=== PATIENT | male | born 1950 | race Caucasian/White ===

== ENCOUNTER 2021-04-07 08:30 | Emergency (ER) | payer MEDICARE, SELFPAY ==
--- NOTE | ~2021-04-07 | US_ITS ---
EXAMINATION: US VENOUS ULTRASOUND WITH DOPPLER LOWER EXTREMITY, RIGHT CLINICAL INFORMATION: Right foot and ankle pain. History of skin cancer. COMPARISON: None TECHNIQUE: Ultrasound of the deep veins is performed from the hip to the calf with compression sonography and color and pulse Doppler assessment. Spectral analysis with color-flow imaging is performed. FINDINGS: There is normal venous compression and respiratory variation and augmented flow. The visualized common femoral vein, superficial femoral vein, profunda femoral vein, popliteal vein, and the trifurcation region shows no evidence of deep venous thrombosis. There is no significant popliteal fossa cyst. If the patient's symptoms persist, followup ultrasound in 5 days 7 days might be of value to exclude proximal propagation from a non-visualized calf vein. US/US venous duplex LE RT IMPRESSION: No acute DVT demonstrated in the right lower extremity.
--- NOTE | ~2021-04-07 | XR_ITS ---
EXAMINATION: RIGHT FOOT AND RIGHT ANKLE CLINICAL INFORMATION: Trauma with pain and swelling COMPARISON: None TECHNIQUE: Three-view right foot and two-view right ankle FINDINGS: There is no evidence of acute fracture or dislocation of the right ankle. There is noted to be soft tissue swelling diffusely. There is no evidence of acute fracture or dislocation of the right foot. Soft tissue swelling is seen dorsally about the midfoot. XR/XR ankle RT min 3V IMPRESSION: No acute fracture or dislocation of the right ankle or foot. Soft tissue swelling.
--- NOTE | ~2021-04-07 | XR_ITS ---
EXAMINATION: RIGHT FOOT AND RIGHT ANKLE CLINICAL INFORMATION: Trauma with pain and swelling COMPARISON: None TECHNIQUE: Three-view right foot and two-view right ankle FINDINGS: There is no evidence of acute fracture or dislocation of the right ankle. There is noted to be soft tissue swelling diffusely. There is no evidence of acute fracture or dislocation of the right foot. Soft tissue swelling is seen dorsally about the midfoot. XR/XR foot RT min 3V IMPRESSION: No acute fracture or dislocation of the right ankle or foot. Soft tissue swelling.
[2021-04-07 09:06] VITALS: BP 153/77; PULSE 66; RESP 14; TEMP 36.6; O2SAT 100; BMI 21.4
--- NOTE | 2021-04-07 09:52 | ED.EXTPRO ---
HPI - Extremity Problem General Chief complaint: Extremity Injury, Lower Stated complaint: rt foot pain & swelling Time Seen by Provider: 04/07/21 08:44 Source: patient Mode of arrival: ambulatory Limitations: no limitations History of Present Illness HPI Narrative: 70-year-old male with a past medical history of neurogenic bladder, compression spine fracture to the thoracic spine, basal cell carcinoma who is status post surgery to the left ear on January 2021 presenting to the ED with complaints of atraumatic right ankle/foot pain/swelling with redness to the dorsal aspect of the right foot for the past 3 days. He reports that he does not recall any injuries to the site and he has not had any recent falls. He denies any dizziness, headaches, neck pain/stiffness, palpitations, nausea/vomiting, chest pain or shortness of breath, dyspnea on exertion, orthopnea, abdominal pain, back pain, dysuria, hematuria, black or bloody stools, recent travel or sick contacts, being on any blood thinners, history of DVT or PE, history of gout, history of immobilization such as traveling on a long plane/train/car ride, recent illness or PVD disease that he is aware of. He reports that he does not take any medications. He is pretty active walks at least 1 mile daily. Denies any additional complaints or concerns at this time. MD Complaint: extremity pain and extremity swelling Onset (ago): day(s) (Three days) Pain Consistency: constant Location: right and lower extremity (Ankle/foot) Quality: aching and constant Radiation: none Relieving factors: nothing Exacerbating factors: weight bearing, walking and palpation Associated symptoms: denies other symptoms Context: other (History of cancer and recent surgical procedure to left ear for basal cell carcinoma in January 2021) Related Data Previous Rx's Medication Instructions Recorded cephalexin 500 mg capsule 500 mg PO Q8H 10 Days #30 cap 04/07/21 doxycycline hyclate 100 mg tablet 100 mg PO BID 10 Days #20 tab 04/07/21 prednisone 20 mg tablet 20 mg PO DAILY 5 Days #5 tab 04/07/21 Allergies Allergy/AdvReac Type Severity Reaction Status Date / Time lactose [LACTOSE] Allergy Severe CRAMPING Unverified 02/17/20 15:35 soy [SOY] Allergy Severe CRAMPING Unverified 02/17/20 15:35 ANTIBIOTIC SENSITIVE Allergy Severe ABDOMINAL Uncoded 02/17/20 15:35 PAIN Review of Systems Review of Systems: Constitutional : No Weight loss, No Fever, No Chills, No Night Sweats, No Fatigue, No Malaise ENT/Mouth : No Hearing loss, No Ear Pain, No Nasal Congestion, No Sinus Pain, No Hoarseness, No sore throat, No Rhinorrhea, No Swallowing Difficulty Eyes: No Eye Pain, No Swelling, No Redness, No Foreign Body, No Discharge, No Vision Changes Cardiovascular : No Chest Pain, No SOB, No Dyspnea on Exertion, No Orthopnea, No Edema, No Palpitations Respiratory : No Cough, No Sputum, No Wheezing, No Smoke Exposure, No Dyspnea Gastrointestinal : No Nausea, No Vomiting, No Diarrhea, No Constipation, No abdominal Pain, No Hematochezia, No Melena Genitourinary : no irregular bleeding, No Dysuria, No Urinary Frequency, No Hematuria, No Urinary Incontinence, No Urgency, No Flank Pain, No Urinary Flow Changes, No Hesitancy Musculoskeletal : Right ankle/foot pain/swelling with mild redness to the right dorsal aspect of the right foot, No Myalgias Skin : No Skin Lesions, No rash Neuro : No Weakness, No Numbness, No Paresthesias, No Loss of Consciousness, No Dizziness, No Headache Psych : No Anxiety/Panic, No Depression, No SI/HI/AH/VH, No Social Issues, Heme/Lymph: No Bruising, No Bleeding,No Lymphadenopathy Endocrine : No Polyuria, No Polydipsia, No Temperature Intolerance Yes all other systems are reviewed and are negative [facility] Past Medical History Attestation statement: The following information was validated with the patient. Medical History Basal cell carcinoma Bunion Compressed spine fracture FH: mitral valve repair Neurogenic bladder Social History Social History Advance Directives: No Physical Exam Vital Signs: Vital Signs: Last Vital Signs Temp 97.9 F 04/07/21 09:06 Pulse 66 04/07/21 09:06 Resp 14 04/07/21 09:06 BP 153/77 H 04/07/21 09:06 Pulse Ox 100 04/07/21 09:06 Body Mass Index 21.4 vital signs have been reviewed as normal and appeared to be correct. Blood pressure normal. Heart rate normal. Respiration rate normal. Temperature normal. Oxygen saturation normal. Appearance: Alert. Oriented X3. No acute distress. Head: Normal external exam. Normocephalic. Atraumatic. Eyes: PERRLA. EOMI. Conjunctiva and sclera normal. Eyelids normal. ENT: Pharynx normal. Uvula midline. Moist mucous membranes. Neck: Normal inspection. Neck supple. FROM. No adenopathy. No meningeal signs. No neck mass noted. CVS: Normal heart rate and rhythm. Heart sound normal. Pulses normal throughout. No murmurs/rales/gallops. Respiratory: No respiratory distress. Painless inspiration. Breath sounds normal. No wheezes/rales/rhonchi noted. Chest nontender. No accessory muscle usage noted or decreased air movement noted. Back: Full range of motion noted. Skin: Skin warm and dry. Normal skin color. Normal skin turgor. No rashes/lesions/lacerations noted. Extremities: Patient with mild sinus all patient to the right ankle and the right foot at the medial and lateral aspect and dorsal aspect of the right foot. At the mid to distal aspect of the foot patient has mild erythema/calor. Patient does have full range of motion of the right foot and ankle. No obvious ligamentous or tendon injury. Patient does have right calf tenderness. No lower extremity edema is noted. Otherwise all other Extremities exhibit normal range of motion and nontender. Neuro: Oriented X 3. No motor deficit. No sensory deficit. Reflexes normal. Normal steady gait. No focal neuro deficits noted. Vascular: + radial pulses/+ 2 distal pedal pulses/+2 dorsalis pedis b/l. Normal cap refill. No cyanosis noted to upper extremity nails and lower extremity toes nails. Course Course Course Narrative: 9:10am - 70-year-old male with a past medical history of neurogenic bladder, compression spine fracture to the thoracic spine, basal cell carcinoma who is status post surgery to the left ear on January 2021 presenting to the ED with complaints of atraumatic right ankle/foot pain/swelling with redness to the dorsal aspect of the right foot for the past 3 days. Plan: X-ray of right ankle/foot and venous duplex ultrasound of right lower extremity to evaluate for DVT then re-evaluate. Reevaluation(s) Reevaluation #1: - venous duplex ultrasound of right lower extremity negative for DVT. Right ankle/foot x-ray negative for any acute processes only reveals soft tissue swelling. Therefore I discussed this case with Dr. Eric and she recommending putting him on a short course of steroids for possible gout and Keflex for possible cellulitic infection along with instructions to return if any new or worsening symptoms to follow up with primary care provider. Patient understands agrees with this plan. Time: 10:40 [facility] - Extremity (Nontraumatic) Medical Records Attestation: I reviewed the patient's medical records. Discharge Plan Discharge Clinical Impression: Cellulitis Patient Disposition: Home, Self-Care Instructions: Cellulitis (ED) Prescriptions: New cephalexin 500 mg capsule 500 mg PO Q8H 10 Days Qty: 30 RF: 0 doxycycline hyclate 100 mg tablet 100 mg PO BID 10 Days Qty: 20 RF: 0 prednisone 20 mg tablet 20 mg PO DAILY 5 Days Qty: 5 RF: 0 Referrals: Robbi Bowie MD [Primary Care Provider] - 2 days Print Language: Japanese
== END 2021-04-07 10:56 | disposition home or self-care (01) ==
PROVIDERS: Emergency Provider Emergency Medicine; PCP Internal Medicine
DX: L03.115 Cellulitis of right lower limb (principal); M79.604 Pain in right leg; R60.0 Localized edema; Z79.899 Other long term (current) drug therapy
CPT/HCPCS: 73610; 73630; 93971; 99283; 99284

== ENCOUNTER 2021-04-29 09:16 | Observation (INO) | payer MEDICARE, SELFPAY ==
[2021-04-29] VITALS (9 sets, daily range): BP systolic 127–165; BP diastolic 69–83; PULSE 61–71; RESP 15–20; TEMP 36.7–36.9; O2SAT 96–99; BMI 21.4
--- NOTE | ~2021-04-29 | CT_ITS ---
EXAMINATION: CT BRAIN AND CT CERVICAL SPINE WITHOUT CONTRAST. CLINICAL INFORMATION: Fall, syncope and neck pain. COMPARISON: None TECHNIQUE: 5 minutes thin axial and reformatted 2 minutes thin sagittal coronal images of brain were obtained without contrast. Subsequently axial 3 mm thin and reformatted 2 mm thin sagittal and coronal images of cervical spine were obtained. DLP 991 mGy/cm. FINDINGS: Brain: There is no acute intra-axial, extra-axial bleed, masses or midline shift. There is no acute infarction evolution. There is no edema. The nolasco to white matter difference is maintained normal. The lateral ventricles are symmetrical in size and configuration without enlargement. Bone windows reveal no calvarial abnormality. There is no scalp soft tissue abnormality. Bilateral paranasal sinuses and mastoid air cells are well-aerated. Cervical spine: There is maintained cervical lordosis. The vertebral heights and alignment is normal. There is loss of C2-C3 through C6-C7 disc heights with mild anterior posterior spondylosis. The craniovertebral junction and the C1-C2 alignment is normal. There is mild bilateral facet joint disease. No visible acute fracture, dislocation or subluxation seen. The prevertebral and paravertebral soft tissues are normal. The airway is widely patent. The thyroid lobes are symmetrical and normal. The lung apices are clear. CT/CT head/brain wo con IMPRESSION: No acute intracranial process seen. There are degenerative disc changes with spondylosis C2-C3 through C6-C7 disc levels with mild ventral and posterior spondylosis. No visible acute fracture, dislocation or subluxation seen.
--- NOTE | ~2021-04-29 | CT_ITS ---
EXAMINATION: CT BRAIN AND CT CERVICAL SPINE WITHOUT CONTRAST. CLINICAL INFORMATION: Fall, syncope and neck pain. COMPARISON: None TECHNIQUE: 5 minutes thin axial and reformatted 2 minutes thin sagittal coronal images of brain were obtained without contrast. Subsequently axial 3 mm thin and reformatted 2 mm thin sagittal and coronal images of cervical spine were obtained. DLP 991 mGy/cm. FINDINGS: Brain: There is no acute intra-axial, extra-axial bleed, masses or midline shift. There is no acute infarction evolution. There is no edema. The nolasco to white matter difference is maintained normal. The lateral ventricles are symmetrical in size and configuration without enlargement. Bone windows reveal no calvarial abnormality. There is no scalp soft tissue abnormality. Bilateral paranasal sinuses and mastoid air cells are well-aerated. Cervical spine: There is maintained cervical lordosis. The vertebral heights and alignment is normal. There is loss of C2-C3 through C6-C7 disc heights with mild anterior posterior spondylosis. The craniovertebral junction and the C1-C2 alignment is normal. There is mild bilateral facet joint disease. No visible acute fracture, dislocation or subluxation seen. The prevertebral and paravertebral soft tissues are normal. The airway is widely patent. The thyroid lobes are symmetrical and normal. The lung apices are clear. CT/CT cervical spine wo con IMPRESSION: No acute intracranial process seen. There are degenerative disc changes with spondylosis C2-C3 through C6-C7 disc levels with mild ventral and posterior spondylosis. No visible acute fracture, dislocation or subluxation seen.
--- NOTE | ~2021-04-29 | XR_ITS ---
EXAMINATION: XR CHEST CLINICAL INFORMATION: Syncope COMPARISON: None TECHNIQUE: Frontal view of the chest was obtained. FINDINGS: No significant abnormality is noted involving the heart, lungs, mediastinum, bony thorax or soft tissues. XR/XR chest 1V IMPRESSION: Unremarkable chest examination.
--- NOTE | 2021-04-29 09:41 | ECG_ITS ---
Test Reason : SYNCOPE Blood Pressure : / mmHG Vent. Rate : 067 BPM Atrial Rate : 067 BPM P-R Int : 252 ms QRS Dur : 090 ms QT Int : 416 ms P-R-T Axes : 000 033 052 degrees QTc Int : 439 ms Sinus rhythm with sinus arrhythmia with 1st degree A-V block RSR' or QR pattern in V1 suggests right ventricular conduction delay Borderline ECG T wave amplitude has decreased in Anterior leads Referred By: Bishnu Carrera Electronically Signed By:TEOFILO BEAVERS MD
--- NOTE | 2021-04-29 09:45 | ED_ITS ---
HPI - Syncope General Chief Complaint: Syncope Stated Complaint: fainted hit head Time Seen by Provider: 04/29/21 09:40 Source: patient Mode of arrival: ambulatory Limitations: no limitations History of Present Illness HPI narrative: 70-year-old male came in for evaluation of 1 episode of passing out. 70-year-old male who usually it to a self-catheterization due to neurogenic bladder, while he was self catheterizing patient passed out, do remember falling down, patient woke up found himself on the floor, complaining of pain on the left side of chest wall, pain with movement and taking deep breath or raising his arm up. Patient decline chest pain before falling. Patient is complaining of bleeding from old surgery (mass removal on his left ear). Patient had history of open-heart surgery of mitral valve prolapse repair 6 years ago. Related Data Home Medications Medication Instructions Recorded Confirmed ascorbic acid (vitamin C) 1,000 mg 1,000 mg PO DAILY 04/29/21 04/29/21 tablet cholecalciferol (vitamin D3) 50 50 mcg PO DAILY 04/29/21 04/29/21 mcg (2,000 unit) tablet (Vitamin D3) multivitamin 1 tab PO DAILY 04/29/21 04/29/21 Allergies Allergy/AdvReac Type Severity Reaction Status Date / Time lactose [LACTOSE] Allergy Severe CRAMPING Unverified 02/17/20 15:35 soy [SOY] Allergy Severe CRAMPING Unverified 02/17/20 15:35 ANTIBIOTIC SENSITIVE Allergy Severe ABDOMINAL Uncoded 02/17/20 15:35 PAIN Review of Systems Review of Systems: All other systems are reviewed and are negative Constitutional: Reports as per HPI and Reports no additional constitutional complaints Eyes: Reports as per HPI and Reports no additional eye complaints Reports system reviewed and no additional complaints, except as documented Cardiovascular: Reports as per HPI and Reports no additional cardiovascular complaints Respiratory: Reports as per HPI and Reports no additional respiratory complaints Gastrointestinal: Reports as per HPI and Reports no additional gastrointestinal complaints Genitourinary: Reports no additional female genitourinary complaints Musculoskeletal: Reports no additional musculoskeletal complaints Skin/Breast: Reports system reviewed and no additional complaints, except as doc u Psychiatric: Reports no additional psychiatric complaints Endocrine: Reports no additional endocrine complaints Hematologic/Lymphatic: Reports no additional hematologic/lymphatic complaints Allergic/Immunologic: Reports no additional allergic/immunologic complaints Reports system reviewed and no additional complaints, except as documented and Reports Abnormal speech present [facility] Past Medical History Medical History (Updated 04/29/21 @ 12:42 by Chet Pavon MD) Basal cell carcinoma Bunion Compressed spine fracture Mitral valve prolapse Neurogenic bladder Surgical History (Updated 04/29/21 @ 12:42 by Chet Pavon MD) S/P mitral valve repair Social History Social History Alcohol intake: never Patient Tobacco Use Status: Tobacco use Unknown Use of substances other than those prescribed or required for medical reasons: No Advance Directives: No Advance Directives Information Provided: No Physical Exam Vital Signs: Vital Signs: Last Vital Signs Temp 98.0 F 04/29/21 10:42 Pulse 61 04/29/21 10:42 Resp 20 04/29/21 10:42 BP 152/80 H 04/29/21 10:42 Pulse Ox 99 04/29/21 10:42 Body Mass Index 21.4 Vital signs have been reviewed as appeared to be correct. Blood pressure normal. Heart rate normal. Respiration rate normal. Temperature normal. Oxygen saturation normal. Appearance: Alert. Oriented X3. No acute distress. Head: Normal external exam. Normocephalic. Atraumatic. No Ward signs noted. No raccoon eyes noted Eyes: PERRLA. EOMI. Conjunctiva and sclera normal. Eyelids normal. ENT: TM's Normal. Pharynx normal. Uvula midline. Moist mucous membranes. No trismus noted. No drooling noted. No muffled voice noted. Superficial abrasion to the left ear with a dry blood. Neck: Normal inspection. Neck supple. FROM. No adenopathy. Thyroid Normal. No meningeal signs. No neck mass noted. CVS: Normal heart rate and rhythm. Heart sound normal. No murmurs noted. Pulses normal throughout. Respiratory: No respiratory distress. Painless inspiration. Breath sounds normal. No wheezes/rales/rhonchi noted. Chest nontender. No accessory muscle usage noted or decreased air movement noted. Abdomen: Soft and nontender. Bowel sounds normal in all 4 quadrants. No distention noted. No organomegaly noted. No visible injury noted. Back: No CVA tenderness. Full range of motion noted. Skin: Skin warm and dry. Normal skin color. Normal skin turgor. No rashes /lesions/lacerations noted. Extremities: No lower extremity edema. Extremities exhibit normal range of motion. Extremities nontender. Neuro: Oriented X 3. Cranial nerve exam: II-XII are grossly intact No motor deficit. No sensory deficit. Reflexes normal. Course Course Course Narrative: Assessment and plan. 70 years old male with history mitral valve repair by open hand surgery came in after a syncopal episode, patient has unremarkable labs and radiographic study today. Patient should be monitored for 24 hours the case discussed with the hospitalist. MDM - Syncope Medical Records Attestation: I reviewed the patient's medical records. Lab Data Attestation: I reviewed the patient's lab results. Result diagrams: 04/29/21 09:54 04/29/21 09:54 Labs: Lab Results 04/29/21 04/29/21 04/29/21 Range/Units 09:54 09:54 09:54 WBC 9.4 (4.8-10.8) X10*3/uL RBC 4.34 L (4.60-5.80) X10*6/uL Hgb 14.1 (14.0-18.0) g/dl Hct 41.9 L (42.0-52.0) % MCV 96.5 (80.0-98.0) fL MCH 32.5 (27.0-33.0) pg MCHC 33.7 (31.0-36.0) g/dl RDW 12.8 (11.0-16.0) % Plt Count 135 L (160-400) X10*3/uL MPV 12.4 (9.4-12.4) fL Immature Gran % (Auto) 0.3 (0.0-0.4) % Neut % (Auto) 80.3 H (45-73) % Lymph % (Auto) 10.9 L (20-40) % [place] % (Auto) 8.3 (2-11) % Eos % (Auto) 0.1 (0-4) % Baso % (Auto) 0.1 (0-2) % Lymph # (Auto) 1.0 L (1.2-4.9) X10*3/uL [place] # (Auto) 0.8 (0.1-1.2) X10*3/uL Eos # (Auto) 0.0 (0.0-0.4) X10*3/uL Baso # (Auto) 0.0 (0.0-0.2) X10*3/uL Abs Immat Gran (auto) 0.03 (0.00-0.03) X10*3/uL Absolute Neuts (auto) 7.6 (2.0-8.3) x10*3/uL Absolute Nucleated RBC 0.000 (0.0-0.012) X10*3/uL Nucleated RBC % (auto) 0.0 (0.0-0.2) /100WBC Sodium 140 (135-145) mmol/L Potassium 4.3 (3.3-5.1) mmol/L Chloride 104 (96-108) mmol/L Carbon Dioxide 29 (22-29) mmol/L Anion Gap 11 L (12-20) BUN 10 (9-16) mg/dL Creatinine 0.99 (0.5-1.4) mg/dL Estim Creat Clear Calc 68.5 Estimated GFR > 60 Random Glucose 105 (60-115) mg/dL Calcium 9.8 (8.4-10.2) mg/dL Total Bilirubin 0.9 (0.0-1.0) mg/dL Direct Bilirubin 0.3 (0.0-0.5) mg/dL AST 25 (5-37) U/L ALT 20 (0-40) U/L Alkaline Phosphatase 83 (39-117) U/L Troponin I High Sens < 3.5 (<3.5-35.0) ng/L B-Natriuretic Peptide 176 H (<100) pg/mL Total Protein 6.5 (6.5-8.0) g/dL Albumin 4.2 (3.5-5.0) g/dL Lipase 31 (8-78) U/L Urine Color Urine Appearance Urine pH (5.0-8.0) Ur Specific [place] (1.005-1.025) Urine Protein (NEG-TRACE) MG/DL Urine Glucose (UA) (NEG) MG/DL Urine Ketones (NEG) MG/DL Urine Blood (NEG) Urine Nitrite (NEG) Ur Leukocyte Esterase (NEG) Urine RBC (0) /HPF Urine WBC (0-4) /HPF Ur Squamous Epith Cells /LPF Urine Bacteria /LPF COVID-19 ([facility]) (Negative) COVID-19 Clin Com 04/29/21 04/29/21 Range/Units 09:54 11:35 WBC (4.8-10.8) X10*3/uL RBC (4.60-5.80) X10*6/uL Hgb (14.0-18.0) g/dl Hct (42.0-52.0) % MCV (80.0-98.0) fL MCH (27.0-33.0) pg MCHC (31.0-36.0) g/dl RDW (11.0-16.0) % Plt Count (160-400) X10*3/uL MPV (9.4-12.4) fL Immature Gran % (Auto) (0.0-0.4) % Neut % (Auto) (45-73) % Lymph % (Auto) (20-40) % [place] % (Auto) (2-11) % Eos % (Auto) (0-4) % Baso % (Auto) (0-2) % Lymph # (Auto) (1.2-4.9) X10*3/uL [place] # (Auto) (0.1-1.2) X10*3/uL Eos # (Auto) (0.0-0.4) X10*3/uL Baso # (Auto) (0.0-0.2) X10*3/uL Abs Immat Gran (auto) (0.00-0.03) X10*3/uL Absolute Neuts (auto) (2.0-8.3) x10*3/uL Absolute Nucleated RBC (0.0-0.012) X10*3/uL Nucleated RBC % (auto) (0.0-0.2) /100WBC Sodium (135-145) mmol/L Potassium (3.3-5.1) mmol/L Chloride (96-108) mmol/L Carbon Dioxide (22-29) mmol/L Anion Gap (12-20) BUN (9-16) mg/dL Creatinine (0.5-1.4) mg/dL Estim Creat Clear Calc Estimated GFR Random Glucose (60-115) mg/dL Calcium (8.4-10.2) mg/dL Total Bilirubin (0.0-1.0) mg/dL Direct Bilirubin (0.0-0.5) mg/dL AST (5-37) U/L ALT (0-40) U/L Alkaline Phosphatase (39-117) U/L Troponin I High Sens (<3.5-35.0) ng/L B-Natriuretic Peptide (<100) pg/mL Total Protein (6.5-8.0) g/dL Albumin (3.5-5.0) g/dL Lipase (8-78) U/L Urine Color STRAW Urine Appearance CLEAR Urine pH 7.0 (5.0-8.0) Ur Specific [place] <= 1.005 (1.005-1.025) Urine Protein NEG (NEG-TRACE) MG/DL Urine Glucose (UA) NEG (NEG) MG/DL Urine Ketones NEG (NEG) MG/DL Urine Blood 2+ H (NEG) Urine Nitrite NEG (NEG) Ur Leukocyte Esterase NEG (NEG) Urine RBC 5-9 H (0) /HPF Urine WBC 0 (0-4) /HPF Ur Squamous Epith Cells TRACE /LPF Urine Bacteria NONE /LPF COVID-19 ([facility]) Negative (Negative) COVID-19 Clin Com See Note Imaging Data CT scan - head: Attestation: I personally reviewed and interpreted this imaging study as follows: Radiologist's impression: No acute intracranial process seen. Cervical spine CT: Radiologist's impression: There are degenerative disc changes with spondylosis C2-C3 through C6-C7 disc levels with mild ventral and posterior spondylosis. No visible acute fracture, dislocation or subluxation seen. Chest x-ray: Attestation: I personally reviewed and interpreted this imaging study as follows: Radiologist's impression: Unremarkable chest examination. ECG Data Attestation: I personally reviewed and interpreted this ECG as follows: Interpretation: Normal sinus rhythm at 67 beats per minutes, was first-degree AV block, otherwise unremarkable intervals, no ST-T changes. Discharge Plan Discharge Clinical Impression: Syncope Patient Disposition: Admitted As Inpatient
[2021-04-29] MEDS: 0.9 % Sodium Chloride 1,000 ML 999 ML IVCONT (09:56)
[2021-04-29 09:59] LABS: MANUAL DIFF FLAG NO
[2021-04-29 10:07] LABS: Basophils Percent Auto 0.1 % (0-2); Eosinophils Percent Auto 0.1 % (0-4); Hematocrit 41.9 % (42.0-52.0); Hemoglobin 14.1 g/dl (14.0-18.0); Imm Gran Abs Auto 0.03 X10*3/uL (0.00-0.03); Imm Gran Pct Auto 0.3 % (0.0-0.4); Lymphocytes Percent Auto 10.9 % (20-40); Mean Corpuscular HGB Conc 33.7 g/dl (31.0-36.0); Mean Corpuscular Hemoglobin 32.5 pg (27.0-33.0); Mean Corpuscular Volume 96.5 fL (80.0-98.0); Mean Platelet Volume 12.4 fL (9.4-12.4); Monocytes Absolute Auto 0.8 X10*3/uL (0.1-1.2); Monocytes Percent Auto 8.3 % (2-11); Neutrophils Absolute Auto 7.6 x10*3/uL (2.0-8.3); Neutrophils Percent Auto 80.3 % (45-73); Platelet Count 135 X10*3/uL (160-400); Red Blood Count 4.34 X10*6/uL (4.60-5.80); Red Cell Distribution Width 12.8 % (11.0-16.0); White Blood Count 9.4 X10*3/uL (4.8-10.8)
--- NOTE | 2021-04-29 10:13 | PHA.MEDREC ---
Pharmacy Consult ? Medication Reconciliation Pharmacy has completed the medication reconciliation. Vernell SteinbergD
[2021-04-29 10:19] LABS: Alanine Aminotransferase 20 U/L (0-40); Albumin Level 4.2 g/dL (3.5-5.0); Alkaline Phosphatase 83 U/L (39-117); Anion Gap 11 (12-20); Aspartate Amino Transferase 25 U/L (5-37); Bilirubin Direct 0.3 mg/dL (0.0-0.5); Bilirubin Total 0.9 mg/dL (0.0-1.0); Blood Urea Nitrogen 10 mg/dL (9-16); Calcium 9.8 mg/dL (8.4-10.2); Carbon Dioxide 29 mmol/L (22-29); Chloride 104 mmol/L (96-108); Creatinine Clr Calc Pharmacy 68.5; Estimated Glomerular Filt Rate > 60; Glucose Random 105 mg/dL (60-115); Lipase 31 U/L (8-78); Potassium 4.3 mmol/L (3.3-5.1); Sodium 140 mmol/L (135-145); Total Protein 6.5 g/dL (6.5-8.0)
[2021-04-29 10:25] LABS: B Type Natriuretic Peptide 176 pg/mL (<100); Troponin-I High Sensitivity < 3.5 ng/L (<3.5-35.0)
[2021-04-29 10:50] LABS: COVID-19 Test Negative (Negative); IDNOW Serial# 9DD0AD1C
[2021-04-29 11:41] LABS: Appearance Urine CLEAR; Color Urine STRAW; Glucose Urine UA NEG (NEG); Leukocyte Esterase Urine NEG (NEG); Nitrite Urine NEG (NEG); Specific Gravity - Urine <= 1.005 (1.005-1.025); UACC Culture Trigger NO; Urine Blood 2+ (NEG); Urine Ketones NEG (NEG); Urine Protein NEG (NEG-TRACE)
[2021-04-29 12:06] LABS: Squamous Epithelial Cell Urine TRACE /LPF; WBC Urine 0 /HPF (0-4)
--- NOTE | 2021-04-29 13:12 | P.HPHOSP_ITS ---
History of Present Illness Date of Service: 04/29/21 Chief Complaint: Syncope 70-year-old male presented with syncope. Patient states he woke up on a.m. of admission and went to self-catheterize, patient self catheterizes for neurogenic bladder. he did feel a little off for the past few days, though he thought he was doing better about 2 days prior to presentation. During his self catheterization at 06:00 he completely lost consciousness. He fell on his face and left-sided chest. He woke up with a ocular migraine, no significant disorientation, no incontinence. He is not sure how long he lost consciousness for but believes it was brief. patient has history of mitral valve prolapse with severe mitral regurgitation, now status post repair. He also has Family history, a niece with mitral valve prolapse that had sudden cardiac . Review of Systems Review of Systems: Constitutional: Denies fever, denies Chills Eyes: denies blurry vision ENT: denies sore throat CVS: denies chest pain Respiratory: Denies dyspnea GI: no abdominal pain : denies dysuria MSK: denies neck pain Skin: denies rash Neuro: denies specific motor weakness Psych: denies suicidal ideation Endocrine: denies heat/cold intolerance Hematologic: denies easy bleeding Allergy: denies hives [facility] Medical History Basal cell carcinoma Bunion Compressed spine fracture Mitral valve prolapse Neurogenic bladder Family History (Updated 04/29/21 @ 13:15 by Chet Pavon MD) Other Mitral valve prolapse Pertinent family history: Multiple family members with monitor valve prolapse, Pain ease and mitral valve prolapse and of sudden cardiac . Surgical History S/P mitral valve repair Social History Alcohol intake: never Patient Tobacco Use Status: Tobacco use Unknown Use of substances other than those prescribed or required for medical reasons: No Advance Directives: No Advance Directives Information Provided: No Meds Allergies Allergy/AdvReac Type Severity Reaction Status Date / Time lactose [LACTOSE] Allergy Severe CRAMPING Unverified 02/17/20 15:35 soy [SOY] Allergy Severe CRAMPING Unverified 02/17/20 15:35 ANTIBIOTIC SENSITIVE Allergy Severe ABDOMINAL Uncoded 02/17/20 15:35 PAIN Active Medications: Current Medications Pharmacy Consult (Consult Rx Perform Med Rec) 1 each MISCELLANE ONCE PRN PRN Reason: Consult order Home Medications Medication Instructions Recorded Confirmed Last Taken Type ascorbic acid (vitamin C) 1,000 mg 1,000 mg PO DAILY 04/29/21 04/29/21 04/29/21 History tablet cholecalciferol (vitamin D3) 50 50 mcg PO DAILY 04/29/21 04/29/21 04/28/21 History mcg (2,000 unit) tablet (Vitamin D3) multivitamin 1 tab PO DAILY 04/29/21 04/29/21 04/28/21 History Physical Exam Vital Signs and Narrative: Vital Signs: Last Vital Signs Temp 98.0 F 04/29/21 10:42 Pulse 61 04/29/21 10:42 Resp 20 04/29/21 10:42 BP 152/80 H 04/29/21 10:42 Pulse Ox 99 04/29/21 10:42 Body Mass Index 21.4 General: no acute distress HEENT: left ear with dried blood (s/p basal cell excision, reopened after fall) Neck: normal to visual inspection CVS: S1, S2, RRR Resp: CTA bilateral Chest: non tender, sternal scar GI: soft, non tender, non distended : no CVA tenderness Skin: no rashes Extremities: no edema Neuro: Oriented X3, grossly intact Psych: cooperative Results Labs CBC and Chem 7: 04/29/21 09:54 04/29/21 09:54 Labs: Laboratory Results - last 24 hr 04/29/21 04/29/21 04/29/21 09:54 09:54 09:54 MCV 96.5 MCH 32.5 MCHC 33.7 RDW 12.8 Plt Count 135 L MPV 12.4 Immature Gran % (Auto) 0.3 Neut % (Auto) 80.3 H Lymph % (Auto) 10.9 L [place] % (Auto) 8.3 Eos % (Auto) 0.1 Baso % (Auto) 0.1 Lymph # (Auto) 1.0 L [place] # (Auto) 0.8 Eos # (Auto) 0.0 Baso # (Auto) 0.0 Abs Immat Gran (auto) 0.03 Absolute Neuts (auto) 7.6 Absolute Nucleated RBC 0.000 Nucleated RBC % (auto) 0.0 Anion Gap 11 L Estim Creat Clear Calc 68.5 Estimated GFR > 60 Random Glucose 105 Calcium 9.8 Total Bilirubin 0.9 Direct Bilirubin 0.3 AST 25 ALT 20 Alkaline Phosphatase 83 Troponin I High Sens < 3.5 B-Natriuretic Peptide 176 H Total Protein 6.5 Albumin 4.2 Lipase 31 Urine Color Urine Appearance Urine pH Ur Specific [place] Urine Protein Urine Glucose (UA) Urine Ketones Urine Blood Urine Nitrite Ur Leukocyte Esterase Urine RBC Urine WBC Ur Squamous Epith Cells Urine Bacteria COVID-19 ([facility]) COVID-19 Clin Com 04/29/21 04/29/21 09:54 11:35 MCV MCH MCHC RDW Plt Count MPV Immature Gran % (Auto) Neut % (Auto) Lymph % (Auto) [place] % (Auto) Eos % (Auto) Baso % (Auto) Lymph # (Auto) [place] # (Auto) Eos # (Auto) Baso # (Auto) Abs Immat Gran (auto) Absolute Neuts (auto) Absolute Nucleated RBC Nucleated RBC % (auto) Anion Gap Estim Creat Clear Calc Estimated GFR Random Glucose Calcium Total Bilirubin Direct Bilirubin AST ALT Alkaline Phosphatase Troponin I High Sens B-Natriuretic Peptide Total Protein Albumin Lipase Urine Color STRAW Urine Appearance CLEAR Urine pH 7.0 Ur Specific [place] <= 1.005 Urine Protein NEG Urine Glucose (UA) NEG Urine Ketones NEG Urine Blood 2+ H Urine Nitrite NEG Ur Leukocyte Esterase NEG Urine RBC 5-9 H Urine WBC 0 Ur Squamous Epith Cells TRACE Urine Bacteria NONE COVID-19 ([facility]) Negative COVID-19 Clin Com See Note Imaging Radiologist's Impressions: Impressions Cervical Spine CT 04/29/21 09:41 IMPRESSION: No acute intracranial process seen. There are degenerative disc changes with spondylosis C2-C3 through C6-C7 disc levels with mild ventral and posterior spondylosis. No visible acute fracture, dislocation or subluxation seen. Chest X-Ray 04/29/21 09:41 IMPRESSION: Unremarkable chest examination. Head CT 04/29/21 09:41 IMPRESSION: No acute intracranial process seen. There are degenerative disc changes with spondylosis C2-C3 through C6-C7 disc levels with mild ventral and posterior spondylosis. No visible acute fracture, dislocation or subluxation seen. Assessment and Plan (1) Syncope: Status: Acute 70 presented with syncope Syncope likely vasovagal given self catheterization however, patient is high risk for arrhythmia due to history of mitral valve prolapse and repair and family history of sudden cardiac will monitor on telemetry cardiology evaluation Quality Stroke Does the patient have a stroke diagnosis?: No VTE Prior VTE?: No VTE Risk Level:: Medical - moderate - high VTE Device Contraindication: Treatment Not Indicated VTE Drug Contraindication: N/A - Med Ordered
[2021-04-29] MEDS: Enoxaparin Sodium 40 MG/0.4 ML SYRINGE SUBCUT (13:31)
[2021-04-29] MEDS: Acetaminophen 325 MG TABLET 650 MG PO (13:31)
--- NOTE | 2021-04-29 14:03 | MHC.CM.PN ---
Met with pt to discuss d/c plans: pt resides alone, no services and independent with care needs - states he receives mail delivered self cath supplies: HCP on file with PCP per pt. NICOLE signed - [place] [facility] [place].
[2021-04-30 06:37] LABS: Hematocrit 40.1 % (42.0-52.0); Hemoglobin 13.4 g/dl (14.0-18.0); Mean Corpuscular HGB Conc 33.4 g/dl (31.0-36.0); Mean Corpuscular Hemoglobin 32.1 pg (27.0-33.0); Mean Corpuscular Volume 96.2 fL (80.0-98.0); Mean Platelet Volume 12.9 fL (9.4-12.4); Platelet Count 131 X10*3/uL (160-400); Red Blood Count 4.17 X10*6/uL (4.60-5.80); Red Cell Distribution Width 13.1 % (11.0-16.0); White Blood Count 5.4 X10*3/uL (4.8-10.8)
[2021-04-30 06:52] LABS: Anion Gap 11 (12-20); Blood Urea Nitrogen 9 mg/dL (9-16); Calcium 8.8 mg/dL (8.4-10.2); Carbon Dioxide 26 mmol/L (22-29); Chloride 108 mmol/L (96-108); Creatinine Clr Calc Pharmacy 85.9; Estimated Glomerular Filt Rate > 60; Glucose Fasting 95 mg/dL (60-99); Magnesium 2.2 mg/dL (1.6-2.6); Potassium 3.5 mmol/L (3.3-5.1); Sodium 141 mmol/L (135-145)
--- NOTE | 2021-04-30 09:41 | P.DS_ITS ---
DS: Providers Provider Date of Service: 04/30/21 Date of admission: 04/29/21 13:11 Primary care physician: Robbi Bowie MD Consults: 04/29/21 13:05 Consult to Cardiology Routine Consulting Provider: Pablo Alaniz Reason for consultation: syncope, history of MV repair, FH of sudden cardiac , DS: Diagnosis Discharge Diagnosis (1) Syncope: Status: Acute DS: Summary Hospital Course Hospital Course: patient was observed for syncope. He had no events recorded on telemetry. Most likely this was vasovagal, though arrhythmia cannot be ruled out given history. He will be discharged home and should follow up with his patient assessment coordinator. Time Spent with Patient Time attestation: Total time spent providing and/or coordinating discharge services: Discharge coordination time: Greater than 30 minutes Quality: Stroke Does the patient have a stroke diagnosis?: No Physical Exam Vital Signs: Vital Signs: Last Vital Signs Temp 98.3 F 04/29/21 20:31 Pulse 71 04/29/21 20:31 Resp 20 04/29/21 20:31 BP 127/71 04/29/21 20:31 Pulse Ox 96 04/29/21 20:31 Body Mass Index 21.4 General: AO X 3, no acute distress Resp: CTA bilateral, no accessory muscles used CVS: S1,S2,RRR GI: soft, non tender, non distended Neuro: motor grossly intact, alert Psych: appropriate affect, appropriate insight DS: Data Data Completed and Pending Labs on day of discharge: Laboratory Results - last 24 hr 04/29/21 04/29/21 04/29/21 09:54 09:54 09:54 WBC 9.4 RBC 4.34 L Hgb 14.1 Hct 41.9 L MCV 96.5 MCH 32.5 MCHC 33.7 RDW 12.8 Plt Count 135 L MPV 12.4 Immature Gran % (Auto) 0.3 Neut % (Auto) 80.3 H Lymph % (Auto) 10.9 L [place] % (Auto) 8.3 Eos % (Auto) 0.1 Baso % (Auto) 0.1 Lymph # (Auto) 1.0 L [place] # (Auto) 0.8 Eos # (Auto) 0.0 Baso # (Auto) 0.0 Abs Immat Gran (auto) 0.03 Absolute Neuts (auto) 7.6 Absolute Nucleated RBC 0.000 Nucleated RBC % (auto) 0.0 Sodium 140 Potassium 4.3 Chloride 104 Carbon Dioxide 29 Anion Gap 11 L BUN 10 Creatinine 0.99 Estim Creat Clear Calc 68.5 Estimated GFR > 60 Random Glucose 105 Fasting Glucose Calcium 9.8 Magnesium Total Bilirubin 0.9 Direct Bilirubin 0.3 AST 25 ALT 20 Alkaline Phosphatase 83 Troponin I High Sens < 3.5 B-Natriuretic Peptide 176 H Total Protein 6.5 Albumin 4.2 Lipase 31 Urine Color Urine Appearance Urine pH Ur Specific [place] Urine Protein Urine Glucose (UA) Urine Ketones Urine Blood Urine Nitrite Ur Leukocyte Esterase Urine RBC Urine WBC Ur Squamous Epith Cells Urine Bacteria COVID-19 ([facility]) COVID-19 Clin Com 04/29/21 04/29/21 04/30/21 09:54 11:35 06:16 WBC 5.4 RBC 4.17 L Hgb 13.4 L Hct 40.1 L MCV 96.2 MCH 32.1 MCHC 33.4 RDW 13.1 Plt Count 131 L MPV 12.9 H Immature Gran % (Auto) Neut % (Auto) Lymph % (Auto) [place] % (Auto) Eos % (Auto) Baso % (Auto) Lymph # (Auto) [place] # (Auto) Eos # (Auto) Baso # (Auto) Abs Immat Gran (auto) Absolute Neuts (auto) Absolute Nucleated RBC 0.000 Nucleated RBC % (auto) 0.0 Sodium Potassium Chloride Carbon Dioxide Anion Gap BUN Creatinine Estim Creat Clear Calc Estimated GFR Random Glucose Fasting Glucose Calcium Magnesium Total Bilirubin Direct Bilirubin AST ALT Alkaline Phosphatase Troponin I High Sens B-Natriuretic Peptide Total Protein Albumin Lipase Urine Color STRAW Urine Appearance CLEAR Urine pH 7.0 Ur Specific [place] <= 1.005 Urine Protein NEG Urine Glucose (UA) NEG Urine Ketones NEG Urine Blood 2+ H Urine Nitrite NEG Ur Leukocyte Esterase NEG Urine RBC 5-9 H Urine WBC 0 Ur Squamous Epith Cells TRACE Urine Bacteria NONE COVID-19 ([facility]) Negative COVID-19 Clin Com See Note 04/30/21 06:16 WBC RBC Hgb Hct MCV MCH MCHC RDW Plt Count MPV Immature Gran % (Auto) Neut % (Auto) Lymph % (Auto) [place] % (Auto) Eos % (Auto) Baso % (Auto) Lymph # (Auto) [place] # (Auto) Eos # (Auto) Baso # (Auto) Abs Immat Gran (auto) Absolute Neuts (auto) Absolute Nucleated RBC Nucleated RBC % (auto) Sodium 141 Potassium 3.5 Chloride 108 Carbon Dioxide 26 Anion Gap 11 L BUN 9 Creatinine 0.79 Estim Creat Clear Calc 85.9 Estimated GFR > 60 Random Glucose Fasting Glucose 95 Calcium 8.8 D Magnesium 2.2 Total Bilirubin Direct Bilirubin AST ALT Alkaline Phosphatase Troponin I High Sens B-Natriuretic Peptide Total Protein Albumin Lipase Urine Color Urine Appearance Urine pH Ur Specific [place] Urine Protein Urine Glucose (UA) Urine Ketones Urine Blood Urine Nitrite Ur Leukocyte Esterase Urine RBC Urine WBC Ur Squamous Epith Cells Urine Bacteria COVID-19 ([facility]) COVID-19 Clin Com Discharge Plan Discharge Patient Disposition: Home, Self-Care Discharge Diagnosis: syncope Referrals: Robbi Bowie MD [Primary Care Provider] - 1 Week Discharge Medications: Continued multivitamin Tablet 1 tab PO DAILY RF: 0 ascorbic acid (vitamin C) 1,000 mg Tablet 1,000 mg PO DAILY RF: 0 cholecalciferol (vitamin D3) [Vitamin D3] 50 mcg (2,000 unit) Tablet 50 mcg PO DAILY RF: 0 Discharge Orders: Discharge Order (Routine); Ordered 04/30/21 Ordered By: Chet Pavon Diet: advance to usual diet Activity on Discharge: As tolerated Stand Alone Forms: Patient Portal Discharge page Care Plan Goals: avoid syncope Health Concerns: syncope Plan of Treatment: follow-up with Cardiology Assessment: see above
--- NOTE | 2021-04-30 10:00 | MHC.CM.PN ---
PT BEING DISCHARGED HOME TODAY WITH NO SERVICES PT WILL TAKE THE SHUTTLE HOME AND IS AWARE IT WILL BE LEAVING AT 1100 HOURS.
--- NOTE | 2021-04-30 10:03 | P.CONCA_ITS ---
History of Present Illness History of Present Illness Date of Service: 04/30/21 Chief complaint: syncope Narrative: This is a cardiology consultation regarding syncopal episode. Patient normally sees . He states that he has a history of mitral regurgitation for which she underwent repair about 5-6 years ago. Has been doing recently well in that regard. Unknown coronary status. He states that he had a hernia surgery few years ago and that led to neurogenic bladder. Hence he needs to straight cath himself. He was standing and doing a straight cath and that was followed by waking up on the floor. Not clear as to how he fell. No warning signs. He states he checked his pulse immediately after the episode and he did not know the actual number but felt it was not to slower too fast. He thought he might be in atrial fibrillation as he had a few episodes over years but then for based on his pulse rate did not think so. No other complaints like angina or shortness of breath or anything else. Now he feels back to his normal self. Otherwise, patient states that he had a head cold in the last few days. Review of Systems Review of Systems: Yes all other systems are reviewed and are negative Cardiovascular: Cardiovascular: Reports as per HPI, Reports no additional cardiovascular complaints, Denies acrocyanosis, Denies cool extremities, Denies painful fingertips, Denies chest pain, Denies chest pain at rest, Denies diaphoresis, Reports syncope, Denies irregular heart rhythm, Denies claudication, Denies leg edema, Denies lightheadedness, Denies palpitations and Denies dyspnea Respiratory: Respiratory: Denies dyspnea Neurologic: Reports syncope Endocrine: Endocrine: Denies palpitations [facility] Past Medical History Medical History Basal cell carcinoma Bunion Compressed spine fracture Mitral valve prolapse Neurogenic bladder Family History Family History (Updated 04/29/21 @ 13:16 by Chet Pavon MD) Other Mitral valve prolapse Pertinent family history: Sudden cardiac in aneudy at age of 13, who had long QT syndrome. Surgical History Surgical History S/P mitral valve repair Social History Social History Alcohol intake: never Patient Tobacco Use Status: Tobacco use Unknown Use of substances other than those prescribed or required for medical reasons: No Advance Directives: No Advance Directives Information Provided: No service: No Current occupational status: retired Meds Allergies Allergy/AdvReac Type Severity Reaction Status Date / Time lactose [LACTOSE] Allergy Severe CRAMPING Verified 04/30/21 00:28 soy [SOY] Allergy Severe CRAMPING Verified 04/30/21 00:28 ANTIBIOTIC SENSITIVE Allergy Severe ABDOMINAL Uncoded 04/30/21 00:28 PAIN Active Medications: Current Medications Acetaminophen (Acetaminophen 325 Mg Tablet) 650 mg PO Q6H PRN PRN Reason: Pain, Mild (Pain Scale 1-3) Enoxaparin Sodium (Enoxaparin Sodium 40 Mg/0.4 Ml Syringe) 40 mg SUBCUT Q24H [facility] Last Admin: 04/29/21 13:31 Dose: 40 mg Documented by: Pharmacy Consult (Consult Rx Perform Med Rec) 1 each MISCELLANE ONCE PRN PRN Reason: Consult order Sodium Chloride (0.9 % Sodium Chloride Flush 3 Ml Syringe) 3 ml IVFLUSH QSHIFT [facility] Last Admin: 04/30/21 08:28 Dose: Not Given Documented by: Home Medications Medication Instructions Recorded Confirmed Last Taken Type ascorbic acid (vitamin C) 1,000 mg 1,000 mg PO DAILY 04/29/21 04/29/21 04/29/21 History tablet cholecalciferol (vitamin D3) 50 50 mcg PO DAILY 04/29/21 04/29/21 04/28/21 History mcg (2,000 unit) tablet (Vitamin D3) multivitamin 1 tab PO DAILY 04/29/21 04/29/21 04/28/21 History Physical Exam Vital Signs: Vital Signs: Last Vital Signs Temp 98.3 F 04/29/21 20:31 Pulse 71 04/29/21 20:31 Resp 20 04/29/21 20:31 BP 127/71 04/29/21 20:31 Pulse Ox 96 04/29/21 20:31 Body Mass Index 21.4 Const: General: cooperative and no acute distress HENMT: Other: Unremarkable Neck: Neck: Yes normal visual inspection Chest: Chest palpation & inspection: normal inspection of the chest Resp: Auscultation: clear to auscultation bilaterally, no crackles and no wheezes Cardio: Jugular venous distension: no JVD Palpation: normal PMI Heart sounds: S1 normal heart sound present, S2 normal heart sound present, no gallops, no murmurs and no rubs GI: Palpation (GI): Soft to palpation Back/Spine/Pelvis: Other: unremarkable Skin: General skin exam: no rashes or lesions noted Neuro: Cranial nerves: Yes Other cranial nerve findings present Extrem: General: Yes no clubbing, cyanosis or edema Psych: Mental Status: other Objective Labs and Meds Result diagrams: 04/30/21 06:16 04/30/21 06:16 Lab results: Laboratory Results - last 24 hr 04/29/21 04/29/21 04/29/21 09:54 09:54 09:54 WBC 9.4 RBC 4.34 L Hgb 14.1 Hct 41.9 L MCV 96.5 MCH 32.5 MCHC 33.7 RDW 12.8 Plt Count 135 L MPV 12.4 Immature Gran % (Auto) 0.3 Neut % (Auto) 80.3 H Lymph % (Auto) 10.9 L [place] % (Auto) 8.3 Eos % (Auto) 0.1 Baso % (Auto) 0.1 Lymph # (Auto) 1.0 L [place] # (Auto) 0.8 Eos # (Auto) 0.0 Baso # (Auto) 0.0 Abs Immat Gran (auto) 0.03 Absolute Neuts (auto) 7.6 Absolute Nucleated RBC 0.000 Nucleated RBC % (auto) 0.0 Sodium 140 Potassium 4.3 Chloride 104 Carbon Dioxide 29 Anion Gap 11 L BUN 10 Creatinine 0.99 Estim Creat Clear Calc 68.5 Estimated GFR > 60 Random Glucose 105 Fasting Glucose Calcium 9.8 Magnesium Total Bilirubin 0.9 Direct Bilirubin 0.3 AST 25 ALT 20 Alkaline Phosphatase 83 Troponin I High Sens < 3.5 B-Natriuretic Peptide 176 H Total Protein 6.5 Albumin 4.2 Lipase 31 Urine Color Urine Appearance Urine pH Ur Specific [place] Urine Protein Urine Glucose (UA) Urine Ketones Urine Blood Urine Nitrite Ur Leukocyte Esterase Urine RBC Urine WBC Ur Squamous Epith Cells Urine Bacteria COVID-19 ([facility]) COVID-19 Clin Com 04/29/21 04/29/21 04/30/21 09:54 11:35 06:16 WBC 5.4 RBC 4.17 L Hgb 13.4 L Hct 40.1 L MCV 96.2 MCH 32.1 MCHC 33.4 RDW 13.1 Plt Count 131 L MPV 12.9 H Immature Gran % (Auto) Neut % (Auto) Lymph % (Auto) [place] % (Auto) Eos % (Auto) Baso % (Auto) Lymph # (Auto) [place] # (Auto) Eos # (Auto) Baso # (Auto) Abs Immat Gran (auto) Absolute Neuts (auto) Absolute Nucleated RBC 0.000 Nucleated RBC % (auto) 0.0 Sodium Potassium Chloride Carbon Dioxide Anion Gap BUN Creatinine Estim Creat Clear Calc Estimated GFR Random Glucose Fasting Glucose Calcium Magnesium Total Bilirubin Direct Bilirubin AST ALT Alkaline Phosphatase Troponin I High Sens B-Natriuretic Peptide Total Protein Albumin Lipase Urine Color STRAW Urine Appearance CLEAR Urine pH 7.0 Ur Specific [place] <= 1.005 Urine Protein NEG Urine Glucose (UA) NEG Urine Ketones NEG Urine Blood 2+ H Urine Nitrite NEG Ur Leukocyte Esterase NEG Urine RBC 5-9 H Urine WBC 0 Ur Squamous Epith Cells TRACE Urine Bacteria NONE COVID-19 ([facility]) Negative COVID-19 Clin Com See Note 04/30/21 06:16 WBC RBC Hgb Hct MCV MCH MCHC RDW Plt Count MPV Immature Gran % (Auto) Neut % (Auto) Lymph % (Auto) [place] % (Auto) Eos % (Auto) Baso % (Auto) Lymph # (Auto) [place] # (Auto) Eos # (Auto) Baso # (Auto) Abs Immat Gran (auto) Absolute Neuts (auto) Absolute Nucleated RBC Nucleated RBC % (auto) Sodium 141 Potassium 3.5 Chloride 108 Carbon Dioxide 26 Anion Gap 11 L BUN 9 Creatinine 0.79 Estim Creat Clear Calc 85.9 Estimated GFR > 60 Random Glucose Fasting Glucose 95 Calcium 8.8 D Magnesium 2.2 Total Bilirubin Direct Bilirubin AST ALT Alkaline Phosphatase Troponin I High Sens B-Natriuretic Peptide Total Protein Albumin Lipase Urine Color Urine Appearance Urine pH Ur Specific [place] Urine Protein Urine Glucose (UA) Urine Ketones Urine Blood Urine Nitrite Ur Leukocyte Esterase Urine RBC Urine WBC Ur Squamous Epith Cells Urine Bacteria COVID-19 ([facility]) COVID-19 Clin Com ECG Interpretation: EKG with sinus rhythm at 67/Min with prolonged IN at 252 milliseconds; cannot exclude old anteroseptal infarct. Normal QTc. Compared to EKG from 2017, there is further IN prolongation. Imaging Radiologist's impression: Impressions Cervical Spine CT 04/29/21 09:41 IMPRESSION: No acute intracranial process seen. There are degenerative disc changes with spondylosis C2-C3 through C6-C7 disc levels with mild ventral and posterior spondylosis. No visible acute fracture, dislocation or subluxation seen. Chest X-Ray 04/29/21 09:41 IMPRESSION: Unremarkable chest examination. Head CT 04/29/21 09:41 IMPRESSION: No acute intracranial process seen. There are degenerative disc changes with spondylosis C2-C3 through C6-C7 disc levels with mild ventral and posterior spondylosis. No visible acute fracture, dislocation or subluxation seen. Assessment and Plan (1) Syncope: Status: Acute (2) First degree heart block by electrocardiogram: Status: Acute Episode of syncope while doing straight catheterization of urinary bladder; recent head cold symptoms; EKG showing first-degree heart block but nothing more advanced; not on telemetry in the emergency room. Recent echocardiogram from his own [employer] operator reviewed and shows hyperdynamic LVEF with only mild mitral regurgitation/stenosis and otherwise unremarkable. Overall, symptoms possibly from vasovagal episode. Doubt anything like advanced heart block but could potentially do outpatient monitoring for that. He would like to get discharged as he is unable to straight cath in the hospital. 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 If recurrent symptoms or other concerns, advised to come back. Procedures Date of Service Date of Service: 04/30/21
== END 2021-04-30 10:41 | disposition home or self-care (01) ==
LOC: HO.ED 12:31 → HO.EDOVER 13:15
PROVIDERS: Admitting Provider Internal Medicine; Emergency Provider Emergency Medicine; PCP Internal Medicine; Visit Provider Internal Medicine
DX: R55 Syncope and collapse (principal); M54.2 Cervicalgia; I44.0 Atrioventricular block, first degree; Z20.822 Contact with and (suspected) exposure to COVID-19; Z91.81 History of falling; Z95.2 Presence of prosthetic heart valve; Z88.1 Allergy status to other antibiotic agents; Z91.02 Food additives allergy status; Z91.011 Allergy to milk products; Z79.899 Other long term (current) drug therapy; Z82.41 Family history of sudden cardiac death
CPT/HCPCS: 36415; 70450; 71045; 72125; 80048; 80076; 81001; 83690; 83735; 83880; 84484; 85025; 85027; 87635; 93005; 96360; 96361; 96372; 99205; 99219; 99285; J1650

== ENCOUNTER 2022-04-24 18:11 | Emergency (ER) | payer OTHER, MEDICARE, SELFPAY ==
[2022-04-24 18:16] VITALS: BP 167/55; PULSE 64; RESP 20; TEMP 36.4; O2SAT 100; BMI 20.9
[2022-04-24 18:33] LABS: Strep A Nucleic Acid Negative (Negative)
--- NOTE | 2022-04-24 19:05 | ED_ITS ---
HPI - URI/Sore Throat General Chief Complaint: Upper Respiratory Symptoms Stated Complaint: strep throat? Time Seen by Provider: 04/24/22 19:04 Source: patient Mode of arrival: ambulatory History of Present Illness HPI Narrative: 71-year-old male with a past medical history of basal cell carcinoma, mitral valve prolapse, neurogenic bladder, presenting to the ED complaining of sore throat and painful swallowing x2 days also with associated ear discomfort. Reports generalized fatigue/lethargy a few days ago. Denies fever, chills, inability to swallow, cough, CP/SOB, ear discharge, hearing loss MD elicited complaint: sore throat Onset (ago): day(s) Related Data Home Medications Medication Instructions Recorded Confirmed ascorbic acid (vitamin C) 1,000 mg 1,000 mg PO DAILY 04/29/21 04/29/21 tablet cholecalciferol (vitamin D3) 50 50 mcg PO DAILY 04/29/21 04/29/21 mcg (2,000 unit) tablet (Vitamin D3) multivitamin 1 tab PO DAILY 04/29/21 04/29/21 Allergies Allergy/AdvReac Type Severity Reaction Status Date / Time lactose [LACTOSE] Allergy Severe CRAMPING Verified 04/30/21 00:28 soy [SOY] Allergy Severe CRAMPING Verified 04/30/21 00:28 ciprofloxacin Allergy Anaphylaxis Verified 04/24/22 19:20 ANTIBIOTIC SENSITIVE Allergy Severe ABDOMINAL Uncoded 04/30/21 00:28 PAIN Review of Systems Review of Systems: Constitutional: No Fever, No Chills ENT/Mouth: No Ear Pain, No Nasal Congestion, No Sinus Pain, No Hoarseness, + sore throat, + Rhinorrhea, No Swallowing Difficulty Cardiovascular: No Chest Pain, No SOB Respiratory: No Cough, No Sputum, No Wheezing Gastrointestinal: No Nausea, No Vomiting, No Diarrhea, No Constipation, No Abdominal pain Genitourinary: No Dysuria, No Urinary Frequency, No Hematuria, No Flank Pain Musculoskeletal: No joint pain, No Myalgias, No Joint Swelling Skin: No Skin Lesions, No rash Neuro: No Weakness Yes all other systems are reviewed and are negative Constitutional: Constitutional: Reports as per [facility] Past Medical History Attestation statement: The following information was validated with the patient. Medical History Basal cell carcinoma Bunion Compressed spine fracture Mitral valve prolapse Neurogenic bladder Surgical History S/P mitral valve repair Family History Family History Other Mitral valve prolapse Social History Social History Alcohol intake: never Patient Tobacco Use Status: Tobacco use Unknown Advance Directives: No service: No Current occupational status: retired Physical Exam Vital Signs: Vital Signs: Last Vital Signs Temp 98.1 F 04/24/22 20:14 Pulse 58 04/24/22 20:14 Resp 16 04/24/22 20:14 BP 151/81 H 04/24/22 20:14 Pulse Ox 97 04/24/22 20:14 O2 Del Method 04/24/22 20:14 BMI result Body Mass Index 20.9 Const: General: cooperative, healthy appearing and no acute distress Orientation/consciousness: patient oriented x3 Limitations: no limitations HEENT: Head: Yes normal to inspection and Yes atraumatic Ears: hearing grossly normal bilaterally, external ears normal, TM's normal bilaterally and mastoids normal General nose exam: Normal external nose present Face and sinus: Yes normal facial exam Mouth: no drooling Throat: Yes uvula midline, Yes posterior oropharynx abnormal (+ white exudate noted in posterior oropharynx/uvula), No uvula laterally displaced and No uvular edema Eyes: General: appearance normal, both eyes and all related structures EOM: EOMs intact bilaterally Neck: Other: + bilateral submandibular lymphadenopathy Neck: Yes normal visual inspection and Yes no meningeal signs Resp: Effort & Inspection: normal respiratory effort, no grunting, not labored, no respiratory distress and no stridor Auscultation: clear to auscultation bilaterally and no wheezes Cardio: Rate: regular rate Heart sounds: S1 normal heart sound present and S2 normal heart sound present Skin: Rashes: no rashes Wounds: no wounds Neuro: General: patient oriented x3, tone normal and no meningeal signs Gait exam (Neuro): Normal gait present Extrem: General: Yes normal to inspection Course Course Course Narrative: -rapid strep negative. COVID-19/influenza/RSV negative. Results discussed with patient including worrisome signs and symptoms and strict return precautions, and when to return to the emergency department. They verbalized understanding and feel safe for discharge at this time. Medications Administered Discontinued Medications Generic Name Dose Route Start Last Admin Trade Name Suzette PRN Reason Stop Dose Admin Amoxicillin/Clavulanate Potassium 875 mg 04/24/22 19:13 04/24/22 19:22 Amoxicillin/Potassium Clav 875 Mg Tablet PO 04/24/22 19:14 875 mg ONCE ONE Administration Lidocaine HCl 5 ml 04/24/22 19:22 04/24/22 20:09 Lidocaine Hcl Viscous 2 % 15 Ml Solution MUCOUS MEM 04/24/22 19:23 5 ml ONCE ONE Administration MDM - URI/Sore Throat MDM Narrative Medical decision making narrative: 71-year-old male with a past medical history of basal cell carcinoma, mitral valve prolapse, neurogenic bladder, presenting to the ED complaining of sore throat and painful swallowing x2 days also with associated ear discomfort. On exam vital signs stable, NAD, nontoxic appearing, afebrile, posterior or pharyngeal exudate noted with sub mandibular lymphadenopathy. Uvula midline, no evidence of [employer]. No stridor. No respiratory distress Concern for strep pharyngitis vs viral syndrome. Plan: COVID-19/influenza/RSV testing, rapid strep Differential Diagnosis Differential diagnosis: Likely upper respiratory infection, viral infection, influenza and pharyngitis Medical Records Attestation: I reviewed the patient's medical records. Lab Data Attestation: I reviewed the patient's lab results. Labs: Lab Results 04/24/22 04/24/22 Range/Units 18:19 19:21 Influenza Type A (PCR) NEGATIVE (Negative) Influenza Type B (PCR) NEGATIVE (Negative) RSV RNA Qual (PCR) NEGATIVE (Negative) SARS-CoV-2 RNA (RT-PCR) NEGATIVE (Negative) S. pyogenes GrpA DONNIE Negative (Negative) Discharge Plan Discharge Clinical Impression: Pharyngitis Patient Disposition: Home, Self-Care Instructions: Pharyngitis (ED) Prescriptions: No Action multivitamin Tablet 1 tab PO DAILY ascorbic acid (vitamin C) 1,000 mg Tablet 1,000 mg PO DAILY cholecalciferol (vitamin D3) [Vitamin D3] 50 mcg (2,000 unit) Tablet 50 mcg PO DAILY Referrals: Elliot Goetz MD [Primary Care Provider] - 5 days
[2022-04-24] MEDS: Amoxicillin/Potassium Clav 875 MG TABLET PO (19:22)
[2022-04-24 20:05] LABS: Influenza A PCR NEGATIVE (Negative); Influenza B PCR NEGATIVE (Negative); Resp Syncy Virus RNA Qual PCR NEGATIVE (Negative); SARS COV2 PCR INHOUSE NEGATIVE (Negative)
[2022-04-24] MEDS: Lidocaine HCl Viscous 2 % 15 ML SOLUTION 5 ML MUCOUS MEM (20:09)
[2022-04-24 20:14] VITALS: BP 151/81; PULSE 58; RESP 16; TEMP 36.7; O2SAT 97
== END 2022-04-24 21:05 | disposition home or self-care (01) ==
PROVIDERS: Student in an Organized Health Care Education/Training Program; Emergency Provider Emergency Medicine; PCP Internal Medicine
DX: J02.9 Acute pharyngitis, unspecified (principal); Z20.822 Contact with and (suspected) exposure to COVID-19; Z79.899 Other long term (current) drug therapy
CPT/HCPCS: 0241U; 36415; 87651; 99283

== ENCOUNTER 2022-07-13 09:23 | Emergency (ER) | payer OTHER, MEDICARE, SELFPAY ==
[2022-07-13 09:28] VITALS: BP 138/68; PULSE 69; RESP 16; TEMP 36.6; O2SAT 100; BMI 20.9
[2022-07-13 09:54] LABS: COVID-19 Test Positive (Negative); IDNOW Serial# 16C4AD1C
[2022-07-13 09:58] LABS: IDNOW Serial# BCCEAD1C; Influenza A Negative (Negative); Influenza B2 Negative (Negative)
--- NOTE | 2022-07-13 10:04 | ED_ITS ---
HPI - General Adult General Chief complaint: General Medical Stated complaint: body aches, chills Time Seen by Provider: 07/13/22 10:03 Source: patient Mode of arrival: ambulatory Limitations: no limitations History of Present Illness HPI narrative: Patient is a 71 year old assigned male at with a history of basal cell carcinoma presenting to the emergency department today feeling generally unwell. Patient states that over the last 3 days he has felt generally unwell with body aches, fevers, and chills. Patient denies any dizziness, lightheadedness, abdominal pain, nausea, vomiting, blurry vision, double vision, loss of vision, chest pain, difficulty breathing, shortness of breath, back pain, night sweats, pain with urination, increased urinary frequency, increased urinary urgency, blood in his urine or stool, syncope or a near syncopal episode, recent trauma or falls, bowel incontinence, bladder incontinence, bowel retention, bladder retention, or any other complaints at this time. Onset (ago): day(s) (3) Severity: mild Severity scale (1-10): 3 Relieving factors: none Exacerbating factors: none Associated symptoms: fever/chills Treatments prior to arrival: none Related Data Home Medications Medication Instructions Recorded Confirmed ascorbic acid (vitamin C) 1,000 mg 1,000 mg PO DAILY 04/29/21 04/29/21 tablet cholecalciferol (vitamin D3) 50 50 mcg PO DAILY 04/29/21 04/29/21 mcg (2,000 unit) tablet (Vitamin D3) multivitamin 1 tab PO DAILY 04/29/21 04/29/21 Previous Rx's Medication Instructions Recorded amoxicillin 875 mg-potassium 1 tab PO BID 7 days #14 tabs 04/24/22 clavulanate 125 mg tablet Allergies Allergy/AdvReac Type Severity Reaction Status Date / Time lactose [LACTOSE] Allergy Severe CRAMPING Verified 04/30/21 00:28 soy [SOY] Allergy Severe CRAMPING Verified 04/30/21 00:28 ciprofloxacin Allergy Anaphylaxis Verified 04/24/22 19:20 ANTIBIOTIC SENSITIVE Allergy Severe ABDOMINAL Uncoded 04/30/21 00:28 PAIN Review of Systems Constitutional: Constitutional: Reports no additional constitutional complaints, Reports body ache(s), Reports chills, Reports fever(s) and Denies night sweats Eyes: Eyes: Reports no additional eye complaints, Denies blurry vision, Denies change in vision, Denies diplopia, Denies eye discharge, Denies loss of vision and Denies eye pain ENT: Denies dizziness Cardiovascular: Cardiovascular: Reports no additional cardiovascular complaints, Denies chest pain, Denies lightheadedness, Denies Loss of Consciousness and Denies dyspnea Respiratory: Respiratory: Reports no additional respiratory complaints and Denies dyspnea Gastrointestinal: Gastrointestinal: Reports no additional gastrointestinal complaints, Denies abdominal pain, Denies melena, Denies hematochezia, Denies change in bowel habits and Denies change in stool character Genitourinary: Genitourinary: Reports no additional male genitourinary compla ints, Denies hematuria, Denies oliguria, Denies difficulty urinating, Denies dysuria, Denies urinary frequency, Denies urinary hesitancy, Denies urinary incontinence and Denies urinary urgency Musculoskeletal: Musculoskeletal: Reports no additional musculoskeletal complaints, Denies numbness and Denies tingling Neurologic: Denies dizziness, Denies loss of vision, Denies numbness and Denies tingling Psychiatric: Psychiatric: Reports no additional psychiatric complaints Endocrine: Endocrine: Reports no additional endocrine complaints Hematologic/Lymphatic: Hematologic/Lymphatic: Reports no additional hematologic/lymphatic complaints Allergic/Immunologic: Allergic/Immunologic: Reports no additional allergic/immunologic complaints [facility] Past Medical History Attestation statement: The following information was validated with the patient. Source: old records reviewed and nursing notes reviewed Medical History Basal cell carcinoma Bunion Compressed spine fracture Mitral valve prolapse Neurogenic bladder Surgical History S/P mitral valve repair Family History Family History Other Mitral valve prolapse Social History Social History Alcohol intake: never Patient Tobacco Use Status: Tobacco use Unknown Advance Directives: No Advance Directives Information Provided: No service: No Current occupational status: retired Physical Exam ED Vital Signs: Vital Signs - 24 hr 07/13/22 09:28 Temperature 97.9 F Pulse Rate 69 Respiratory Rate 16 Blood Pressure 138/68 Pulse Oximetry 100 Oxygen Delivery Method Room Air BMI result Body Mass Index 20.9 Const General: cooperative, no acute distress, alert and awake Nutritional Appearance: well nourished Orientation/consciousness: patient oriented x3 Limitations: no limitations HENMT Head: Yes normal to inspection and Yes atraumatic Ears: hearing grossly normal bilaterally and external ears normal General nose exam: Normal external nose present, no nasal discharge noted and no epistaxis Face and sinus: Yes normal facial exam, No abrasion and No laceration Mouth: Normal oral and palatal mucosa present, no drooling and no muffled voice Eyes General: appearance normal, both eyes and all related structures Periorbital: periorbital findings normal Eyelids: Yes eyelids normal Conjunctivae: conjunctivae normal Pupils: Equal, round and reactive pupils present EOM: EOMs intact bilaterally Neck Neck: Yes normal visual inspection, Yes full ROM and Yes no lymphadenopathy Chest Chest palpation & inspection: normal inspection of the chest Resp Effort & Inspection: normal respiratory effort and able to speak in complete sentences Auscultation: clear to auscultation bilaterally Cardio Rate: regular rate Rhythm: regular rhythm GI Inspection: Yes normal to inspection Palpation (GI): Soft to palpation, not firm, nontender and no guarding Neuro General: patient oriented x3 and moves all extremities Cranial nerves: Yes Equal, round and reactive pupils present Cognition (Neuro): normal cognition Motor exam (neuro): 5/5 motor strength present throughout Sensory Exam: Normal double simultaneous stimulation for sensation Coordination: [id number] test normal Extrem General: Yes normal to inspection, Yes full ROM and Yes capillary refill normal Psych Appearance: grossly normal Mental Status: mental status grossly normal Affect: normal affect Attitude: cooperative Thought process: Normal thought process present Thought content: Normal thought content present Insight: Good insight present (Psych) Medical Decision Making Medical Decision Making MDM Narrative: Patient is a 71 year old assigned male at with a history of basal cell carcinoma presenting to the emergency department today feeling generally unwell. Patient's physical exam was unremarkable. Patient's rapid COVID-19 test was positive. I explained my physical exam findings as well as all test results to the patient. I answered all questions asked by the patient. I stressed the importance of the patient taking his medication as prescribed. I stressed the importance of the patient following up with his primary care provider. I stressed the importance of the patient returning to the emergency department immediately if his symptoms were to worsen or if he were to develop any dizzi ness, shortness of breath, difficulty breathing, chest pain, blurry vision, loss of vision, nausea, vomiting, abdominal pain, fever, chills, back pain, or any other complaints. Patient verbalized agreement and understanding with this treatment plan and discharge. Differential Diagnosis Differential Diagnoses: The differential diagnosis associated with the presentation includes COVID-19, viral illness Lab Data MDM Lab Attestation statement: I reviewed the patient's lab results. Labs: Lab Results 07/13/22 07/13/22 Range/Units 09:32 09:32 COVID-19 (AMPARO) Positive A (Negative) COVID-19 Clin Com See Note Influenza Type A (DONNIE) Negative (Negative) Influenza Type B (DONNIE) Negative (Negative) Influenza A & B Note See Note Discharge Plan Discharge Clinical Impression: COVID-19 Patient Disposition: Home, Self-Care Instructions: COVID-19 (Coronavirus Disease 2019) (ED) Additional Instructions: Follow up with your primary care provider. Return to the emergency department immediately if your symptoms worsen or if you develop any dizziness, shortness of breath, difficulty breathing, chest pain, blurry vision, loss of vision, nausea, vomiting, abdominal pain, fever, chills, back pain, or any other complaints. Prescriptions: No Action amoxicillin-pot clavulanate 875-125 mg tablet 1 tab PO BID 7 Days Qty: 14 0RF multivitamin Tablet 1 tab PO DAILY ascorbic acid (vitamin C) 1,000 mg Tablet 1,000 mg PO DAILY cholecalciferol (vitamin D3) [Vitamin D3] 50 mcg (2,000 unit) Tablet 50 mcg PO DAILY Referrals: [facility] [Provider Group] (Call to establish and follow up with a primary care provider. If you already have a primary care provider, please follow up with them. ) [facility] [place] [facility] [Provider Group] (Call to establish and follow up with a primary care provider. If you already have a primary care provider, please follow up with them. ) [facility] [place] [facility] [Provider Group] (Call to establish and follow up with a primary care provider. If you already have a primary care provider, please follow up with them. ) Interventions: ED Discharge Assessment Last Done: 07/13/22 10:12 Discharge Date/Time: 07/13/22 10:12 Print Language: French
== END 2022-07-13 10:12 | disposition home or self-care (01) ==
PROVIDERS: Emergency Provider Student in an Organized Health Care Education/Training Program
DX: U07.1 COVID-19 (principal)
CPT/HCPCS: 87502; 87635; 99283

== ENCOUNTER 2023-02-15 14:57 | Emergency (ER) | payer OTHER, MEDICARE, SELFPAY ==
[2023-02-15] VITALS (7 sets, daily range): BP systolic 106–131; BP diastolic 61–90; PULSE 62–126; RESP 13–16; TEMP 36.4–37; O2SAT 97–99; BMI 20.2
--- NOTE | 2023-02-15 14:58 | ECG_ITS ---
Test Reason : AFIB Blood Pressure : / mmHG Vent. Rate : 121 BPM Atrial Rate : 242 BPM P-R Int : 000 ms QRS Dur : 088 ms QT Int : 324 ms P-R-T Axes : 061 072 056 degrees QTc Int : 460 ms Atrial flutter with 2:1 A-V conduction Nonspecific ST abnormality Abnormal ECG When compared with ECG of 29-APR-2021 09:43, Atrial flutter has replaced Sinus rhythm Vent. rate has increased BY 54 BPM Referred By: Generic ED Physician Electronically Signed By:ULI LASSITER
[2023-02-15] MEDS: 0.9 % Sodium Chloride 500 ML 999 ML IV (15:44)
[2023-02-15] MEDS: Acetaminophen 325 MG TABLET 975 MG PO (15:47)
[2023-02-15 15:54] LABS: Eosinophils Percent Auto 0.4 % (0-4); Hematocrit 42.8 % (42.0-52.0); Hemoglobin 14.6 g/dl (14.0-18.0); Imm Gran Abs Auto 0.01 X10*3/uL (0.00-0.03); Imm Gran Pct Auto 0.2 % (0.0-0.4); Lymphocytes Absolute Auto 1.4 X10*3/uL (1.2-4.9); Mean Corpuscular HGB Conc 34.1 g/dl (31.0-36.0); Mean Corpuscular Hemoglobin 32.1 pg (27.0-33.0); Mean Corpuscular Volume 94.1 fL (80.0-98.0); Mean Platelet Volume 12.5 fL (9.4-12.4); Monocytes Absolute Auto 0.5 X10*3/uL (0.1-1.2); Monocytes Percent Auto 10.3 % (2-11); Neutrophils Absolute Auto 2.7 x10*3/uL (2.0-8.3); Neutrophils Percent Auto 58.1 % (45-73); Platelet Count 162 X10*3/uL (160-400); Red Blood Count 4.55 X10*6/uL (4.60-5.80); Red Cell Distribution Width 13.4 % (11.0-16.0); White Blood Count 4.7 X10*3/uL (4.8-10.8)
[2023-02-15 15:56] LABS: MANUAL DIFF FLAG NO
--- NOTE | 2023-02-15 15:59 | ED_ITS ---
HPI - General Adult General Chief complaint: Arrhythmia/Palpitations Stated complaint: afib,tachycardia Time Seen by Provider: 02/15/23 15:21 Source: patient Mode of arrival: ambulatory History of Present Illness HPI narrative: 72-year-old male with a history of paroxysmal atrial fibrillation but does not take any anticoagulation and reports that earlier this week he has been feeling unwell with body aches and malaise and then this morning noted that his heart rate went into atrial fibrillation. Patient took his p.r.n. Lopressor of 25 mg and states that his heart rate reduced but then came back up. He denies any chest pain, denies any GI or symptoms. Related Data Home Medications Medication Instructions Recorded Confirmed ascorbic acid (vitamin C) 1,000 mg 1,000 mg PO DAILY 04/29/21 04/29/21 tablet cholecalciferol (vitamin D3) 50 50 mcg PO DAILY 04/29/21 04/29/21 mcg (2,000 unit) tablet (Vitamin D3) multivitamin 1 tab PO DAILY 04/29/21 04/29/21 Previous Rx's Medication Instructions Recorded amoxicillin 875 mg-potassium 1 tab PO BID 7 days #14 tabs 04/24/22 clavulanate 125 mg tablet Allergies Allergy/AdvReac Type Severity Reaction Status Date / Time lactose [LACTOSE] Allergy Severe CRAMPING Verified 04/30/21 00:28 soy [SOY] Allergy Severe CRAMPING Verified 04/30/21 00:28 ciprofloxacin Allergy Anaphylaxis Verified 04/24/22 19:20 ANTIBIOTIC SENSITIVE Allergy Severe ABDOMINAL Uncoded 04/30/21 00:28 PAIN Review of Systems 2 Review of Systems: Pertinent positives and negatives as stated in [facility] Past Medical History Source: nursing notes reviewed Medical History Basal cell carcinoma Bunion Compressed spine fracture Mitral valve prolapse Neurogenic bladder Surgical History S/P mitral valve repair Family History Family History Other Mitral valve prolapse Social History Social History Alcohol intake: never Patient Tobacco Use Status: Tobacco use Unknown Advance Directives: Yes Advance Directives Information Provided: No Advance Directives on File: No service: No Current occupational status: retired Physical Exam ED Vital Signs: Vital Signs - 24 hr 02/15/23 15:13 02/15/23 15:34 02/15/23 15:39 Temperature 97.5 F 98.6 F Pulse Rate 126 H 90 70 Respiratory Rate 13 15 Blood Pressure 128/90 H 111/64 Pulse Oximetry 99 99 Oxygen Delivery Method Room Air Room Air 02/15/23 15:40 02/15/23 15:42 Temperature Pulse Rate 63 125 H Respiratory Rate Blood Pressure 118/72 106/70 Pulse Oximetry Oxygen Delivery Method BMI result Body Mass Index 20.2 VITAL SIGNS: Reviewed. GENERAL: Well developed, well nourished, in no acute distress. HEAD: Normocephalic/atraumatic EYES: PERRLA, EOMI EARS: Ext canals without abnormality NOSE: Nares patent bilateral OROPHARYNX: no oral lesions noted, posterior pharynx clear NECK: Supple, no adenopathy LUNGS: Normal breath sounds. No adventitious sounds or accessory muscle use. SpO2<99> CARDIOVASCULAR: Sinus tachycardia and rhythm without noted murmurs ABDOMEN: Soft, non-tender, non-distended with bowel sounds. MUSCULOSKELETAL: No tenderness, deformities, or effusions noted on gross inspection. EXTREMITIES: No cyanosis, clubbing or edema. SKIN: Inspection of the skin reveals no rashes, ulcerations NEUROLOGIC: Alert and oriented x 4. Strength and sensation to light touch were grossly intact x 4. Medications Administered Generic Name Dose Route Start Last Admin Trade Name Freq PRN Reason Stop Dose Admin Sodium Chloride 500 mls @ 999 mls/hr 02/15/23 15:45 02/15/23 15:44 Ns IV 02/15/23 16:15 999 mls/hr .Q31M KAMALJIT Administration Discontinued Medications Generic Name Dose Route Start Last Admin Trade Name Freq PRN Reason Stop Dose Admin Acetaminophen 975 mg 02/15/23 15:33 02/15/23 15:47 Acetaminophen 325 Mg Tablet PO 02/15/23 15:34 975 mg ONCE ONE Administration Medical Decision Making Medical Decision Making [facility] Narrative: 72-year-old male with history and clinical presentation, DDX: Atrial fibrillation, viral infection, hypovolemia. Orthostatics are positive SIgned out to Dr Hubbard - follow-up lab work - IV fluid resuscitation Differential Diagnosis Differential Diagnoses: The differential diagnosis associated with the presentation includes Please see the discussion above Admission/Observation Consideration of admission/observation: Escalation of care including admission/observation considered Please see the discussion above Lab Data 02/15/23 15:48 02/15/23 15:30 Labs: Lab Results 02/15/23 02/15/23 Range/Units 15:42 15:48 WBC 4.7 L (4.8-10.8) X10*3/uL RBC 4.55 L (4.60-5.80) X10*6/uL Hgb 14.6 (14.0-18.0) g/dl Hct 42.8 (42.0-52.0) % MCV 94.1 (80.0-98.0) fL MCH 32.1 (27.0-33.0) pg MCHC 34.1 (31.0-36.0) g/dl RDW 13.4 (11.0-16.0) % Plt Count 162 (160-400) X10*3/uL MPV 12.5 H (9.4-12.4) fL Immature Gran % (Auto) 0.2 (0.0-0.4) % Neut % (Auto) 58.1 (45-73) % Lymph % (Auto) 31.0 (20-40) % Bleckley % (Auto) 10.3 (2-11) % Eos % (Auto) 0.4 (0-4) % Baso % (Auto) 0.0 (0-2) % Lymph # (Auto) 1.4 (1.2-4.9) X10*3/uL [place] # (Auto) 0.5 (0.1-1.2) X10*3/uL Eos # (Auto) 0.0 (0.0-0.4) X10*3/uL Baso # (Auto) 0.0 (0.0-0.2) X10*3/uL Abs Immat Gran (auto) 0.01 (0.00-0.03) X10*3/uL Absolute Neuts (auto) 2.7 (2.0-8.3) x10*3/uL Absolute Nucleated RBC 0.000 (0.0-0.012) X10*3/uL Nucleated RBC % (auto) 0.0 (0.0-0.2) /100WBC COVID-19 (AMPARO) Negative (Negative) COVID-19 Clin Com See Note Influenza Type A (DONNIE) Negative (Negative) Influenza Type B (DONNIE) Negative (Negative) Influenza A & B Note See Note Independent Interpretation I performed an independent interpretation of an: EKG Interpretation: Sinus tachycardia, HR-121, no STEMI, CT within normal limits QRS/QTC is within normal limits. Discharge Plan Discharge Clinical Impression: Viral illness, Dehydration Patient Disposition: Still a Patient Prescriptions: No Action amoxicillin-pot clavulanate 875-125 mg tablet 1 tab PO BID 7 Days Qty: 14 0RF multivitamin Tablet 1 tab PO DAILY ascorbic acid (vitamin C) 1,000 mg Tablet 1,000 mg PO DAILY cholecalciferol (vitamin D3) [Vitamin D3] 50 mcg (2,000 unit) Tablet 50 mcg PO DAILY
[2023-02-15 16:03] LABS: IDNOW Serial# 08D9AD1C; Influenza A Negative (Negative); Influenza B2 Negative (Negative)
[2023-02-15 16:04] LABS: COVID-19 Test Negative (Negative); IDNOW Serial# 6674DD1D
[2023-02-15 16:12] LABS: Alanine Aminotransferase 14 U/L (0-40); Albumin Level 4.2 g/dL (3.5-5.0); Alkaline Phosphatase 90 U/L (39-117); Anion Gap 10 (12-20); Aspartate Amino Transferase 19 U/L (5-37); Bilirubin Total 0.7 mg/dL (0.0-1.0); Blood Urea Nitrogen 14 mg/dL (9-16); Calcium 9.9 mg/dL (8.4-10.2); Carbon Dioxide 30 mmol/L (22-29); Chloride 105 mmol/L (96-108); Creatinine Clr Calc Pharmacy 67.3; Estimated Glomerular Filt Rate > 60; Glucose Random 101 mg/dL (60-115); Potassium 4.1 mmol/L (3.3-5.1); Sodium 141 mmol/L (135-145); Total Protein 6.9 g/dL (6.5-8.0)
[2023-02-15 16:18] LABS: B Type Natriuretic Peptide 331 pg/mL (<100)
[2023-02-15 16:19] LABS: Troponin-I High Sensitivity < 2.7 ng/L (<3.5-35.0)
[2023-02-15 16:29] LABS: Prothrombin Time 12.5 SEC (11.1-13.3)
[2023-02-15 17:05] LABS: Appearance Urine Clear; Color Urine Yellow; Glucose Urine UA Negative (Negative); Leukocyte Esterase Urine Negative (Negative); Nitrite Urine Negative (Negative); Specific Gravity - Urine <= 1.005 (1.005-1.025); Urine Blood Negative (Negative); Urine Ketones Negative (Negative); Urine Protein Negative (Neg-Trace)
== END 2023-02-15 21:13 | disposition home or self-care (01) ==
PROVIDERS: Student in an Organized Health Care Education/Training Program; Emergency Provider Emergency Medicine Emergency Medical Services; PCP Internal Medicine
DX: B34.9 Viral infection, unspecified (principal); E86.0 Dehydration; R52 Pain, unspecified; I48.0 Paroxysmal atrial fibrillation; R53.81 Other malaise; Z11.52 Encounter for screening for COVID-19
CPT/HCPCS: 36415; 80053; 81003; 83880; 84484; 85025; 85610; 87502; 87635; 93005; 96360; 99284; 99285

== ENCOUNTER 2023-08-12 09:16 | Emergency (ER) | payer MEDICARE, OTHER, SELFPAY ==
--- NOTE | ~2023-08-12 | XR_ITS ---
EXAMINATION: XR CHEST CLINICAL INFORMATION: Bilateral rib pain. COMPARISON: Chest radiograph dated 04/29/2021. TECHNIQUE: Frontal view of the chest was obtained. FINDINGS: There are sternotomy sutures. There is a prosthetic heart valve. Heart size is normal. Both lungs are clear. There is no pleural effusion or pneumothorax. There is no acute osseous abnormality. XR/XR chest 1V IMPRESSION: No acute cardiopulmonary disease.
--- NOTE | ~2023-08-12 | CT_ITS ---
EXAMINATION: CT ABDOMEN AND PELVIS WITH CONTRAST CLINICAL INFORMATION: Diffuse abdominal pain COMPARISON: None available. TECHNIQUE: Multidetector volumetric images were obtained from the superior aspect of the liver through the pubic symphysis following administration 85 mL of Omnipaque 350 intravenous contrast. Sagittal and coronal reformatted images were obtained on the technologist's workstation. Oral contrast: Yes This CT examination was performed using dose optimization techniques as appropriate, variously including the following: *Automated exposure control *Adjustment of mA and/or kV according to patient size (this includes techniques or standardized protocols for targeted exams where dose is matched to indication/reason for exam; i.e. extremities or head) *Use of iterative reconstruction technique DLP: 318 mGy-cm FINDINGS: LUNG BASES: The visualized lung bases are unremarkable. LIVER, GALLBLADDER, AND BILIARY TREE: The liver is normal in size, shape, and attenuation. Multiple liver cysts, largest measuring 7.5 cm in the posterior segment of the right lobe liver. There are several liver lesions not compatible with cysts right lobe largest measuring 1.6 x 2.3 cm. Some demonstrate peripheral nodular enhancement. This may represent hemangiomas. Further evaluation with liver MRI recommended. Normal gallbladder. No biliary duct dilatation. PANCREAS: Unremarkable. SPLEEN: Calcification in the spleen probably old granulomatous disease. 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 Normal right adrenal gland. KIDNEYS AND URETERS: The kidneys are normal in size, shape, and attenuation. Mild bilateral hydronephrosis and ureteral dilatation down to the bladder. BLADDER: Very distended bladder. Small bladder stones GASTROINTESTINAL TRACT: Constipation. The small and large bowel are otherwise unremarkable. The appendix is unremarkable. ABDOMINAL WALL: No significant hernia is appreciated. LYMPH NODES: Normal. VASCULAR: Unremarkable. PELVIC VISCERA: Enlarged prostate gland that protrudes bladder. Prostate gland measures 6 5 cm OSSEOUS STRUCTURES: Unremarkable. CT/CT abdomen pelvis w IV con IMPRESSION: Enlarged prostate gland that protrudes into the base of bladder. The bladder is very distended. Small bladder stones. Mild bilateral hydronephrosis and ureteral dilatation. Findings suggestive of bladder outlet obstruction. Constipation. Multiple liver lesions. Further characterization with MRI recommended. Fleischner guidelines were followed.
[2023-08-12 09:44] VITALS: BP 146/77; PULSE 62; RESP 16; TEMP 36.6; O2SAT 99; BMI 20.4
[2023-08-12 10:13] LABS: MANUAL DIFF FLAG NO
[2023-08-12 10:16] LABS: Eosinophils Percent Auto 0.4 % (0-4); Hematocrit 42.7 % (42.0-52.0); Hemoglobin 14.4 g/dl (14.0-18.0); Imm Gran Abs Auto 0.01 X10*3/uL (0.00-0.03); Imm Gran Pct Auto 0.2 % (0.0-0.4); Lymphocytes Absolute Auto 1.2 X10*3/uL (1.2-4.9); Lymphocytes Percent Auto 26.2 % (20-40); Mean Corpuscular HGB Conc 33.7 g/dl (31.0-36.0); Mean Corpuscular Hemoglobin 32.4 pg (27.0-33.0); Mean Corpuscular Volume 96.2 fL (80.0-98.0); Mean Platelet Volume 12.1 fL (9.4-12.4); Monocytes Absolute Auto 0.5 X10*3/uL (0.1-1.2); Monocytes Percent Auto 10.8 % (2-11); Neutrophils Percent Auto 62.4 % (45-73); Platelet Count 157 X10*3/uL (160-400); Red Blood Count 4.44 X10*6/uL (4.60-5.80); Red Cell Distribution Width 13.2 % (11.0-16.0); White Blood Count 4.7 X10*3/uL (4.8-10.8)
[2023-08-12 10:33] LABS: Anion Gap 7 (12-20); Blood Urea Nitrogen 13 mg/dL (9-16); Calcium 9.5 mg/dL (8.4-10.2); Carbon Dioxide 33 mmol/L (22-29); Chloride 105 mmol/L (96-108); Creatinine Clr Calc Pharmacy 72.8; Estimated Glomerular Filt Rate > 60; Glucose Random 90 mg/dL (60-115); Sodium 141 mmol/L (135-145)
[2023-08-12 11:43] LABS: Alanine Aminotransferase 17 U/L (0-40); Albumin Level 4.2 g/dL (3.5-5.0); Alkaline Phosphatase 99 U/L (39-117); Aspartate Amino Transferase 21 U/L (5-37); Bilirubin Direct 0.3 mg/dL (0.0-0.5); Bilirubin Total 0.8 mg/dL (0.0-1.0); Lipase 36 U/L (8-78); Total Protein 6.9 g/dL (6.5-8.0)
[2023-08-12 13:12] VITALS: BP 140/70; PULSE 65; RESP 17; TEMP 36.8; O2SAT 100
[2023-08-12 13:15] VITALS: BP 140/70; PULSE 65; RESP 17; TEMP 36.8; O2SAT 100
[2023-08-12 14:46] LABS: Appearance Urine Clear; Color Urine Yellow; Glucose Urine UA Negative (Negative); Leukocyte Esterase Urine Negative (Negative); Nitrite Urine Negative (Negative); PH 6.5 (5.0-9.0); Specific Gravity - Urine <= 1.005 (1.005-1.025); Urine Blood Negative (Negative); Urine Ketones Negative (Negative); Urine Protein Negative (Neg-Trace)
--- NOTE | 2023-08-12 16:37 | ED.ABDPAIN ---
HPI - Abdominal Pain General Chief Complaint: Abdominal Pain Stated Complaint: Abd pain 1 week Time Seen by Provider: 08/12/23 16:22 Source: patient Mode of arrival: ambulatory Limitations: no limitations History of Present Illness HPI narrative: Patient comes to the emergency room complaining of diffuse abdominal soreness for 1 week. Patient denies any injury, no nausea vomiting or diarrhea. Patient denies fever or chills. Patient denies UTI symptoms. Patient states that he has history of several abdominal hernias. Patient states that he frequently has aches and pains but is able to deal with them at home. Patient states that this time the symptoms have been lasting Longer than usual. Patient denies chest pain or shortness of breath. Related Data Home Medications Medication Instructions Recorded Confirmed ascorbic acid (vitamin C) 1,000 mg 1,000 mg PO DAILY 04/29/21 04/29/21 tablet cholecalciferol (vitamin D3) 50 50 mcg PO DAILY 04/29/21 04/29/21 mcg (2,000 unit) tablet (Vitamin D3) multivitamin 1 tab PO DAILY 04/29/21 04/29/21 Previous Rx's Medication Instructions Recorded amoxicillin 875 mg-potassium 1 tab PO BID 7 days #14 tabs 04/24/22 clavulanate 125 mg tablet Allergies Allergy/AdvReac Type Severity Reaction Status Date / Time lactose [LACTOSE] Allergy Severe CRAMPING Verified 04/30/21 00:28 soy [SOY] Allergy Severe CRAMPING Verified 04/30/21 00:28 ciprofloxacin Allergy Anaphylaxis Verified 04/24/22 19:20 ANTIBIOTIC SENSITIVE Allergy Severe ABDOMINAL Uncoded 04/30/21 00:28 PAIN Review of Systems Review of Systems Constitutional : No Weight loss, No Fever, No Chills, No Night Sweats, No Fatigue, No Malaise ENT/Mouth : No Hearing loss, No Ear Pain, No Nasal Congestion, No Sinus Pain, No Hoarseness, No sore throat, No Rhinorrhea, No Swallowing Difficulty Eyes: No Eye Pain, No Swelling, No Redness, No Foreign Body, No Discharge, No Vision Changes Cardiovascular : No Chest Pain, No SOB, No Dyspnea on Exertion, No Orthopnea, No Edema, No Palpitations Respiratory : No Cough, No Sputum, No Wheezing, No Smoke Exposure, No Dyspnea Gastrointestinal : No Nausea, No Vomiting, No Diarrhea, No Constipation, Complaining of diffuse abdominal discomfort, no significant pain. Genitourinary : no irregular bleeding, No Dysuria, No Urinary Frequency, No Hematuria, No Urinary Incontinence, No Urgency, No Flank Pain, No Urinary Flow Changes, No Hesitancy Musculoskeletal : No joint pain, No Myalgias, No Joint Swelling Skin : No Skin Lesions, No rash Neuro : No Weakness, No Numbness, No Paresthesias, No Loss of Consciousness, No Dizziness, No Headache Psych : No Anxiety/Panic, No Depression, No SI/HI/AH/VH, No Social Issues, Heme/Lymph: No Bruising, No Bleeding,No Lymphadenopathy Endocrine : No Polyuria, No Polydipsia, No Temperature Intolerance [facility] Past Medical History Medical History (Updated 08/12/23 @ 23:31 by Ольга May MD) Atrial fibrillation First degree heart block by electrocardiogram Mitral valve prolapse Bunion Neurogenic bladder Basal cell carcinoma Compressed spine fracture Surgical History S/P mitral valve repair Family History Family History Other Mitral valve prolapse Social History Social History Alcohol intake: never Patient Tobacco Use Status: Tobacco use Unknown Smoked in Last 30 Days: No Use of substances other than those prescribed or required for medical reasons: No Advance Directives: No Advance Directives Information Provided: No service: No Current occupational status: retired Physical Exam ED Vital Signs: Vital Signs - 24 hr 08/12/23 09:44 08/12/23 13:12 08/12/23 13:15 Temperature 97.9 F 98.3 F 98.3 F Pulse Rate 62 65 65 Respiratory Rate 16 17 17 Blood Pressure 146/77 H 140/70 H 140/70 H Pulse Oximetry 99 100 100 Oxygen Delivery Method Room Air Room Air Room Air 08/12/23 17:11 08/12/23 20:55 Temperature 97.8 F Pulse Rate 60 57 Respiratory Rate 18 20 Blood Pressure 149/84 H 129/75 Pulse Oximetry 98 Oxygen Delivery Method Room Air Room Air BMI result Body Mass Index 20.4 Const Other: Appearance: Alert. Oriented X3. No acute distress. well-appearing Eyes: Pupils equal, round and reactive to light. ENT: Pharynx normal. Neck: Normal inspection. Neck supple. No lymph nodes noted. No crepitus CVS: Normal heart rate and rhythm. Pulses normal. Normal S1 and S2 Respiratory: No respiratory distress. Breath sounds normal. No Wheezing. No rales Abdomen: Soft , diffuse discomfort especially in the epigastric area, no severe pain to deep palpation. incisional hernia in the epigastric area present, reducible. Skin: Skin warm and dry. Normal skin color. Normal skin turgor. Extremities: No lower extremity edema. No Lacerations. No Rash Neuro: Oriented X 3. No motor deficit. No sensory deficit. Moving all extremities. No slurred speech. CN 2 through 12 grossly intact Psych: calm, cooperative, normal affect Course Course Course Narrative: -at this time, patient declined any pain medications Medical Decision Making Medical Decision Making [facility] Narrative: - My interpretation of labs: White blood cell count 4.7, hematology at baseline, chemistry at baseline, LFTs normal, lipase normal. Urinalysis negative -my interpretation CT scan : No SBO, no obvious abnormalities. Per Radiology, enlarged prostate which patient already knows, small bladder stones with ureteral dilation. Patient likely passed kidney stones. -at this time, patient declined any further medication for pain, nausea or prostate. Patient states that he feels well, patient has an appointment pending with his urologist. -overall patient feeling much better. -patient's bladder scan showed urine greater than 400. Patient has 3 cath himself, bladder scan was read done, showing 41 mL of urine in the bladder Differential Diagnosis Differential Diagnoses: The differential diagnosis associated with the presentation includes (Small-bowel obstruction, gastritis, peptic ulcer, ureterolithiasis, ACS) Admission/Observation Consideration of admission/observation: Escalation of care including admission/observation considered (Given patient's symptoms and history admission was considered) Lab Data [facility] Lab Attestation statement: I reviewed the patient's lab results. 08/12/23 10:09 08/12/23 10:09 Labs: Lab Results 08/12/23 08/12/23 08/12/23 Range/Units 10:09 14:36 16:59 WBC 4.7 L (4.8-10.8) X10*3/uL RBC 4.44 L (4.60-5.80) X10*6/uL Hgb 14.4 (14.0-18.0) g/dl Hct 42.7 (42.0-52.0) % MCV 96.2 (80.0-98.0) fL MCH 32.4 (27.0-33.0) pg MCHC 33.7 (31.0-36.0) g/dl RDW 13.2 (11.0-16.0) % Plt Count 157 L (160-400) X10*3/uL MPV 12.1 (9.4-12.4) fL Immature Gran % (Auto) 0.2 (0.0-0.4) % Neut % (Auto) 62.4 (45-73) % Lymph % (Auto) 26.2 (20-40) % Desha % (Auto) 10.8 (2-11) % Eos % (Auto) 0.4 (0-4) % Baso % (Auto) 0.0 (0-2) % Lymph # (Auto) 1.2 (1.2-4.9) X10*3/uL Desha # (Auto) 0.5 (0.1-1.2) X10*3/uL Eos # (Auto) 0.0 (0.0-0.4) X10*3/uL Baso # (Auto) 0.0 (0.0-0.2) X10*3/uL Abs Immat Gran (auto) 0.01 (0.00-0.03) X10*3/uL Absolute Neuts (auto) 3.0 (2.0-8.3) x10*3/uL Absolute Nucleated RBC 0.000 (0.0-0.012) X10*3/uL Nucleated RBC % (auto) 0.0 (0.0-0.2) /100WBC Sodium 141 (135-145) mmol/L Potassium 4.0 (3.3-5.1) mmol/L Chloride 105 (96-108) mmol/L Carbon Dioxide 33 H (22-29) mmol/L Anion Gap 7 L (12-20) BUN 13 (9-16) mg/dL Creatinine 0.86 (0.5-1.4) mg/dL Estim Creat Clear Calc 72.8 Estimated GFR > 60 Random Glucose 90 (60-115) mg/dL Calcium 9.5 (8.4-10.2) mg/dL Total Bilirubin 0.8 (0.0-1.0) mg/dL Direct Bilirubin 0.3 (0.0-0.5) mg/dL AST 21 (5-37) U/L ALT 17 (0-40) U/L Alkaline Phosphatase 99 (39-117) U/L Troponin I High Sens < 2.7 (<3.5-35.0) ng/L Total Protein 6.9 (6.5-8.0) g/dL Albumin 4.2 (3.5-5.0) g/dL Lipase 36 (8-78) U/L Urine Color Yellow Urine Appearance Clear Urine pH 6.5 (5.0-9.0) Ur Specific [place] <= 1.005 (1.005-1.025) Urine Protein Negative (Neg-Trace) mg/dL Urine Glucose (UA) Negative (Negative) mg/dL Urine Ketones Negative (Negative) mg/dL Urine Blood Negative (Negative) Urine Nitrite Negative (Negative) Ur Leukocyte Esterase Negative (Negative) Independent Interpretation I performed an independent interpretation of an: CT Scan Radiology Impression Discussion of test interpretation with radiology: I have reviewed the radiologist's reading. Radiologist Impression: FINDINGS: LUNG BASES: The visualized lung bases are unremarkable. LIVER, GALLBLADDER, AND BILIARY TREE: The liver is normal in size, shape, and attenuation. Multiple liver cysts, largest measuring 7.5 cm in the posterior segment of the right lobe liver. There are several liver lesions not compatible with cysts right lobe largest measuring 1.6 x 2.3 cm. Some demonstrate peripheral nodular enhancement. This may represent hemangiomas. Further evaluation with liver MRI recommended. Normal gallbladder. No biliary duct dilatation. PANCREAS: Unremarkable. SPLEEN: Calcification in the spleen probably old granulomatous disease. 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 Normal right adrenal gland. KIDNEYS AND URETERS: The kidneys are normal in size, shape, and attenuation. Mild bilateral hydronephrosis and ureteral dilatation down to the bladder. BLADDER: Very distended bladder. Small bladder stones GASTROINTESTINAL TRACT: Constipation. The small and large bowel are otherwise unremarkable. The appendix is unremarkable. ABDOMINAL WALL: No significant hernia is appreciated. LYMPH NODES: Normal. VASCULAR: Unremarkable. PELVIC VISCERA: Enlarged prostate gland that protrudes bladder. Prostate gland measures 6 5 cm OSSEOUS STRUCTURES: Unremarkable. CT/CT abdomen pelvis w IV con IMPRESSION: Enlarged prostate gland that protrudes into the base of bladder. The bladder is very distended. Small bladder stones. Mild bilateral hydronephrosis and ureteral dilatation. Findings suggestive of bladder outlet obstruction. Constipation. Multiple liver lesions. Further characterization with MRI recommended. Fleischner guidelines were followed. Medications Administered Discontinued Medications Generic Name Dose Route Start Last Admin Trade Name Freq PRN Reason Stop Dose Admin Iohexol 85 ml 08/12/23 18:30 08/12/23 18:31 Iohexol 350 Mg/Ml 100 Ml Infus..Btl IV 08/12/23 18:31 85 ml ONCE ONE Administration Critical Care Time Critical Care Time Critical Care Time: Yes Total Critical Care Time: 45 Attestation: I have personally provided critical care time. Time includes review of lab data, radiology results, discussion with consultants, and monitoring for potential decompensation. Intervention performed as documented. Discharge Plan Discharge Clinical Impression: Atypical chest pain, Kidney stone Patient Disposition: Home, Self-Care Instructions: Kidney Stones (ED), Chest Pain (ED) Additional Instructions: Please follow-up with your primary care physician tomorrow. If you have any worsening or new symptoms, please return to the emergency room or call 911 Prescriptions: No Action amoxicillin-pot clavulanate 875-125 mg tablet 1 tab PO BID 7 Days Qty: 14 0RF multivitamin Tablet 1 tab PO DAILY ascorbic acid (vitamin C) 1,000 mg Tablet 1,000 mg PO DAILY cholecalciferol (vitamin D3) [Vitamin D3] 50 mcg (2,000 unit) Tablet 50 mcg PO DAILY
--- NOTE | 2023-08-12 16:41 | ECG_ITS ---
Test Reason : abd pain Blood Pressure : / mmHG Vent. Rate : 060 BPM Atrial Rate : 060 BPM P-R Int : 286 ms QRS Dur : 084 ms QT Int : 420 ms P-R-T Axes : 073 030 044 degrees QTc Int : 420 ms Sinus rhythm with 1st degree A-V block with occasional Premature ventricular complexes Anteroseptal infarct , age undetermined Abnormal ECG When compared with ECG of 15-FEB-2023 15:01, Sinus rhythm has replaced Atrial flutter Vent. rate has decreased BY 61 BPM Anteroseptal infarct is now Present Referred By: Ольга May Electronically Signed By:ASHLEY CASTANEDA MD
[2023-08-12 17:11] VITALS: BP 149/84; PULSE 60; RESP 18
[2023-08-12 17:35] LABS: Troponin-I High Sensitivity < 2.7 ng/L (<3.5-35.0)
[2023-08-12] MEDS: iohexoL 350 MG/ML 100 ML INFUS..BTL 85 ML IV (18:31)
[2023-08-12 20:55] VITALS: BP 129/75; PULSE 57; RESP 20; TEMP 36.6; O2SAT 98
== END 2023-08-13 00:01 | disposition home or self-care (01) ==
PROVIDERS: Physician Assistant Medical; Emergency Provider Emergency Medicine; PCP Student in an Organized Health Care Education/Training Program
DX: R07.89 Other chest pain (principal); N20.0 Calculus of kidney; M79.10 Myalgia, unspecified site; R10.9 Unspecified abdominal pain; Z79.899 Other long term (current) drug therapy
CPT/HCPCS: 36415; 51798; 71045; 74177; 80048; 80076; 81003; 83690; 84484; 85025; 93005; 99284; 99285; Q9967

== ENCOUNTER → 2023-08-12 16:41 | Outpatient (BNV) | payer MEDICARE, SELFPAY | PROVIDERS: Emergency Provider Emergency Medicine; PCP Student in an Organized Health Care Education/Training Program; Visit Provider Internal Medicine Cardiovascular Disease | DX: I44.0 Atrioventricular block, first degree (principal); I49.3 Ventricular premature depolarization | CPT/HCPCS: 93010 ==

== ENCOUNTER 2023-10-24 10:33 | Outpatient (REF) | payer MEDICARE, SELFPAY ==
[2023-10-24 11:33] LABS: Appearance Urine Clear; Color Urine Yellow; Glucose Urine UA Negative (Negative); Leukocyte Esterase Urine Trace (Negative); Nitrite Urine Negative (Negative); Specific Gravity - Urine <= 1.005 (1.005-1.025); UMIC TRIGGER UA YES; Urine Blood Trace (Negative); Urine Ketones Negative (Negative); Urine Protein Negative (Neg-Trace)
[2023-10-24 11:35] LABS: Bacteria Urine None Seen (None Seen); Hyaline Casts Urine 0-2 /LPF (0-2); RBC Urine 0-2 /HPF (0-2); Squamous Epithelial Cell Urine 0-2 /HPF (0-2); WBC Urine 0-5 /HPF (0-5)
== END 2023-10-24 10:34 | disposition home or self-care (01) ==
LOC: HO.LAB 10:33
PROVIDERS: Visit Provider Physician Assistant
DX: N39.0 Urinary tract infection, site not specified (principal)
CPT/HCPCS: 81001; 87086

== ENCOUNTER 2024-03-20 08:40 | Emergency (ER) | payer MEDICARE, SELFPAY ==
--- NOTE | ~2024-03-20 | CT_ITS ---
EXAMINATION: CT ABDOMEN AND PELVIS WITHOUT CONTRAST CLINICAL INFORMATION: Hematuria abdominal pain COMPARISON: CT abdomen from 08/12/2023 TECHNIQUE: Multidetector volumetric imaging was performed from the superior aspect of the liver through the pubic symphysis. Sagittal and coronal reformatted images were obtained on the technologist's workstation. This CT examination was performed using dose optimization techniques as appropriate, variously including the following: *Automated exposure control *Adjustment of mA and/or kV according to patient size (this includes techniques or standardized protocols for targeted exams where dose is matched to indication/reason for exam; i.e. extremities or head) *Use of iterative reconstruction technique DLP: 360 mGy-cm FINDINGS: LUNG BASES: Partially visualized nodular focus along the lateral pleural base of the left lower lobe measuring 5 mm (series 4, image 1). No pneumothorax. No large pleural effusion. Pacer wires partially visualized. Elevation right hemidiaphragm. LIVER, GALLBLADDER, AND BILIARY TREE: Liver is mildly enlarged. Redemonstrated cystic foci the largest in the hepatic dome. Previously identified hemangiomas are redemonstrated in the right hepatic lobe is though not well characterized without intravenous contrast. No focal hepatic lesion or biliary ductal dilatation is present. The gallbladder is unremarkable with no evidence of radiopaque gallstones, gallbladder wall thickening, or obvious pericholecystic inflammatory changes. PANCREAS: Unremarkable. SPLEEN: Unremarkable. ADRENAL GLANDS: Redemonstrated hypodense focus involving the left adrenal gland measuring 1.2 cm and -19 Hounsfield units. Adrenal nodules of any size exhibiting a CT density of =<10 HU are overwhelmingly likely to represent lipid rich benign adenomas for which no follow-up imaging is recommended. Right adrenal gland is unremarkable. KIDNEYS AND URETERS: The kidneys are normal in size, shape, and attenuation. No hydronephrosis, hydroureter, or calculi seen. No perinephric stranding. BLADDER: Distended urinary bladder with wall thickening suggesting elements of bladder outlet obstruction. Intraluminal dependent urinary bladder calculi are redemonstrated with the largest measuring up to 3 mm. GASTROINTESTINAL TRACT: Small hiatal hernia. Fecal loading throughout the colon. The small and large bowel are unremarkable. The appendix is not definitively visualized. ABDOMINAL WALL: Fat filled umbilical hernia. Small fat filled left inguinal hernia. LYMPH NODES: No enlarged lymph nodes per size criteria. VASCULAR: Abdominal aorta is nonaneurysmal. PELVIC VISCERA: Prostate is enlarged measuring 6.5 x 6.9 cm with mass effect upon the urinary bladder base. OSSEOUS STRUCTURES: Multilevel degenerative changes of the thoracolumbar lumbosacral spine. CT/CT abdomen pelvis wo IV con IMPRESSION: 1. No acute process of the abdomen or pelvis identified. 2. Partially visualized nodular focus along the lateral pleural base of the left lower lobe of the lung measuring 5 mm. Follow-up as per Fleischner criteria. 3. Liver is mildly enlarged. Redemonstrated cystic foci the largest in the hepatic dome. Previously identified hemangiomas are redemonstrated in the right hepatic lobe is though not well characterized without intravenous contrast. 4. Redemonstrated hypodense focus involving the left adrenal gland measuring 1.2 cm and -19 Hounsfield units. Adrenal nodules of any size exhibiting a CT density of = < 10 HU are overwhelmingly likely to represent lipid poor benign adenomas for which no follow-up imaging is recommended. 5. Distended urinary bladder with wall thickening suggesting elements of bladder outlet obstruction. Intraluminal dependent urinary bladder calculi are redemonstrated with the largest measuring up to 3 mm. 6. Prostate is enlarged measuring 6.5 x 6.9 cm with mass effect upon the urinary bladder base. 7. Small hiatal hernia. According to the UPDATED 2017 Fleischner Society recommendations, the advised follow-up imaging for solid nodules < 6 mm is: LOW RISK PATIENT: No routine follow-up. Electronically signed by: Bo Clement MD 03/20/2024 12:15 PM EDT
[2024-03-20 08:46] VITALS: BP 159/76; PULSE 61; RESP 18; TEMP 36.2; O2SAT 99; BMI 20.9
--- NOTE | 2024-03-20 09:11 | ED.ABDPAIN ---
HPI - Abdominal Pain General Chief Complaint: Abdominal Pain Stated Complaint: abd pain Time Seen by Provider: 03/20/24 09:11 Source: patient Mode of arrival: ambulatory Limitations: no limitations History of Present Illness ED Provider: Deborah Diallo PA-C HPI narrative: 73-year-old male with a history neurogenic bladder who requires straight catheterization at home, history of atrial fibrillation not on anticoagulation, basal cell carcinoma, compression fracture of the spine, mitral valve prolapse, history of incisional hernia, open heart surgery in the past who presents to the ER for evaluation 2 weeks of diffuse abdominal soreness, low back pain that is intermittent. He reports that he also has soreness in his chest that is consistent with his previously diagnosed costochondritis. He states he recently saw his perinatology physician last week and had an echocardiogram that was fine. He denies any associated nausea, vomiting, diarrhea, cough, shortness of breath or difficulty breathing. He states his incisional hernia is sore, it contains fat and is nonreducible. He reports he has a straight catheterize himself at home due to a neurogenic bladder and has noticed blood when he straight caths. He denies any fever or chills. He has history of UTIs in the past. He called his PCP was unable to get him in so he came to the ER for evaluation MD elicited complaint: abdominal pain Pertinent past history: past UTI Onset (ago): week(s) Pain Consistency: intermittent Location: diffuse Quality: aching Radiation: none Migration to: no migration Exacerbating factors: nothing Relieving factors: nothing Associated symptoms: denies other symptoms Related Data Home Medications ?Medication ?Instructions ?Recorded ?Confirmed ascorbic acid (vitamin C) 1,000 mg 1,000 mg PO DAILY 04/29/21 04/29/21 tablet cholecalciferol (vitamin D3) 50 50 mcg PO DAILY 04/29/21 04/29/21 mcg (2,000 unit) tablet (Vitamin D3) multivitamin 1 tab PO DAILY 04/29/21 04/29/21 Previous Rx's ?Medication ?Instructions ?Recorded amoxicillin 875 mg-potassium 1 tab PO BID 7 days #14 tabs 04/24/22 clavulanate 125 mg tablet cefuroxime axetil 500 mg tablet 500 mg PO BID 7 days #14 tabs 03/20/24 Allergies Allergy/AdvReac Type Severity Reaction Status Date / Time lactose [LACTOSE] Allergy Severe CRAMPING Verified 03/20/24 08:49 soy [SOY] Allergy Severe CRAMPING Verified 03/20/24 08:49 ciprofloxacin Allergy Anaphylaxis Verified 03/20/24 08:49 ANTIBIOTIC SENSITIVE Allergy Severe ABDOMINAL Uncoded 04/30/21 00:28 PAIN Review of Systems Review of Systems Yes all other systems are reviewed and are negative [facility] Past Medical History Medical History (Updated 03/20/24 @ 12:22 by KEYSHA Heart) Atrial fibrillation First degree heart block by electrocardiogram Mitral valve prolapse Bunion Neurogenic bladder Basal cell carcinoma Compressed spine fracture Surgical History S/P mitral valve repair Family History Family History Other Mitral valve prolapse Social History Social History Alcohol intake: never Patient Tobacco Use Status: Tobacco use Unknown Smoked in Last 30 Days: No Use of substances other than those prescribed or required for medical reasons: No Advance Directives: No Advance Directives Information Provided: Yes Do you have a plan to hurt others: No Plan service: No Current occupational status: retired Physical Exam ED Vital Signs: Vital Signs - 24 hr 03/20/24 08:46 03/20/24 12:23 03/20/24 12:32 Temperature 97.2 F 97.4 F 97.4 F Pulse Rate 61 60 60 Respiratory Rate 18 17 18 Blood Pressure 159/76 H 139/61 139/61 Pulse Oximetry 99 98 98 Oxygen Delivery Method Room Air Room Air Room Air BMI result Body Mass Index 20.9 Appearance: Alert elderly male sitting on the edge of the stretcher. Oriented X3. No acute distress. Head: normocephalic, atraumatic. Eyes: Pupils equal, round and reactive to light. ENT: Pharynx normal. No tonsillar swelling or exudate. Neck: Normal inspection. Neck supple. CVS: Normal heart rate and rhythm. Pulses normal. Respiratory: No respiratory distress. Breath sounds normal. Abdomen: Soft and nontender. there is a small, nonreducible incisional hernia in the epigastric area without overlying skin changes. normoactive +BS x4. no cva tenderness bilaterally Skin: Skin warm and dry. Normal skin color. Normal skin turgor. No rashes. Extremities: No lower extremity edema. No joint swelling. Neuro/psych: Oriented X 3. No motor deficit. No sensory deficit. CN II-XII intact. Normal speech and cognition. Medical Decision Making Medical Decision Making [facility] Narrative: 73-year-old male with a history neurogenic bladder who requires straight catheterization at home, history of atrial fibrillation not on anticoagulation, basal cell carcinoma, compression fracture of the spine, mitral valve prolapse, history of incisional hernia, open heart surgery in the past who presents to the ER for evaluation 2 weeks of diffuse abdominal soreness, low back pain that is intermittent. On arrival to the ER patient is hemodynamically stable and afebrile. His exam is reassuring without any significant abdominal tenderness or CVA tenderness, he does have a chronic incisional hernia containing fat. Low suspicion for incarcerated bowel hernia. Lab workup was showing a mild normocytic anemia which is stable from prior. Mild thrombocytopenia which is also stable from prior. He has normal renal function. Chronically elevated bicarbonate. LFTs are normal. Urinalysis is consistent with infection. No signs of sepsis at this time. He was given oral antibiotics. CT scan of his abdomen was done which does not show any acute findings, multiple chronic findings noted. This time patient is stable for discharge home with oral antibiotics for UTI and outpatient follow-up with his PCP. Patient agrees with plan and return precautions were discussed. Differential Diagnosis Differential Diagnoses: The differential diagnosis associated with the presentation includes UTI, gastroenteritis, pyelonephritis, musculoskeletal pain, colitis, kidney stone Admission/Observation Consideration of admission/observation: Escalation of care including admission/observation considered Lab Data MDM Lab Attestation statement: I reviewed the patient's lab results. As above 03/20/24 09:08 03/20/24 09:08 Labs: Lab Results 03/20/24 Range/Units 09:08 WBC 5.0 (4.8-10.8) X10*3/uL RBC 4.16 L (4.60-5.80) X10*6/uL Hgb 13.6 L (14.0-18.0) g/dl Hct 40.1 L (42.0-52.0) % MCV 96.4 (80.0-98.0) fL MCH 32.7 (27.0-33.0) pg MCHC 33.9 (31.0-36.0) g/dl RDW 13.7 (11.0-16.0) % Plt Count 130 L (160-400) X10*3/uL MPV 12.1 (9.4-12.4) fL Immature Gran % (Auto) 0.4 (0.0-0.4) % Neut % (Auto) 60.4 (45-73) % Lymph % (Auto) 26.8 (20-40) % [place] % (Auto) 11.8 H (2-11) % Eos % (Auto) 0.6 (0-4) % Baso % (Auto) 0.0 (0-2) % Lymph # (Auto) 1.3 (1.2-4.9) X10*3/uL [place] # (Auto) 0.6 (0.1-1.2) X10*3/uL Eos # (Auto) 0.0 (0.0-0.4) X10*3/uL Baso # (Auto) 0.0 (0.0-0.2) X10*3/uL Abs Immat Gran (auto) 0.02 (0.00-0.03) X10*3/uL Absolute Neuts (auto) 3.0 (2.0-8.3) x10*3/uL Absolute Nucleated RBC 0.000 (0.0-0.012) X10*3/uL Nucleated RBC % (auto) 0.0 (0.0-0.2) /100WBC Sodium 140 (135-145) mmol/L Potassium 3.5 (3.3-5.1) mmol/L Chloride 103 (96-108) mmol/L Carbon Dioxide 32 H (22-29) mmol/L Anion Gap 9 L (12-20) BUN 13 (9-16) mg/dL Creatinine 0.83 (0.5-1.4) mg/dL Estim Creat Clear Calc 76.3 Estimated GFR > 60 Random Glucose 90 (60-115) mg/dL Calcium 8.7 D (8.4-10.2) mg/dL Total Bilirubin 0.9 (0.0-1.0) mg/dL Direct Bilirubin 0.3 (0.0-0.5) mg/dL AST 21 (5-37) U/L ALT 17 (0-40) U/L Alkaline Phosphatase 90 (39-117) U/L Total Protein 6.6 (6.5-8.0) g/dL Albumin 4.2 (3.5-5.0) g/dL Lipase 27 (8-78) U/L Urine Color Yellow Urine Appearance Clear Urine pH 7.5 (5.0-9.0) Ur Specific [place] <= 1.005 (1.005-1.025) Urine Protein Negative (Neg-Trace) mg/dL Urine Glucose (UA) Negative (Negative) mg/dL Urine Ketones Negative (Negative) mg/dL Urine Blood Negative (Negative) Urine Nitrite Positive H (Negative) Ur Leukocyte Esterase Small (1+) H (Negative) Urine RBC 0-2 (0-2) /HPF Urine WBC 0-5 (0-5) /HPF Ur Squamous Epith Cells 0-2 (0-2) /HPF Urine Bacteria 1+ (None Seen) Hyaline Casts 0-2 (0-2) /LPF Independent Interpretation I performed an independent interpretation of an: CT Scan Interpretation: CT scan without any dilated loops of bowel or air-fluid levels to suggest obstruction, no visible ureteral stones Radiology Impression Discussion of test interpretation with radiology: I have reviewed the radiologist's reading. External Record Review External record reviewed: Outpatient record, Prior outpatient labs and Prior outpatient radiology Prescription Management I considered prescription management with: Pain Medication and Antibiotic Chronic Conditions Patient?s care impacted by: Other (Neurogenic bladder requiring straight catheterization) Medications Administered Discontinued Medications Generic Name Dose Route Start Last Admin Trade Name Freq PRN Reason Stop Dose Admin Acetaminophen 975 mg 03/20/24 09:50 03/20/24 10:19 Acetaminophen 325 Mg Tablet PO 03/20/24 09:51 Not Given ONCE ONE Cefuroxime Axetil 500 mg 03/20/24 09:50 03/20/24 10:16 Cefuroxime Axetil 500 Mg Tablet PO 03/20/24 09:51 500 mg ONCE ONE Administration Critical Care Time Critical Care Time Critical Care Time: No Discharge Plan Discharge Clinical Impression: Acute UTI Patient Disposition: Home, Self-Care Instructions: Urinary Tract Infection in Men (DC) Additional Instructions: You were found to have urinary tract infection today. Take the prescribed antibiotics as directed, complete the entire course and do not miss any doses. Next dose is due this evening before bed. Drink plenty of fluids. Make sure when you catheterize herself you are doing so in a sterile fashion. Your CT scan today did not show any acute findings Follow-up with your doctor next week If you develop new or worsening symptoms call 911 or come back to the ER for further evaluation. Prescriptions: New cefuroxime axetil 500 mg tablet 500 mg PO BID 7 Days Qty: 14 0RF No Action amoxicillin-pot clavulanate 875-125 mg tablet 1 tab PO BID 7 Days Qty: 14 0RF multivitamin Tablet 1 tab PO DAILY ascorbic acid (vitamin C) 1,000 mg Tablet 1,000 mg PO DAILY cholecalciferol (vitamin D3) [Vitamin D3] 50 mcg (2,000 unit) Tablet 50 mcg PO DAILY Referrals: Casimiro Goetz DO [Primary Care Provider] - Interventions: ED Discharge Assessment Last Done: 03/20/24 12:32 Discharge Date/Time: 03/20/24 12:32 Print Language: Chinese
[2024-03-20 09:14] LABS: MANUAL DIFF FLAG NO
[2024-03-20 09:16] LABS: Appearance Urine Clear; Color Urine Yellow; Glucose Urine UA Negative (Negative); Leukocyte Esterase Urine Small (1+) (Negative); Nitrite Urine Positive (Negative); PH 7.5 (5.0-9.0); Specific Gravity - Urine <= 1.005 (1.005-1.025); UMIC TRIGGER UACC YES; Urine Blood Negative (Negative); Urine Ketones Negative (Negative); Urine Protein Negative (Neg-Trace)
[2024-03-20 09:17] LABS: Eosinophils Percent Auto 0.6 % (0-4); Hematocrit 40.1 % (42.0-52.0); Hemoglobin 13.6 g/dl (14.0-18.0); Imm Gran Abs Auto 0.02 X10*3/uL (0.00-0.03); Imm Gran Pct Auto 0.4 % (0.0-0.4); Lymphocytes Absolute Auto 1.3 X10*3/uL (1.2-4.9); Lymphocytes Percent Auto 26.8 % (20-40); Mean Corpuscular HGB Conc 33.9 g/dl (31.0-36.0); Mean Corpuscular Hemoglobin 32.7 pg (27.0-33.0); Mean Corpuscular Volume 96.4 fL (80.0-98.0); Mean Platelet Volume 12.1 fL (9.4-12.4); Monocytes Absolute Auto 0.6 X10*3/uL (0.1-1.2); Monocytes Percent Auto 11.8 % (2-11); Neutrophils Percent Auto 60.4 % (45-73); Platelet Count 130 X10*3/uL (160-400); Red Blood Count 4.16 X10*6/uL (4.60-5.80); Red Cell Distribution Width 13.7 % (11.0-16.0)
[2024-03-20 09:27] LABS: Bacteria Urine 1+ (None Seen); Hyaline Casts Urine 0-2 /LPF (0-2); RBC Urine 0-2 /HPF (0-2); Squamous Epithelial Cell Urine 0-2 /HPF (0-2); UACC Culture Trigger YES; WBC Urine 0-5 /HPF (0-5)
[2024-03-20 09:30] LABS: Alanine Aminotransferase 17 U/L (0-40); Albumin Level 4.2 g/dL (3.5-5.0); Alkaline Phosphatase 90 U/L (39-117); Anion Gap 9 (12-20); Aspartate Amino Transferase 21 U/L (5-37); Bilirubin Direct 0.3 mg/dL (0.0-0.5); Bilirubin Total 0.9 mg/dL (0.0-1.0); Blood Urea Nitrogen 13 mg/dL (9-16); Calcium 8.7 mg/dL (8.4-10.2); Carbon Dioxide 32 mmol/L (22-29); Chloride 103 mmol/L (96-108); Creatinine Clr Calc Pharmacy 76.3; Estimated Glomerular Filt Rate > 60; Glucose Random 90 mg/dL (60-115); Lipase 27 U/L (8-78); Potassium 3.5 mmol/L (3.3-5.1); Sodium 140 mmol/L (135-145); Total Protein 6.6 g/dL (6.5-8.0)
--- NOTE | 2024-03-20 09:51 | ECG_ITS ---
Test Reason : CHEST PAIN Blood Pressure : / mmHG Vent. Rate : 057 BPM Atrial Rate : 057 BPM P-R Int : 280 ms QRS Dur : 094 ms QT Int : 412 ms P-R-T Axes : 000 017 053 degrees QTc Int : 401 ms Sinus bradycardia with 1st degree A-V block Incomplete right bundle branch block possible old anteroseptal infarct Abnormal ECG When compared with ECG of 12-AUG-2023 16:53, Premature ventricular complexes are no longer Present Referred By: Mehreen Diallo Electronically Signed By:NATHANIEL HAMPTON
[2024-03-20] MEDS: cefuroxime axetiL 500 MG TABLET PO (10:16)
[2024-03-20 12:23] VITALS: BP 139/61; PULSE 60; RESP 17; TEMP 36.3; O2SAT 98
[2024-03-20 12:32] VITALS: BP 139/61; PULSE 60; RESP 18; TEMP 36.3; O2SAT 98
== END 2024-03-20 12:32 | disposition home or self-care (01) ==
PROVIDERS: Emergency Provider Emergency Medicine; PCP Student in an Organized Health Care Education/Training Program
DX: N39.0 Urinary tract infection, site not specified (principal); R10.9 Unspecified abdominal pain; I48.91 Unspecified atrial fibrillation
CPT/HCPCS: 36415; 74176; 80048; 80076; 81001; 83690; 85025; 87086; 93005; 99284

== ENCOUNTER → 2024-03-20 09:51 | Outpatient (BNV) | payer MEDICARE, SELFPAY | PROVIDERS: Emergency Provider Emergency Medicine; PCP Student in an Organized Health Care Education/Training Program; Visit Provider Internal Medicine | DX: R94.31 Abnormal electrocardiogram [ECG] [EKG] (principal) | CPT/HCPCS: 93010 ==

== ENCOUNTER 2024-07-08 07:42 | Emergency (ER) | payer MEDICARE, SELFPAY ==
[2024-07-08 07:47] VITALS: BP 153/62; PULSE 69; RESP 18; TEMP 36.6; O2SAT 98; BMI 20.2
--- NOTE | 2024-07-08 08:03 | ED_ITS ---
HPI - General Adult General Chief complaint: Fever Stated complaint: sore throat Time Seen by Provider: 07/08/24 08:03 History of Present Illness ED Provider: Shahriar MAURER narrative: The patient is a 73-year-old male who has not been feeling well for the last several weeks. He said that he was diagnosed with COVID in early June and felt unwell for awhile but then started to feel unwell a couple of weeks ago with intermittent fevers, body aches, a sense of swollen glands, and a sense of sinus discomfort. He has also had a bit of a sore throat. Mild cough. No shortness of breath. He says that he wanted to make sure that he did not have strep throat and could not get into see his PCP so came to the emergency room instead. The patient says that he has a history of paroxysmal atrial fibrillation after heart surgery several years ago. He is not on anticoagulation although he has been advised to be on anticoagulation. It is his choice not to be on anticoagulation. He only very rarely has episodes of atrial fibrillation. Related Data Home Medications ?Medication ?Instructions ?Recorded ?Confirmed ascorbic acid (vitamin C) 1,000 mg 1,000 mg PO DAILY 04/29/21 04/29/21 tablet cholecalciferol (vitamin D3) 50 50 mcg PO DAILY 04/29/21 04/29/21 mcg (2,000 unit) tablet (Vitamin D3) multivitamin 1 tab PO DAILY 04/29/21 04/29/21 Previous Rx's ?Medication ?Instructions ?Recorded amoxicillin 875 mg-potassium 1 tab PO BID 7 days #14 tabs 04/24/22 clavulanate 125 mg tablet cefuroxime axetil 500 mg tablet 500 mg PO BID 7 days #14 tabs 03/20/24 Allergies Allergy/AdvReac Type Severity Reaction Status Date / Time lactose [LACTOSE] Allergy Severe CRAMPING Verified 07/08/24 07:49 soy [SOY] Allergy Severe CRAMPING Verified 07/08/24 07:49 ciprofloxacin Allergy Anaphylaxis Verified 07/08/24 07:49 ANTIBIOTIC SENSITIVE Allergy Severe ABDOMINAL Uncoded 07/08/24 07:49 PAIN Review of Systems Review of Systems: Yes all other systems are reviewed and are negative [facility] Past Medical History Medical History (Updated 07/08/24 @ 09:41 by Lamont Bess MD) Atrial fibrillation First degree heart block by electrocardiogram Mitral valve prolapse Bunion Neurogenic bladder Basal cell carcinoma Compressed spine fracture Surgical History S/P mitral valve repair Family History Family History Other Mitral valve prolapse Social History Social History Alcohol intake: never Patient Tobacco Use Status: Tobacco use Unknown Advance Directives: No Advance Directives Information Provided: Yes Do you have a plan to hurt others: No Plan service: No Current occupational status: retired Physical Exam ED Vital Signs: Vital Signs - 24 hr 07/08/24 07:47 Temperature 97.9 F Pulse Rate 69 Respiratory Rate 18 Blood Pressure 153/62 H Pulse Oximetry 98 Oxygen Delivery Method Room Air BMI result Body Mass Index 20.2 Const Other: The patient is awake, alert, pleasant, cooperative. He does not appear in any distress. HENMT Other: Some mild injection to the posterior pharynx. No tonsillar tissue seems apparent. No exudate. Airway is clear. Tympanic membranes are normal bilaterally. No remarkable sinus tenderness. Eyes Other: Pupils are round equal, conjunctivae clear Neck Other: I do not appreciate any significant lymphadenopathy. No neck swelling. No JVD. Resp Effort & Inspection: normal respiratory effort Auscultation: clear to auscultation bilaterally Cardio Rate: regular rate Rhythm: regular rhythm Heart sounds: S1 normal heart sound present, S2 normal heart sound present and Murmur heart sound present (No murmur heard) GI Other: Abdomen is soft and nontender Skin Other: Skin is pale and dry Neuro Other: The patient is awake and alert with a normal mental status. Cranial nerves are grossly intact. He moves his extremities normally. He has a normal gait. Extrem Other: No peripheral edema Medical Decision Making Medical Decision Making MDM Narrative: The patient is a very pleasant 73-year-old male with a history of paroxysmal atrial fibrillation who was not on anticoagulation who says he had COVID about a month ago. He has had some persistent viral symptoms including a sore throat for which she wanted to get checked. He says he lives in elderly housing and wanted to make sure he did not have any obviously transmissible diseases. He does not appear acutely ill in any way. He is negative for strep throat today, negative for COVID, influenza, and RSV. Perhaps he has some persistent viral syndrome but he looks well. He is in sinus rhythm today. He is encouraged to continue using medic treatment. Lab Data Labs: Lab Results 07/08/24 Range/Units 07:57 Influenza Type A (PCR) NEGATIVE (Negative) Influenza Type B (PCR) NEGATIVE (Negative) RSV RNA Qual (PCR) NEGATIVE (Negative) SARS-CoV-2 RNA (RT-PCR) NEGATIVE (Negative) S. pyogenes GrpA DONNIE Negative (Negative) Discharge Plan Discharge Clinical Impression: Viral respiratory illness Patient Disposition: Home, Self-Care Instructions: Viral Syndrome (ED) Additional Instructions: You have tested negative for strep throat. You have also tested negative for influenza, COVID, and RSV. I think you have some other kind of nonspecific viral illness which manage with hot soup send hot teas. Please stay in touch with your regular doctors for additional advice as needed. Return to the emergency room if significantly worse. Prescriptions: No Action amoxicillin-pot clavulanate 875-125 mg tablet 1 tab PO BID 7 Days Qty: 14 0RF multivitamin Tablet 1 tab PO DAILY ascorbic acid (vitamin C) 1,000 mg Tablet 1,000 mg PO DAILY cholecalciferol (vitamin D3) [Vitamin D3] 50 mcg (2,000 unit) Tablet 50 mcg PO DAILY cefuroxime axetil 500 mg tablet 500 mg PO BID 7 Days Qty: 14 0RF Referrals: Noemí Deleon MD [Physician] - (Viral syndrome) [facility] Romaine Asencio [Provider Group] (Viral syndrome) Print Language: Hebrew
[2024-07-08 08:14] LABS: IDNOW Serial# 58CA691E; Strep A Nucleic Acid Negative (Negative)
--- NOTE | 2024-07-08 08:16 | ECG_ITS ---
Test Reason : hx of afib Blood Pressure : */* mmHG Vent. Rate : 58 BPM Atrial Rate : 58 BPM P-R Int : 282 ms QRS Dur : 88 ms QT Int : 424 ms P-R-T Axes : 87 -7 45 degrees QTcB Int : 416 ms Sinus bradycardia with 1st degree A-V block Septal infarct , age undetermined Abnormal ECG When compared with ECG of 20-Mar-2024 10:06, No significant change was found Referred By: Lamont Bess Electronically Signed By: Kofi Rodriguez
--- OUTSIDE RECORDS SUMMARY | 2024-07-08 08:35 | XMS_ITS | Clinical Summary ---
Author Organization [facility] ity Address [address] [place] [address] Care Team Providers Care Roving [address] Reporter Name Role Phone Jeanna Kaur MD Primary Care Provider Allergies Active Allergy Reactions Criticality Noted Date Comments Ciprofloxacin 08/03/2020 Sensation throat closing Lactose 12/24/2016 Soy 12/24/2016 Medications Medication Sig Dispensed Refills Start Date End Date Status amoxicillin (AMOXIL) 500 mg capsule Take 4 capsules of amoxicillin 500 mg 1 hour prior dental procedure 01/10/2023 Active metoprolol succinate (TOPROL-XL) 25 mg 24 hr tablet Take 1 Tablet by mouth as needed. Active Active Problems Problem Noted Date Diagnosed Date Osteopenia of left hip 07/17/2021 Compression deformity of vertebra 03/19/2021 Overview (05/07/2024): Compression deformity of the T9 seen icidentally on CXR 03/22. Bone Density scan ordered. Tachycardia 11/28/2017 H. pylori infection 05/16/2017 Hematocele 05/16/2017 Overview (05/07/2024): Left. Urology evaluation BPH (benign prostatic hyperplasia) 12/24/2016 Overview (05/07/2024): Follows with [facility] Elevated PSA 12/24/2016 Overview (05/07/2024): Following with Dr. Ramírez at [facility] Urology Liver hemangioma 12/24/2016 Overview (05/07/2024): MRI 03/2014 @ [facility] 12/18- stable- recheck in 6months Neurogenic bladder 12/24/2016 Overview (05/07/2024): Straight cath 4 times Immunizations Name Administration Dates Next Due DTaP (Infanrix) 6wks to less than 7yo 12/09/2012 Influenza trivalent, 0.5mL (Fluad) 65yo and olde r 07/15/2016 Moderna SARS-CoV-2 COVID-19, mRNA, LNP-S, preservative free 10/14/2020,09/16/2020 Pneumococcal conjugate 13 va lent (Prevnar 13, PCV13) 2mo and older 04/01/2016 Pneumococcal polysaccharide 23 valent (Pneumovax 23) 2yo and older 06/26/2017 Pneumococcal, Unspecified 12/09/2012 Zoster Live 12/09/2012 Surgical History Surgery Date Site/Laterality Comments OTHER SURGICAL HISTORY 12/14/2014 PROCEDURE: [place] TCAT MITRAL VALVE REPAIR INITIAL PROSTHESIS; COMMENT: Annuplasty ring used HERNIA REPAIR 11/23/2010 Left PROCEDURE: REPAIR INGUINAL HERNIA; COMMENT: subsequent neurogenic bladder OTHER SURGICAL HISTORY 2011 Left PROCEDURE: [place] EXCISION HYDROCELE UNILATERAL OTHER SURGICAL HISTORY 2013 Left PROCEDURE: REPAIR DETACHED RETINA ROTATOR CUFF REPAIR PROCEDURE: HISTORICAL ROTATOR CUFF REPAIR OTHER SURGICAL HISTORY PROCEDURE: HISTORICAL MELANOMA Medical History Medical History Date Comments BPH (benign prostatic hyperplasia) 12/24/2016 DX:BPH (benign prostatic hyperplasia); COMMENT: Follows with [facility] Elevated PSA 12/24/2016 DX:Elevated PSA; COMMENT: Following with Dr. Ramírez at [facility] Urology H. pylori infection 05/16/2017 DX:H. pylori infection Hematocele 05/16/2017 DX:Hematocele; C OMMENT: Left. Urology evaluation History of mitral valve disease 12/24/2016 DX:History of mitral valve disease; COMMENT: Repaired 2014. Follows with Dr. Yaakov Killian Hx of hepatitis 12/24/2016 DX:Hx of hepatit is; COMMENT: Unsure what type. Hx of liver lesions. Was being followed, MRI 2 years ago Hx of retinal detachment 12/24/2016 DX:Hx o f retinal detachment; COMMENT: S/p repair Liver hemangioma 12/24/2016 DX:Liver zenobia ioma; COMMENT: MRI 03/2014 @ [facility] Neurogenic bladder 12/24/2016 DX:Neurogenic bladder; COMMENT: Straight cath 4 times Tachycardia 11/28/2017 DX:Tachycardia History of basal cell carcinoma 01/22/2021 DX:History of basal cell carcinoma; COMMENT: BCC 01/20 left ear (nodular) History of basal cell carcinoma 01/22/2021 DX:History of basal cell carcinoma Family History Medical History Relation Name Comments Other: thyroid ca Brother 1 Diabetes Brother 2 Colon cancer Father Hypertension Mother Other: cancer skin Sister 1 Breast cancer Sister 2 OR, Diabetes Relation Name Status Comments Brother 1 Alive Brother 2 Alive Brother 3 Alive Father Mother Sister 1 Alive Sister 2 Social History Tobacco Use Types Packs/Day Years Used Date Smoking Tobacco: Former Cigarettes Smokeless Tobacco: Never Alcohol Use Standard Drinks/Week Comments No 0 (1 standard drink = 0.6 oz pur e alcohol) Sex and Gender Information Value Date Recorded Sex Assigned at Not on file Gender Identity Not on file Sexual Orientation Not on file Obstetrics History Last Filed Vital Signs Vital Sign Reading Time Taken Comments Blood Pressure 102/62 02/06/2024 1:54 PM EDT Pulse 61 02/06/2024 1:54 PM EDT Temperature - - Respiratory Rate - - Oxygen Saturation - - Inhaled Oxygen Concentration - - Weight 67 kg (147 lb 9.6 oz) 02/06/2024 1:54 PM EDT Height 180.3 cm (5' 11 ) 02/06/2024 1:54 PM EDT Body Mass Index 20.59 02/06/2024 1:54 PM EDT Plan of Treatment Upcoming Encounters Date Type Department Care Team (Late st Contact Info) Description 08/05/2024 9:45 AM EST Office Visit Adult Medicine - [address] [phone] Jimmy Desai PA [address] [place] [address] Health Maintenance Due Date Last Done Comments Hepatitis A Vaccines (1 of 2 - Risk 2-dose series) 1969 Hepatitis B Vaccines (1 of 3 - Risk 3-dose series) 2010 RSV Immunization Patients 60 + Years Old (1 - Risk 60-74 years 1-dose series) 2010 Zoster Vaccines (2 of 3) 02/03/2013 12/09/2012 COVID-19 Vaccine (3 - Modern a risk series) 11/11/2020 10/14/2020, 09/16/2020 Cholesterol Screening (Lipid Panel) 05/11/2022 Social Influencers of Health Screening 05/11/2022 DTaP,Tdap,and Td Vaccines (2 - Tdap) 12/09/2022 12/09/2012 Influenza Vaccine (#1) 2024 07/15/2016 Depression Screening 02/05/2025 02/06/2024 Falls Risk Assessment 02/05/2025 02/06/2024 Medicare Annual Wellness Visit 02/05/2025 02/06/2024 Colorectal Cancer Screening: FIT-DNA (Cologuard) 06/20/2025 06/20/2022 Hepatitis C Screening Completed 12/24/2016 Pneumococcal Vaccine: 65+ Years Completed 06/26/2017, 04/01/2016, 12/09/2012 Abdominal Aortic Aneurysm (AAA) Screen Completed 12/21/2018, 10/01/2017 HIB Vaccines Aged Out No longer eligi ble based on patient's age to complete this topic HPV Vaccines Aged Out No longer eligi ble based on patient's age to complete this topic IPV Vaccines Aged Out No longer eligi ble based on patient's age to complete this topic MMR Vaccines Aged Out No longer eligi ble based on patient's age to complete this topic Meningococcal ACWY Vaccine Aged Out N o longer eligible based on patient's age to complete this topic RSV Immunization Patients Under 20 months Aged Out No longer eligible b ased on patient's age to complete this topic Varicella Vaccines Aged Out No longer eligible based on patient's age to complete this topic Procedures Procedure Name Priority Date/Time Associated Diagnosis Comments DEPRESSION SCREENING Routine 02/06/2024 FALLS RISK ASSESSMENT Routine 02/06/2024 FIT-DNA Routine 06/20/2022 ABDOMINAL AORTIC ANEURYSM SCRREN Routine 12/21/2018 HEPATITIS C SCREENING Routine 12/24/2016 from Last 3 Months or Most Recently Relevant to Health Maintenance Results * Falls Risk Assessment (02/06/2024) [facility] Falls Risk Assessment abstracted Historical Provider [facility] * Depression Screening (02/06/2024) [facility] Depression Screening abstracted Historical Provider [facility] * FIT-DNA (Cologuard) (06/20/2022) [facility] Colorectal Cancer Screening: FIT-DNA (Cologuard) abstracted, negative Historical Provider [facility] * Abdominal Aortic Aneurysm Screen (12/21/2018) [facility] Abdominal Aortic Aneurysm (AAA) Screening abstracted Anatomical Region Laterality Modality Other Historical Provider [facility] * Hepatitis C Screening (12/24/2016) [facility] Hepatitis C Screening abstracted Historical Provider [facility] from Last 3 Months or Most Recently Relevant to Health Maintenance Care Teams Roving [address] Reporter Relationship Specialty Start Date End Date Jeanna Kaur MD PCP - General 11/13/23
--- OUTSIDE RECORDS SUMMARY | 2024-07-08 08:35 | XMS_ITS | Encounter Summary ---
Author Name [facility] [place] [facility] [place] [facility] [place] [facility] [place] Address [address] [place] [address] Care Team Providers Care Business Continuity Strategy Director Name Role Phone LESVIA GABRIEL Primary Care Provider Unavailabl e Insurance Providers: All historical and current Section Date Range: From patient's date of to the date document was created. This section includes the names of all active insurance providers for the patient. Insurance Provider Type of Coverage Plan Name Start of Policy Coverage End of Policy Coverage Group Number Member ID Insurance Provider's Telephone Number Policy Welch's Name Patient's Relationship to Policy Welch ANTHEM [place] OF [place] MEDICARE SUPPLEMEN RANDY MEDEX CHOIC E Dec 31, 2016 [id number] FÁTIMA,GAR Y PATIENT BCBS MD MEDICARE SUPPLEMEN RANDY MEDEX CHOIC E Dec 31, 2016 [id number] [phone] FÁTIMA,GAR Y PATIENT BCBS MD MEDICARE SUPPLEMEN RANDY MEDEX CHOIC E Dec 31, 2016 [id number] [phone] STORM,GAR Y PATIENT BCBS OF [facility] MEDICARE SUPPLEMEN RANDY MEDEX CHOIC E MONTH LY Dec 31, 2016 [id number] STORM,GAR Y PATIENT MEDICAID MEDICAID CATIE NIÑO Jun 02, 2013 MEDICAI D [id number] STORM,GAR Y PATIENT MEDICARE (WNR) MEDICARE () PART B Dec 01, 2015 PART B [id number] STORM,GAR Y PATIENT MEDICARE (WNR) MEDICARE () PART A Dec 01, 2015 PART A [id number] [phone] STORM,GAR Y PATIENT MEDICARE (WNR) MEDICARE () PART B Dec 01, 2015 PART B [id number] STORM,GAR Y PATIENT MEDICARE (WNR) MEDICARE () PART A Dec 01, 2015 PART A [id number] [phone] STORM,GAR Y PATIENT MEDICARE (WNR) MEDICARE () PART B Dec 01, 2015 PART B [id number] STORM,GAR Y PATIENT MEDICARE (WNR) MEDICARE () PART A Dec 01, 2015 PART A [id number] STORM,GAR Y PATIENT MEDICARE (WNR) MEDICARE () PART B Dec 01, 2015 PART B [id number] STORM,GAR Y PATIENT MEDICARE (WNR) MEDICARE () PART A Dec 01, 2015 PART A [id number] STORM,GAR Y PATIENT MEDICARE (WNR) MEDICARE () PART B Dec 01, 2015 PART B [id number] STORM,GAR Y PATIENT MEDICARE (WNR) MEDICARE () PART A Dec 01, 2015 PART A [id number] [phone] STORM,GAR Y PATIENT Selected Encounter This section includes the information on record at [place] for the Encounter. Date/Time Encounter Type Encounter Description Reason Provider Source Sep 01, 2023 11:00 AM COMPRE OPH EXAM EST PT 1/> OPTOMETRY ICD-10-CM H40.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, low risk, bilateral GIANNI LANDRY Encounter Template Text not used by [facility] Assessments - Encounter Diagnoses This section includes the primary and secondary diagnoses documented for the Encounter. Date/Time Primary/Secondary Diagnosis Diagnosis Name Provider Source Sep 26, 2023 10:14 AM PRIMARY Open angle with borderline findings, low risk, bilateral GIANNI LANDRY [facility] [place] [facility] Sep 26, 2023 10:14 AM SECONDARY Combined forms of age-related cataract, bilateral GIANNI LANDRY [facility] [place] [facility] Plan of Treatment: Future Appointments (+ 6 months) and Future Tests (+/- 45 days) The Plan of Treatment section includes future care activities for the patient from all [place] treatmentfacilities. This section includes future appointments and future orders which are active, pending or scheduled. Future Appointments This section includes appointments that were scheduled to occur 6 months from the date of the Encounter, up to a maximum of 20 appointments. The data comes from all [place] treatment facilities. Appointment Date/Time Appointment Type Appointme nt Facility Name Nov 04, 2023 12:30 PM AMBULATORY - NONE [facility] [place] [facility] Nov 04, 2023 01:30 PM AMBULATORY - MEDICINE [facility] [place] [facility] Nov 07, 2023 09:40 AM AMBULATORY - MEDICINE [facility] [place] [facility] Nov 07, 2023 11:00 AM AMBULATORY - MEDICINE [facility] [place] [facility] Nov 17, 2023 09:40 AM AMBULATORY - MEDICINE [facility] [place] [facility] Jan 13, 2024 02:00 PM AMBULATORY - MEDICINE [facility] Jan 13, 2024 02:00 PM AMBULATORY - NONE [facility] [place] [facility] Jan 27, 2024 11:00 AM AMBULATORY - NONE [facility] [place] [facility] Jan 27, 2024 01:00 PM AMBULATORY - MEDICINE [facility] [place] [facility] Lab Results: +/- 30 days of the encounter This section includes the Chemistry and Hematology Lab Results on record with [place] for the patient. Radiology Reports and Pathology Reports are provided separately, in subsequent sections. Lab Results This section contains the Chemistry/Hematology Results that were resulted 30 days before or 30 daysafter the date of the Encounter. Date/Time Source Result Type Result - Unit Interpretation Reference Range Comment Aug 07, 2023 01:32 PM [facility] [place] [facility] URINALYSIS CLEAN CATCH Specimen Type: URINE Comment: If Glucose = >500 and Ketones are positive, please alert the Physician. Ordering Provider: LETY LUGO Report Released Date/Time: Aug 07, 2023 01:21 PM Reporting Lab: [facility] [address] [facility] [id number] Performing Lab: [facility] [address] [address] UA COLOR Colorless Yellow UA APPEARANCE Clear Clear UA GLUCOSE NEGATIVE mg/dL Negative UA KETONES NEGATIVE mg/dL Negative UA BLOOD NEGATIVE mg/dL Negative UA PROTEIN NEGATIVE mg/dL Negative UA NITRITE NEGATIVE mg/dL Negative UA BILIRUBIN NEGATIVE mg/dL Negative UA SPECIFIC GRAVITY 1.005 L 1.016-1.022 UA pH 7.0 5.0-9.0 UA UROBILINOGEN <2.0 mg/dL <2.0 UA LEUKOCYTE NEGATIVE Negative Aug 07, 2023 01:32 PM [facility] CBC AND DIFF (AUTO) Specimen Type: BLOOD No comment entered. Ordering Provider: LETY LUGO Report Released Date/Time: Aug 07, 2023 01:21 PM Reporting Lab: [facility] [address] [facility] [address] Performing Lab: [facility] [address] [facility] [address] WBC 4.84 10*3/uL 4.50-11.00 RBC 4.15 10*6/uL L 4.23-5.66 HGB 13.4 g/dL 12.8-17 HCT 39.8 39.2-50.4 MCV 95.9 fL 82-99 MCHC 33.7 g/dL 30.8-35.1 PLT 139 10*3/uL L 140-360 RDW-CV 13.1 12.0-16.0 Polk, Abs 0.48 10*3/uL 0.30-1.10 MCH 32.3 pg 26.2-32.6 Neut % 62.6 43.7-75.8 Lymph % 26.7 14.0-42.3 Polk % 9.9 5.1-13.7 Eos % 0.6 0.4-6.8 Baso % 0.0 L 0.1-2.0 Neut, Abs 3.03 10*3/uL 2.20-7.60 Lymph, Abs 1.29 10*3/uL 1.00-3.20 Eos, Abs 0.03 10*3/uL 0.03-0.44 Baso, Abs 0.00 10*3/uL L 0.01-0.13 Immature Gran % 0.2 0.0-0.7 Immature Gran, Abs 0.01 10*3/uL 0.00-0.06 Social History: Smoking Status (Most current) and Tobacco Use (All prior to encounter date) This section includes the most current, and the historical, smoking and tobacco- related health factors from the [place] facility where the Encounter took place. Current Smoking Status This section includes the most current smoking, or tobacco-related health factor, from the [place] facility where the Encounter took place. Date/Time Current Smoking Status Comment Facil ity May 08, 2023 01:30 PM VA-TOBACCO NEVER USED [facility] [place] [facility] Tobacco Use History This section includes a history of the smoking, or tobacco-related health factors, that were collected on or before the date of the Encounter. The data comes from the [place] facility where the Encounter took place. Date/Time Smoking Status/Tobacco Use Comment F acility Mar 19, 2022 01:30 PM VA-TOBACCO NEVER USED [facility] [place] [facility] Mar 20, 2021 02:00 PM VA-TOBACCO FORMER USER [facility] [place] [facility] Mar 20, 2021 02:00 PM VA-TOBACCO QUIT 15 YRS OR MORE [facility] [place] [facility] Mar 20, 2020 02:00 PM VA-TOBACCO FORMER USER [facility] [place] [facility] Mar 20, 2020 02:00 PM VA-TOBACCO QUIT 15 YRS OR MORE [facility] [place] [facility] Mar 02, 2018 01:59 PM VA-TOBACCO FORMER USER [facility] [place] [facility] Mar 02, 2018 01:59 PM VA-TOBACCO QUIT 15 YRS OR MORE [facility] [place] [facility] Mar 02, 2018 01:23 PM VA-TOBACCO FORMER USER [facility] [place] [facility] Mar 02, 2018 01:23 PM VA-TOBACCO QUIT 15 YRS OR [facility] September 30, 2016 09:39 AM LIFETIME NON-TOBACCO USER [facility] October 12, 2015 01:46 PM LIFETIME NON-TOBACCO USER [facility] Encounter Notes: All associated encounter notes This section contains the clinical notes associated to the Encounter. Date/Time Encounter Note(s) Provider Source Sep 01, 2023 11:12 AM OPTOMETRY NOTE: LOCAL TITLE: OPTOMETRY NOTE(T) STANDARD TITLE: OPTOMETRY NOTE DATE OF NOTE: SEP 01, 2023@11:12 ENTRY DATE: SEP 01, 2023@11:12:52 AUTHOR: GIANNI LANDRY EXP COSIGNER: URGENCY: STATUS: COMPLETED I saw this patient in conjunction with the student and agree to the stated findings and plan after reviewing both history and repeating mitchell elements of physical exam. Patient presents for comprehensive exam well-known to me with history of retinal tear OD with laser barricade appears stable, trace epiretinal membrane OD not visually significant, and nuclear sclerotic cataract OU with refraction disorder. Patient was seen by Dr. Sheppard December 2022. 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 Otherwise no acute ocular disease was seen today. Ordered bifocals for distance and near and computer and near. The patient will return in April 2020 for or sooner if any problems arise. /dominick/ GIANNI ALNDRY OD STAFF DIGITAL SALES DIRECTOR Signed: 09/01/2023 11:49 GIANNI LANDRY [facility] Sep 01, 2023 10:37 AM OPTOMETRY NOTE: LOCAL TITLE: OPTOMETRY NOTE STANDARD TITLE: OPTOMETRY NOTE DATE OF NOTE: SEP 01, 2023@10:37 ENTRY DATE: SEP 01, 2023@10:37:18 AUTHOR: MARIA ELENA ROBERSON EXP COSIGNER: GIANNI LANDRY URGENCY: STATUS: COMPLETED OPTOMETRY NOTE Has ADDENDA Active problems - Computerized Problem List is the source for the followin. Atrial fibrillation 2. Hearing loss 3. Incisional hernia 4. Atonic bladder 5. History of repair of mitral valve 6. Hemangioma of liver 7. Benign prostatic hyperplasia (SNOMED CT [id number]) 8. Hydrocele of testis 9. FAM HX-ISCHEM HEART DIS Active Outpatient Medications (including Supplies): Active Outpatient Medications Status 1) AMOXICILLIN 500MG CAP TAKE FOUR CAPSULES BY MOUTH ONE ACTIVE TIME - 1 HOUR PRIOR TO HIS APPOINTMENT WITH DENTAL Allergies: CIPROFLOXACIN All medications including those prescribed by outside VA's, community providers,and all OTC meds were reviewed and reconciled with patient to the best of their abilities. This 72 year old MALE is seen today for comprehensive eye exam Chief Complaint: Patient was told by Commercial Sales Manager Dr. 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 Patient has a follow up in 6 months with . Patient reports a little blurry vision with glasses , worse on the left eye, started years ago and would like to know if the cataracts have worsen. OHx: 1. H/o retinal tear superior OD 2. COmbined cataracts OU 3. Refractive error with presbyopia OU (-) Pain: (-) PANTOJA: (-) Diplopia: (-) Flashes: (-) Floaters: (-) Amaurosis Fugax/Tia's: (-) Eye Injury: (+) Eye Surgery: s/p barricade laser for retinal tear OD Dr. Dudley approximately 8 years ago (-) TBI FOHx: (-) Glaucoma/ARMD/Blindness (-) Smoker/Length of Time/PPD: Last eye exam: 08-30-22 Current Rx with last BCVA: OD: - 0.50 - 1.75 x 105 20/20 OS: + 0.50 - 2.00 x 093 20/20 Add: +2.50 DVA ( )sc ( x )cc OD: 20/20 OS: 20/20 Pupils: PERRL (-)APD EOMs: SAFE OU, (-)Pain/Diplopia CVF (facial, peripheral): FTFC OU Subjective Refraction: BCVA OD: - 0.25 - 1.75 x 105 20/20 OS: + 0.25 - 2.00 x 093 Add: +2.50 All the above performed by student, reviewed by attending Anterior segment: Performed by student, repeated by attending Lids: Dermatochalasis OU Conj: white and quiet OU Cornea: clear OU AC: 4x4 OU Iris: flat and clear OU (-)TID Lens: 2+ NSC 1+ ACC OU (+) PXF OU Tonometry: iCare Performed by student, reviewed by attending OD 14 mmHg OS 13 mmHg Time: 11:00 Last IOP: OD: 12 mmHg OS: 12 mmHg Fundus exam: Dilated: 11:03 am Dilating Drops: 1GTT 1 % Tropicamide OU & 1GTT 2.5% Phenylephrine OU (Pt. ed. on side effects, dilation warning given and verbal consent obtained) Patient advised not to drive if they feel they have any symptoms which could affect their ability to drive safely. Patient advised not to engage in any activities which could put themselves or others at risk if they feel they have any symptoms which could affect their ability to perform those activities safely. Performed by student, repeated by attending Vit: clear OU C/D: 0.40/0.40 OD, 0.40/0.40 OS Macula: flat and clear OU PPole: clear A/V: 2/3 Vessels: normal caliber OU Periph: flat and intact , sup laser scars OD (-)holes, tears, detachments 360 OU Assessment/Plan: 1. 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 No known family history of glaucoma. Patient wuld like to see Dr. Sheppard for pseudoexfoliation follow-up. Continue follow-up as scheduled in September. -Pt ed re today's findings -Pt ed re glaucoma as well as the natural history of this diagnosis including prognosis. -Stress importance of continued follow-up appointments -[place] repeated back the plan and education. -RTC 6 months for IOP check 2. H/o retinal tear superior OD with barricade laser - stable 3. Combined cataracts OU - not visually significant -Pt ed re today's findings and the importance of UV protection -Pt ed cataracts may cause reduction of BCVA and symptoms of glare -RTC sooner if vision declines or interferes with ADLs -[place] repeated back the plan and education. -Monitor 4. Regular Astigmatism with presbyopia OU -Patient educated on findings, Rx updated -New RX ordered -Monitor Return to Clinic 7 months or earlier PRN [place] Education: After discussion and answering all 's questions, [place] demonstrated and verbalized understanding of diagnosis and treatment. Yes [x] No [ ] Medication Reconciliation: Outpatient: Has the patient been taking medications as documented in the EMLR? YES: The patient has been taking medications as documented in the EMLR. Essential Medication List for Review used to complete this medication reconciliation. INCLUDED IN THIS LIST: Alphabetical list of active outpatient prescriptions dispensed from this [facility] (local) and dispensed from another VA or DoD facility (remote) as well as inpatient orders (local, pending and active), local clinic medications, locally documented non-VA medications, and local prescriptions that have or been discontinued in the past 90 days. - All changes in medications, including all non-VA/Herbal/OTC medications were entered into CPRS. - If there were any medications the patient should no longer take, they were discontinued. - The patient/caregiver was instructed to update this list, discard old lists, and take this list to the next appointment, whether with a VA or non-VA provider. /dominick/ MARIA ELENA ROBERSON OPTOMETRY STUDENT Signed: 09/01/2023 12:59 /dominick/ GIANNI LANDRY OD STAFF DIGITAL SALES DIRECTOR Cosigned: 09/01/2023 13:10 04/28/2024 ADDENDUM STATUS: COMPLETED Patient is status post laser barricade for retinal tear OD proximately [address] Dudley. O: Lids and lashes were clear both eyes. Corneas and conjunctiva were clear both eyes. Anterior chambers were deep clear and quiet with open angles. Iris was flat both eyes. Grade 3 cortical cataracts and 2 nuclear sclerotic cataract OD greater than OS. Pseudoexfoliation is present OU. Vitreous was clear OU. Approximately 40% horizontal and vertical cupping was seen OU with healthy rims and margins. Normal pigmentary architecture of the macula was seen with a two third artery to vein ratio. A: Low risk glaucoma suspect secondary to pseudoexfoliation with normal pressures today. History of retinal tear OD with laser barricade not evaluated today. Combined cataracts becoming slightly more visually significant OU. Refraction disorder. P: Patient was seeing Dr. Sheppard once a year on alternating 6 months from our exam. He missed last appointment. He will just continue to come here every 6 months. The patient will return in 6 months or sooner if any problems arise, including refraction and dilated fundus exam. Education: After discussion and answering all 's questions, demonstrated and verbalized understanding of diagnosis and treatment. Yes [x] No [ ] Medication Reconciliation: Outpatient: Has the patient been taking medications as documented in the EMLR? YES: The patient has been taking medications as documented in the EMLR. Essential Medication List for Review used to complete this medication reconciliation. INCLUDED IN THIS LIST: Alphabetical list of active outpatient prescriptions dispensed from this VA (local) and dispensed from another VA or DoD facility (remote) as well as inpatient orders (local, pending and active), local clinic medications, locally documented non-VA medications, and local prescriptions that have or been discontinued in the past 90 days. - All changes in medications, including all non-VA/Herbal/OTC medications were entered into CPRS. - If there were any medications the patient should no longer take, they were discontinued. - The patient/caregiver was instructed to update this list, discard old lists, and take this list to the next appointment, whether with a VA or non-VA provider. /dominick/ GIANNI LANDRY OD STAFF DIGITAL SALES DIRECTOR Signed: 04/28/2024 14:47 MARIA ELENA ROBERSON [facility]
--- OUTSIDE RECORDS SUMMARY | 2024-07-08 08:36 | XMS_ITS | Encounter Summary ---
Author Name [facility] [place] [facility] [place] Address [address] [place] [address] Care Team Providers Care Health And Safety Trainer Name Role Phone LESVIA GABRIEL Primary Care [...] RANDY MEDEX CHOIC E Dec 31, 2016 [id number] FÁTIMA,GAR Y [place] SUPPLEMEN RANDY MEDEX CHOIC E Dec 31, 2016 [id number] [phone] STORM,GAR [place] SUPPLEMEN RANDY MEDEX CHOIC E Dec 31, 2016 [id number] [phone] STORM,GAR Y PATIENT BCBS OF [facility] MEDICARE SUPPLEMEN RANDY MEDEX CHOIC E MONTH LY Dec 31, 2016 [id number] STORM,GAR Y PATIENT MEDICAID MEDICAID [facility] Jun 02, 2013 MEDICAI D [id number] STORM,GAR Y PATIENT MEDICARE (WNR) MEDICARE (M) PART B Dec 01, 2015 PART B [id number] STORM,GAR Y PATIENT MEDICARE (WNR) MEDICARE (M) PART A Dec 01, 2015 PART A [id number] STORM,GAR Y PATIENT MEDICARE (WNR) MEDICARE (M) PART B Dec 01, 2015 PART B [id number] STORM,GAR Y PATIENT MEDICARE (WNR) MEDICARE (M) PART A Dec 01, 2015 PART A [id number] STORM,GAR Y PATIENT MEDICARE (WNR) MEDICARE (M) PART B Dec 01, 2015 PART B [id number] STORM,GAR Y PATIENT MEDICARE (WNR) MEDICARE (M) PART A Dec 01, 2015 PART A [id number] STORM,GAR Y PATIENT MEDICARE (WNR) MEDICARE (M) PART B Dec 01, 2015 PART B [id number] STORM,GAR Y PATIENT MEDICARE (WNR) MEDICARE (M) PART A Dec 01, 2015 PART A [id number] STORM,GAR Y PATIENT MEDICARE (WNR) MEDICARE (M) PART B Dec 01, 2015 PART B [id number] STORM,GAR Y PATIENT MEDICARE (WNR) MEDICARE (M) PART A Dec 01, 2015 PART A [id number] [phone] STORM,GAR Y PATIENT Selected Encounter This section includes the information on record at [place] for the Encounter. Date/Time Encounter Type Encounter Description Reason Provider Source Nov 05, 2023 10:49 AM Outpatient Encounter HEPATOLOGY CLINIC ICD-10-CM R93.2 Abnormal findings on dx imaging of liver and biliary tract LIDYA CAMPBELL [place] Encounter Template Text not used by [place] Assessments - Encounter Diagnoses This section includes the primary and secondary diagnoses documented for the Encounter. Date/Time Primary/Secondary Diagnosis Diagnosis Name Provider Source Nov 21, 2023 10:46 AM PRIMARY Abnormal findings on dx imaging of liver and biliary tract LIDYA CAMPBELL [facility] Plan of Treatment: Future Appointments (+ 6 months) and Future Tests (+/- 45 days) The Plan of Treatment section includes future care activities for the patient from all [place] [facility]. This section includes future appointments and future orders which are active, pending or scheduled. Future Appointments This section includes appointments that were scheduled to occur 6 months from the date of the Encounter, up to a maximum of 20 appointments. The data comes from all [facility]. Appointment Date/Time Appointment Type Appointme nt Facility Name Nov 07, 2023 09:40 AM AM[place]ULATORY [place]IC[place] [facility] [place] [facility] Nov 07, 2023 11:00 AM [place] [facility] Nov 17, 2023 09:40 AM [place] [facility] Jan 13, 2024 02:00 PM AMBULATORY - MEDICINE [facility] Jan 13, 2024 02:00 PM AMBULATORY - NONE [place] [facility] [facility] Jan 27, 2024 11:00 AM AMBULATORY - NONE [place] [facility] Jan 27, 2024 01:00 PM AM[place]ULATORY [place]ICINE [place] [facility] Apr 28, 2024 02:00 PM AM[place]ULATORY [place] [facility] Active, Pending, and Scheduled Orders This section includes a listing of several types of active, pending, and scheduled orders, including clinic medications orders, diagnostic test orders, procedure orders and consult orders; where the start date of the order is 45 days before the date of the Encounter or 45 days after the date of theEncounter. The data comes from all [facility]. Test Date/Time Test Type Test Details Facility Name Nov 17, 2023 12:00 AM Laboratory - Chemistry Order VITAMIN B12 BLOOD ([facility]ST[facility]SERUM[facility] Nov 17, 2023 12:00 AM Laboratory - Chemistry Order FOLATE (WROX) BLOOD (SST-SERUM) [facility] Nov 17, 2023 12:00 AM Laboratory - Chemistry Order CBC AND DIFF (AUTO) BLOOD (LAV-BLOOD) [facility] Nov 17, 2023 12:00 AM Laboratory - Chemistry Order PROTEIN SERUM ELECTROPHORESIS PANEL/ELICEO BLOOD (SST-GOLD) SERUM SP [facility] Nov 17, 2023 12:00 AM Laboratory - Chemistry Order UPEP REFLEX PANEL,SPOT URINE SP [facility] Lab Results: +/- 30 days of the encounter This section includes the Chemistry and Hematology Lab Results on record with [place] for the patient. Radiology Reports and Pathology Reports are provided separately, in subsequent sections. Lab Results This section contains the Chemistry/Hematology Results that were resulted 30 days before or 30 daysafter the date of the Encounter. Date/Time Source Result Type Result - Unit Interpretation Reference Range Comment Nov 22, 2023 10:15 AM [facility] OCCULT BLOOD FIT X1 SCREEN(IN-HOUSE) Specimen Type: FECES No comment entered. Ordering Provider: LESVIA GABRIEL Report Released Date/Time: Nov 04, 2023 01:32 PM Reporting Lab: [address] [address] Performing Lab: [address] [address] OCCULT BLOOD (FIT)#1 OF 1 Negative NEG Nov 17, 2023 10:10 AM [facility] PT & INR (PROTIME) Specimen Type: PLASMA No comment entered. Ordering Provider: LIUDMILA GARDINER Report Released Date/Time: Nov 05, 2023 11:16 AM Reporting Lab: [address] [address] Performing Lab: [address] [address] INR 1.1 PROTIME 12.9 s 10.0-13.1 Nov 17, 2023 10:10 AM [facility] CERULOPLASMIN Specimen Type: SERUM No comment entered. Ordering Provider: LIUDMILA GARDINER Report Released Date/Time: Nov 05, 2023 11:16 AM Reporting Lab: [address] [address] Performing Lab: [facility] [place] [facility] [address] [facility] [address] CERULOPLASMIN 24 mg/dL 20-60 Nov 17, 2023 10:10 AM [facility] HEPATITIS B SURFACE ANTIBODY (HBsAb)- Specimen Type : SERUM No comment entered. Ordering Provider: LIUDMILA GARDINER Report Released Date/Time: Nov 05, 2023 11:16 AM Reporting Lab: [facility] [place] [facility] [address] [facility] [address] Performing Lab: [place] [facility] [facility] Nov 17, 2023 10:10 AM [facility] HEPATITIS B SURFACE ANTIGEN (HBsAg)- Specimen Type: SERUM Comment: A Reactive result ( Positive prior to 03/15/13) is diagnostic of acute or chronic hepatitis B infection. The presence of Hepatitis B surface antigen is frequently associated with infectivity. Ordering Provider: LIUDMILA GARDINER Report Released Date/Time: Nov 05, 2023 11:16 AM Reporting Lab: [facility] [place] [facility] [address] [facility] [address] Performing Lab: [facility] [address] [facility] [address] HBsAg Non Reactive Non Reactive Nov 17, 2023 10:10 AM [facility] TIKA SCREEN/TITER Specimen Type: SERUM No comment entered. Ordering Provider: LIUDMILA GARDINER Report Released Date/Time: Nov 05, 2023 11:16 AM Reporting Lab: [facility] [place] [facility] [address] [facility] [address] Performing Lab: [facility] ALABAMATRN [facility]ENTER[facility]ETS [facility] [address] [facility] [address] TIKA SCREEN NEG Nov 17, 2023 10:10 AM [facility] ALPHA 1 ANTITRYPSIN Specimen Type: SERUM No comment entered. Ordering Provider: LIUDMILA GARDINER Report Released Date/Time: Nov 05, 2023 11:16 AM Reporting Lab: [facility] [place] [facility] [address] [facility] [address] Performing Lab: [facility]ITALRCULL[facility] CENTERN [facility]ENTERUSETS [facility] [address] [facility] [address] ALPHA 1 ANTITRYPSIN 161 mg/dL 90-200 Nov 17, 2023 10:10 AM [facility] HEPATITIS A ANTIBODY (IGG) Specimen Type: SERUM Comment: Hep A IgG: A 'Non-reactive' result indicates no anti-HAV IgG was detected. Ordering Provider: LIUDMILA GARDINER Report Released Date/Time: Nov 05, 2023 11:16 AM Reporting Lab: [facility] [address] [facility] [address] Performing Lab: [facility] [address] [facility] [address] HEPATITIS A ANTIBODY (IGG) Non Reactive Non Reactive Nov 17, 2023 10:10 AM [facility] HEPATITIS C ANTIBODY (HCV)-ARC Specimen Type: SERUM Comment: Hep C Ab: No HCV antibody detected. If recent infection is suspected or other evidence suggests HCV infection, consider HCV nucleic acid testing Ordering Provider: LIUDMILA GARDINER Report Released Date/Time: Nov 05, 2023 11:16 AM Reporting Lab: [facility] [address] [facility] [address] Performing Lab: [address] [address] HEPATITIS C ANTIBODY NON-REACTIVE NON-REACTI VE Nov 17, 2023 10:10 AM [facility] FERRITIN Specimen Type: SERUM No comment entered. Ordering Provider: LIUDMILA GARDINER Report Released Date/Time: Nov 05, 2023 11:16 AM Reporting Lab: [facility] [address] [facility] [address] Performing Lab: [facility] [address] FERRITIN 77 ng/mL 20-300 Nov 17, 2023 10:10 AM [facility] ALBUMIN Specimen Type: SERUM No comment entered. Ordering Provider: LIUDMILA GARDINER Report Released Date/Time: Nov 05, 2023 11:16 AM Reporting Lab: [facility]ITALRCULL[facility] CENTERN [facility]ENTERUSETS [facility] [address] [facility] [address] Performing Lab: [facility]ITALRCULL[facility] CENTERN [facility]ENTERUSETS [facility] [address] [facility] [address] ALBUMIN 4.0 g/dL 3.5-5.0 Nov 17, 2023 10:10 AM [facility] IRON & TIBC PANEL Specimen Type: SERUM No comment entered. Ordering Provider: LIUDMILA GARDINER Report Released Date/Time: Nov 05, 2023 11:16 AM Reporting Lab: [facility]ENTERUSE[facility] [address] [facility] [address] Performing Lab: [facility] [address] [address] TIBC 296 ug/dL 204-475 IRON 123 ug/dL 40-160 Transferrin Saturation 41.6 20.0-50.0 Nov 17, 2023 10:10 AM [facility] LIVER FUNCTION Specimen Type: SERUM No comment entered. Ordering Provider: LIUDMILA GARDINER Report Released Date/Time: Nov 05, 2023 11:16 AM Reporting Lab: [facility]ITALRCULL[facility] CENTERN [facility]ENTERUSE[address] [address] Performing Lab: [facility]ENTERUSE[address] [address] PROTEIN,TOTAL 6.2 g/dL 6.0-8.3 ALBUMIN 4.0 g/dL 3.5-5.0 ALKALINE PHOSPHATASE 84 U/L 40-150 AST 20 U/L 5-34 ALT 16 U/L BILIRUBIN, TOTAL 1.0 mg/dL 0.2-1.2 Nov 17, 2023 10:10 AM [facility] BASIC METABOLIC PANEL (non-fasting) Specimen Type: SERUM No comment entered. Ordering Provider: LIUDMILA GARDINER Report Released Date/Time: Nov 05, 2023 11:16 AM Reporting Lab: [facility] [address] [facility] [address] Performing Lab: [facility] [address] [facility] [address] UREA NITROGEN 15 mg/dL 7-25 GLUCOSE 88 mg/dL 65-100 SODIUM 139 mmol/L 135-145 POTASSIUM 3.8 mmol/L 3.5-5.0 CHLORIDE 105 mmol/L 100-110 CO2 27 meq/L 20-30 CREATININE, Serum 0.90 mg/dL 0.50-1.40 eGFR(CKD-EPI 2020) >90 mL/min >60 Nov 17, 2023 10:10 AM [facility] CBC AND DIFF (AUTO) Specimen Type: BLOOD No comment entered. Ordering Provider: LIUDMILA GARDINER Report Released Date/Time: Nov 05, 2023 11:16 AM Reporting Lab: [address] [address] Performing Lab: [address] [address] WBC 4.36 10*3/uL L 4.50-11.00 RBC 3.96 10*6/uL L 4.23-5.66 HGB 12.7 g/dL L 12.8-17 HCT 37.5 L 39.2-50.4 MCV 94.7 fL 82-99 MCHC 33.9 g/dL 30.8-35.1 PLT 128 10*3/uL L 140-360 RDW-CV 13.1 12.0-16.0 MONO, ABS 0.41 10*3/uL 0.30-1.10 MCH 32.1 pg 26.2-32.6 NEUT % 65.4 43.7-75.8 LYMPH % 24.8 14.0-42.3 MONO % 9.4 5.1-13.7 EOS % 0.2 L 0.4-6.8 BASO % 0.0 L 0.1-2.0 NEUT, ABS 2.85 10*3/uL 2.20-7.60 LYMPH, ABS 1.08 10*3/uL 1.00-3.20 EOS, ABS 0.01 10*3/uL L 0.03-0.44 BASO, ABS 0.00 10*3/uL L 0.01-0.13 IMMATURE GRAN % 0.2 0.0-0.7 IMMATURE GRAN, ABS 0.01 10*3/uL 0.00-0.06 NRBC % 0.0 0.0-0.0 NRBC, ABS 0.00 10*3/uL 0.00-0.00 Nov 04, 2023 02:41 PM [facility] PSA Specimen Type: SERUM No comment entered. Ordering Provider: LESVIA GABRIEL Report Released Date/Time: October 30, 2023 08:06 AM Reporting Lab: [address] [address] Performing Lab: [address] [address] PSA 3.58 ng/mL 0.00-4.00 Nov 04, 2023 02:41 PM [facility] BASIC METABOLIC PANEL (non-fasting) Specimen Type: SERUM No comment entered. Ordering Provider: LESVIA GABRIEL Report Released Date/Time: October 30, 2023 08:06 AM Reporting Lab: [address] [address] Performing Lab: [address] [address] UREA NITROGEN 17 mg/dL 7-25 GLUCOSE 113 mg/dL H 65-100 SODIUM 138 mmol/L 135-145 POTASSIUM 3.5 mmol/L 3.5-5.0 CHLORIDE 104 mmol/L 100-110 CO2 26 meq/L 20-30 CREATININE, Serum 0.91 mg/dL 0.50-1.40 eGFR(CKD-EPI 2020) 89 mL/min >60 Nov 04, 2023 02:40 PM [facility] MEASLES (IgM) Ab (Rubeola) Specimen Type: SERUM Comment: Titer Interpretation --------- <1:20 Antibody Not Detected > or =1:20 Antibody Detected The traditional serologic diagnosis of measles requires a significant rise in antibody titer between acute and convalescent sera. However, detection of IgM antibody in a single specimen may indicate acute disease. Correct interpretation of serologic data depends upon the proper timing of specimen collection in relation to rash onset. This timing is particularly important for interpreting negative IgM results, since IgM antibody peaks approximately 10 days after rash onset and is usually undetectable 30 days after rash onset. This test was developed and its analytical performance characteristics have been determined by [place] It has not been cleared or approved by the U.S. Food and Drug Administration. This assay has been validated pursuant to the CLIA regulations and is used for clinical purposes. For additional information, please refer to http://education .Inclinix/faq/LVR000 (This link is being provided for informational/ educational purposes only.) Test Performed by [facility], [address] [place] [address] Vernon Carrillo M.D., Ph.D., Director of Laboratories , CLIA [id number] TEST PERFORMED AT: , Ordering Provider: LESVIA GABRIEL Report Released Date/Time: Nov 04, 2023 01:54 PM Reporting Lab: [address] [address] Performing Lab: [facility] [address] [address] MEASLES (IgM) Ab (Rubeola) <1:20 {titer} Nov 04, 2023 02:40 PM [facility] HEPATITIS B SURFACE ANTIBODY (HBsAb)-WH Specimen Type : SERUM No comment entered. Ordering Provider: LESVIA GABRIEL Report Released Date/Time: Nov 04, 2023 01:54 PM Reporting Lab: [address] [address] Performing Lab: [address] [address] HBsAb Non Reactive Non Reactive Nov 04, 2023 02:40 PM [facility] LIVER FUNCTION Specimen Type: SERUM No comment entered. Ordering Provider: LESVIA GABRIEL Report Released Date/Time: Nov 04, 2023 01:54 PM Reporting Lab: [address] [address] Performing Lab: [address] [address] PROTEIN,TOTAL 6.1 g/dL 6.0-8.3 ALBUMIN 3.9 g/dL 3.5-5.0 ALKALINE PHOSPHATASE 92 U/L 40-150 AST 18 U/L 5-34 ALT 14 U/L BILIRUBIN, TOTAL 0.8 mg/dL 0.2-1.2 Nov 04, 2023 02:40 PM [facility] CBC Specimen Type: BLOOD No comment entered. Ordering Provider: LESVIA GABRIEL Report Released Date/Time: Nov 04, 2023 01:54 PM Reporting Lab: [address] [address] Performing Lab: [address] [address] WBC 4.87 10*3/uL 4.50-11.00 RBC 4.07 10*6/uL L 4.23-5.66 HGB 13.2 g/dL 12.8-17 HCT 38.3 L 39.2-50.4 MCV 94.1 fL 82-99 MCHC 34.5 g/dL 30.8-35.1 PLT 130 10*3/uL L 140-360 RDW-CV 13.1 12.0-16.0 MCH 32.4 pg 26.2-32.6 Radiology Reports: +/- 30 days of the encounter Radiology Reports For cases when an order for radiology services may have been completed prior to the date of the Encounter, the report list includes the Radiology Reports that were completed up to 30 days before dateof the Encounter. For cases when an order for radiology services may have been completed after the date of the Encounter, the report list also includes the Radiology Reports that were completed up to30 days after date of the Encounter. The data comes from all [facility] facilities. Date/Time Radiology Report Provider Source Nov 04, 2023 12:21 PM ULTRASOUND ABDOMEN LIMITED: CHRISTEL SHINE [id number] [id number] M Exm Date: NOV 04, 2023@12:21 Req Phys: WALLY MIGUEL Loc: CWM/NO/PACT 1 (Req'g Loc) Img Loc: ULTRASOUND Service: Unknown [facility] , (Case 200 COMPLETE) ULTRASOUND ABDOMEN LIMITED (US Detailed) CPT:63828 Reason for Study: hx of liver cysts and hemagioma for survillence Clinical History: Report Status: Verified Date Reported: NOV 04, 2023 Date Verified: NOV 04, 2023 Batting Machine [employer] E-Sig:/ES/TAMICA YOUNG JR Report: Study: Abdomen ultrasound. Comparison: CT scan of the abdomen and pelvis from November 05, 2021 and December 06, 2013. Findings: Hepatomegaly is present measuring at least 17.1 cm in long length. (Normal is less than 15.0 cm.). No intrahepatic bile duct dilatation is seen. The liver is again diffusely increased in echogenicity consistent with hepatic steatosis/fibrosis. Again seen are multiple hepatic simple cysts with the largest in the right lobe of the liver measuring 7.0 cm in greatest dimension. Again seen are multiple hemangiomata in the left and right lobes of the liver with the largest in the left lobe measuring 1.8 cm in greatest dimension and within the right lobe measuring 2.2 cm in greatest dimension. Given the differences in technique, these findings are not significantly changed. The portal vein is patent with normal hepatopedal flow. The common hepatic duct measures 0.43 cm, which is normal. Given findings, imaging follow-up should only be as clinically indicated. The gallbladder is normal. No gallstones are identified. There is a negative sonographic Brooks sign present. The visualized pancreas is normal. The spleen is normal and measures 9.0 cm in length. No ascites is identified. Impression: No significant interval change to multiple hepatic cysts and hemangiomata, as described above. Primary Diagnostic Code: No immediate attention required Primary Interpreting Staff: TAMICA YOUNG JR, Radiologist (Batting Machine Operator Insulation) /TAMICA OSMAN JR [facility] Encounter Notes: All associated encounter notes This section contains the clinical notes associated to the Encounter. Date/Time Encounter Note(s) Provider Source Nov 05, 2023 10:49 AM GASTROENTEROLOGY C ONSULT: LOCAL TITLE: LIVER E-CONSULT NOTE STANDARD TITLE: GASTROENTEROLOGY CONSULT DATE OF NOTE: NOV 05, 2023@10:49 ENTRY DATE: NOV 05, 2023@10:49:53 AUTHOR: LIDYA CAMPBELL EXP COSIGNER: URGENCY: STATUS: COMPLETED Upon chart review following was noted - Hepatic steatosis/fibrosis on Abd imaging, also hepatic cyst appears to have increased in size to 7cm (previously 6.5cm ) in 2021 - Low platelets for > 3 years, AST > ALT, Albumin 3.9 will benefit from being seen by [facility] Hepatology provioder to further evaluate him for Liver disease Please place a consult if agrees to being seen by us under Hepatology --->Liver tele-health [place] ---> Fatty liver disease. /dominick/ Lidya Campbell Nurse Practitioner, Hepatology/GI Signed: 11/05/2023 10:58 LIDYA CAMPBELL [facility]
--- OUTSIDE RECORDS SUMMARY | 2024-07-08 08:36 | XMS_ITS | Encounter Summary ---
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 Name Role Phone LESVIA GABRIEL Primary Care [...] RANDY MEDEX CHOIC E Dec 31, 2016 [id number] STORM,GAR Y PATIENT BCBS IN MEDICARE SUPPLEMEN RANDY MEDEX CHOIC E Dec 31, 2016 [id number] [phone] STORM,GAR Y PATIENT BCBS IN MEDICARE SUPPLEMEN RANDY MEDEX CHOIC E Dec 31, 2016 [id number] STORM,GAR Y PATIENT BCBS OF [facility] MEDICARE SUPPLEMEN RANDY MEDEX CHOIC E MONTH LY Dec 31, 2016 [id number] STORM,GAR Y PATIENT MEDICAID MEDICAID CATIE NIÑO Jun 02, 2013 MEDICAI D [id number] STORM,GAR Y PATIENT MEDICARE (WNR) MEDICARE (M) PART B Dec 01, 2015 PART B [id number] STORM,GAR Y PATIENT MEDICARE (WNR) MEDICARE (M) PART A Dec 01, 2015 PART A [id number] [phone] STORM,GAR Y PATIENT MEDICARE (WNR) MEDICARE (M) PART B Dec 01, 2015 PART B [id number] STORM,GAR Y PATIENT MEDICARE (WNR) MEDICARE () PART A Dec 01, 2015 PART A [id number] STORM,GAR Y PATIENT MEDICARE (WNR) MEDICARE (M) PART B Dec 01, 2015 PART B [id number] STORM,GAR Y PATIENT MEDICARE (WNR) MEDICARE () PART A Dec 01, 2015 PART A [id number] STORM,GAR Y PATIENT MEDICARE (WNR) MEDICARE (M) PART B Dec 01, 2015 PART B [id number] STORM,GAR Y PATIENT MEDICARE (WNR) MEDICARE (M) PART A Dec 01, 2015 PART A [id number] STORM,GAR Y PATIENT MEDICARE (WNR) MEDICARE (M) PART B Dec 01, 2015 PART B [id number] STORM,GAR Y PATIENT MEDICARE (WNR) MEDICARE () PART A Dec 01, 2015 PART A [id number] STORM,GAR Y PATIENT Selected Encounter This section includes the information on record at [place] for the Encounter. Date/Time Encounter Type Encounter Description Reason Pro vider Source Jun 22, 2024 12:11 PM Outpatient Encounter ADMIN PAT ACTIVTIES (MASNONCT) I[facility] Encounter Template Text not used by [facility] Plan of Treatment: Future Appointments (+ 6 months) and Future Tests (+/- 45 days) The Plan of Treatment section includes future care activities for the patient from all [facility] treatment[facility]ilities. This section includes future appointments and future orders which are active, pending or scheduled. Future Appointments This section includes appointments that were scheduled to occur 6 months from the date of the Encounter, up to a maximum of 20 appointments. The data comes from all [place] treatment facilities. Appointment Date/Time Appointment Type Appointme nt Facility Name Jun 24, 2024 03:00 PM AMBULATORY - MEDICINE [facility] October 28, 2024 07:30 AM AMBULATORY - MEDICINE [facility] Lab Results: +/- 30 days of the encounter This section includes the Chemistry and Hematology Lab Results on record with [place] for the patient. Radiology Reports and Pathology Reports are provided separately, in subsequent sections. Lab Results This section contains the Chemistry/Hematology Results that were resulted 30 days before or 30 daysafter the date of the Encounter. Date/Time Source Result Type Result - Unit Interpretation Reference Range Comment Jun 24, 2024 04:03 PM [facility] URINALYSIS CLEAN CATCH Specimen Type: URINE Comment: If Glucose = >500 and Ketones are positive, please alert the Physician. Ordering Provider: LESVIA GABRIEL Report Released Date/Time: Jun 24, 2024 03:43 PM Reporting Lab: [address] [address] Performing Lab: [address] [id number] UA COLOR Colorless Yellow UA APPEARANCE Clear Clear UA GLUCOSE Normal mg/dL Negative UA KETONES NEGATIVE mg/dL Negative UA BLOOD NEGATIVE mg/dL Negative UA PROTEIN NEGATIVE mg/dL Negative UA NITRITE NEGATIVE mg/dL Negative UA BILIRUBIN NEGATIVE mg/dL Negative UA SPECIFIC GRAVITY 1.006 L 1.016-1.022 UA pH 7.0 5.0-9.0 UA UROBILINOGEN Normal mg/dL <2.0 UA LEUKOCYTE NEGATIVE Negative Jun 24, 2024 10:54 AM [facility] PSA Specimen Type: SERUM No comment entered. Ordering Provider: LESVIA GABRIEL Report Released Date/Time: Jun 24, 2024 07:53 AM Reporting Lab: [address] [address] Performing Lab: [address] [address] PSA 4.72 ng/mL H 0.00-4.00 Jun 24, 2024 10:54 AM [facility] BASIC METABOLIC PANEL (non-fasting) Specimen Type: SERUM No comment entered. Ordering Provider: LESVIA GABRIEL Report Released Date/Time: Jun 24, 2024 07:47 AM Reporting Lab: [address] [address] Performing Lab: [address] [address] UREA NITROGEN 14 mg/dL 7-25 GLUCOSE 82 mg/dL 65-100 SODIUM 140 mmol/L 135-145 POTASSIUM 3.5 mmol/L 3.5-5.0 CHLORIDE 103 mmol/L 100-110 CO2 28 meq/L 20-30 CREATININE, Serum 0.81 mg/dL 0.50-1.40 eGFR(CKD-EPI 2020) >90 mL/min >60 Jun 24, 2024 10:54 AM [facility] LIVER FUNCTION Specimen Type: SERUM No comment entered. Ordering Provider: LESVIA GABRIEL Report Released Date/Time: Jun 24, 2024 07:47 AM Reporting Lab: [address] [address] Performing Lab: [address] [address] PROTEIN,TOTAL 7.2 g/dL 6.0-8.3 ALBUMIN 4.2 g/dL 3.5-5.0 ALKALINE PHOSPHATASE 87 U/L 40-150 AST 22 U/L 5-34 ALT 19 U/L BILIRUBIN, TOTAL 1.0 mg/dL 0.2-1.2 Jun 24, 2024 10:54 AM [facility] CBC Specimen Type: BLOOD No comment entered. Ordering Provider: LESVIA GABRIEL Report Released Date/Time: Jun 24, 2024 07:47 AM Reporting Lab: [address] [address] Performing Lab: [address] [address] WBC 4.39 10*3/uL L 4.50-11.00 RBC 4.32 10*6/uL 4.23-5.66 HGB 14.0 g/dL 12.8-17 HCT 41.6 39.2-50.4 MCV 96.3 fL 82-99 MCHC 33.7 g/dL 30.8-35.1 PLT 155 10*3/uL 140-360 RDW-CV 13.0 12.0-16.0 MCH 32.4 pg 26.2-32.6 Social History: Smoking Status (Most current) and Tobacco Use (All prior to encounter date) This section includes the most current, and the historical, smoking and tobacco- related health factors from the [place] facility where the Encounter took place. Current Smoking Status This section includes the most current smoking, or tobacco-related health factor, from the [place] facility where the Encounter took place. Date/Time Current Smoking Status Comment Facil ity May 08, 2023 01:30 PM VA-TOBACCO NEVER USED [place] [facility] [place] [facility] Tobacco Use History This section includes a history of the smoking, or tobacco-related health factors, that were collected on or before the date of the Encounter. The data comes from the [place] facility where the Encounter took place. Date/Time Smoking Status/Tobacco Use Comment F acility Mar 19, 2022 01:30 PM VA-TOBACCO NEVER USED [facility] [place] [facility] Mar 20, 2021 02:00 PM VA-TOBACCO FORMER USER [facility] [place] [facility] Mar 20, 2021 02:00 PM VA-TOBACCO QUIT 15 YRS OR MORE [facility] [place] [facility] Mar 20, 2020 02:00 PM VA-TOBACCO FORMER USER [facility] [place] [facility] Mar 20, 2020 02:00 PM VA-TOBACCO QUIT 15 YRS OR MORE [facility] [place] [facility] Mar 02, 2018 01:59 PM VA-TOBACCO FORMER USER [facility] [place] [facility] Mar 02, 2018 01:59 PM VA-TOBACCO QUIT 15 YRS OR MORE [facility] [place] [facility] Mar 02, 2018 01:23 PM VA-TOBACCO FORMER USER [facility] [place] [facility] Mar 02, 2018 01:23 PM VA-TOBACCO QUIT 15 YRS OR MORE [facility] September 30, 2016 09:39 AM LIFETIME NON-TOBACCO USER [facility] October 12, 2015 01:46 PM LIFETIME NON-TOBACCO USER [facility] Pathology Reports: +/- 30 days of the encounter Pathology Reports For cases when an order for pathology services may have been completed prior to the date of the Encounter, the report list includes the Pathology Reports that were completed up to 30 days before dateof the Encounter. For cases when an order for pathology services may have been completed after the date of the Encounter, the report list also includes the Pathology Reports that were completed up to30 days after date of the Encounter. The data comes from all [facility] facilities. Date/Time Pathology Report Provider Source Jun 24, 2024 04:03 PM LR MICROBIOLOGY RE PORT: Reporting Lab: [facility] [CLIA# [id number]] [address] [place] [id number] Accession [UID]: [id number] [[id number]] Received: Jun 24, 2024@16:03 Collection sample: URINE CLEAN CATCH Collection date: Jun 24, 2024 16:03 Site/Specimen: URINE Provider: LESVIA GABRIEL Comment on specimen: CC Test(s) ordered: URINE CULTURE(MWROX).......... completed: Jun 28, 2024 10:48 * BACTERIOLOGY FINAL REPORT => Jun 28, 2024 10:48 TECH CODE: [id number] Bacteriology Remark(s): NO GROWTH IN 24 HOURS, FINAL REPORT TO FOLLOW. FINAL AEROBIC REPORT: NO GROWTH =--=--=--=--=--=--=--=--= --=--=--=--=--=--=--=--=- -=--=--=--=--=--=--=--=-- =-- Performing Laboratory: Bacteriology Report Performed By: [facility] [CLIA# [id number]] [address] [place] [id number] LUCIANO DELGADO [facility] Encounter Notes: All associated encounter notes This section contains the clinical notes associated to the Encounter. Date/Time Encounter Note(s) Provider Source Jun 22, 2024 12:11 PM ADMINISTRATIVE NOTE: LOCAL TITLE: CCC: SCHEDULING ADMINISTRATION STANDARD TITLE: ADMINISTRATIVE NOTE DATE OF NOTE: JUN 22, 2024@12:11:37 ENTRY DATE: JUN 22, 2024@12:11:37 AUTHOR: ALBERTO MARQUEZ COSIGNER: URGENCY: STATUS: COMPLETED CCC: SCHEDULING ADMINISTRATION Has ADDENDA Patient Demographics Patient Name: CHRISTEL SHINE Patient Primary Phone: [phone] Patient Primary [address] [address] [place] [id number] Patient : 1950 Patient Age: 73 Caller/Recipient Relation to Patient: Self Caller Name: CHRISTEL SHINE Administrative Administrative Note Reason: Other Administrative Note Comments: patient is requesting a call back from [facility] regarding lab orders for upcoming appt on 06/24 that do not appear to have been entered yet. Patient would like to know if they are going to be entered in time for his appt or if he should reschedule appt. Please call patient back to follow up. IMPORTANT: This note was created by [facility] Clinical Contact Center staff. Please do not alert the staff member by adding them as a signer for future communications. Alerts are not monitored by this user. /silas MARQUEZ V1 [facility] AMSA Signed: 06/22/2024 12:11 Receipt Acknowledged By: 06/24/2024 08:14 /dominick/ TETE PERAZA LPN License Practical Nurse 06/24/2024 11:15 /dominick/ MINISTERIO MATUTE, MSN, RN, CNL PRIMARY CARE TEAM NURSE 06/24/2024 ADDENDUM STATUS: COMPLETED spoke with the and informed them that non fasting lab work has been ordered. /silas PERAZA LPN License Practical Nurse Signed: 06/24/2024 08:18 ALBERTO MARQUEZ [facility]
--- OUTSIDE RECORDS SUMMARY | 2024-07-08 08:36 | XMS_ITS | Encounter Summary ---
Author Name [facility] [place] [facility] [place] Address [address] [place] [address] Care Team Providers Care Digital Analyst Name Role Phone LESVIA GABRIEL Primary Care [...] RANDY MEDEX CHOIC E Dec 31, 2016 [id number] FÁTIMA,GAR [place] SUPPLEMEN RANDY MEDEX CHOIC E Dec 31, 2016 [id number] STORM,GAR [place] SUPPLEMEN RANDY MEDEX CHOIC E Dec 31, 2016 [id number] [phone] STORM,GAR Y PATIENT BCBS OF [facility] MEDICARE SUPPLEMEN RANDY MEDEX CHOIC E MONTH LY Dec 31, 2016 [id number] STORM,GAR Y PATIENT MEDICAID MEDICAID [facility] [place] Jun 02, 2013 MEDICAI D [id number] STORM,GAR Y PATIENT MEDICARE (WNR) MEDICARE (M) PART B Dec 01, 2015 PART B [id number] [phone] STORM,GAR Y PATIENT MEDICARE (WNR) MEDICARE (M) PART A Dec 01, 2015 PART A [id number] [phone] STORM,GAR Y PATIENT MEDICARE (WNR) MEDICARE (M) PART B Dec 01, 2015 PART B [id number] STORM,GAR Y PATIENT MEDICARE (WNR) MEDICARE () PART A Dec 01, 2015 PART A [id number] [phone] STORM,GAR Y PATIENT MEDICARE (WNR) MEDICARE (M) PART B Dec 01, 2015 PART B [id number] [phone] STORM,GAR Y PATIENT MEDICARE (WNR) MEDICARE () PART A Dec 01, 2015 PART A [id number] [id number] STORM,GAR Y PATIENT MEDICARE (WNR) MEDICARE (M) PART B Dec 01, 2015 PART B [id number] STORM,GAR Y PATIENT MEDICARE (WNR) MEDICARE () PART A Dec 01, 2015 PART A [id number] STORM,GAR Y PATIENT MEDICARE (WNR) MEDICARE (M) PART B Dec 01, 2015 PART B [id number] STORM,GAR Y PATIENT MEDICARE (WNR) MEDICARE () PART A Dec 01, 2015 PART A [id number] [phone] STORM,GAR Y PATIENT Selected Encounter This section includes the information on record at [place] for the Encounter. Date/Time Encounter Type Encounter Description Reason Provider Source Jan 13, 2024 02:00 PM [facility] ICD-10-CM D13.4 Benign neoplasm of liver THEE CAMPBELL W[place] Encounter Template Text not used by [place] Assessments - Encounter Diagnoses This section includes the primary and secondary diagnoses documented for the Encounter. Date/Time Primary/Secondary Diagnosis Diagnosis Name Provider Source Feb 05, 2024 08:08 AM PRIMARY Benign neoplasm of liver [facility] Plan of Treatment: Future Appointments (+ 6 months) and Future Tests (+/- 45 days) The Plan of Treatment section includes [facility] care activities [facility] the [facility] This section includes future appointments and future orders which are active, pending or scheduled. Future Appointments This section includes appointments that were scheduled to occur 6 months from the date of the Encounter, up to a maximum of 20 appointments. The data comes from all [place] treatment facilities. Appointment Date/Time Appointment Type Appointme nt Facility Name Jan 27, 2024 11:00 AM [facility] Jan 27, 2024 01:00 PM AMBULATORY - MEDICINE [facility] Apr 28, 2024 02:00 PM [facility] Jun 24, 2024 03:00 PM [facility] Vital Signs: All taken on the encounter date This section contains inpatient and outpatient Vital Signs collected on the date of the Encounter. Date/Time Temperature Pulse Blood Pressure Respiratory Rate SP02 Pain Height Weight Body Mass Index Source Jan 13, 2024 01:50 PM 97.9 63 145/76 16 99 0 142.2 20 [facility] Social History: Smoking Status (Most current) and Tobacco Use (All prior to encounter date) This section includes the most current, and the historical, smoking and tobacco- related health factors from the [place] facility where the Encounter took place. Current Smoking Status This section includes the most current smoking, or tobacco-related health factor, from the [place] facility where the Encounter took place. Date/Time Current Smoking Status Comment Facil ity May 08, 2023 01:30 PM VA-TOBACCO [facility] Tobacco Use History This section includes a history of the smoking, or tobacco-related health factors, that were collected on or before the date of the Encounter. The data comes from the [place] facility where the Encounter took place. Date/Time Smoking Status/Tobacco Use Comment F acility Mar 19, 2022 01:30 PM NE-TOBACCO [facility] Mar 20, 2021 02:00 PM VA-TOBACCO FORMER USER [facility] [place] [facility] Mar 20, 2021 02:00 PM VA-TOBACCO QUIT 15 YRS OR MORE [facility] [place] [facility] Mar 20, 2020 02:00 PM VA-TOBACCO FORMER USER [facility] [place] [facility] Mar 20, 2020 02:00 PM VA-TOBACCO QUIT 15 YRS OR MORE [facility] [place] [facility] Mar 02, 2018 01:59 PM VA-TOBACCO FORMER USER [facility] [place] [facility] Mar 02, 2018 01:59 PM VA-TOBACCO QUIT 15 YRS OR MORE [facility] [place] [facility] Mar 02, 2018 01:23 PM VA-TOBACCO FORMER USER [facility] [place] [facility] Mar 02, 2018 01:23 PM VA-TOBACCO QUIT 15 YRS OR MORE [facility] [place] [facility] September 30, 2016 09:39 AM LIFETIME NON-TOBACCO USER [facility] [place] [facility] October 12, 2015 01:46 PM LIFETIME NON-TOBACCO USER [facility] [place] [facility] Encounter Notes: All associated encounter notes This section contains the clinical notes associated to the Encounter. Date/Time Encounter Note(s) Provider Source Jan 15, 2024 07:37 AM ADDENDUM: LOCAL TITLE: Addendum STANDARD TITLE: ADDENDUM DATE OF NOTE: JAN 15, 2024@07:37:06 ENTRY DATE: JAN 15, 2024@07:37:06 AUTHOR: TETE PERAZA EXP COSIGNER: URGENCY: STATUS: COMPLETED please make a nurse visit to complete the series. /domincik/ TETE PERAZA LPN License Practical Nurse Signed: 01/15/2024 07:37 Receipt Acknowledged By: 01/16/2024 11:33 /dominick/ JOSE BRITT AMSA --- Original Document --- 01/13/24 TELE-HEPATOLOGY INITIAL NOTE: Last seen Liver Clinic: New patient HPI: 73 yo male with PMH for A-fib not on anti-coag, Atonic bladder, MVR, Liver Hemangioma who presents for f/u in Liver clinic for findings of cysts and hemangioma in Liver. Patient reports a very healthy lifestyle wrt diet and exrecise. But does take multiple OTC supplements - Lutein, COQ10, cranberry supplements, Emergen-C, Vitamin E, D, Zinc and Magnesium. ROS: Constitutional: Denies f/c, unintentional weight loss, fatigue, night sweats HEENT: Denies changes to vision, hearing, loss of taste/smell GI: Denies jaundice, n/v, bloating, anorexia, abd pain, ascites, change in stool color, melena, hematochezia CV/PULM: Denies chest pain, shortness of breath, cough, URENA, LE edema DERM: Denies rashes, bruising, jaundice, palmar erythema, pruritus NEURO/PSYCH: Denies confusion, change in gait, falls, tremors : Denies renal colic, hematuria PMH/PSHx: Atrial fibrillation not on anti-coag Hearing loss Incisional hernia Atonic bladder - self caths History of repair of mitral valve Hemangioma of liver Benign prostatic hyperplasia Hydrocele of testis SOCIAL Hx: Lives: by 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 ALLERGIES : CIPROFLOXACIN MEDICATION RECONCILIATION Active and Recently Outpatient Medications (excluding Supplies): Active Outpatient Medications Status 1) AMOXICILLIN 500MG CAP TAKE FOUR CAPSULES BY MOUTH ONE ACTIVE TIME - 1 HOUR PRIOR TO HIS APPOINTMENT WITH DENTAL 2) METOPROLOL TARTRATE 25MG TAB TAKE ONE TABLET BY MOUTH ACTIVE ONCE DAILY NEEDED TO PREVENT ANGINAL CHEST PAIN Physical Exam VITALS TEMP 97.9 F [36.6 C] (01/13/2024 13:50) HR 63 (01/13/2024 13:50) BP 145/76 (01/13/2024 13:50) RR 16 (01/13/2024 13:50) O2sat:Pulse Oximetry VITAL SIGNS SELECTED Measurement DT POx (L/MIN)(%) 01/13/2024 13:50 99(L/MIN)(%) GEN: NAD, AxOx3, steady gait SKIN: W/D, no jaundice, bruising, palmar erythema or telangiectasias or spider angiomas HEENT: MMM, anicteric sclera/SL area ABD: +BS x 4 quads, NT/ND, no HSM, no CVAT, no Ascites Ext (all 4): WWP, no edema, no tremor or asterixis LABS: ===== HEMATOLOGY: 11/17/2023 10:10 11/04/2023 14:40 08/07/2023 13:32 \ 12.7 / \ 13.2 / \ 13.4 / 4.36 ------ 128 4.87 ------ 130 4.84 ------ 139 / 37.5 \ / 38.3 \ / 39.8 \ PMN: 65.4% LYMPH: 24.8% MONO: 9.4% EOS: 0.2% L BASO: 0.0% L BANDS: 0.2% MCV: 94.7 RBC: 3.96 L RDW-CV: 13.1 NRBC %: 0.0 NEUT, ABS: 2.85 @ 11/17/2023 10:10 LYMPH, ABS: 1.08 MONO, ABS: 0.41 EOS, ABS: 0.01 L @ 11/17/2023 10:10 BASO, ABS: 0.00 L IMMATURE GRAN, ABS: 0.01 @ 11/17/2023 10:10 NRBC, ABS: 0.00 @ 11/17/2023 10:10 CHEMISTRY: PROTIME: 12.9 INR: 1.1 TIKA SCREEN: Neg @ 11/17/2023 10:10 HEPATITIS C ANTIBODY: Neg ALPHA 1 ANTITRYPSIN: 161 @ 11/17/2023 10:10 Ceruloplasmin: 24 @ 11/17/2023 10:10 HEPATITIS A ANTIBODY (IGG) Non Reactive: Ref: @ 11/17/2023 10:10 HBsAb: Neg HBsAg: Neg TIBC: 296 Iron: 123 @ 11/17/2023 10:10 Ferritin: 77 CREATININE, Serum: 0.90 @ 11/17/2023 10:10 Transferrin Saturation: 41.6 eGFR(CKD-EPI 2020): >90 @ 11/17/2023 10:10 SODIUM: 139 POTASSIUM: 3.8 CHLORIDE: 105 CO2: 27 @ 11/17/2023 10:10 UREA NITROGEN: 15 Glucose: 88 Protein: 6.2 @ 11/17/2023 10:10 Albumin: 4.0 ALK: 84 AST: 20 TBil: 1.0 ALT: 16 @ 11/17/2023 10:10 PSA: 3.58 @ 11/04/2023 14:41 TREND DATA: AST ALT AlkP TBil Alb Prtn = 20 16 84 1.0 4.0 6.2 @ 11/17/2023 10:10 18 14 92 0.8 3.9 6.1 @ 11/04/2023 14:40 DIAGNOSTICS: ULTRASOUND ABDOMEN LIMITED Exm Date: NOV 04, 2023@12:21 Report: Study: Abdomen ultrasound. Comparison: CT scan [...] hepatic cysts and hemangiomata, as described above. Assessment/Plan: ==== 73 yo male with PMH for A-fib not on anti-coag, Atonic bladder, MVR, Liver Hemangioma who presents for f/u. No current or past Hx of liver disease or risks for Liver disease - BMI ~ 20, denies alcohol or IV drugs, denies any Family Hx of Autoimmune disease etc. #Cysts and Hemangiomas noted in Liver. - CT-Abd 10/2021 with cysts, largest measuring 6 * 6.5 cm, also noted multiple heamgiomas - Recent US Abd also shows cysts and hemangiomas, without any significant change in size or numbers. - No concerning symptoms per , also no Hx of PLD in family is aware of. - Liver synthetic function is normal with ALB 4.0, INR 1.1; AST > ALT but never elevated. - Recommend follow up with CT-Scan in a year to assess for any changes. - Will also complete a FS on this patient, based on discussion with patient - Overall very unlikely patient has any significant liver disease. - Will f/u with results when available. ===== RTC: ==== Pending fibroscan interpretation Will determine liver clinic f/u vs. return to PCP VERBALIZES AN UNDERSTANDING AND AGREEMENT WITH THE ABOVE POC. Total Visit spent [id number] was 30 minutes TELE-HEALTH VISIT CONDUCTED FROM [facility] OVER CVT /silas Campbell Nurse Practitioner, Hepatology/GI Signed: 01/13/2024 15:01 Receipt Acknowledged By: 01/13/2024 16:56 /dominick/ LESVIA GABRIEL D.O. PHYSICIAN 01/13/2024 ADDENDUM STATUS: COMPLETED reports he was started on the Hep A/B series vaccination, only completed first dose so far. Alerting PACT that he will benefit from completing the series Thank you /silas Campbell Nurse Practitioner, Hepatology/GI Signed: 01/13/2024 15:03 Receipt Acknowledged By: 01/15/2024 07:36 /dominick/ TETE PERAZA LPN License Practical Nurse 01/13/2024 16:38 /dominick/ LESVIA GABRIEL D.O. PHYSICIAN 01/16/2024 08:53 /dominick/ NIDIA ESPINOZA RN REGISTERED NURSE TETE PERAZA [facility] Jan 13, 2024 03:02 PM ADDENDUM: LOCAL TITLE: Addendum STANDARD TITLE: ADDENDUM DATE OF NOTE: JAN 13, 2024@15:02:49 ENTRY DATE: JAN 13, 2024@15:02:50 AUTHOR: THEE CAMPBELL EXP COSIGNER: URGENCY: STATUS: COMPLETED [place] reports he was started on the Hep A/B series vaccination, only completed first dose so far. Alerting PACT that he will benefit from completing the series Thank you /silas Campbell Nurse Practitioner, Hepatology/GI Signed: 01/13/2024 15:03 Receipt Acknowledged By: 01/15/2024 07:36 /dominick/ TETE PERAZA LPN License Practical Nurse 01/13/2024 16:38 /dominick/ LESVIA GABRIEL D.O. PHYSICIAN 01/16/2024 08:53 /dominick/ NIDIA ESPINOZA RN REGISTERED NURSE --- Original Document --- 01/13/24 TELE-HEPATOLOGY INITIAL NOTE: Last seen Liver Clinic: New patient HPI: 73 yo male with PMH for A-fib not on anti-coag, Atonic bladder, MVR, Liver Hemangioma who presents for f/u in Liver clinic for findings of cysts and hemangioma in Liver. Patient reports a very healthy lifestyle wrt diet and exrecise. But does take multiple OTC supplements - Lutein, COQ10, cranberry supplements, Emergen-C, Vitamin E, D, Zinc and Magnesium. ROS: Constitutional: Denies f/c, unintentional weight loss, fatigue, night sweats HEENT: Denies changes to vision, hearing, loss of taste/smell GI: Denies jaundice, n/v, bloating, anorexia, abd pain, ascites, change in stool color, melena, hematochezia CV/PULM: Denies chest pain, shortness of breath, cough, URENA, LE edema DERM: Denies rashes, bruising, jaundice, palmar erythema, pruritus NEURO/PSYCH: Denies confusion, change in gait, falls, tremors : Denies renal colic, hematuria PMH/PSHx: Atrial fibrillation not on anti-coag Hearing loss Incisional hernia Atonic bladder - self caths History of repair of mitral valve Hemangioma of liver Benign prostatic hyperplasia Hydrocele of testis SOCIAL Hx: Lives: by 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 ALLERGIES : CIPROFLOXACIN MEDICATION RECONCILIATION Active and Recently Outpatient Medications (excluding Supplies): Active Outpatient Medications Status 1) AMOXICILLIN 500MG CAP TAKE FOUR CAPSULES BY MOUTH ONE ACTIVE TIME - 1 HOUR PRIOR TO HIS APPOINTMENT WITH DENTAL 2) METOPROLOL TARTRATE 25MG TAB TAKE ONE TABLET BY MOUTH ACTIVE ONCE DAILY NEEDED TO PREVENT ANGINAL CHEST PAIN Physical Exam VITALS TEMP 97.9 F [36.6 C] (01/13/2024 13:50) HR 63 (01/13/2024 13:50) BP 145/76 (01/13/2024 13:50) RR 16 (01/13/2024 13:50) O2sat:Pulse Oximetry VITAL SIGNS SELECTED Measurement DT POx (L/MIN)(%) 01/13/2024 13:50 99(L/MIN)(%) GEN: NAD, AxOx3, steady gait SKIN: W/D, no jaundice, bruising, palmar erythema or telangiectasias or spider angiomas HEENT: MMM, anicteric sclera/SL area ABD: +BS x 4 quads, NT/ND, no HSM, no CVAT, no Ascites Ext (all 4): WWP, no edema, no tremor or asterixis LABS: ===== HEMATOLOGY: 11/17/2023 10:10 11/04/2023 14:40 08/07/2023 13:32 \ 12.7 / \ 13.2 / \ 13.4 / 4.36 ------ 128 4.87 ------ 130 4.84 ------ 139 / 37.5 \ / 38.3 \ / 39.8 \ PMN: 65.4% LYMPH: 24.8% MONO: 9.4% EOS: 0.2% L BASO: 0.0% L BANDS: 0.2% MCV: 94.7 RBC: 3.96 L RDW-CV: 13.1 NRBC %: 0.0 NEUT, ABS: 2.85 @ 11/17/2023 10:10 LYMPH, ABS: 1.08 MONO, ABS: 0.41 EOS, ABS: 0.01 L @ 11/17/2023 10:10 BASO, ABS: 0.00 L IMMATURE GRAN, ABS: 0.01 @ 11/17/2023 10:10 NRBC, ABS: 0.00 @ 11/17/2023 10:10 CHEMISTRY: PROTIME: 12.9 INR: 1.1 TIKA SCREEN: Neg @ 11/17/2023 10:10 HEPATITIS C ANTIBODY: Neg ALPHA 1 ANTITRYPSIN: 161 @ 11/17/2023 10:10 Ceruloplasmin: 24 @ 11/17/2023 10:10 HEPATITIS A ANTIBODY (IGG) Non Reactive: Ref: @ 11/17/2023 10:10 HBsAb: Neg HBsAg: Neg TIBC: 296 Iron: 123 @ 11/17/2023 10:10 Ferritin: 77 CREATININE, Serum: 0.90 @ 11/17/2023 10:10 Transferrin Saturation: 41.6 eGFR(CKD-EPI 2020): >90 @ 11/17/2023 10:10 SODIUM: 139 POTASSIUM: 3.8 CHLORIDE: 105 CO2: 27 @ 11/17/2023 10:10 UREA NITROGEN: 15 Glucose: 88 Protein: 6.2 @ 11/17/2023 10:10 Albumin: 4.0 ALK: 84 AST: 20 TBil: 1.0 ALT: 16 @ 11/17/2023 10:10 PSA: 3.58 @ 11/04/2023 14:41 TREND DATA: AST ALT AlkP TBil Alb Prtn = 20 16 84 1.0 4.0 6.2 @ 11/17/2023 10:10 18 14 92 0.8 3.9 6.1 @ 11/04/2023 14:40 DIAGNOSTICS: ULTRASOUND ABDOMEN LIMITED Exm Date: NOV 04, 2023@12:21 Report: Study: Abdomen ultrasound. Comparison: CT scan [...] hepatic cysts and hemangiomata, as described above. Assessment/Plan: ==== 73 yo male with PMH for A-fib not on anti-coag, Atonic bladder, MVR, Liver Hemangioma who presents for f/u. No current or past Hx of liver disease or risks for Liver disease - BMI ~ 20, denies alcohol or IV drugs, denies any Family Hx of Autoimmune disease etc. #Cysts and Hemangiomas noted in Liver. - CT-Abd 10/2021 with cysts, largest measuring 6 * 6.5 cm, also noted multiple heamgiomas - Recent US Abd also shows cysts and hemangiomas, without any significant change in size or numbers. - No concerning symptoms per , also no Hx of PLD in family is aware of. - Liver synthetic function is normal with ALB 4.0, INR 1.1; AST > ALT but never elevated. - Recommend follow up with CT-Scan in a year to assess for any changes. - Will also complete a FS on this patient, based on discussion with patient - Overall very unlikely patient has any significant liver disease. - Will f/u with results when available. ===== RTC: ==== Pending fibroscan interpretation Will determine liver clinic f/u vs. return to PCP VERBALIZES AN UNDERSTANDING AND AGREEMENT WITH THE ABOVE POC. Total Visit spent [id number]-pl-tpuo was 30 minutes TELE-HEALTH VISIT CONDUCTED FROM [facility] OVER CVT /dominick/ Thee Campbell Nurse Practitioner, Hepatology/GI Signed: 01/13/2024 15:01 Receipt Acknowledged By: 01/13/2024 16:56 /dominick/ LESVIA GABRIEL D.O. PHYSICIAN 01/15/2024 ADDENDUM STATUS: COMPLETED please make a nurse visit to complete the series. /es/ TETE PERAZA LPN License Practical Nurse Signed: 01/15/2024 07:37 Receipt Acknowledged By: * AWAITING SIGNATURE * JOSE BRITT NEERAJA [place] [facility] [place] [facility] Jan 13, 2024 10:45 AM HEPATOLOGY INITIAL EVALUATION NOTE: LOCAL TITLE: TELE-HEPATOLOGY INITIAL NOTE STANDARD TITLE: HEPATOLOGY INITIAL EVALUATION NOTE DATE OF NOTE: JAN 13, 2024@10:45 ENTRY DATE: JAN 13, 2024@10:46:12 AUTHOR: THEE CAMPBELL EXP COSIGNER: URGENCY: STATUS: COMPLETED TELE-HEPATOLOGY INITIAL NOTE Has ADDENDA Last seen Liver Clinic: New patient HPI: 73 yo male with PMH for A-fib not on anti-coag, Atonic bladder, MVR, Liver Hemangioma who presents for f/u in Liver clinic for findings of cysts and hemangioma in Liver. Patient reports a very healthy lifestyle wrt diet and exrecise. But does take multiple OTC supplements - Lutein, COQ10, cranberry supplements, Emergen-C, Vitamin E, D, Zinc and Magnesium. ROS: Constitutional: Denies f/c, unintentional weight loss, fatigue, night sweats HEENT: Denies changes to vision, hearing, loss of taste/smell GI: Denies jaundice, n/v, bloating, anorexia, abd pain, ascites, change in stool color, melena, hematochezia CV/PULM: Denies chest pain, shortness of breath, cough, URENA, LE edema DERM: Denies rashes, bruising, jaundice, palmar erythema, pruritus NEURO/PSYCH: Denies confusion, change in gait, falls, tremors : Denies renal colic, hematuria PMH/PSHx: Atrial fibrillation not on anti-coag Hearing loss Incisional hernia Atonic bladder - self caths History of repair of mitral valve Hemangioma of liver Benign prostatic hyperplasia Hydrocele of testis SOCIAL Hx: Lives: by 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 ALLERGIES : CIPROFLOXACIN MEDICATION RECONCILIATION Active and Recently Outpatient Medications (excluding Supplies): Active Outpatient Medications Status 1) AMOXICILLIN 500MG CAP TAKE FOUR CAPSULES BY MOUTH ONE ACTIVE TIME - 1 HOUR PRIOR TO HIS APPOINTMENT WITH DENTAL 2) METOPROLOL TARTRATE 25MG TAB TAKE ONE TABLET BY MOUTH ACTIVE ONCE DAILY NEEDED TO PREVENT ANGINAL CHEST PAIN Physical Exam VITALS TEMP 97.9 F [36.6 C] (01/13/2024 13:50) HR 63 (01/13/2024 13:50) BP 145/76 (01/13/2024 13:50) RR 16 (01/13/2024 13:50) O2sat:Pulse Oximetry VITAL SIGNS SELECTED Measurement DT POx (L/MIN)(%) 01/13/2024 13:50 99(L/MIN)(%) GEN: NAD, AxOx3, steady gait SKIN: W/D, no jaundice, bruising, palmar erythema or telangiectasias or spider angiomas HEENT: MMM, anicteric sclera/SL area ABD: +BS x 4 quads, NT/ND, no HSM, no CVAT, no Ascites Ext (all 4): WWP, no edema, no tremor or asterixis LABS: ===== HEMATOLOGY: 11/17/2023 10:10 11/04/2023 14:40 08/07/2023 13:32 \ 12.7 / \ 13.2 / \ 13.4 / 4.36 ------ 128 4.87 ------ 130 4.84 ------ 139 / 37.5 \ / 38.3 \ / 39.8 \ PMN: 65.4% LYMPH: 24.8% MONO: 9.4% EOS: 0.2% L BASO: 0.0% L BANDS: 0.2% MCV: 94.7 RBC: 3.96 L RDW-CV: 13.1 NRBC %: 0.0 NEUT, ABS: 2.85 @ 11/17/2023 10:10 LYMPH, ABS: 1.08 MONO, ABS: 0.41 EOS, ABS: 0.01 L @ 11/17/2023 10:10 BASO, ABS: 0.00 L IMMATURE GRAN, ABS: 0.01 @ 11/17/2023 10:10 NRBC, ABS: 0.00 @ 11/17/2023 10:10 CHEMISTRY: PROTIME: 12.9 INR: 1.1 TIKA SCREEN: Neg @ 11/17/2023 10:10 HEPATITIS C ANTIBODY: Neg ALPHA 1 ANTITRYPSIN: 161 @ 11/17/2023 10:10 Ceruloplasmin: 24 @ 11/17/2023 10:10 HEPATITIS A ANTIBODY (IGG) Non Reactive: Ref: @ 11/17/2023 10:10 HBsAb: Neg HBsAg: Neg TIBC: 296 Iron: 123 @ 11/17/2023 10:10 Ferritin: 77 CREATININE, Serum: 0.90 @ 11/17/2023 10:10 Transferrin Saturation: 41.6 eGFR(CKD-EPI 2020): >90 @ 11/17/2023 10:10 SODIUM: 139 POTASSIUM: 3.8 CHLORIDE: 105 CO2: 27 @ 11/17/2023 10:10 UREA NITROGEN: 15 Glucose: 88 Protein: 6.2 @ 11/17/2023 10:10 Albumin: 4.0 ALK: 84 AST: 20 TBil: 1.0 ALT: 16 @ 11/17/2023 10:10 PSA: 3.58 @ 11/04/2023 14:41 TREND DATA: AST ALT AlkP TBil Alb Prtn = 20 16 84 1.0 4.0 6.2 @ 11/17/2023 10:10 18 14 92 0.8 3.9 6.1 @ 11/04/2023 14:40 DIAGNOSTICS: ULTRASOUND ABDOMEN LIMITED Exm Date: NOV 04, 2023@12:21 Report: Study: Abdomen ultrasound. Comparison: CT scan [...] hepatic cysts and hemangiomata, as described above. Assessment/Plan: ==== 73 yo male with PMH for A-fib not on anti-coag, Atonic bladder, MVR, Liver Hemangioma who presents for f/u. No current or past Hx of liver disease or risks for Liver disease - BMI ~ 20, denies alcohol or IV drugs, denies any Family Hx of Autoimmune disease etc. #Cysts and Hemangiomas noted in Liver. - CT-Abd 10/2021 with cysts, largest measuring 6 * 6.5 cm, also noted multiple heamgiomas - Recent US Abd also shows cysts and hemangiomas, without any significant change in size or numbers. - No concerning symptoms per , also no Hx of PLD in family is aware of. - Liver synthetic function is normal with ALB 4.0, INR 1.1; AST > ALT but never elevated. - Recommend follow up with CT-Scan in a year to assess for any changes. - Will also complete a FS on this patient, based on discussion with patient - Overall very unlikely patient has any significant liver disease. - Will f/u with results when available. ===== RTC: ==== Pending fibroscan interpretation Will determine liver clinic f/u vs. return to PCP VERBALIZES AN UNDERSTANDING AND AGREEMENT WITH THE ABOVE POC. Total Visit spent sttr-dx-crom was 30 minutes TELE-HEALTH VISIT CONDUCTED FROM [facility] OVER CVT /dominick/ Thee Campbell Nurse Practitioner, Hepatology/GI Signed: 01/13/2024 15:01 Receipt Acknowledged By: 01/13/2024 16:56 /dominick/ LESVIA GABRIEL D.O. PHYSICIAN 01/13/2024 ADDENDUM STATUS: COMPLETED [place] reports he was started on the Hep A/B series vaccination, only completed first dose so far. Alerting PACT that he will benefit from completing the series Thank you /silas Campbell Nurse Practitioner, Hepatology/GI Signed: 01/13/2024 15:03 Receipt Acknowledged By: 01/15/2024 07:36 /dominick/ TETE PERAZA LPN License Practical Nurse 01/13/2024 16:38 /es/ LESVIA GABRIEL D.O. PHYSICIAN 01/16/2024 08:53 /es/ NIDIA ESPINOZA, [facility]MA REGISTERED NURSE 01/15/2024 ADDENDUM STATUS: COMPLETED please make a nurse visit to complete the series. /dominick/ TETE PERAZA LPN License Practical Nurse Signed: 01/15/2024 07:37 Receipt Acknowledged By: 01/16/2024 11:33 /es/ JOSE AVILES 01/16/2024 ADDENDUM STATUS: COMPLETED TRACI CALLED ON TELEPHONE AND SCHEDULED AN APPT SET FOR December @ 1PM. /dominick/ JOSE AVILES Signed: 01/16/2024 11:36 THEE CAMPBELL CNTRL [facility]
--- OUTSIDE RECORDS SUMMARY | 2024-07-08 08:36 | XMS_ITS | Encounter Summary ---
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 MEDICARE SUPPLEMEN RANDY MEDEX CHOIC E MONTH LY Dec 31, 2016 [id number] [phone] STORM,GAR Y PATIENT MEDICAID MEDICAID [facility] STAND [place] Jun 02, 2013 MEDICAI D [id number] STORM,GAR Y PATIENT MEDICARE (WNR) MEDICARE () PART B Dec 01, 2015 PART B [id number] STORM,GAR Y PATIENT MEDICARE (WNR) MEDICARE () PART A Dec 01, 2015 PART A [id number] [phone] STORM,GAR Y PATIENT MEDICARE (WNR) MEDICARE () PART B Dec 01, 2015 PART B [id number] STORM,GAR Y PATIENT MEDICARE (WNR) MEDICARE () PART A Dec 01, 2015 PART A [id number] [phone] STORM,GAR Y PATIENT MEDICARE (WNR) MEDICARE () PART B Dec 01, 2015 PART B [id number] STORM,GAR Y PATIENT MEDICARE (WNR) MEDICARE () PART A Dec 01, 2015 PART A [id number] [phone] STORM,GAR Y PATIENT MEDICARE (WNR) MEDICARE () PART B Dec 01, 2015 PART B [id number] STORM,GAR Y PATIENT MEDICARE (WNR) MEDICARE () PART A Dec 01, 2015 PART A [id number] STORM,GAR Y PATIENT MEDICARE (WNR) MEDICARE () PART B Dec 01, 2015 PART B [id number] [phone] STORM,GAR Y PATIENT MEDICARE (WNR) MEDICARE () PART A Dec 01, 2015 PART A [id number] STORM,GAR Y PATIENT Selected Encounter This section includes the information on record at [place] for the Encounter. Date/Time Encounter Type Encounter Description Reason Provider Source Nov 07, 2023 09:40 AM RPR&REFITG SPECT XCP APHAKIA OPTOMETRY ICD-10-CM Z46.0 Encounter for fit/adjst of spectacles and contact lenses CLEVELAND ESPINOZA IHWandy Encounter Template Text not used by [facility] Assessments - Encounter Diagnoses This section includes the primary and secondary diagnoses documented for the Encounter. Date/Time Primary/Secondary Diagnosis Diagnosis Name Provider Source Nov 07, 2023 10:29 AM PRIMARY Encounter for fit/adjst of spectacles and contact lenses CLEVELAND ESPINOZA [facility] Plan of Treatment: Future Appointments (+ 6 months) and Future Tests (+/- 45 days) The Plan of Treatment section includes future care activities for the patient from [facility] [place] [facility] This section includes future appointments and future orders which are active, pending or scheduled. Future Appointments This section includes appointments that were scheduled to occur 6 months from the date of the Encounter, up to a maximum of 20 appointments. The data comes from all [place] treatment [facility]. Appointment Date/Time Appointment Type Appointme nt Facility Name Nov 17, 2023 09:40 AM AMBULATORY - MEDICINE [place] [facility] Jan 13, 2024 02:00 PM [facility] Jan 13, 2024 02:00 PM [facility] NONE [facility] Jan 27, 2024 11:00 AM AMBULATORY - NONE [facility] [place] [facility] Jan 27, 2024 01:00 PM AMBULATORY - MEDICINE [place] [facility] Apr 28, 2024 02:00 PM [facility] Active, Pending, and Scheduled Orders This section includes a listing of several types of active, pending, and scheduled orders, including clinic medications orders, diagnostic test orders, procedure orders and consult orders; where the start date of the order is 45 days before the date of the Encounter or 45 days after the date of theEncounter. The data comes from all [facility]. Test Date/Time Test Type Test Details Facility Name Nov 17, 2023 12:00 AM Laboratory - Chemistry Order VITAMIN B12 BLOOD (SST-SERUM) [facility] WSN [facility] Nov 17, 2023 12:00 AM Laboratory - Chemistry Order FOLATE (WROX) BLOOD (SST-SERUM) [facility] Nov 17, 2023 12:00 AM Laboratory - Chemistry Order CBC AND DIFF (AUTO) BLOOD (LAV-BLOOD) [facility] Nov 17, 2023 12:00 AM Laboratory - Chemistry Order PROTEIN SERUM ELECTROPHORESIS PANEL/ELICEO BLOOD (SST-GOLD) SERUM SP [facility] Nov 17, 2023 12:00 AM Laboratory - Chemistry Order UPEP REFLEX PANEL,SPOT URINE SP [facility] Lab Results: +/- 30 days of the encounter This section includes the Chemistry and Hematology Lab Results on record with [facility] for the patient. Radiology Reports and Pathology Reports are provided separately, in subsequent sections. Lab Results This section contains the Chemistry/Hematology Results that were resulted 30 days before or 30 daysafter the date of the Encounter. Date/Time Source Result Type Result - Unit Interpretation Reference Range Comment Nov 22, 2023 10:15 AM [facility] OCCULT BLOOD FIT X1 SCREEN(IN-HOUSE) Specimen Type: FECES No comment entered. Ordering Provider: LESVIA GABRIEL Report Released Date/Time: Nov 04, 2023 01:32 PM Reporting Lab: [address] [address] Performing Lab: [address] [address] OCCULT BLOOD (FIT)#1 OF 1 Negative NEG Nov 17, 2023 10:10 AM [facility] PT & INR (PROTIME) Specimen Type: PLASMA No comment entered. Ordering Provider: LIUDMILA GARDINER Report Released Date/Time: Nov 05, 2023 11:16 AM Reporting Lab: [address] [address] Performing Lab: [address] [address] INR 1.1 PROTIME 12.9 s 10.0-13.1 Nov 17, 2023 10:10 AM [facility] CERULOPLASMIN Specimen Type: SERUM No comment entered. Ordering Provider: LIUDMILA GARDINER Report Released Date/Time: Nov 05, 2023 11:16 AM Reporting Lab: [address] [address] Performing Lab: [facility] [address] [facility] [address] CERULOPLASMIN 24 mg/dL 20-60 Nov 17, 2023 10:10 AM [facility] HEPATITIS B SURFACE ANTIBODY (HBsAb)- Specimen Type : SERUM No comment entered. Ordering Provider: LIUDMILA GARDINER Report Released Date/Time: Nov 05, 2023 11:16 AM Reporting Lab: [address] [address] Performing Lab: [facility] Nov 17, 2023 10:10 AM [facility] TIKA SCREEN/TITER Specimen Type: SERUM No comment entered. Ordering Provider: LIUDMILA GARDINER Report Released Date/Time: Nov 05, 2023 11:16 AM Reporting Lab: [address] [address] Performing Lab: [facility] [address] [facility] [address] TIKA SCREEN NEG Nov 17, 2023 10:10 AM [facility] HEPATITIS B SURFACE ANTIGEN (HBsAg)[facility] Specimen Type: SERUM Comment: A Reactive result ( Positive prior to 03/15/13) is diagnostic of acute or chronic hepatitis B infection. The presence of Hepatitis B surface antigen is frequently associated with infectivity. Ordering Provider: LIUDMILA GARDINER Report Released Date/Time: Nov 05, 2023 11:16 AM Reporting Lab: [address] [address] Performing Lab: [address] [address] HBsAg Non Reactive Non Reactive Nov 17, 2023 10:10 AM [facility] HEPATITIS A ANTIBODY (IGG) Specimen Type: SERUM Comment: Hep A IgG: A 'Non-reactive' result indicates no anti-HAV IgG was detected. Ordering Provider: LIUDMILA GARDINER Report Released Date/Time: Nov 05, 2023 11:16 AM Reporting Lab: [place] [facility] [place] [facility] [address] [facility] [address] Performing Lab: [place] [facility] [facility] [address] [facility] [address] HEPATITIS A ANTIBODY (IGG) Non Reactive Non Reactive Nov 17, 2023 10:10 AM [facility] [place] [facility] ALPHA 1 ANTITRYPSIN Specimen Type: SERUM No comment entered. Ordering Provider: LIUDMILA GARDINER Report Released Date/Time: Nov 05, 2023 11:16 AM Reporting Lab: [place] [facility] [facility] [address] [facility] [address] Performing Lab: [place] [facility] [facility] [address] [facility] [address] ALPHA 1 ANTITRYPSIN 161 mg/dL 90-200 Nov 17, 2023 10:10 AM [facility] HEPATITIS C ANTIBODY (HCV)-ARC Specimen Type: SERUM Comment: Hep C Ab: No HCV antibody detected. If recent infection is suspected or other evidence suggests HCV infection, consider HCV nucleic acid testing Ordering Provider: LIUDMILA GARDINER Report Released Date/Time: Nov 05, 2023 11:16 AM Reporting Lab: [facility] [place] [facility] [address] [facility] [address] Performing Lab: [facility]N [facility] [address] [facility] [address] HEPATITIS C ANTIBODY NON-REACTIVE NON-REACTI VE Nov 17, 2023 10:10 AM [facility] FERRITIN Specimen Type: SERUM No comment entered. Ordering Provider: LIUDMILA GARDINER Report Released Date/Time: Nov 05, 2023 11:16 AM Reporting Lab: [place] [facility] [facility] [address] [facility] [address] Performing Lab: [facility] [address] [facility] [address] FERRITIN 77 ng/mL 20-300 Nov 17, 2023 10:10 AM [facility] IRON & TIBC PANEL Specimen Type: SERUM No comment entered. Ordering Provider: LIUDMILA GARDINER Report Released Date/Time: Nov 05, 2023 11:16 AM Reporting Lab: [facility] [address] [facility] [address] Performing Lab: [facility] [address] [facility] [address] TIBC 296 ug/dL 204-475 IRON 123 ug/dL 40-160 Transferrin Saturation 41.6 20.0-50.0 Nov 17, 2023 10:10 AM [facility] ALBUMIN Specimen Type: SERUM No comment entered. Ordering Provider: LIUDMILA GARDINER Report Released Date/Time: Nov 05, 2023 11:16 AM Reporting Lab: [facility] [address] [facility] [address] Performing Lab: [address] [address] ALBUMIN 4.0 g/dL 3.5-5.0 Nov 17, 2023 10:10 AM [facility] LIVER FUNCTION Specimen Type: SERUM No comment entered. Ordering Provider: LIUDMILA GARDINER Report Released Date/Time: Nov 05, 2023 11:16 AM Reporting Lab: [facility] [address] [facility] [address] Performing Lab: [facility] [address] [address] PROTEIN,TOTAL 6.2 g/dL 6.0-8.3 ALBUMIN 4.0 g/dL 3.5-5.0 ALKALINE PHOSPHATASE 84 U/L 40-150 AST 20 U/L 5-34 ALT 16 U/L BILIRUBIN, TOTAL 1.0 mg/dL 0.2-1.2 Nov 17, 2023 10:10 AM [facility] BASIC METABOLIC PANEL (non-fasting) Specimen Type: SERUM No comment entered. Ordering Provider: LIUDMILA GARDINER Report Released Date/Time: Nov 05, 2023 11:16 AM Reporting Lab: [facility] [address] [facility] [address] Performing Lab: [facility] [address] [facility] [address] UREA NITROGEN 15 mg/dL 7-25 GLUCOSE 88 mg/dL 65-100 SODIUM 139 mmol/L 135-145 POTASSIUM 3.8 mmol/L 3.5-5.0 CHLORIDE 105 mmol/L 100-110 CO2 27 meq/L 20-30 CREATININE, Serum 0.90 mg/dL 0.50-1.40 eGFR(CKD-EPI 2020) >90 mL/min >60 Nov 17, 2023 10:10 AM [facility] CBC AND DIFF (AUTO) Specimen Type: BLOOD No comment entered. Ordering Provider: LIUDMILA GARDINER Report Released Date/Time: Nov 05, 2023 11:16 AM Reporting Lab: [address] [address] Performing Lab: [address] [address] WBC 4.36 10*3/uL L 4.50-11.00 RBC 3.96 [...] 10*3/uL 0.00-0.00 Nov 04, 2023 02:41 PM [facility] PSA Specimen Type: SERUM No comment entered. Ordering Provider: LESVIA GABRIEL Report Released Date/Time: October 30, 2023 08:06 AM Reporting Lab: [address] [address] Performing Lab: [address] [address] PSA 3.58 ng/mL 0.00-4.00 Nov 04, 2023 02:41 PM [facility] BASIC METABOLIC PANEL (non-fasting) Specimen Type: SERUM No comment entered. Ordering Provider: LESVIA GABRIEL Report Released Date/Time: October 30, 2023 08:06 AM Reporting Lab: [address] [address] Performing Lab: [address] [address] UREA NITROGEN 17 mg/dL 7-25 GLUCOSE 113 mg/dL H 65-100 SODIUM 138 mmol/L 135-145 POTASSIUM 3.5 mmol/L 3.5-5.0 CHLORIDE 104 mmol/L 100-110 CO2 26 meq/L 20-30 CREATININE, Serum 0.91 mg/dL 0.50-1.40 eGFR(CKD-EPI 2020) 89 mL/min >60 Nov 04, 2023 02:40 PM [facility] MEASLES (IgM) Ab ([place]) Specimen Type: [...] analytical performance characteristics have been determined by [place] It has not been cleared or approved by the U.S. Food and Drug Administration. This assay has been validated pursuant to the CLIA regulations and is used for clinical purposes. For additional information, please refer to http://education .Memorado/faq/QPX010 (This link is being provided for informational/ educational purposes only.) Test Performed by [facility], [facility], [address] [place] [address] Vernon Carrillo M.D., Ph.D., Director of Laboratories , CLIA [id number] TEST PERFORMED AT: , Ordering Provider: LESVIA GABRIEL Report Released Date/Time: Nov 04, 2023 01:54 PM Reporting Lab: [address] [address] Performing Lab: [facility] [address] [address] MEASLES (IgM) Ab ([place]) <1:20 {titer} Nov 04, 2023 02:40 PM [facility] HEPATITIS B SURFACE ANTIBODY (HBsAb)-WH Specimen Type : SERUM No comment entered. Ordering Provider: LESVIA GABRIEL Report Released Date/Time: Nov 04, 2023 01:54 PM Reporting Lab: [address] [address] Performing Lab: [facility] [address] [facility] [address] HBsAb Non Reactive Non Reactive Nov 04, 2023 02:40 PM [facility] LIVER FUNCTION Specimen Type: SERUM No comment entered. Ordering Provider: LESVIA GABRIEL Report Released Date/Time: Nov 04, 2023 01:54 PM Reporting Lab: [address] [address] Performing Lab: [address] [address] PROTEIN,TOTAL 6.1 g/dL 6.0-8.3 ALBUMIN 3.9 g/dL 3.5-5.0 ALKALINE PHOSPHATASE 92 U/L 40-150 AST 18 U/L 5-34 ALT 14 U/L BILIRUBIN, TOTAL 0.8 mg/dL 0.2-1.2 Nov 04, 2023 02:40 PM [facility] CBC Specimen Type: BLOOD No comment entered. Ordering Provider: LESVIA GABRIEL Report Released Date/Time: Nov 04, 2023 01:54 PM Reporting Lab: [address] [address] Performing Lab: [address] [address] WBC 4.87 10*3/uL 4.50-11.00 RBC 4.07 10*6/uL L 4.23-5.66 HGB 13.2 g/dL 12.8-17 HCT 38.3 L 39.2-50.4 MCV 94.1 fL 82-99 MCHC 34.5 g/dL 30.8-35.1 PLT 130 10*3/uL L 140-360 RDW-CV 13.1 12.0-16.0 MCH 32.4 pg 26.2-32.6 Social History: Smoking Status (Most current) and Tobacco Use (All prior to encounter date) This section includes the most current, and the historical, smoking and tobacco- related health factors from the [place] facility where the Encounter took place. Current Smoking Status This section includes the most current smoking, or tobacco-related health factor, from the [place] facility where the Encounter took place. Date/Time Current Smoking Status Comment Ely holder May 08, 2023 01:30 PM VA-TOBACCO NEVER USED [facility] Tobacco Use History This section includes a history of the smoking, or tobacco-related health factors, that were collected on or before the date of the Encounter. The data comes from the [place] facility where the Encounter took place. Date/Time Smoking Status/Tobacco Use Comment F acility Mar 19, 2022 01:30 PM VA-TOBACCO NEVER USED [facility] [place] [facility] Mar 20, 2021 02:00 PM VA-TOBACCO FORMER USER [facility] [place] [facility] Mar 20, 2021 02:00 PM VA-TOBACCO QUIT 15 YRS OR MORE [facility] [place] [facility] Mar 20, 2020 02:00 PM VA-TOBACCO FORMER USER [facility] [place] [facility] Mar 20, 2020 02:00 PM VA-TOBACCO QUIT 15 YRS OR MORE [facility] [place] [facility] Mar 02, 2018 01:59 PM VA-TOBACCO FORMER USER [facility] [place] [facility] Mar 02, 2018 01:59 PM VA-TOBACCO QUIT 15 YRS OR MORE [facility] [place] [facility] Mar 02, 2018 01:23 PM VA-TOBACCO FORMER USER [facility] [place] [facility] Mar 02, 2018 01:23 PM VA-TOBACCO QUIT 15 YRS OR MORE [facility] [place] [facility] September 30, 2016 09:39 AM LIFETIME NON-TOBACCO USER [place] [facility] [place] [facility] October 12, 2015 01:46 PM LIFETIME NON-TOBACCO USER [place] [facility] [place] [facility] Radiology Reports: +/- 30 days of the [...] the Encounter. The data comes from all [place] treatment facilities. Date/Time Radiology Report Provider Source Nov 04, 2023 12:21 PM ULTRASOUND ABDOMEN LIMITED: CHRISTEL SHINE HARLAN [id number] -[phone] M Exm Date: NOV 04, 2023@12:21 Req Phys: WALLY MIGUEL Loc: CWM/NO/PACT 1 (Req'g Loc) Img Loc: ULTRASOUND Service: Unknown [facility] , (Case 200 COMPLETE) ULTRASOUND ABDOMEN LIMITED (US Detailed) CPT:19541 Reason for Study: hx of liver cysts and hemagioma for survillence Clinical History: Report Status: Verified Date Reported: NOV 04, 2023 Date Verified: NOV 04, 2023 Design Draftsman E-Sig:/ES/TAMICA YOUNG JR Report: Study: Abdomen ultrasound. [...] Primary Interpreting Staff: TAMICA YOUNG JR, Radiologist (Design Draftsman) /TAMIAC OSMAN JR [facility] Encounter Notes: All associated encounter notes This section contains the clinical notes associated to the Encounter. Date/Time Encounter Note(s) Provider Source Nov 07, 2023 10:19 AM OPTOMETRY NOTE: LOCAL TITLE: OPTOMETRY NOTE STANDARD TITLE: OPTOMETRY NOTE DATE OF NOTE: NOV 07, 2023@10:19 ENTRY DATE: NOV 07, 2023@10:19:47 AUTHOR: CLEVELAND ESPINOZA EXP COSIGNER: URGENCY: STATUS: COMPLETED Patient complains vision OS is not as sharp with new glasses. Glasses were made per glasses Rx. Patient said he recalls there was only a slight change form his 2022 glasses rx in each eye, but only notices OS as still being a bit blurry. OD is fine. Visual acuity today distance is OD: 20/20 OS: 20/20-1 +/-0.25 presented over OS multiple times, and patient consistently preferred +0.25 over, giving him vision OS: 20/15-1 Patient requested OS lens from his 2022 glasses (same frame)to be swapped into new glasses left side. This would give him back the +0.25 he prefers. A fittings appointment will be scheduled to swap lens OS. /dominick/ CLEVELAND ESPINOZA OPTOMETRY TECH Signed: 11/07/2023 10:29 CLEVELAND ESPINOZA [place] [facility] TRN [facility]
--- OUTSIDE RECORDS SUMMARY | 2024-07-08 08:36 | XMS_ITS ---
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 MEDICARE SUPPLEMEN RANDY MEDEX CHOIC E MONTH LY Dec 31, 2016 [id number] [phone] STORM,GAR Y PATIENT MEDICAID MEDICAID [facility] SALOMON DOBSON SALINAS Jun 02, 2013 MEDICAI D [id number] STORM,GAR Y PATIENT MEDICARE (WNR) MEDICARE (M) PART B Dec 01, 2015 PART B [id number] STORM,GAR Y PATIENT MEDICARE (WNR) MEDICARE () PART A Dec 01, 2015 PART A [id number] STORM,GAR Y PATIENT MEDICARE (WNR) MEDICARE (M) PART B Dec 01, 2015 PART B [id number] STORM,GAR Y PATIENT MEDICARE (WNR) MEDICARE () PART A Dec 01, 2015 PART A [id number] STORM,GAR Y PATIENT MEDICARE (WNR) MEDICARE () PART B Dec 01, 2015 PART B [id number] STORM,GAR Y PATIENT MEDICARE (WNR) MEDICARE () PART A Dec 01, 2015 PART A [id number] STORM,GAR Y PATIENT MEDICARE (WNR) MEDICARE () PART B Dec 01, 2015 PART B [id number] STORM,GAR Y PATIENT MEDICARE (WNR) MEDICARE () PART A Dec 01, 2015 PART A [id number] STORM,GAR Y PATIENT MEDICARE (WNR) MEDICARE () PART B Dec 01, 2015 PART B [id number] STORM,GAR Y PATIENT MEDICARE (WNR) MEDICARE () PART A Dec 01, 2015 PART A [id number] STORM,GAR Y PATIENT Selected Encounter This section includes the information on record at [place] for the Encounter. Date/Time Encounter Type Encounter Description Reason Provider Source Aug 07, 2023 02:00 PM OFFICE O/P EST MOD 30 MIN PRIMARY CARE/MEDICINE ICD-10-CM N31.9 Neuromuscular dysfunction of bladder, unspecified LETY LUGO W[place] Encounter Template Text not used by [facility] Assessments - Encounter Diagnoses This section includes the primary and secondary diagnoses documented for the Encounter. Date/Time Primary/Secondary Diagnosis Diagnosis Name Provider Source Aug 22, 2023 09:45 AM PRIMARY Neuromuscular dysfunction of bladder, unspecified LETY LUGO [place] [facility] [place] [facility] Aug 22, 2023 09:45 AM SECONDARY Disorder of cartilage, unspecified LETY LUGO [place] [facility] [place] [facility] Plan of Treatment: Future Appointments (+ 6 months) and Future Tests (+/- 45 days) The Plan of Treatment section includes future care activities for the patient from all [place] treatmentfacilities. This section includes future appointments and future orders which are active, pending or scheduled. Future Appointments This section includes appointments that were scheduled to occur 6 months from the date of the Encounter, up to a maximum of 20 appointments. The data comes from all [place] treatment facilities. Appointment Date/Time Appointment Type Appointme nt Facility Name Sep 01, 2023 11:00 AM AMBULATORY - MEDICINE [facility] [place] [facility] Nov 04, 2023 12:30 PM AMBULATORY - NONE [facility] [place] [facility] Nov 04, 2023 01:30 PM AMBULATORY - MEDICINE [facility] [place] [facility] Nov 07, 2023 09:40 AM AMBULATORY - MEDICINE [facility] [place] [facility] Nov 07, 2023 11:00 AM AMBULATORY [facility]ICINE [facility] [place] [facility] Nov 17, 2023 09:40 AM [facility]BULATORY [facility]ICINE [facility] [place] [facility] Jan 13, 2024 02:00 PM AMBULATORY - MEDICINE [facility] Jan 13, 2024 02:00 PM AMBULATORY - NONE [facility] [place] [facility] Jan 27, 2024 11:00 AM AMBULATORY - NONE [facility] [place] [facility] Jan 27, 2024 01:00 PM AMBULATORY - MEDICINE [place] [facility] [place] [facility] Lab Results: +/- 30 days of the encounter This section includes the Chemistry and Hematology Lab Results on record with [place] for the patient. Radiology Reports and Pathology Reports are provided separately, in subsequent sections. Lab Results This section contains the Chemistry/Hematology Results that were resulted 30 days before or 30 daysafter the date of the Encounter. Date/Time Source Result Type Result - Unit Interpretation Reference Range Comment Aug 07, 2023 01:32 PM [facility] [place] [facility] URINALYSIS CLEAN CATCH Specimen Type: URINE Comment: If Glucose = >500 and Ketones are positive, please alert the Physician. Ordering Provider: LETY LUGO Report Released Date/Time: Aug 07, 2023 01:21 PM Reporting Lab: [facility] [address] [facility] [id number] Performing Lab: [address] [id number] UA COLOR Colorless Yellow UA APPEARANCE Clear Clear UA GLUCOSE NEGATIVE mg/dL Negative UA KETONES NEGATIVE mg/dL Negative UA BLOOD NEGATIVE mg/dL Negative UA PROTEIN NEGATIVE mg/dL Negative UA NITRITE NEGATIVE mg/dL Negative UA BILIRUBIN NEGATIVE mg/dL Negative UA SPECIFIC GRAVITY 1.005 L 1.016-1.022 UA pH 7.0 5.0-9.0 UA UROBILINOGEN <2.0 mg/dL <2.0 UA LEUKOCYTE NEGATIVE Negative Aug 07, 2023 01:32 PM [facility] CBC AND DIFF (AUTO) Specimen Type: BLOOD No comment entered. Ordering Provider: LETY LUGO Report Released Date/Time: Aug 07, 2023 01:21 PM Reporting Lab: [address] [id number] Performing Lab: [address] [id number] WBC 4.84 10*3/uL 4.50-11.00 RBC 4.15 10*6/uL L 4.23-5.66 HGB 13.4 g/dL 12.8-17 HCT 39.8 39.2-50.4 MCV 95.9 fL 82-99 MCHC 33.7 g/dL 30.8-35.1 PLT 139 10*3/uL L 140-360 RDW-CV 13.1 12.0-16.0 [place], Abs 0.48 10*3/uL 0.30-1.10 MCH 32.3 pg 26.2-32.6 Neut % 62.6 43.7-75.8 Lymph % 26.7 14.0-42.3 [place] % 9.9 5.1-13.7 Eos % 0.6 0.4-6.8 Baso % 0.0 L 0.1-2.0 Neut, Abs 3.03 10*3/uL 2.20-7.60 Lymph, Abs 1.29 10*3/uL 1.00-3.20 Eos, Abs 0.03 10*3/uL 0.03-0.44 Baso, Abs 0.00 10*3/uL L 0.01-0.13 Immature Gran % 0.2 0.0-0.7 Immature Gran, Abs 0.01 10*3/uL 0.00-0.06 Vital Signs: All taken on the encounter date This section contains inpatient and outpatient Vital Signs collected on the date of the Encounter. Date/Time Temperature Pulse Blood Pressure Respiratory Rate SP02 Pain Height Weight Body Mass Index Source Aug 07, 2023 01:08 PM 96.9 71 136/76 18 100 148 21 [place] [facility] [place] [facility] Social History: Smoking Status (Most current) and Tobacco Use (All prior to encounter date) This section includes the most current, and the historical, smoking and tobacco- related health factors from the [place] facility where the Encounter took place. Current Smoking Status This section includes the most current smoking, or tobacco-related health factor, from the [place] facility where the Encounter took place. Date/Time Current Smoking Status Comment Facil ity May 08, 2023 01:30 PM VA-TOBACCO NEVER USED [place] [facility] [place] [facility] Tobacco Use History This section includes a history of the smoking, or tobacco-related health factors, that were collected on or before the date of the Encounter. The data comes from the [place] facility where the Encounter took place. Date/Time Smoking Status/Tobacco Use Comment F acility Mar 19, 2022 01:30 PM VA-TOBACCO NEVER USED [facility] [place] [facility] Mar 20, 2021 02:00 PM VA-TOBACCO FORMER USER [facility] [place] [facility] Mar 20, 2021 02:00 PM VA-TOBACCO QUIT 15 YRS OR MORE [facility] [place] [facility] Mar 20, 2020 02:00 PM VA-TOBACCO FORMER USER [facility] [place] [facility] Mar 20, 2020 02:00 PM VA-TOBACCO QUIT 15 YRS OR MORE [facility] [place] [facility] Mar 02, 2018 01:59 PM VA-TOBACCO FORMER USER [place] [facility] [place] [facility] Mar 02, 2018 01:59 PM VA-TOBACCO QUIT 15 YRS OR MORE [facility] [place] [facility] Mar 02, 2018 01:23 PM VA-TOBACCO FORMER USER [facility] [place] [facility] Mar 02, 2018 01:23 PM VA-TOBACCO QUIT 15 YRS OR MORE [facility] [place] [facility] September 30, 2016 09:39 AM LIFETIME NON-TOBACCO USER [facility] [place] [facility] October 12, 2015 01:46 PM LIFETIME NON-TOBACCO USER [facility] [place] [facility] Encounter Notes: All associated encounter notes This section contains the clinical notes associated to the Encounter. Date/Time Encounter Note(s) Provider Source Aug 07, 2023 01:22 PM PHYSICIAN ETHYLBENZENE OXIDIZER NOTE: LOCAL TITLE: PA NOTE STANDARD TITLE: PHYSICIAN ETHYLBENZENE OXIDIZER NOTE DATE OF NOTE: AUG 07, 2023@13:22 ENTRY DATE: AUG 07, 2023@13:22:14 AUTHOR: LETY LUGO EXP COSIGNER: URGENCY: STATUS: COMPLETED SICK CALL VISIT CC: chills/fatigue ? UTI HPI: 72 year old male with below noted PMHx most significant today is atonic bladder with self-straight cath's 5 x a day presents with fatigue/ chills and pelvic pressure/fullness. He reports he thought he might have a URI but then recalled these symptoms were consistent with his last UTI. Endorses his chronic chest wall pain, has not used any ointments or liniments. No use of NSAIDS as they wreak havoc on my stomach . He has no change in appetite. No N/V/D/C or obstipation. REVIEW OF SYSTEMS: A 12 point review of systems is negative except as noted in the HPI. Active Medical Problems: Active Problem Atrial fibrillation I48.91 08/17/2020 WALLY MIGUEL JAWED Hearing loss H90.3 03/02/2019 MYRIAMKHUSHBUED JAWED Incisional hernia K43.2 03/02/2019 MYRIAM,KHUSHBUED JAWED Atonic bladder N31.9 03/02/2019 MYRIAM,KHUSHBUED JAWED History of repair of mitral valve I 03/02/2019 MYRIAM,KHUSHBUED JAWED Hemangioma of liver R69. 03/02/2019 MYRIAM,KHUSHBUED JAWED Benign prostatic hyperplasia ([place] 03/02/2019 MYRIAM,KHUSHBUED JAWED Hydrocele of testis R69. 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 No guarding. No acute herniations. Lungs clear Cor RRR DATA: LABS: Color Colorless Ref: Yellow Appear Clear Ref: Clear pH 7.0 5 - 9 GlucUr Neg mg/dL Ref: Negative [place] Neg mg/dL Ref: Negative Blood Neg mg/dL Ref: Negative Protein Neg mg/dL Ref: Negative LeukEs Neg Ref: Negative Nitrit Neg mg/dL Ref: Negative [place] Neg mg/dL Ref: Negative UroBiln <2.0 mg/dL Ref: <2.0 SpeGra 1.005 L 1.016 - 1.022 MDM: No evidence of acute abdomen or UTI. [place]ing reassured. Return if no improvement. Any worsening of pelvic pressure/pain or inability to pass cath, or N/V/D or obstipation should be evaluated at the ED. May use warmth/ topical ointments for chest wall discomfort. RTC PRN ASSESSMENT/PLAN #1 Atonic bladder #2 Disorder of Cartilage, unspecified (costochondritis) as above Blanding able to verbalize understanding of plan of care and agrees. >> MEDICATIONS Reviewed and reconciled with [place] /es/ LETY ANDERSON MS,PA-C PHYSICIAN ETHYLBENZENE OXIDIZER Signed: 08/07/2023 14:38 LETY LUGO [facility]
--- OUTSIDE RECORDS SUMMARY | 2024-07-08 08:36 | XMS_ITS | Encounter Summary ---
Author Name [facility] [place] Organization [facility] [place] Address [address] [place] [address] Care Team Providers Care Infrastructure Architect Name Role Phone LESVIA GABRIEL Primary Care [...] RANDY MEDEX CHOIC E Dec 31, 2016 [id number] OPAL SHINE Y PATIENT [place] SUPPLEMEN RANDY MEDEX CHOIC E Dec 31, 2016 [id number] FÁTIMA,GAR Y PATIENT [place] SUPPLEMEN RANDY MEDEX CHOIC E Dec 31, 2016 [id number] FÁTIMA,GAR Y PATIENT BCBS OF [facility] MEDICARE SUPPLEMEN RANDY MEDEX CHOIC E MONTH LY Dec 31, 2016 [id number] STORM,GAR Y PATIENT MEDICAID MEDICAID [facility] STAND SALINAS Jun 02, 2013 MEDICAI D [id number] STORM,GAR Y PATIENT MEDICARE (WNR) MEDICARE () PART B Dec 01, 2015 PART B [id number] STORM,GAR Y PATIENT MEDICARE (WNR) MEDICARE () PART A Dec 01, 2015 PART A [id number] STORM,GAR Y PATIENT MEDICARE (WNR) MEDICARE () PART B Dec 01, 2015 PART B [id number] [phone] STORM,GAR Y PATIENT MEDICARE (WNR) MEDICARE () PART A Dec 01, 2015 PART A [id number] STORM,GAR Y PATIENT MEDICARE (WNR) MEDICARE () PART B Dec 01, 2015 PART B [id number] [phone] STORM,GAR Y PATIENT MEDICARE (WNR) MEDICARE () PART A Dec 01, 2015 PART A [id number] STORM,GAR Y PATIENT MEDICARE (WNR) MEDICARE () PART B Dec 01, 2015 PART B [id number] STORM,GAR Y PATIENT MEDICARE (WNR) MEDICARE () PART A Dec 01, 2015 PART A [id number] STORM,GAR Y PATIENT MEDICARE (WNR) MEDICARE () PART B Dec 01, 2015 PART B [id number] STORM,GAR Y PATIENT MEDICARE (WNR) MEDICARE () PART A Dec 01, 2015 PART A [id number] [phone] STORM,GAR Y PATIENT Selected Encounter This section includes the information on record at [place] for the Encounter. Date/Time Encounter Type Encounter Description Reason Provider Source Nov 17, 2023 09:40 AM RPR&REFITG SPECT XCP APHAKIA OPTOMETRY ICD-10-CM Z46.0 Encounter for fit/adjst of spectacles and contact lenses CLEVELAND ESPINOZA IHWandy Encounter Template Text not used by [facility] Assessments - Encounter Diagnoses This section includes the primary and secondary diagnoses documented for the Encounter. Date/Time Primary/Secondary Diagnosis Diagnosis Name Provider Source Nov 17, 2023 10:16 AM PRIMARY Encounter for fit/adjst of spectacles and contact lenses CLEVELAND ESPINOZA [facility] Plan of Treatment: Future Appointments (+ 6 months) and Future Tests (+/- 45 days) The Plan of Treatment section includes future care activities for the patient from all [place] [facility]. This section includes future appointments and future orders which are active, pending or scheduled. Future Appointments This section includes appointments that were scheduled to occur 6 months from the date of the Encounter, up to a maximum of 20 appointments. The data comes from all [facility]. Appointment Date/Time Appointment Type Appointme nt Facility Name Jan 13, 2024 02:00 PM AMBULATORY - [facility]INE [facility] Jan 13, 2024 02:00 PM [facility] Jan 27, 2024 11:00 AM [facility] Jan 27, 2024 01:00 PM [facility] Apr 28, 2024 02:00 PM AMBULATORY - MEDICINE [facility] Active, Pending, and Scheduled Orders This section includes a listing of several types of active, pending, and scheduled orders, including clinic medications orders, diagnostic test orders, procedure orders and consult orders; where the start date of the order is 45 days before the date of the Encounter or 45 days after the date of theEncounter. The data comes from all [facility]. Test Date/Time Test Type Test Details Facility Name Nov 17, 2023 12:00 AM Laboratory - Chemistry Order VITAMIN B12 [facility] Nov 17, 2023 12:00 AM Laboratory - Chemistry Order FOLATE (WROX) BLOOD (SST-SERUM) [facility] Nov 17, 2023 12:00 AM Laboratory - Chemistry Order CBC AND DIFF (AUTO) BLOOD (LAV-BLOOD) [facility] Nov 17, 2023 12:00 AM Laboratory - Chemistry Order PROTEIN SERUM ELECTROPHORESIS PANEL/ELICEO BLOOD (SST-GOLD) SERUM [facility] Nov 17, 2023 12:00 AM Laboratory - Chemistry Order UPEP REFLEX PANEL,SPOT URINE SP [facility] Lab Results: +/- 30 days of [...] Range Comment Nov 22, 2023 10:15 AM [facility] OCCULT BLOOD FIT X1 SCREEN(IN-HOUSE) Specimen Type: FECES No comment entered. Ordering Provider: LESVIA GABRIEL Report Released Date/Time: Nov 04, 2023 01:32 PM Reporting Lab: [address] [address] Performing Lab: [address] [address] OCCULT BLOOD (FIT)#1 OF 1 Negative NEG Nov 17, 2023 10:10 AM [facility] PT & INR (PROTIME) Specimen Type: PLASMA No comment entered. Ordering Provider: LIUDMILA GARDINER Report Released Date/Time: Nov 05, 2023 11:16 AM Reporting Lab: [address] [address] Performing Lab: [address] [address] INR 1.1 PROTIME 12.9 s 10.0-13.1 Nov 17, 2023 10:10 AM [facility] CERULOPLASMIN Specimen Type: SERUM No comment entered. Ordering Provider: LIUDMILA GARDINER Report Released Date/Time: Nov 05, 2023 11:16 AM Reporting Lab: [facility] [address] [facility] [address] Performing Lab: [facility] [address] [address] CERULOPLASMIN 24 mg/dL 20-60 Nov 17, 2023 10:10 AM [facility] HEPATITIS B SURFACE ANTIBODY (HBsAb)- Specimen Type : SERUM No comment entered. Ordering Provider: LIUDMILA GARDINER Report Released Date/Time: Nov 05, 2023 11:16 AM Reporting Lab: [facility] [address] [facility] [address] Performing Lab: [facility] Nov 17, 2023 10:10 AM [facility] TIKA SCREEN/TITER Specimen Type: SERUM No comment entered. Ordering Provider: LIUDMILA GARDINER Report Released Date/Time: Nov 05, 2023 11:16 AM Reporting Lab: [facility] [address] [facility] [address] Performing Lab: [facility] [address] [facility] [address] TIKA SCREEN NEG Nov 17, 2023 10:10 AM [facility] HEPATITIS B SURFACE ANTIGEN (HBsAg)- Specimen Type: SERUM Comment: A Reactive result ( Positive prior to 03/15/13) is diagnostic of acute or chronic hepatitis B infection. The presence of Hepatitis B surface antigen is frequently associated with infectivity. Ordering Provider: LIUDMILA GARDINER Report Released Date/Time: Nov 05, 2023 11:16 AM Reporting Lab: [address] [address] Performing Lab: [facility] [address] [facility] [address] HBsAg Non Reactive Non Reactive Nov 17, 2023 10:10 AM [facility] ALPHA 1 ANTITRYPSIN Specimen Type: SERUM No comment entered. Ordering Provider: LIUDMILA GARDINER Report Released Date/Time: Nov 05, 2023 11:16 AM Reporting Lab: [address] [address] Performing Lab: [facility] [address] [facility] [address] ALPHA 1 ANTITRYPSIN 161 mg/dL 90-200 Nov 17, 2023 10:10 AM [facility] HEPATITIS A ANTIBODY (IGG) Specimen Type: SERUM Comment: Hep A IgG: A 'Non-reactive' result indicates no anti-HAV IgG was detected. Ordering Provider: LIUDMILA GARDINER Report Released Date/Time: Nov 05, 2023 11:16 AM Reporting Lab: [facility] [address] [facility] [address] Performing Lab: [facility] [address] [facility] [facility] [address] HEPATITIS A ANTIBODY (IGG) Non Reactive Non Reactive Nov 17, 2023 10:10 AM [facility] HEPATITIS C ANTIBODY (HCV)-ARC Specimen Type: SERUM Comment: Hep C Ab: No HCV antibody detected. If recent infection is suspected or other evidence suggests HCV infection, consider HCV nucleic acid testing Ordering Provider: LIUDMILA GARDINER Report Released Date/Time: Nov 05, 2023 11:16 AM Reporting Lab: [facility] [address] [facility] [address] Performing Lab: [facility] [address] [facility] [address] HEPATITIS C ANTIBODY NON-REACTIVE NON-REACTI VE Nov 17, 2023 10:10 AM [facility] FERRITIN Specimen Type: SERUM No comment entered. Ordering Provider: LIUDMILA GARDINER Report Released Date/Time: Nov 05, 2023 11:16 AM Reporting Lab: [facility] [address] [facility] [address] Performing Lab: [address] [address] FERRITIN 77 ng/mL 20-300 Nov 17, 2023 10:10 AM [facility] IRON & TIBC PANEL Specimen Type: SERUM No comment entered. Ordering Provider: LIUDMILA GARDINER Report Released Date/Time: Nov 05, 2023 11:16 AM Reporting Lab: [place] [facility] [place] [facility] [address] [facility] [address] Performing Lab: [facility] [place] [facility] [address] [facility] [address] TIBC 296 ug/dL 204-475 IRON 123 ug/dL 40-160 Transferrin Saturation 41.6 20.0-50.0 Nov 17, 2023 10:10 AM [facility] LIVER FUNCTION Specimen Type: SERUM No comment entered. Ordering Provider: LIUDMILA GARDINER Report Released Date/Time: Nov 05, 2023 11:16 AM Reporting Lab: [facility] [place] [facility] [address] [facility] [address] Performing Lab: [place] [place] [address] [address] PROTEIN,TOTAL 6.2 g/dL 6.0-8.3 ALBUMIN 4.0 g/dL 3.5-5.0 ALKALINE PHOSPHATASE 84 U/L 40-150 AST 20 U/L 5-34 ALT 16 U/L BILIRUBIN, TOTAL 1.0 mg/dL 0.2-1.2 Nov 17, 2023 10:10 AM [facility] ALBUMIN Specimen Type: SERUM No comment entered. Ordering Provider: LIUDMILA GARDINER Report Released Date/Time: Nov 05, 2023 11:16 AM Reporting Lab: [facility] [place] [facility] [address] [facility] [address] Performing Lab: [place] [place] [address] [address] ALBUMIN 4.0 g/dL 3.5-5.0 Nov 17, 2023 10:10 AM [facility] BASIC METABOLIC PANEL (non-fasting) Specimen Type: SERUM No comment entered. Ordering Provider: LIUDMILA GARDINER Report Released Date/Time: Nov 05, 2023 11:16 AM Reporting Lab: [place] [facility] [place] [facility] [address] [facility] [address] Performing Lab: [facility] [address] [facility] [address] UREA NITROGEN 15 mg/dL 7-25 GLUCOSE 88 mg/dL 65-100 SODIUM 139 mmol/L 135-145 POTASSIUM 3.8 mmol/L 3.5-5.0 CHLORIDE 105 mmol/L 100-110 CO2 27 meq/L 20-30 CREATININE, Serum 0.90 mg/dL 0.50-1.40 eGFR(CKD-EPI 2020) >90 mL/min >60 Nov 17, 2023 10:10 AM [facility] CBC AND DIFF (AUTO) Specimen Type: BLOOD No comment entered. Ordering Provider: LIUDMILA GARDINER Report Released Date/Time: Nov 05, 2023 11:16 AM Reporting Lab: [facility] [address] [facility] [address] Performing Lab: [address] [address] WBC 4.36 10*3/uL L 4.50-11.00 RBC 3.96 [...] 10*3/uL 0.00-0.00 Nov 04, 2023 02:41 PM [facility] PSA Specimen Type: SERUM No comment entered. Ordering Provider: LESVIA GABRIEL Report Released Date/Time: October 30, 2023 08:06 AM Reporting Lab: [facility] [address] [facility] [address] Performing Lab: [address] [address] PSA 3.58 ng/mL 0.00-4.00 Nov 04, 2023 02:41 PM [facility] BASIC METABOLIC PANEL (non-fasting) Specimen Type: SERUM No comment entered. Ordering Provider: LESVIA GABRIEL Report Released Date/Time: October 30, 2023 08:06 AM Reporting Lab: [facility] [address] [facility] [address] Performing Lab: [address] [address] UREA NITROGEN 17 mg/dL 7-25 GLUCOSE 113 mg/dL H 65-100 SODIUM 138 mmol/L 135-145 POTASSIUM 3.5 mmol/L 3.5-5.0 CHLORIDE 104 mmol/L 100-110 CO2 26 meq/L 20-30 CREATININE, Serum 0.91 mg/dL 0.50-1.40 eGFR(CKD-EPI 2020) 89 mL/min >60 Nov 04, 2023 02:40 PM [facility] MEASLES (IgM) Ab (Rubeola) Specimen Type: SERUM [...] analytical performance characteristics have been determined by [employer] [place]. It has not been cleared or approved by the U.S. Food and Drug Administration. This assay has been validated pursuant to the CLIA regulations and is used for clinical purposes. For additional information, please refer to http://education .[employer]/faq/ADV791 (This link is being provided for informational/ educational purposes only.) Test Performed by [employer] [place], [employer] [facility], [address] [place] [address] Vernon Carrillo M.D., Ph.D., Director of Laboratories , CLIA [id number] TEST PERFORMED AT: , Ordering Provider: LESVIA GABRIEL Report Released Date/Time: Nov 04, 2023 01:54 PM Reporting Lab: [facility] [address] [facility] [address] Performing Lab: [facility] [address] [address] MEASLES (IgM) Ab (Rubeola) <1:20 {titer} Nov 04, 2023 02:40 PM [facility] HEPATITIS B SURFACE ANTIBODY (HBsAb)-WH Specimen Type : SERUM No comment entered. Ordering Provider: LESVIA GABRIEL Report Released Date/Time: Nov 04, 2023 01:54 PM Reporting Lab: [facility] [address] [facility] [address] Performing Lab: [facility] [address] [facility] [address] HBsAb Non Reactive Non Reactive Nov 04, 2023 02:40 PM [facility] LIVER FUNCTION Specimen Type: SERUM No comment entered. Ordering Provider: LESVIA GABRIEL Report Released Date/Time: Nov 04, 2023 01:54 PM Reporting Lab: [address] [address] Performing Lab: [address] [address] PROTEIN,TOTAL 6.1 g/dL 6.0-8.3 ALBUMIN 3.9 g/dL 3.5-5.0 ALKALINE PHOSPHATASE 92 U/L 40-150 AST 18 U/L 5-34 ALT 14 U/L BILIRUBIN, TOTAL 0.8 mg/dL 0.2-1.2 Nov 04, 2023 02:40 PM [facility] CBC Specimen Type: BLOOD No comment entered. Ordering Provider: LESVIA GABRIEL Report Released Date/Time: Nov 04, 2023 01:54 PM Reporting Lab: [address] [address] Performing Lab: [address] [address] WBC 4.87 10*3/uL 4.50-11.00 RBC 4.07 10*6/uL [...] and tobacco- related health factors from the [place] facility where the Encounter took place. Current Smoking Status This section includes the most current smoking, or tobacco-related health factor, from the [place] facility where the Encounter took place. Date/Time Current Smoking Status Comment Facil ity May 08, 2023 01:30 PM VA-TOBACCO NEVER USED [facility] Tobacco Use History This section includes a history of the smoking, or tobacco-related health factors, that were collected on or before the date of the Encounter. The data comes from the [place] facility where the Encounter took place. Date/Time Smoking Status/Tobacco Use Comment F acility Mar 19, 2022 01:30 PM VA-TOBACCO NEVER USED [facility] [place] [facility] Mar 20, 2021 02:00 PM VA-TOBACCO FORMER USER [facility] [place] [facility] Mar 20, 2021 02:00 PM VA-TOBACCO QUIT 15 YRS OR MORE [facility] [place] [facility] Mar 20, 2020 02:00 PM VA-TOBACCO FORMER USER [facility] [place] [facility] Mar 20, 2020 02:00 PM VA-TOBACCO QUIT 15 YRS OR MORE [facility] [place] [facility] Mar 02, 2018 01:59 PM VA-TOBACCO FORMER USER [facility] [place] [facility] Mar 02, 2018 01:59 PM VA-TOBACCO QUIT 15 YRS OR MORE [facility] [place] [facility] Mar 02, 2018 01:23 PM VA-TOBACCO FORMER USER [facility] [place] [facility] Mar 02, 2018 01:23 PM VA-TOBACCO QUIT 15 YRS OR MORE [facility] [place] [facility] September 30, 2016 09:39 AM LIFETIME NON-TOBACCO USER [facility] [place] [facility] October 12, 2015 01:46 PM LIFETIME NON-TOBACCO USER [facility] [place] [facility] Radiology Reports: +/- 30 days of [...] the Encounter. The data comes from all [place] treatment facilities. Date/Time Radiology Report Provider Source Nov 04, 2023 12:21 PM ULTRASOUND ABDOMEN LIMITED: CHRISTEL SHINE [id number] M Exm Date: NOV 04, 2023@12:21 Req Phys: WALLY MIGUEL Pat Loc: CWM/NO/PACT 1 (Req'g Loc) Img Loc: ULTRASOUND Service: Unknown [facility] , (Case [id number] COMPLETE) ULTRASOUND ABDOMEN LIMITED (US Detailed) CPT:39938 Reason for Study: hx of liver cysts and hemagioma for survillence Clinical History: Report Status: Verified Date Reported: NOV 04, 2023 Date Verified: NOV 04, 2023 Hot Die Picker E-Sig:/ES/TAMICA YOUNG JR Report: Study: Abdomen ultrasound. [...] Primary Interpreting Staff: TAMICA YOUNG JR, Radiologist (Hot Die Picker) /TAMICA OSMAN JR [facility] Encounter Notes: All associated encounter notes This section contains the clinical notes associated to the Encounter. Date/Time Encounter Note(s) Provider Source Nov 17, 2023 10:08 AM OPTOMETRY NOTE: LOCAL TITLE: OPTOMETRY NOTE STANDARD TITLE: OPTOMETRY NOTE DATE OF NOTE: NOV 17, 2023@10:08 ENTRY DATE: NOV 17, 2023@10:08:10 AUTHOR: CLEVELAND ESPINOZA EXP COSIGNER: URGENCY: STATUS: COMPLETED Patient explained that he realized the left lens we were to swap into his new frames was not worthy, and had ordonez on it. He asked that 1 pair of yellow lens glasses be adjusted, and this was done. He also asked for a glasses rx so he can get a pair of glasses in the community with the left lens adjustment back to a +0.50 as he liked, and the provder approved at last fittings appointment. Patient was given script. /dominick/ CLEVELAND ESPINOZA OPTOMETRY TECH Signed: 11/17/2023 10:16 CLEVELAND ESPINOZA [facility]
--- OUTSIDE RECORDS SUMMARY | 2024-07-08 08:36 | XMS_ITS | Encounter Summary ---
Author Organization [employer] Address [address] [place] [address] Care Team Providers Care Addiction Therapist Name Role Phone Unavailable Primary Care Provider Unavailabl e Encounter Details Date Type Department Care Team (Latest Contact Info) Description 03/05/2022 Abstract [facility] CONVERSIONS Dental, Provider, DDS Social History Tobacco Use Types Packs/Day Years Used Date Smoking Tobacco: Never Assessed Sex and Gender Information Value Date Recorded Sex Assigned at Male 04/01/2022 10:27 AM EDT Legal Sex Male 10:27 AM EDT Gender Identity Male 06/17/2023 4:09 PM EST Sexual Orientation Straight 04/01/2022 10 :27 AM EDT documented as of this encounter Plan of Treatment Not on file documented as of this encounter Visit Diagnoses Not on filedocumented in this encounter
--- OUTSIDE RECORDS SUMMARY | 2024-07-08 08:36 | XMS_ITS | Encounter Summary ---
Author Name [facility] [place] [facility] [place] Address [address] [place] [address] Care Team Providers Care Opto Mechanical Technician Name Role Phone HARVEYNOEMÍ Primary Care Provider Unavailabl e Insurance Providers: [...] RANDY MEDEX CHOIC E Dec 31, 2016 [id number] STORM,GAR Y PATIENT BCBS MD MEDICARE SUPPLEMEN RANDY MEDEX CHOIC E Dec 31, 2016 [id number] [phone] STORM,GAR Y PATIENT BCBS MD MEDICARE SUPPLEMEN RANDY MEDEX CHOIC E Dec 31, 2016 [id number] STORM,GAR Y PATIENT BCBS OF [facility] MEDICARE SUPPLEMEN RANDY MEDEX CHOIC E MONTH LY Dec 31, 2016 [id number] STORM,GAR Y PATIENT MEDICAID MEDICAID [facility] SALOMON DOBSON SALINAS Jun 02, 2013 MEDICAI D [id number] STORM,GAR Y PATIENT MEDICARE (WNR) MEDICARE () PART B Dec 01, 2015 PART B [id number] STORM,GAR Y PATIENT MEDICARE (WNR) MEDICARE () PART A Dec 01, 2015 PART A [id number] STORM,GAR Y PATIENT MEDICARE (WNR) MEDICARE () PART B Dec 01, 2015 PART B [id number] [phone] STORM,GAR Y PATIENT MEDICARE (WNR) MEDICARE () PART A Dec 01, 2015 PART A [id number] STORM,GAR Y PATIENT MEDICARE (WNR) MEDICARE () PART B Dec 01, 2015 PART B [id number] [phone] STORM,GAR Y PATIENT MEDICARE (WNR) MEDICARE () PART A Dec 01, 2015 PART A [id number] [phone] STORM,GAR Y PATIENT MEDICARE (WNR) MEDICARE () PART B Dec 01, 2015 PART B [id number] STORM,GAR Y PATIENT MEDICARE (WNR) MEDICARE () PART A Dec 01, 2015 PART A [id number] STORM,GAR Y PATIENT MEDICARE (WNR) MEDICARE () PART B Dec 01, 2015 PART B [id number] STORM,GAR Y PATIENT MEDICARE (WNR) MEDICARE () PART A Dec 01, 2015 PART A [id number] [phone] STORM,GAR Y PATIENT Selected Encounter This section includes the information on record at [place] for the Encounter. Date/Time Encounter Type Encounter Description Reason Provider Source Jun 24, 2024 03:00 PM OFFICE O/P EST MOD 30 MIN PRIMARY CARE/MEDICINE ICD-10-CM I48.91 Unspecified atrial fibrillation NOEMÍ DELEON Encounter Template Text not used by [facility] Assessments - Encounter Diagnoses This section includes the primary and secondary diagnoses documented for the Encounter. Date/Time Primary/Secondary Diagnosis Diagnosis Name Provider Source Jun 24, 2024 04:35 PM PRIMARY Unspecified atrial fibrillation FURCOLO,NOEMÍ [facility] [place] Jun 24, 2024 04:35 PM SECONDARY Benign neoplasm of liver FURCOLO,NOEMÍ [facility] [place] [facility] Jun 24, 2024 04:35 PM SECONDARY Benign neoplasm of prostate FURCOLO,NOEMÍ [facility] [place] [facility] Jun 24, 2024 04:35 PM SECONDARY Encounter for immunization TETE PERAZA [facility] [place] Jun 24, 2024 04:35 PM SECONDARY Incisional hernia without obstruction or gangrene FURCOLO,NOEMÍ [facility] [place] [facility] Jun 24, 2024 04:35 PM SECONDARY Neuromuscular dysfunction of bladder, unspecified FURCOLO,NOEMÍ [facility] [place] [facility] Jun 24, 2024 04:35 PM SECONDARY Nonrheumatic mitral valve disorder, unspecified FURCOLO,NOEMÍ [facility] [place] [facility] Jun 24, 2024 04:35 PM SECONDARY Sensorineural hearing loss, bilateral FURCOLO,NOEMÍ [facility] [place] [facility] Plan of Treatment: Future Appointments (+ 6 months) and Future Tests (+/- 45 days) The Plan of Treatment section includes future care activities for the patient from all [place] treatmentfacilities. This section includes future appointments and future orders which are active, pending or scheduled. Future Appointments This section includes appointments that were scheduled to occur 6 months from the date of the Encounter, up to a maximum of 20 appointments. The data comes from all [place] treatment facilities. Appointment Date/Time Appointment Type Appointme nt Facility Name October 28, 2024 07:30 AM AMBULATORY - MEDICINE [place] [facility] [place] [facility] Lab Results: +/- 30 days of the encounter This section includes the Chemistry and Hematology Lab Results on record with [place] for the patient. Radiology Reports and Pathology Reports are provided separately, in subsequent sections. Lab Results This section contains the Chemistry/Hematology Results that were resulted 30 days before or 30 daysafter the date of the Encounter. Date/Time Source Result Type Result - Unit Interpretation Reference Range Comment Jun 24, 2024 04:03 PM [facility] [place] [facility] URINALYSIS CLEAN CATCH Specimen Type: URINE Comment: If Glucose = >500 and Ketones are positive, please alert the Physician. Ordering Provider: NOEMÍ DELEON Report Released Date/Time: Jun 24, 2024 03:43 PM Reporting Lab: [facility] [address] [facility] [address] Performing Lab: [address] [address] UA COLOR Colorless Yellow UA APPEARANCE Clear Clear UA GLUCOSE Normal mg/dL Negative UA KETONES NEGATIVE mg/dL Negative UA BLOOD NEGATIVE mg/dL Negative UA PROTEIN NEGATIVE mg/dL Negative UA NITRITE NEGATIVE mg/dL Negative UA BILIRUBIN NEGATIVE mg/dL Negative UA SPECIFIC GRAVITY 1.006 L 1.016-1.022 UA pH 7.0 5.0-9.0 UA UROBILINOGEN Normal mg/dL <2.0 UA LEUKOCYTE NEGATIVE Negative Jun 24, 2024 10:54 AM [facility] PSA Specimen Type: SERUM No comment entered. Ordering Provider: NOEMÍ DELEON Report Released Date/Time: Jun 24, 2024 07:53 AM Reporting Lab: [facility] [address] [facility] [address] Performing Lab: [address] [address] PSA 4.72 ng/mL H 0.00-4.00 Jun 24, 2024 10:54 AM [facility] BASIC METABOLIC PANEL (non-fasting) Specimen Type: SERUM No comment entered. Ordering Provider: NOEMÍ DELEON Report Released Date/Time: Jun 24, 2024 07:47 AM Reporting Lab: [facility] [address] [facility] [address] Performing Lab: [address] [address] UREA NITROGEN 14 mg/dL 7-25 GLUCOSE 82 mg/dL 65-100 SODIUM 140 mmol/L 135-145 POTASSIUM 3.5 mmol/L 3.5-5.0 CHLORIDE 103 mmol/L 100-110 CO2 28 meq/L 20-30 CREATININE, Serum 0.81 mg/dL 0.50-1.40 eGFR(CKD-EPI 2020) >90 mL/min >60 Jun 24, 2024 10:54 AM [facility] LIVER FUNCTION Specimen Type: SERUM No comment entered. Ordering Provider: NOEMÍ DELEON Report Released Date/Time: Jun 24, 2024 07:47 AM Reporting Lab: [facility] [address] [facility] [address] Performing Lab: [address] [address] PROTEIN,TOTAL 7.2 g/dL 6.0-8.3 ALBUMIN 4.2 g/dL 3.5-5.0 ALKALINE PHOSPHATASE 87 U/L 40-150 AST 22 U/L 5-34 ALT 19 U/L BILIRUBIN, TOTAL 1.0 mg/dL 0.2-1.2 Jun 24, 2024 10:54 AM [facility] CBC Specimen Type: BLOOD No comment entered. Ordering Provider: NOEMÍ DELEON Report Released Date/Time: Jun 24, 2024 07:47 AM Reporting Lab: [facility] [address] [facility] [address] Performing Lab: [address] [address] WBC 4.39 10*3/uL L 4.50-11.00 RBC 4.32 10*6/uL 4.23-5.66 HGB 14.0 g/dL 12.8-17 HCT 41.6 39.2-50.4 MCV 96.3 fL 82-99 MCHC 33.7 g/dL 30.8-35.1 PLT 155 10*3/uL 140-360 RDW-CV 13.0 12.0-16.0 MCH 32.4 pg 26.2-32.6 Vital Signs: All taken on the encounter date This section contains inpatient and outpatient Vital Signs collected on the date of the Encounter. Date/Time Temperature Pulse Blood Pressure Respiratory Rate SP02 Pain Height Weight Body Mass Index Source Jun 24, 2024 03:16 PM 97.9 66 146/79 16 99 1 150 21 [facility] Immunizations: All administered on the encounter date This section contains immunizations associated to the Encounter. Immunization Series Date Issued Reaction Comments HEP A-HEP B 3 Jun 24, 2024 Social History: Smoking Status (Most current) and Tobacco Use (All prior to encounter date) This section includes the most current, and the historical, smoking and tobacco- related health factors from the [place] facility where the Encounter took place. Current Smoking Status This section includes the most current smoking, or tobacco-related health factor, from the [place] facility where the Encounter took place. Date/Time Current Smoking Status Comment Ely ity Jun 24, 2024 03:00 PM VA-TOBACCO NEVER U SED CIGARETTES [facility] Tobacco Use History This section includes a history of the smoking, or tobacco-related health factors, that were collected on or before the date of the Encounter. The data comes from the [place] facility where the Encounter took place. Date/Time Smoking Status/Tobacco Use Comment F acility Jun 24, 2024 03:00 PM VA-TOBACCO NEVER U SED OTHER TYPE [facility] [place] [facility] May 08, 2023 01:30 PM VA-TOBACCO NEVER USED [facility] [place] [facility] Mar 19, 2022 01:30 PM VA-TOBACCO NEVER USED [facility] [place] [facility] Mar 20, 2021 02:00 PM VA-TOBACCO FORMER USER [facility] [place] [facility] Mar 20, 2021 02:00 PM VA-TOBACCO QUIT 15 YRS OR MORE [facility] [place] Mar 20, 2020 02:00 PM VA-TOBACCO FORMER USER [facility] [place] [facility] Mar 20, 2020 02:00 PM VA-TOBACCO QUIT 15 YRS OR MORE [facility] [place] [facility] Mar 02, 2018 01:59 PM VA-TOBACCO FORMER USER [facility] [place] [facility] Mar 02, 2018 01:59 PM VA-TOBACCO QUIT 15 YRS OR MORE [facility] [place] [facility] Mar 02, 2018 01:23 PM VA-TOBACCO FORMER USER [facility] [place] [facility] Mar 02, 2018 01:23 PM VA-TOBACCO QUIT 15 YRS OR MORE [facility] [place] [facility] September 30, 2016 09:39 AM LIFETIME NON-TOBACCO USER [facility] October 12, 2015 01:46 PM LIFETIME NON-TOBACCO USER [facility] Pathology Reports: +/- 30 days of [...] the Encounter. The data comes from all [place] treatment facilities. Date/Time Pathology Report Provider Source Jun 24, 2024 04:03 PM LR MICROBIOLOGY RE PORT: Reporting Lab: [facility] [CLIA# [id number]] [address] [place] [id number] Accession [UID]: [id number] [[id number]] Received: Jun 24, 2024@16:03 Collection sample: URINE CLEAN CATCH Collection date: Jun 24, 2024 16:03 Site/Specimen: URINE Provider: NOEMÍ DELEON Comment on specimen: CC Test(s) ordered: URINE CULTURE(MWROX).......... completed: Jun 28, 2024 10:48 * BACTERIOLOGY FINAL REPORT => Jun 28, 2024 10:48 TECH CODE: [id number] Bacteriology Remark(s): NO GROWTH IN 24 HOURS, FINAL REPORT TO FOLLOW. FINAL AEROBIC REPORT: NO GROWTH =--=--=--=--=--=--=--=--= --=--=--=--=--=--=--=--=- -=--=--=--=--=--=--=--=-- =-- Performing Laboratory: Bacteriology Report Performed By: [facility] [CLIA# [id number]] [address] [place] [address] LUCIANO DELGADO [facility] Encounter Notes: All associated encounter notes This section contains the clinical notes associated to the Encounter. Date/Time Encounter Note(s) Provider Source Jun 25, 2024 01:09 PM LETTERS: LOCAL TITLE: PATIENT LETTER (T) STANDARD TITLE: LETTERS DATE OF NOTE: JUN 25, 2024@13:09 ENTRY DATE: JUN 25, 2024@13:09:40 AUTHOR: NOEMÍ DELEON EXP COSIGNER: URGENCY: STATUS: COMPLETED [facility] Toll Free Number Primary Care Telephone Assistance can be reached at extension [phone] [facility] scheduling can be reached at extension [phone] [facility] scheduling can be reached at ext [phone] CHRISTEL CLAROS [address] [place], [place], [address] Dear , Your recent test results are as follows: negative for Urinary tract infection. Normal blood counts. No anemia. Minimally elevated PSA level- as we discussed at your visit. not unusual as you self-cath, will continue to trend. Normal blood sugar. Normal kidney function and electrolytes. Your liver function is normal. Dr. Noemí Deleon LAB CHEMISTRY & HEMATOLOGY Collection DT Specimen Test Name Result Units Ref Range 06/24/2024 16:03 URINE !! UA COLOR Colorless Ref: Yellow !! UA APPEARANCE Clear Ref: Clear !! UA pH 7.0 5.0 - 9.0 !! UA GLUCOSE Normal mg/dL Ref: Negative !! UA KETONES NEGATIVE mg/dL Ref: Negative !! UA BLOOD NEGATIVE mg/dL Ref: Negative !! UA PROTEIN NEGATIVE mg/dL Ref: Negative !! UA LEUKOCYTE NEGATIVE Ref: Negative !! UA NITRITE NEGATIVE mg/dL Ref: Negative !! UA BILIRUBIN NEGATIVE mg/dL Ref: Negative !! UA UROBILINOGEN Normal mg/dL Ref: <2.0 !! SpeGra 1.006 L 1.016 - 1.022 LAB MICROBIOLOGY Collected: 06/24/2024 16:03 Acc: [id number] Collection Sample: URINE CLEAN CATCH Site/Specimen: URINE Comment on Specimen: CC Test(s) ordered: URINE CULTURE(MWROX) Bact Report: FINAL Remarks: NO GROWTH IN 24 HOURS, FINAL REPORT TO FOLLOW. FINAL AEROBIC REPORT: NO GROWTH 06/24/2024 10:54 BLOOD WBC 4.39 L K/cmm 4.50 - 11.00 RBC 4.32 M/cmm 4.23 - 5.66 HGB 14.0 g/dL 12.8 - 17 HCT 41.6 % 39.2 - 50.4 MCV 96.3 fl 82 - 99 MCH 32.4 pg 26.2 - 32.6 MCHC 33.7 g/dL 30.8 - 35.1 RDW-CV 13.0 % 12.0 - 16.0 PLT 155 K/cmm 140 - 360 06/24/2024 10:54 SERUM PSA 4.72 H ng/mL 0.00 - 4.00 06/24/2024 10:54 SERUM CREATININE, Serum 0.81 mg/dL 0.50 - 1.40 eGFR(CKD-EPI 2020 >90 mL/min Ref: >=60 SODIUM 140 mmol/L 135 - 145 POTASSIUM 3.5 mmol/L 3.5 - 5.0 CHLORIDE 103 mmol/L 100 - 110 CO2 28 mEq/L 20 - 30 UREA NITROGEN 14 mg/dL 7 - 25 GLUCOSE 82 mg/dL 65 - 100 PROTEIN,TOTAL 7.2 g/dL 6.0 - 8.3 ALBUMIN 4.2 g/dL 3.5 - 5.0 ALK SOREN 87 U/L 40 - 150 AST 22 U/L 5 - 34 BILIRUBIN, TOTAL 1.0 mg/dL 0.2 - 1.2 ALT 19 U/L <6 - 55 Please call if you have any questions or concerns. Upcoming Appointments: 10/28/2024 07:30 [facility] OPTOMETRY 1 AM Sincerely, Your Primary Care Team [facility] [address] [address] [place] [address] [phone] [facility] [address] [place] [address] [place] [address] [phone] [facility] [address] [facility] [place] [phone] [place] [address] NOEMÍ DELEON [facility] [place] [facility] Jun 24, 2024 03:26 PM PHYSICIAN NOTE: LOCAL TITLE: MD NOTE STANDARD TITLE: PHYSICIAN NOTE DATE OF NOTE: JUN 24, 2024@15:26 ENTRY DATE: JUN 24, 2024@15:26:38 AUTHOR: NOEMÍ DELEONER: URGENCY: STATUS: COMPLETED STORMCHRISTEL is a 72 year old WHITE MALE who is being seen today in primary care for routine follow up. === CARE TEAM === Community Primary Care Provider: [place] Specialists: Community Specialists: cardiology - DR. Killian === HISTORY === PERIOD OF SERVICE - [facility]CT[facility] % - 40 === HISTORY OF PRESENT ILLNESS === reviewed labs minimally elevated psa- does self-cath some urinary freq and burning. no fvere, no blood in urine did go to [facility]- planning on going again next summer- never got MMR booster soem discoloration of lower legs- chronic - no pain === RELEVANT PAST MEDICAL HISTORY === Active problems - Computerized Problem List is the source for the followin. Atrial fibrillation- cannot tolerate anticoagulation- very low incidence of a fib- <1%- uses metoprolol prn 2. Hearing loss 3. Incisional hernia 4. Atonic bladder- does self-cath 5. History of repair of mitral valve 6. Hemangioma of liver on mri in mar 2014 at [facility] 7. Benign prostatic hyperplasia (SNOMED CT [id number]) urinary retention recetn cystoscopy 8. Hydrocele of testis surgery 2011 9. FAM HX-[facility] HEART DIS CAD === PAST SURGICAL HISTORY === mitral valave repair Hydrocele of testis surgery 2011 === ALLERGIES === CIPROFLOXACIN === MEDICATIONS === VA and Non VA meds were reconciled with the patient who left with a corrected copy. Active and Recently Outpatient Medications (excluding Supplies): Active Outpatient Medications Status 1) AMOXICILLIN 500MG CAP TAKE FOUR CAPSULES BY MOUTH ONE ACTIVE TIME - 1 HOUR PRIOR TO HIS APPOINTMENT WITH DENTAL === REVIEW OF SYMPTOMS === NEGATIVE FOR: CONSTITUTION: no weight loss/gain, fatigue, fevers, night sweats HEENT: no vision problems, hearing loss,swallowing difficulties, sinus pain CV: no chest pain, palpitations, dyspnea on exertion, orthopnea RESP: no cough, shortness of breath, wheezing GI: no abdominal pain, N/V/D, constipation, blood in stool, normal appetite : no urinary frequency, nocturia, hematuria MUSC: no joint pain, joint swelling, muscle aches NEURO: no headaches, dizziness, memory loss, tremor, weakness PSYCH: no depression, anxiety, suicidal or homicidal thoughts SKIN: no rash, new skin lesions === PHYSICAL EXAM === Vitals: - - - - - - - B/P: 146/79 (06/24/2024 15:16) pulse: 66 (06/24/2024 15:16) resp: 16 (06/24/2024 15:16) temp: 97.9 F [36.6 C] (06/24/2024 15:16) Ht: 71 in [180.3 cm] (05/08/2023 13:22) Wgt: 150 lb [68.04 kg] (06/24/2024 15:16) BMI: BMI: 21.0 Exam: - - - - - - - NAD === RECENT LABS === Your recent test results are as follows: Nov 04, 2023@14:40 SERUM MES/IgM: <1:20 titer Titer Interpretation <1:20 Antibody Not Detected > or =1:20 Antibody Detected LAB CHEMISTRY & HEMATOLOGY Collection DT Specimen Test Name Result Units Ref Range 06/24/2024 10:54 BLOOD WBC 4.39 L K/cmm 4.50 - 11.00 RBC 4.32 M/cmm 4.23 - 5.66 HGB 14.0 g/dL 12.8 - 17 HCT 41.6 % 39.2 - 50.4 MCV 96.3 fl 82 - 99 MCH 32.4 pg 26.2 - 32.6 MCHC 33.7 g/dL 30.8 - 35.1 RDW-CV 13.0 % 12.0 - 16.0 PLT 155 K/cmm 140 - 360 06/24/2024 10:54 SERUM PSA 4.72 H ng/mL 0.00 - 4.00 06/24/2024 10:54 SERUM CREATININE, Serum 0.81 mg/dL 0.50 - 1.40 eGFR(CKD-EPI 2020 >90 mL/min Ref: >=60 SODIUM 140 mmol/L 135 - 145 POTASSIUM 3.5 mmol/L 3.5 - 5.0 CHLORIDE 103 mmol/L 100 - 110 CO2 28 mEq/L 20 - 30 UREA NITROGEN 14 mg/dL 7 - 25 GLUCOSE 82 mg/dL 65 - 100 PROTEIN,TOTAL 7.2 g/dL 6.0 - 8.3 ALBUMIN 4.2 g/dL 3.5 - 5.0 ALK SOREN 87 U/L 40 - 150 AST 22 U/L 5 - 34 BILIRUBIN, TOTAL 1.0 mg/dL 0.2 - 1.2 ALT 19 U/L <6 - 55 === ASSESSMENT AND PLAN === 1. a fib- takes rapid acting metoprolol 25 mg only prn. sees cardiology Dr. Killian. cannot tolerate any antcoag- bleeds too much. can tell when he is in a fib andtakes metoprolol (just a few times a year) 2. BPH/urinary retention- does self-caths 6 cx per day. some increased urination recently with mild abd pain. will check u/a and culture. does self- cath 3. travel- goes to [facility] yearly- probably will go in September, October or november. completed hepA/B series. not immune to measles- recommend getting MMR booster 4. elevated blood pressure without diagnosis of HTN- will continue to monitor === HEALTH MAINTENANCE === Colonoscopy (due at age 45) - Abdominal Aortic Aneurysm Screening (due at age 65 if smoker/prev smoker) - Prostate screening - Tetanus: due every 10 years Pneumonia Vacccine: Flu Vaccine: due yearly Covid Vaccine: due yearly === FOLLOW UP === f/u in 3 mo for MMR vaccine with RN f/u in 6 mo visist type: a MODERATE complexity visit where 30 minutes was spent in direct patient care, review of records and documentation. /dominick/ NOEMÍ DELEON D.O. PHYSICIAN Signed: 06/24/2024 16:35 NOEMÍ DELEON [facility] [place] [facility] Jun 24, 2024 03:24 PM PREVENTIVE MEDICIN E NURSING NOTE: LOCAL TITLE: CLINICAL REMINDERS/NURSING STANDARD TITLE: PREVENTIVE MEDICINE NURSING NOTE DATE OF NOTE: JUN 24, 2024@15:24 ENTRY DATE: JUN 24, 2024@15:24:21 AUTHOR: TETE PERAZA EXP COSIGNER: URGENCY: STATUS: COMPLETED Advance Directive Screen MH AD: Patient has an up-to-date Advance Directive at an outside, non-va facility and was asked to forward a copy to his/her clinician. Comment: blank VA form provided to the to complete at home and bring during his next visit Homelessness/Food Insecurity Screen: In the past 2 months, have you been living in stable housing that you own, rent, or stay in as part of a household? Yes - Living in stable housing. Are you worried or concerned that in the next 2 months you may NOT have stable housing that you own, rent, or stay in as part of a household? No - Not worried about housing near future [employer] reports the following: Within the past 12 months, you worried whether your food would run out before you got money to buy more. Never true Within the past 12 months, the food you bought just didn't last and you didn't have money to get more. Never true Depression Screening: Perform PHQ-2 A PHQ-2 screen was performed. The score was 0 which is a negative screen for depression. Over the past two weeks, how often have you been bothered by the following problems? 1. Little interest or pleasure in doing things Not at all 2. Feeling down, depressed, or hopeless Not at all Tobacco Use Screening: The patient has never smoked cigarettes. The patient has never used other types of tobacco. Alcohol Use Screen (AUDIT-C): Alcohol Screen: SCREEN FOR ALCOHOL (AUDIT-C) An alcohol screening test (AUDIT-C) was negative (score=0). 1. How often did you have a drink containing alcohol in the past year? Consider a drink to be a 12 ounce can or bottle of regular beer, 8 ounces of malt liquor, a 5 ounce glass of table wine, or a 1.5 ounce shot of liquor (like scotch, gin, or vodka). Never 2. How many drinks containing alcohol did you have on a typical day when you were drinking in the past year? Response not required due to responses to other questions. 3. How often did you have six or more drinks on one occasion in the past year? Response not required due to responses to other questions. Sexual Orientation: The patient thinks of their sexual orientation as: Straight or Heterosexual Hepatitis B Immunization: Combination Hepatitis A / Hepatitis B vaccine Administered: HEP A-HEP B Date Administered: Jun 24, 2024 15:00 Series: Series 3 Video Production Specialist: [email or web address] Lot: [id number] Exp Date: Feb 27, 2026 [facility]: [phone] Admin Route/Site: INTRAMUSCULAR/RIGHT DELTOID Dosage: 1mL Vaccine Information Statement(s): HEPATITIS B VACCINE VIS October 11, 2022 ([place]) Order By: Policy Administered By: Tete Peraza The Hepatitis A and Hepatitis B Vaccine Information Statements (VIS) were reviewed with the patient/caregiver which lists the benefits and risks of the vaccines and the risks of not receiving the Hepatitis A and Hepatitis B vaccines. The patient/caregiver denied any prior severe reaction to these vaccines or their components or a severe allergic reaction such as anaphylaxis to any vaccine or any injectable therapy. The patient/caregiver gave verbal consent to receive the vaccine. COVID-19 Immunization: Refused Moderna Monovalent COVID-19 vaccine Immunization: COVID-19 (MODERNA), MRNA, LNP-S, PF, 50 MCG/0.5 ML (AGES 12+ YEARS) Refusal Reason: PATIENT DECISION Patient refuses all immunization(s) in the COVID-19 group Date Documented: 06/24/24 15:27 Influenza Immunization: Deferral / Refusal The patient declines to receive the recommended dose of seasonal influenza vaccine. Immunization: INFLUENZA, UNSPECIFIED FORMULATION Refusal Reason: PATIENT DECISION Patient refuses all immunization(s) in the FLU group Date Documented: 06/24/24 15:28 /dominick/ TETE PERAZA LPN License Practical Nurse Signed: 06/24/2024 15:28 TETE PERAZA [facility]
--- OUTSIDE RECORDS SUMMARY | 2024-07-08 08:36 | XMS_ITS | Encounter Summary ---
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 Name Role Phone LESVIA GABRIEL Primary Care [...] RANDY MEDEX CHOIC E Dec 31, 2016 [id number] FÁTIMA,GAR [place] RANDY MEDEX CHOIC E Dec 31, 2016 [id number] FÁTIMA,GAR [place] RANDY MEDEX CHOIC E Dec 31, 2016 [id number] [phone] STORM,GAR Y PATIENT BCBS OF [facility] MEDICARE SUPPLEMEN RANDY MEDEX CHOIC E MONTH LY Dec 31, 2016 [id number] [phone] STORM,GAR Y PATIENT MEDICAID MEDICAID CATIE NIÑO Jun 02, 2013 MEDICAI D [id number] STORM,GAR Y PATIENT MEDICARE (WNR) MEDICARE () PART B Dec 01, 2015 PART B [id number] STORM,GAR Y PATIENT MEDICARE (WNR) MEDICARE () PART A Dec 01, 2015 PART A [id number] [id number] STORM,GAR Y PATIENT MEDICARE (WNR) MEDICARE () PART B Dec 01, 2015 PART B [id number] STORM,GAR Y PATIENT MEDICARE (WNR) MEDICARE () PART A Dec 01, 2015 PART A [id number] STORM,GAR Y PATIENT MEDICARE (WNR) MEDICARE () PART B Dec 01, 2015 PART B [id number] STORM,GAR Y PATIENT MEDICARE (WNR) MEDICARE () PART A Dec 01, 2015 PART A [id number] STORM,GAR Y PATIENT MEDICARE (WNR) MEDICARE () PART B Dec 01, 2015 PART B [id number] STORM,GAR Y PATIENT MEDICARE (WNR) MEDICARE () PART A Dec 01, 2015 PART A [id number] STORM,GAR Y PATIENT MEDICARE (WNR) MEDICARE () PART B Dec 01, 2015 PART B [id number] STORM,GAR Y PATIENT MEDICARE (WNR) MEDICARE () PART A Dec 01, 2015 PART A [id number] STORM,GAR Y PATIENT Selected Encounter This section includes the information on record at VA for the Encounter. Date/Time Encounter Type Encounter Description Reason Provider Source Apr 28, 2024 02:00 PM COMPRE OPH EXAM EST PT 1/> OPTOMETRY ICD-10-CM H25.813 Combined forms of age-related cataract, bilateral GIANNI LANDRY E IHWandy Encounter Template Text not used by VA Assessments - Encounter Diagnoses This section includes the primary and secondary diagnoses documented for the Encounter. Date/Time Primary/Secondary Diagnosis Diagnosis Name Provider Source May 21, 2024 08:48 AM PRIMARY Combined forms of age-related cataract, bilateral GIANNI LANDRY [place] [facility] [place] [facility] May 21, 2024 08:48 AM SECONDARY Unspecified disorder of refraction GIANNI LANDRY [place] [facility] [place] [facility] Plan of Treatment: Future Appointments (+ 6 months) and Future Tests (+/- 45 days) The Plan of Treatment section includes future care activities for the patient from all [place] treatmentfacilities. This section includes future appointments and future orders which are active, pending or scheduled. Future Appointments This section includes appointments that were scheduled to occur 6 months from the date of the Encounter, up to a maximum of 20 appointments. The data comes from all [place] treatment facilities. Appointment Date/Time Appointment Type Appointme nt Facility Name Jun 24, 2024 03:00 PM [facility] [place] [facility] Social History: Smoking Status (Most current) and Tobacco Use (All prior to encounter date) This section includes the most current, and the historical, smoking and tobacco- related health factors from the [facility] facility where the Encounter took place. Current Smoking Status This section includes the most current smoking, or tobacco-related health factor, from the [place] facility where the Encounter took place. Date/Time Current Smoking Status Comment Facil ity May 08, 2023 01:30 PM VA-TOBACCO NEVER USED [place] [facility] [place] [facility] Tobacco Use History This section includes a history of the smoking, or tobacco-related health factors, that were collected on or before the date of the Encounter. The data comes from the [place] facility where the Encounter took place. Date/Time Smoking Status/Tobacco Use Comment F acility Mar 19, 2022 01:30 PM VA-TOBACCO NEVER USED [place] [facility] [place] [facility] Mar 20, 2021 02:00 PM VA-TOBACCO FORMER USER [place] [facility] [place] [facility] Mar 20, 2021 02:00 PM VA-TOBACCO QUIT 15 YRS OR MORE [place] [facility] [place] [facility] Mar 20, 2020 02:00 PM VA-TOBACCO FORMER USER [place] [facility] [place] [facility] Mar 20, 2020 02:00 PM VA-TOBACCO QUIT 15 YRS OR MORE [place] [facility] [place] [facility] Mar 02, 2018 01:59 PM VA-TOBACCO FORMER USER [place] [facility] [place] [facility] Mar 02, 2018 01:59 PM VA-TOBACCO QUIT 15 YRS OR MORE [place] [facility] [place] [facility] Mar 02, 2018 01:23 PM VA-TOBACCO FORMER USER [place] [facility] [place] [facility] Mar 02, 2018 01:23 PM VA-TOBACCO QUIT 15 YRS OR MORE [place] [facility] [place] [facility] September 30, 2016 09:39 AM LIFETIME NON-TOBACCO USER [place] [facility] [place] [facility] October 12, 2015 01:46 PM LIFETIME NON-TOBACCO USER [place] [facility] Encounter Notes: All associated encounter notes This section contains the clinical notes associated to the Encounter. Date/Time Encounter Note(s) Provider Source Apr 28, 2024 09:33 AM OPTOMETRY NOTE: LOCAL TITLE: OPTOMETRY NOTE STANDARD TITLE: OPTOMETRY NOTE DATE OF NOTE: APR 28, 2024@09:33 ENTRY DATE: APR 28, 2024@09:33:50 AUTHOR: DUANE OLTT ROBERTS [place] EXP COSIGNER: URGENCY: STATUS: COMPLETED OPTOMETRY NOTE Has ADDENDA Active problems - Computerized Problem List is the source for the followin. Atrial fibrillation 2. Hearing loss 3. Incisional hernia 4. Atonic bladder 5. History of repair of mitral valve 6. Hemangioma of liver 7. Benign prostatic hyperplasia (SNOMED CT [id number]) 8. Hydrocele of testis 9. FAM HX-ISCHEM HEART DIS Active Outpatient Medications (including Supplies): Active Outpatient Medications Status 1) METOPROLOL TARTRATE 25MG TAB TAKE ONE TABLET BY MOUTH ACTIVE ONCE DAILY NEEDED TO PREVENT ANGINAL CHEST PAIN Allergies: CIPROFLOXACIN All medications including those prescribed by outside VA's, community providers, and all OTC meds were reviewed and reconciled with patient to the best of their abilities. 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 Feels vision is not clear with new glasses. Says he had a fittings appt a while back and explained but then went away on a trip and the issue never really got resolved so wanted to mention it today. No other ocular complaints today. HISTORY AND REVIEW OF SYSTEMS: 1. 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 H/o retinal tear superior OD with barricade laser 3. Combined cataracts OU - not visually significant 4. Regular Astigmatism with presbyopia OU (-) Pain: (+) PANTOJA: Ocular migraines (-) Diplopia: (-) Flashes: (-) Floaters: (-) Amaurosis Fugax/Tia's: (-) Eye Injury: (-) Eye Surgery: (-) TBI (-) FOHx: (-) Smoker/Length of Time: DIABEIC: No NEW ALLERGIES TO REPORT: No EYE MEDICATION(S): None CURRENT RX WITH BCVA: OD: -0.25 -1.75 x105 20/20 OS: +0.25 -2.00 x093 20/20 Add: +2.50 DVA: ( )SC (x)CC ( )Phoropter ( )CL OD: 20/20 OS: 20/20 not sharp ADD: +2.50 20/20 MANIFEST REFRACTION(MRx): OD: No change OS: No change Add: +2.50 20/2 CVF: Appear FTFC OU EOMS: Appear Full OU PUPILS: Appear ERRL(-)APD INTRAOCULAR PRESSURE (IOP) METHOD: ESPINOZA Time: 1:45PM OD: 13 OS: 14 ANTERIOR CHAMBER (AC): Penlight or slit lamp (if available) exam appears unremarkable. Pupils are not dilated. Visual Imaging Performed Today: Additional Comments: /dominick/ Duane Lott Optometry Health Machine Assembler Signed: 04/28/2024 13:46 05/03/2024 ADDENDUM STATUS: COMPLETED O: Dermatochalasis was seen OU and lashes were clear both eyes. Corneas and conjunctiva were clear both eyes. Anterior chambers were deep clear and quiet with open angles. Iris was flat both eyes. Grade 2 + nuclear sclerotic and 2 - cortical cataracts were seen OU. Vitreous syneresis was seen OU. Approximately 40% horizontal and vertical cupping was seen OU with healthy rims and margins and larger nerve heads. Normal pigmentary architecture of the macula was seen with trace ERM OD. A two third artery to vein ratio was seen with normal caliber and color. Retinal peripheries were intact in all quadrants OU with superior laser scars appearing flat superiorly OD. A: History of retinal tear OD with laser barricade appears stable. Trace epiretinal membrane OD not visually significant. Not visually significant nuclear sclerotic cataract. Refraction disorder P: Explained to patient that his vision is as good as good as it is going to get. The patient will return in 12 months or sooner if any problems arise. Education: After discussion and answering all 's questions, [place] demonstrated and verbalized understanding of diagnosis and [...] non-VA provider. /dominick/ GIANNI LANDRY OD STAFF NUCLEAR OPERATIONS SPECIALIST Signed: 05/03/2024 08:47 DUANE LOTT [place] [facility]
--- OUTSIDE RECORDS SUMMARY | 2024-07-08 08:37 | XMS_ITS | Encounter Summary ---
Author Name [facility] [place] [facility] [place] [facility] [place] Address [address] [place] [address] Care Team Providers Care Contract Writer Name Role Phone LESVIA GABRIEL Primary Care [...] RANDY MEDEX CHOIC E Dec 31, 2016 [id number] OPAL SHINE Y [place] RANDY MEDEX CHOIC E Dec 31, 2016 [id number] [phone] OPAL SHINE [place] RANDY MEDEX CHOIC E Dec 31, 2016 [id number] FÁTIMAGAR Y PATIENT BCBS OF [facility] MEDICARE SUPPLEMEN RANDY MEDEX CHOIC E MONTH LY Dec 31, 2016 [id number] STORM,GAR Y PATIENT MEDICAID MEDICAID [facility] [place] [facility] Jun 02, 2013 MEDICAI D [id number] STORM,GAR Y PATIENT MEDICARE (WNR) MEDICARE (M) PART B Dec 01, 2015 PART B [id number] RR49 STORM,GAR Y PATIENT MEDICARE (WNR) MEDICARE () PART A Dec 01, 2015 PART A [id number] STORM,GAR Y PATIENT MEDICARE (WNR) MEDICARE (M) PART B Dec 01, 2015 PART B [id number] [phone] STORM,GAR Y PATIENT MEDICARE (WNR) MEDICARE () PART A Dec 01, 2015 PART A [id number] [phone] STORM,GAR Y PATIENT MEDICARE (WNR) MEDICARE () PART B Dec 01, 2015 PART B [id number] [phone] STORM,GAR Y PATIENT MEDICARE (WNR) MEDICARE () PART A Dec 01, 2015 PART A [id number] STORM,GAR Y PATIENT MEDICARE (WNR) MEDICARE () PART B Dec 01, 2015 PART B [id number] STORM,GAR Y PATIENT MEDICARE (WNR) MEDICARE () PART A Dec 01, 2015 PART A [id number] STORM,GAR Y PATIENT MEDICARE (WNR) MEDICARE () PART B Dec 01, 2015 PART B [id number] STORM,GAR Y PATIENT MEDICARE (WNR) MEDICARE () PART A Dec 01, 2015 PART A [id number] STORM,GAR Y PATIENT Selected Encounter This section includes the information on record at NH for the Encounter. Date/Time Encounter Type Encounter Description Reason Provider Source Aug 07, 2023 01:00 PM OFF/OP EST SEPTEMBER X REQ PHY/QHP PRIMARY CARE/MEDICINE ICD-10-CM Z04.9 Encounter for examination and observation for unsp reason ANDI ALCALA SA IHWandy Encounter Template Text not used by VA Assessments - Encounter Diagnoses This section includes the primary and secondary diagnoses documented for the Encounter. Date/Time Primary/Secondary Diagnosis Diagnosis Name Provider Source Aug 22, 2023 09:41 AM PRIMARY Encounter for examination and observation for unsp reason [facility]I [facility] [place] [facility] Plan of Treatment: Future Appointments (+ 6 months) and Future Tests (+/- 45 days) The Plan of Treatment section includes future care activities for the [place] [facility] [place] [facility] This section includes future appointments and future orders which are active, pending or scheduled. Future Appointments This section includes appointments that were scheduled to occur 6 months from the date of the Encounter, up to a maximum of 20 appointments. The data comes from all [place] treatment facilities. Appointment Date/Time Appointment Type Appointme nt Facility Name Sep 01, 2023 11:00 AM AMBULATORY - MEDICINE [place] [facility] [place] [facility] Nov 04, 2023 12:30 PM AMBULATORY - NONE [place] [facility] [place] [facility] Nov 04, 2023 01:30 PM AMBULATORY - MEDICINE [place] [facility] [place] [facility] Nov 07, 2023 09:40 AM AMBULATORY - MEDICINE [place] [facility] [place] [facility] Nov 07, 2023 11:00 AM AMBULATORY - MEDICINE [place] [facility] [place] [facility] Nov 17, 2023 09:40 AM AMBULATORY - MEDICINE [place] [facility] [place] [facility] Jan 13, 2024 02:00 PM AMBULATORY - MEDICINE [facility] Jan 13, 2024 02:00 PM AMBULATORY - NONE [place] [facility] [place] [facility] Jan 27, 2024 11:00 AM AMBULATORY - NONE [place] [facility] [place] [facility] Jan 27, 2024 01:00 PM AMBULATORY - MEDICINE [place] [facility] [place] [facility] Lab Results: +/- 30 days of the encounter This section includes the Chemistry and Hematology Lab Results on record with NH for the patient. Radiology Reports and Pathology Reports are provided separately, in subsequent sections. Lab Results This section contains the Chemistry/Hematology Results that were resulted 30 days before or 30 daysafter the date of the Encounter. Date/Time Source Result Type Result - Unit Interpretation Reference Range Comment Aug 07, 2023 01:32 PM [facility] URINALYSIS CLEAN CATCH Specimen Type: URINE Comment: If Glucose = >500 and Ketones are positive, please alert the Physician. Ordering Provider: LETY LUGO Report Released Date/Time: Aug 07, 2023 01:21 PM Reporting Lab: [facility] [address] [address] Performing Lab: [facility] [address] [id number] UA COLOR Colorless Yellow UA APPEARANCE Clear Clear UA GLUCOSE NEGATIVE mg/dL Negative UA KETONES NEGATIVE mg/dL Negative UA BLOOD NEGATIVE mg/dL Negative UA PROTEIN NEGATIVE mg/dL Negative UA NITRITE NEGATIVE mg/dL Negative UA BILIRUBIN NEGATIVE mg/dL Negative UA SPECIFIC GRAVITY 1.005 L 1.016-1.022 UA pH 7.0 5.0-9.0 UA UROBILINOGEN <2.0 mg/dL <2.0 UA LEUKOCYTE NEGATIVE Negative Aug 07, 2023 01:32 PM [facility] CBC AND DIFF (AUTO) Specimen Type: BLOOD No comment entered. Ordering Provider: LETY LUGO Report Released Date/Time: Aug 07, 2023 01:21 PM Reporting Lab: [facility] [address] [address] Performing Lab: [address] [address] WBC 4.84 10*3/uL 4.50-11.00 RBC 4.15 10*6/uL L 4.23-5.66 HGB 13.4 g/dL 12.8-17 HCT 39.8 39.2-50.4 MCV 95.9 fL 82-99 MCHC 33.7 g/dL 30.8-35.1 PLT 139 10*3/uL L 140-360 RDW-CV 13.1 12.0-16.0 Hard[place], Abs 0.48 10*3/uL 0.30-1.10 MCH 32.3 pg 26.2-32.6 Neut % 62.6 43.7-75.8 Lymph % 26.7 14.0-42.3 [place] % 9.9 5.1-13.7 Eos % 0.6 0.4-6.8 [...] 96.9 71 136/76 18 100 148 21 [place] [facility] [place] [facility] Social History: Smoking Status (Most current) and Tobacco Use (All prior to encounter date) This section includes the most current, and the historical, smoking and tobacco- related health factors from the [place] facility where the Encounter took place. Current Smoking Status This section includes the most current smoking, or tobacco-related health factor, from the [place] facility where the Encounter took place. Date/Time Current Smoking Status Comment Facil ity May 08, 2023 01:30 PM VA-TOBACCO NEVER USED [facility] Tobacco Use History This section includes a history of the smoking, or tobacco-related health factors, that were collected on or before the date of the Encounter. The data comes from the [place] facility where the Encounter took place. Date/Time Smoking Status/Tobacco Use Comment F acility Mar 19, 2022 01:30 PM VA-TOBACCO NEVER USED [place] [facility] [place] [facility] Mar 20, 2021 02:00 PM VA-TOBACCO FORMER USER [place] [facility] [place] [facility] Mar 20, 2021 02:00 PM VA-TOBACCO QUIT 15 YRS OR MORE [place] [facility] [place] [facility] Mar 20, 2020 02:00 PM VA-TOBACCO FORMER USER [place] [facility] [place] [facility] Mar 20, 2020 02:00 PM VA-TOBACCO QUIT 15 YRS OR MORE [place] [facility] [place] [facility] Mar 02, 2018 01:59 PM VA-TOBACCO FORMER USER [place] [facility] [place] [facility] Mar 02, 2018 01:59 PM VA-TOBACCO QUIT 15 YRS OR MORE [place] [facility] [place] [facility] Mar 02, 2018 01:23 PM VA-TOBACCO FORMER USER [place] [facility] [place] [facility] Mar 02, 2018 01:23 PM VA-TOBACCO QUIT 15 YRS OR MORE [place] [facility] [place] [facility] September 30, 2016 09:39 AM LIFETIME NON-TOBACCO USER [place] [facility] [place] [facility] October 12, 2015 01:46 PM LIFETIME NON-TOBACCO USER [place] [facility] [place] [facility] Encounter Notes: All associated encounter notes This section contains the clinical notes associated to the Encounter. Date/Time Encounter Note(s) Provider Source Aug 07, 2023 01:09 PM PRIMARY CARE NOTE: LOCAL TITLE: WALK-IN NOTE PRIMARY CARE (T) STANDARD TITLE: PRIMARY CARE NOTE DATE OF NOTE: AUG 07, 2023@13:09 ENTRY DATE: AUG 07, 2023@13:09:59 AUTHOR: EARNESTINE ALCALA COSIGNER: URGENCY: STATUS: COMPLETED Patient identity was verified using two identifiers, per [place] Policy: Full Name, Date of CHRISTEL SHINE is a 72 year old who presents to the clinic for Abd oain per WALLY MIGUEL for diagnosis of: Visit Type: Clinic Unscheduled Primary Care Clinic Triage: S: Abd pain Self Cath 5 times a day. 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 I just feel pressure points to lower abd area General: Fatigue Urinary: Reports increase frequency and darkening color. O: Vital Signs: Temperature: 96.9 F [36.1 C] (08/07/2023 13:08) Pulse: 71 (08/07/2023 13:08) Respiration: 18 (08/07/2023 13:08) Blood Pressure: 136/76 (08/07/2023 13:08) 100% (08/07/2023 13:08) Pain: 1 (05/08/2023 13:22) Height: 71 in [180.3 cm] (05/08/2023 13:22) Weight: 148 lb [67.13 kg] (08/07/2023 13:08) BMI: 20.7 Current Home Treatment: None Allergies: CIPROFLOXACIN Medications: Active Outpatient Medications (including Supplies): Active Outpatient Medications Status ==== 1) AMOXICILLIN 500MG CAP TAKE FOUR CAPSULES BY MOUTH ONE ACTIVE TIME - 1 HOUR PRIOR TO HIS APPOINTMENT WITH DENTAL No Non-VA Meds Extracted Since you last saw your [facility] PC Provider, did you have any of the following? A: Reports pressure abd area + bowel movement, Fatigue, P: Seen by Sick Call provider Appointment Date/Time: 08/07/23 /dominick/ EARNESTINE ALCALA REGISTERED NURSE Signed: 08/07/2023 13:25 EARNESTINE ALCALA [place] [facility]
--- OUTSIDE RECORDS SUMMARY | 2024-07-08 08:37 | XMS_ITS | Encounter Summary ---
Author Name [facility] Organization [facility] Address [address] [place] [address] Care Team Providers Care Fiberglass Grinder Name Role Phone LESVIA GABRIEL Primary Care [...] RANDY MEDEX CHOIC E Dec 31, 2016 [id number] STORM,GAR Y [place]IENT [place] RANDY MEDEX CHOIC E Dec 31, 2016 [id number] STORM,GAR [place] RANDY MEDEX CHOIC E Dec 31, 2016 [id number] STORM,GAR Y PATIENT BCBS OF [facility] MEDICARE SUPPLEMEN RANDY MEDEX CHOIC E MONTH LY Dec 31, 2016 [id number] [phone] STORM,GAR Y PATIENT MEDICAID MEDICAID CATIE NIÑO Jun 02, 2013 MEDICAI D [id number] STORM,GAR Y PATIENT MEDICARE (WNR) MEDICARE (M) PART B Dec 01, 2015 PART B [id number] STORM,GAR Y PATIENT MEDICARE (WNR) MEDICARE (M) PART A Dec 01, 2015 PART A [id number] [phone] STORM,GAR Y PATIENT MEDICARE (WNR) MEDICARE (M) PART B Dec 01, 2015 PART B [id number] STORM,GAR Y PATIENT MEDICARE (WNR) MEDICARE () PART A Dec 01, 2015 PART A [id number] [phone] STORM,GAR Y PATIENT MEDICARE (WNR) MEDICARE (M) PART B Dec 01, 2015 PART B [id number] STORM,GAR Y PATIENT MEDICARE (WNR) MEDICARE () PART A Dec 01, 2015 PART A [id number] [phone] STORM,GAR Y PATIENT MEDICARE (WNR) MEDICARE (M) PART B Dec 01, 2015 PART B [id number] STORM,GAR Y PATIENT MEDICARE (WNR) MEDICARE (M) PART A Dec 01, 2015 PART A [id number] STORM,GAR Y PATIENT MEDICARE (WNR) MEDICARE (M) PART B Dec 01, 2015 PART B [id number] STORM,GAR Y PATIENT MEDICARE (WNR) MEDICARE () PART A Dec 01, 2015 PART A [id number] [phone] STORM,GAR Y PATIENT Selected Encounter This section includes the information on record at OR for the Encounter. Date/Time Encounter Type Encounter Description Reason Pro vider Source Jun 15, 2024 02:39 PM Outpatient Encounter ADMIN PAT ACTIVTIES (MASNONCT) [...] 20 appointments. The data comes from all OR treatment facilities. Appointment Date/Time Appointment Type Appointme nt Facility Name Jun 24, 2024 03:00 PM [facility]ORY - [facility] October 28, 2024 07:30 AM [facility]ATORY - [facility] Lab Results: +/- 30 days of the encounter This section includes the Chemistry and Hematology Lab Results on record with OR for the patient. Radiology Reports and Pathology Reports are provided separately, in subsequent sections. Lab Results This section contains the Chemistry/Hematology Results that were resulted 30 days before or 30 daysafter the date of the Encounter. Date/Time Source Result Type Result - Unit Interpretation Reference Range Comment Jun 24, 2024 04:03 PM [facility] URINALYSIS CLEAN CATCH Specimen Type: URINE Comment: If Glucose = >500 and Ketones are positive, please alert the Physician. Ordering Provider: LESVIA GABRIEL Report Released Date/Time: Jun 24, 2024 03:43 PM Reporting Lab: [address] [id number] Performing Lab: [address] [phone] UA COLOR Colorless Yellow UA APPEARANCE Clear Clear UA GLUCOSE Normal mg/dL Negative UA KETONES NEGATIVE mg/dL Negative UA BLOOD NEGATIVE mg/dL Negative UA PROTEIN NEGATIVE mg/dL Negative UA NITRITE NEGATIVE mg/dL Negative UA BILIRUBIN NEGATIVE mg/dL Negative UA SPECIFIC GRAVITY 1.006 L 1.016-1.022 UA pH 7.0 5.0-9.0 UA UROBILINOGEN Normal mg/dL <2.0 UA LEUKOCYTE NEGATIVE Negative Jun 24, 2024 10:54 AM [facility] PSA Specimen Type: SERUM No comment entered. Ordering Provider: LESVIA GABRIEL Report Released Date/Time: Jun 24, 2024 07:53 AM Reporting Lab: [address] [phone] Performing Lab: [address] [address] PSA 4.72 ng/mL H 0.00-4.00 Jun 24, 2024 10:54 AM [facility] BASIC METABOLIC PANEL (non-fasting) Specimen Type: SERUM No comment entered. Ordering Provider: LESVIA GABRIEL Report Released Date/Time: Jun 24, 2024 07:47 AM Reporting Lab: [address] [address] Performing Lab: [address] [address] UREA NITROGEN 14 mg/dL 7-25 GLUCOSE 82 mg/dL 65-100 SODIUM 140 mmol/L 135-145 POTASSIUM 3.5 mmol/L 3.5-5.0 CHLORIDE 103 mmol/L 100-110 CO2 28 meq/L 20-30 CREATININE, Serum 0.81 mg/dL 0.50-1.40 eGFR(CKD-EPI 2020) >90 mL/min >60 Jun 24, 2024 10:54 AM [facility] LIVER FUNCTION Specimen Type: SERUM No comment entered. Ordering Provider: LESVIA GABRIEL Report Released Date/Time: Jun 24, 2024 07:47 AM Reporting Lab: [address] [address] Performing Lab: [address] [address] PROTEIN,TOTAL 7.2 g/dL 6.0-8.3 ALBUMIN 4.2 g/dL 3.5-5.0 ALKALINE PHOSPHATASE 87 U/L 40-150 AST 22 U/L 5-34 ALT 19 U/L BILIRUBIN, TOTAL 1.0 mg/dL 0.2-1.2 Jun 24, 2024 10:54 AM [facility] CBC Specimen Type: BLOOD No comment entered. Ordering Provider: LESVIA GABRIEL Report Released Date/Time: Jun 24, 2024 07:47 AM Reporting Lab: [address] [address] Performing Lab: [address] [phone] WBC 4.39 10*3/uL L 4.50-11.00 RBC 4.32 [...] and tobacco- related health factors from the OR facility where the Encounter took place. Current Smoking Status This section includes the most current smoking, or tobacco-related health factor, from the OR facility where the Encounter took place. Date/Time Current Smoking Status Comment Facil ity May 08, 2023 01:30 PM VA-TOBACCO NEVER USED [place] [facility] [place] [facility] Tobacco Use History This section includes a history of the smoking, or tobacco-related health factors, that were collected on or before the date of the Encounter. The data comes from the [place] facility where the Encounter took place. Date/Time Smoking Status/Tobacco Use Comment F acility Mar 19, 2022 01:30 PM VA-TOBACCO NEVER USED [facility] [place] [facility] Mar 20, 2021 02:00 PM VA-TOBACCO FORMER USER [facility] [place] [facility] Mar 20, 2021 02:00 PM VA-TOBACCO QUIT 15 YRS OR MORE [facility] [place] [facility] Mar 20, 2020 02:00 PM VA-TOBACCO FORMER USER [facility] [place] [facility] Mar 20, 2020 02:00 PM VA-TOBACCO QUIT 15 YRS OR MORE [facility] [place] [facility] Mar 02, 2018 01:59 PM VA-TOBACCO FORMER USER [facility] [place] [facility] Mar 02, 2018 01:59 PM VA-TOBACCO QUIT 15 YRS OR MORE [facility] [place] [facility] Mar 02, 2018 01:23 PM VA-TOBACCO FORMER USER [facility] [place] [facility] Mar 02, 2018 01:23 PM VA-TOBACCO QUIT 15 YRS OR MORE [facility] September 30, 2016 09:39 AM LIFETIME NON-TOBACCO USER [facility] October 12, 2015 01:46 PM LIFETIME NON-TOBACCO USER [facility] Pathology Reports: +/- 30 days of [...] the Encounter. The data comes from all [facility] facilities. Date/Time Pathology Report Provider Source Jun 24, 2024 04:03 PM LR MICROBIOLOGY RE PORT: Reporting Lab: [facility] [CLIA# [id number]] [address] [place] [id number] Accession [UID]: [id number] [[id number]] Received: Jun 24, 2024@16:03 Collection sample: URINE CLEAN CATCH Collection date: Jun 24, 2024 16:03 Site/Specimen: URINE Provider: LESVIA GABRIEL Comment on specimen: CC Test(s) ordered: URINE CULTURE(MWROX).......... completed: Jun 28, 2024 10:48 * BACTERIOLOGY FINAL REPORT => Jun 28, 2024 10:48 TECH CODE: [id number] Bacteriology Remark(s): NO GROWTH IN 24 HOURS, FINAL REPORT TO FOLLOW. FINAL AEROBIC REPORT: NO GROWTH =--=--=--=--=--=--=--=--= --=--=--=--=--=--=--=--=- -=--=--=--=--=--=--=--=-- =-- Performing Laboratory: Bacteriology Report Performed By: [facility] [CLIA# [id number]] [address] [place] [id number] LUCIANO DELGADO OR [facility] Encounter Notes: All associated encounter notes This section contains the clinical notes associated to the Encounter. Date/Time Encounter Note(s) Provider Source Jun 18, 2024 02:58 PM ADDENDUM: LOCAL TITLE: Addendum STANDARD TITLE: ADDENDUM DATE OF NOTE: JUN 18, 2024@14:58:41 ENTRY DATE: JUN 18, 2024@14:58:42 AUTHOR: LESVIA GABRIEL EXP COSIGNER: URGENCY: STATUS: COMPLETED please review note from Nisha, the upcoming apt is supposed ot be PACT 8 RN, not with me /dominick/ LESVIA GABRIEL D.O. PHYSICIAN Signed: 06/18/2024 14:59 Receipt Acknowledged By: 06/22/2024 08:11 /silas AVILES --- Original Document --- 06/15/24 CCC: SCHEDULING ADMINISTRATION: Patient Demographics Patient Name: CHRISTEL SHINE Patient Primary Phone: [phone] Patient Primary [address]: [address] [place] [id number] Patient : 1950 Patient Age: 73 Caller/Recipient Relation to Patient: Self Caller Name: CHRISTEL SHINE Administrative Administrative Note Reason: Other Administrative Note Comments: Mansfield calling stating he would like to make sure his blood work orders were in so he can get them done before his appt 06-28-24. Mansfield would like to make sure PSA blood work was included. also would like to make an appt for COVID TESTING . Mansfield states he tested + about a week an a half (2tests and was pretty sick about a week an half ago.) Please call to discuss #[phone]. IMPORTANT: This note was created by [facility] Clinical Contact Center staff. Please do not alert the staff member by adding them as a signer for future communications. Alerts are not monitored by this user. /es/ HERSON [id number] [facility] Signed: 06/15/2024 14:39 Receipt Acknowledged By: 06/17/2024 11:23 /es/ TETE PERAZA LPN License Practical Nurse 06/17/2024 11:34 /es/ MINISTERIO MATUTE, MSN, RN, CNL PRIMARY CARE TEAM NURSE 06/17/2024 ADDENDUM STATUS: COMPLETED attempted to reach the , but the call was not answered. general message was left on voice mail. The upcoming apt is with a nurse, is due for a 6 month follow up with the provider. Will alert [facility] to book a 6 months follow up. Alert to the provider to order necessary labs. Last PSA was done 11/04/23. /es/ TETE PERAZA LPN License Practical Nurse Signed: 06/17/2024 11:27 Receipt Acknowledged By: 06/18/2024 14:58 /es/ LESVIA GABRIEL D.O. PHYSICIAN 06/17/2024 12:01 /es/ JOSE BRITT [facility] 06/17/2024 ADDENDUM STATUS: COMPLETED [facility] CALLED ON TELEPHONE AND SCHEDULED AN APPT SET FOR June @ 3PM. /dominick/ JOSE BRITT [facility] Signed: 06/17/2024 12:03 LESVIA GABRIEL [place] [facility] [place] [facility] Jun 17, 2024 11:23 AM ADDENDUM: LOCAL TITLE: Addendum STANDARD TITLE: ADDENDUM DATE OF NOTE: JUN 17, 2024@11:23:34 ENTRY DATE: JUN 17, 2024@11:23:35 AUTHOR: TETE PERAZA EXP COSIGNER: URGENCY: STATUS: COMPLETED attempted to reach the , but the call was not answered. general message was left on voice mail. The upcoming apt is with a nurse, is due for a 6 month follow up with the provider. Will alert [facility] to book a 6 months follow up. Alert to the provider to order necessary labs. Last PSA was done 11/04/23. /dominick/ TETE PERAZA LPN License Practical Nurse Signed: 06/17/2024 11:27 Receipt Acknowledged By: 06/18/2024 14:58 /es/ LESVIA GABRIEL D.O. PHYSICIAN 06/17/2024 12:01 /es/ JOSE BRITT [facility] --- Original Document --- 06/15/24 CCC: SCHEDULING ADMINISTRATION: Patient Demographics Patient Name: CHRISTEL SHINE Patient Primary Phone: [phone] Patient Primary [address]: [address] [place] [address] Patient : 1950 Patient Age: 73 Caller/Recipient Relation to Patient: Self Caller Name: CHRISTEL SHINE Administrative Administrative Note Reason: Other Administrative Note Comments: Mansfield calling stating he would like to make sure his blood work orders were in so he can get them done before his appt 06-28-24. Mansfield would like to make sure PSA blood work was included. also would like to make an appt for COVID TESTING . states he tested + about a week an a half (2tests and was pretty sick about a week an half ago.) Please call to discuss #[phone]. IMPORTANT: This note was created by [facility] Clinical Contact Center staff. Please do not alert the staff member by adding them as a signer for future communications. Alerts are not monitored by this user. /es/ HERSON BOURGEOIS [facility] Signed: 06/15/2024 14:39 Receipt Acknowledged By: 06/17/2024 11:23 /es/ TETE PERAZA LPN License Practical Nurse 06/17/2024 11:34 /es/ MINISTERIO MATUTE, MSN, RN, CNL PRIMARY CARE TEAM NURSE 06/17/2024 ADDENDUM STATUS: COMPLETED [facility] CALLED ON TELEPHONE AND SCHEDULED AN APPT SET FOR June @ 3PM. /es/ JOSE BRITT [facility] Signed: 06/17/2024 12:03 06/18/2024 ADDENDUM STATUS: UNSIGNED You may not VIEW this UNSIGNED Addendum. TETE PERAZARL [facility] [place] [facility] Jun 15, 2024 02:39 PM ADMINISTRATIVE NOT E: LOCAL TITLE: CCC: SCHEDULING ADMINISTRATION STANDARD TITLE: ADMINISTRATIVE NOTE DATE OF NOTE: JUN 15, 2024@14:39:29 ENTRY DATE: JUN 15, 2024@14:39:29 AUTHOR: HERSON WISE COSIGNER: URGENCY: STATUS: COMPLETED CCC: SCHEDULING ADMINISTRATION Has ADDENDA Patient Demographics Patient Name: CHRISTEL SHINE Patient Primary Phone: [phone] Patient Primary [address]: [address] [place] [address] Patient : 1950 Patient Age: 73 Caller/Recipient Relation to Patient: Self Caller Name: CHRISTEL SHINE Administrative Administrative Note Reason: Other Administrative Note Comments: calling stating he would like to make sure his blood work orders were in so he can get them done before his appt 06-28-24. would like to make sure PSA blood work was included. Mansfield also would like to make an appt for COVID TESTING . states he tested + about a week an a half (2tests and was pretty sick about a week an half ago.) Please call to discuss #[phone]. IMPORTANT: This note was created by [facility] Clinical Contact Center staff. Please do not alert the staff member by adding them as a signer for future communications. Alerts are not monitored by this user. /dominick/ HERSON WISE VISN1 [facility] Signed: 06/15/2024 14:39 Receipt Acknowledged By: 06/17/2024 11:23 /dominick/ TETE PERAZA LPN License Practical Nurse 06/17/2024 11:34 /dominick/ MINISTERIO MATUTE, MSN, RN, CNL PRIMARY CARE TEAM NURSE 06/17/2024 ADDENDUM STATUS: COMPLETED attempted to reach the , but the call was not answered. general message was left on voice mail. The upcoming apt is with a nurse, is due for a 6 month follow up with the provider. Will alert [facility] to book a 6 months follow up. Alert to the provider to order necessary labs. Last PSA was done 11/04/23. /dominick/ TETE PERAZA LPN License Practical Nurse Signed: 06/17/2024 11:27 Receipt Acknowledged By: 06/18/2024 14:58 /dominick/ LESVIA GABRIEL D.O. PHYSICIAN 06/17/2024 12:01 /dominick/ JOSE BRITT [facility] 06/17/2024 ADDENDUM STATUS: COMPLETED [facility] CALLED ON TELEPHONE AND SCHEDULED AN APPT SET FOR June @ 3PM. /dominick/ JOSE BRITT [facility] Signed: 06/17/2024 12:03 06/18/2024 ADDENDUM STATUS: COMPLETED please review note from Nisha, the upcoming apt is supposed ot be PACT 8 RN, not with nm /dominick/ LESVIA GABRIEL D.O. PHYSICIAN Signed: 06/18/2024 14:59 Receipt Acknowledged By: * AWAITING SIGNATURE * JOSE BRITT ASHLEY L [facility]
--- OUTSIDE RECORDS SUMMARY | 2024-07-08 08:37 | XMS_ITS | Clinical Summary ---
Author Organization [employer] Address [address] [place] [address] Care Team Providers Care Accounts Payable Assistant Name Role Phone Unavailable Primary Care Provider Unavailabl e Allergies Active Allergy Reactions Criticality Noted Date Comments Ciprofloxacin 08/03/2020 Sensation throat closing Lactose 12/24/2016 Soy Allergy (Do Not Select) 12/25/19 17 Medications nitrofurantoin, macrocrystal-mo nohydrate, (Macrobid) 100 MG capsule Take 100 mg by mouth 2 times daily. 2 Active amoxicillin (Amoxil) 500 MG capsule Take 4 capsules of amoxicillin 500 mg 1 hour prior dental procedure 12 capsule 3 Active Active Problems Problem Noted Date Diagnosed Date Retained dental root 06/20/2023 Immunizations Name Administration Dates Next Due DTaP 12/09/2012 Influenza injectable quadriv alent preservative free 03/02/2019 Influenza, IIV3, injectable 07/15/2016 Moderna Covid-19 Vaccine 12+ 10/14/2020,09/17/19 21 Pneumococcal Conjugate PCV 13 04/01/2016 Pneumococcal Polysaccharide PPSV23 03/02/2018,,12/09/2012 Tdap 12/09/2012 Zoster, live 12/09/2012 Social History Tobacco Use Types Packs/Day Years Used Date Smoking Tobacco: Never Smokeless Tobacco: Never Tobacco Cessation:Counseling Given: Not Answered Alcohol Use Standard Drinks/Week Comments Never 0 (1 standard drink = 0.6 oz pur e alcohol) Sex and Gender Information Value Date Recorded Sex Assigned at Male 04/01/2022 10:27 AM EDT Legal Sex Male 10:27 AM EDT Gender Identity Male 06/17/2023 4:09 PM EST Sexual Orientation Straight 04/01/2022 10 :27 AM EDT Last Filed Vital Signs Vital Sign Reading Time Taken Comments Blood Pressure 122/78 06/20/2023 8:50 AM EST Pulse - - Temperature - - Respiratory Rate - - Oxygen Saturation - - Inhaled Oxygen Concentration - - Weight - - Height - - Body Mass Index - - Plan of Treatment Health Maintenance Due Date Last Done Comments Anal Pap 1950 CT Colonography 1950 Colonoscopy 1950 Colorectal Cancer Screening 1950 Dental Oral Exam 1950 Dental Prophylaxis 1950 Dental X-Ray: Bitewings 1950 Dental X-Ray: Full Mouth 1950 Depression Screening 1950 FIT DNA/Cologuard 1950 FIT 1950 FOBT 1950 Lipid Panel 1950 SDOH Screening 1950 Sigmoidoscopy 1950 Alcohol/Substance Use Screening 1962 Hepatitis C Screening 1968 Hepatitis A Vaccines (1 of 2 - Risk 2-dose series) 1969 Hepatitis B Vaccines (1 of 3 - Risk 3-dose series) 2010 RSV Patients and Patients Aged 60 years or older (1 - Risk 60-74 years 1-dose series) 2010 DTaP/Tdap/Td Vaccines (3 - Td or Tdap) 12/09/2022 12/09/2012, 12/09/2012 COVID-19 Vaccine ( - season) 2024 10/14/2020, 09/16/2020 Influenza Vaccine (#1) 2024 9, 07/15/2016, 07/15/2016 Tobacco Screening 06/20/2024 06/20/2023 Pneumococcal Vaccine: 50+ Years Completed 03/02/2018, 06/26/2017, 04/01/2016, Additional history exists Zoster Vaccines Completed 01/23/2023, 06/0 09/2022, 12/09/2012 HIB Vaccines Aged Out No longer eligi ble based on patient's age to complete this topic HPV Vaccines Aged Out No longer eligi ble based on patient's age to complete this topic IPV Vaccines Aged Out No longer eligi ble based on patient's age to complete this topic Meningococcal Vaccine Aged Out No melia alfredo eligible based on patient's age to complete this topic RSV under 20 months Aged Out No longe r eligible based on patient's age to complete this topic Rotavirus Vaccines Aged Out No longer eligible based on patient's age to complete this topic Insurance DENTAL - HSN FULL (MEDICAID)
--- OUTSIDE RECORDS SUMMARY | 2024-07-08 08:37 | XMS_ITS | Encounter Summary ---
Author Organization [email or web address] Address [address] [place] [address] Care Team Providers Care Catalyst Unit Operator Name Role Phone Unavailable Primary Care Provider Unavailabl e Reason for Visit * Reason Onset Date Comments partial adjustment 07/04/2023 Encounter Details Date Type Department Care Team ([facility] st Contact Info) Description 07/04/2023 Telephone [facility] [address] [place] [address] Zhane Regalado DDS [address] [place] [address] partial adjustment Social History Tobacco Use Types Packs/Day Years Used Date Smoking Tobacco: Never Smokeless Tobacco: Never Alcohol Use Standard Drinks/Week Comments Never 0 (1 standard drink = 0.6 oz pur e alcohol) Sex and Gender Information Value Date Recorded Sex Assigned at Male 04/01/2022 10:27 AM EDT Legal Sex Male 10:27 AM EDT Gender Identity Male 06/17/2023 4:09 PM EST Sexual Orientation Straight 04/01/2022 10 :27 AM EDT documented as of this encounter Miscellaneous Notes * Telephone Encounter - Elidia Olson - 07/04/2023 11:14 AM EST Message for Dr. Maciel Patient states he needs a partial adjustment. Patient states he was told that he can just come in for an adjustment. Did inform patient that it is by scheduled appt. Offered 07/15 but he states it istoo far out becuase he can't eat. service desk specialist recommended contact provider for appt. Reached out to provider via phone no answer. Pls advise documented in this encounter Plan of Treatment Not on file documented as of this encounter Visit Diagnoses Not on filedocumented in this encounter
--- OUTSIDE RECORDS SUMMARY | 2024-07-08 08:37 | XMS_ITS | Clinical Summary ---
Author Organization [facility] Address [address] [place] [address] Care Team Providers Care Passport Support Associate Name Role Phone Unavailable Primary Care Provider Unavailabl e Social History Tobacco Use Types Packs/Day Years Used Date Smoking Tobacco: Never Assessed Sex and Gender Information Value Date Recorded Sex Assigned at Not on file Gender Identity Not on file Sexual Orientation Not on file Plan of Treatment Health Maintenance Due Date Last Done Comments Hepatitis C Virus Screening 1950 DTaP/Tdap/Td Vaccines (1 - Tdap) 1969 Pneumococcal Vaccines 50+ (1 of 1 - PCV) 2000 Zoster (Shingles) Vaccine (1 of 2) 2000 COVID-19 Vaccine (2023-2 5 season) 2024 RSV Vaccine 60 years and old er and Patients (1 - 1-dose 75+ series) 2025 Hepatitis B Vaccines Aged Out No long er eligible based on patient's age to complete this topic
--- OUTSIDE RECORDS SUMMARY | 2024-07-08 08:37 | XMS_ITS | Encounter Summary ---
Author Name [facility] [place] [facility] [place] Address [address] [place] [address] Care Team Providers Care Paste Maker Name Role Phone LESVIA GABRIEL Primary Care [...] RANDY MEDEX CHOIC E Dec 31, 2016 [id number] [phone] OPAL SHINE Y PATIENT [place] SUPP[place] RANDY MEDEX CHOIC E Dec 31, 2016 [id number] OPAL [place] RANDY MEDEX CHOIC E Dec 31, 2016 [id number] FÁTIMAGAR Y PATIENT [facility] MEDICARE SUPPLEMEN RANDY MEDEX CHOIC E MONTH LY Dec 31, 2016 [id number] STORM,GAR Y PATIENT MEDICAID MEDICAID [facility] MI[facility]ED Jun 02, 2013 MEDICAI D [id number] STORM,GAR Y PATIENT MEDICARE (WNR) MEDICARE (M) PART B Dec 01, 2015 PART B [id number] [phone] STORM,GAR Y PATIENT MEDICARE (WNR) MEDICARE () PART A Dec 01, 2015 PART A [id number] [phone] STORM,GAR Y PATIENT MEDICARE (WNR) MEDICARE (M) PART B Dec 01, 2015 PART B [id number] STORM,GAR Y PATIENT MEDICARE (WNR) MEDICARE () PART A Dec 01, 2015 PART A [id number] STORM,GAR Y PATIENT MEDICARE (WNR) MEDICARE (M) PART B Dec 01, 2015 PART B [id number] STORM,GAR Y PATIENT MEDICARE (WNR) MEDICARE () PART A Dec 01, 2015 PART A [id number] STORM,GAR Y PATIENT MEDICARE (WNR) MEDICARE () PART B Dec 01, 2015 PART B [id number] STORM,GAR Y PATIENT MEDICARE (WNR) MEDICARE () PART A Dec 01, 2015 PART A [id number] STORM,GAR Y PATIENT MEDICARE (WNR) MEDICARE () PART B Dec 01, 2015 PART B [id number] STORM,GAR Y PATIENT MEDICARE (WNR) MEDICARE () PART A Dec 01, 2015 PART A [id number] [phone] STORM,GAR Y PATIENT Selected Encounter This section includes the information on record at [place] for the Encounter. Date/Time Encounter Type Encounter Description Reason Provider Source Nov 07, 2023 11:00 AM OFF/OP EST SEPTEMBER X REQ PHY/QHP PRIMARY CARE/MEDICINE ICD-10-CM Z23 Encounter for immunization CHUNG DESOUZA SSA H IHE Encounter Template Text not used by [place] Assessments - Encounter Diagnoses This section includes the primary and secondary diagnoses documented for the Encounter. Date/Time Primary/Secondary Diagnosis Diagnosis Name Provider Source Dec 03, 2023 03:58 PM PRIMARY Encounter for immunization [facility] Plan of Treatment: Future Appointments (+ 6 months) and Future Tests (+/- 45 days) The Plan of Treatment section includes future care activities for the patient from all [place] [facility]. This section includes future appointments and future orders which are active, pending or scheduled. Future Appointments This section includes appointments that were scheduled to occur 6 months from the date of the Encounter, up to a maximum of 20 appointments. The data comes from all [facility]. Appointment Date/Time Appointment Type Appointme nt Facility Name Nov 17, 2023 09:40 AM AMBULATORY [place]ICINE [place] [facility] [place] [facility] Jan 13, 2024 02:00 PM AMBULATORY - MEDICINE [facility] Jan 13, 2024 02:00 PM AMBULATORY - NONE [place] [facility] [place] [facility] Jan 27, 2024 11:00 AM [facility] [place] [facility] Jan 27, 2024 01:00 PM AMBULATORY [place]ICINE [place] [facility] [place] [facility] Apr 28, 2024 02:00 PM [facility]UL[facility] Active, Pending, and Scheduled Orders This section includes a listing of several types of active, pending, and scheduled orders, including clinic medications orders, diagnostic test orders, procedure orders and consult orders; where the start date of the order is 45 days before the date of the Encounter or 45 days after the date of theEncounter. The data comes from all [facility]. Test Date/Time Test Type Test Details Facility Name Nov 17, 2023 12:00 AM Laboratory - Chemistry Order VITAMIN B12 BLOOD (SST-SERUM) [facility] Nov 17, 2023 12:00 AM Laboratory - Chemistry Order FOLATE (WROX) BLOOD (SST-SERUM) [facility] Nov 17, 2023 12:00 AM Laboratory - Chemistry Order PROTEIN SERUM ELECTROPHORESIS PANEL/ELICEO BLOOD (SST-GOLD) SERUM [facility] Nov 17, 2023 12:00 AM Laboratory - Chemistry Order UPEP REFLEX PANEL,SPOT URINE SP [facility] Nov 17, 2023 12:00 AM Laboratory - Chemistry Order CBC AND DIFF (AUTO) BLOOD (LAV-BLOOD) SP [facility] Lab Results: +/- 30 days of [...] Range Comment Nov 22, 2023 10:15 AM [facility] OCCULT BLOOD FIT X1 SCREEN(IN-HOUSE) Specimen Type: FECES No comment entered. Ordering Provider: LESVIA GABRIEL Report Released Date/Time: Nov 04, 2023 01:32 PM Reporting Lab: [address] [address] Performing Lab: [address] [address] OCCULT BLOOD (FIT)#1 OF 1 Negative NEG Nov 17, 2023 10:10 AM [facility] PT & INR (PROTIME) Specimen Type: PLASMA No comment entered. Ordering Provider: LIUDMILA GARDINER Report Released Date/Time: Nov 05, 2023 11:16 AM Reporting Lab: [address] [address] Performing Lab: [address] [address] INR 1.1 PROTIME 12.9 s 10.0-13.1 Nov 17, 2023 10:10 AM [facility] CERULOPLASMIN Specimen Type: SERUM No comment entered. Ordering Provider: LIUDMILA GARDINER Report Released Date/Time: Nov 05, 2023 11:16 AM Reporting Lab: [facility] [address] [address] Performing Lab: [facility] [address] [facility] [place] [address] CERULOPLASMIN 24 mg/dL 20-60 Nov 17, 2023 10:10 AM [facility] [place] [facility] HEPATITIS B SURFACE ANTIBODY (HBsAb)- Specimen Type : SERUM No comment entered. Ordering Provider: LIUDMILA GARDINER Report Released Date/Time: Nov 05, 2023 11:16 AM Reporting Lab: [facility] [place] [address] [address] Performing Lab: [facility] [place] [facility] Nov 17, 2023 10:[address] [facility] HEPATITIS B SURFACE ANTIGEN (HBsAg)- Specimen Type: SERUM Comment: A Reactive result ( Positive prior to 03/15/13) is diagnostic of acute or chronic hepatitis B infection. The presence of Hepatitis B surface antigen is frequently associated with infectivity. Ordering Provider: LIUDMILA GARDINER Report Released Date/Time: Nov 05, 2023 11:16 AM Reporting Lab: [place] [facility] [place] [place] [address] [address] Performing Lab: [facility] [place] [facility] [address] [facility] [address] HBsAg Non Reactive Non Reactive Nov 17, 2023 10:10 AM [facility] TIKA SCREEN/TITER Specimen Type: SERUM No comment entered. Ordering Provider: LIUDMILA GARDINER Report Released Date/Time: Nov 05, 2023 11:16 AM Reporting Lab: [facility] [place] [address] [address] Performing Lab: [facility] [place] [facility] [address] [facility] [place] [address] TIKA SCREEN NEG Nov 17, 2023 10:10 AM [facility] ALPHA 1 ANTITRYPSIN Specimen Type: SERUM No comment entered. Ordering Provider: LIUDMILA GARDINER Report Released Date/Time: Nov 05, 2023 11:16 AM Reporting Lab: [facility] [place] [address] [address] Performing Lab: [facility] [address] [facility] [place] [address] ALPHA 1 ANTITRYPSIN 161 mg/dL 90-200 Nov 17, 2023 10:10 AM [facility] HEPATITIS A ANTIBODY (IGG) Specimen Type: SERUM Comment: Hep A IgG: A 'Non-reactive' result indicates no anti-HAV IgG was detected. Ordering Provider: LIUDMILA GARDINER Report Released Date/Time: Nov 05, 2023 11:16 AM Reporting Lab: [facility] [address] [address] Performing Lab: [facility] [address] [facility] [address] HEPATITIS A ANTIBODY (IGG) Non Reactive Non Reactive Nov 17, 2023 10:10 AM [facility] HEPATITIS C ANTIBODY (HCV)-ARC Specimen Type: SERUM Comment: Hep C Ab: No HCV antibody detected. If recent infection is suspected or other evidence suggests HCV infection, consider HCV nucleic acid testing Ordering Provider: LIUDMILA GARDINER Report Released Date/Time: Nov 05, 2023 11:16 AM Reporting Lab: [address] [address] Performing Lab: [address] [address] HEPATITIS C ANTIBODY NON-REACTIVE NON-REACTI VE Nov 17, 2023 10:10 AM [facility] FERRITIN Specimen Type: SERUM No comment entered. Ordering Provider: LIUDMILA GARDINER Report Released Date/Time: Nov 05, 2023 11:16 AM Reporting Lab: [facility] [address] [address] Performing Lab: [address] [address] FERRITIN 77 ng/mL 20-300 Nov 17, 2023 10:10 AM [facility] IRON & TIBC PANEL Specimen Type: SERUM No comment entered. Ordering Provider: LIUDMILA GARDINER Report Released Date/Time: Nov 05, 2023 11:16 AM Reporting Lab: [facility] [address] [address] Performing Lab: [facility] [address] [address] TIBC 296 ug/dL 204-475 IRON 123 ug/dL 40-160 Transferrin Saturation 41.6 20.0-50.0 Nov 17, 2023 10:[address] [facility] ALBUMIN Specimen Type: SERUM No comment entered. Ordering Provider: LIUDMILA GARDINER Report Released Date/Time: Nov 05, 2023 11:16 AM Reporting Lab: [facility] [address] [address] Performing Lab: [facility] [address] [address] ALBUMIN 4.0 g/dL 3.5-5.0 Nov 17, 2023 10:10 AM [facility] LIVER FUNCTION Specimen Type: SERUM No comment entered. Ordering Provider: LIUDMILA GARDINER Report Released Date/Time: Nov 05, 2023 11:16 AM Reporting Lab: [facility] [address] [address] Performing Lab: [facility] [address] PROTEIN,TOTAL 6.2 g/dL 6.0-8.3 ALBUMIN 4.0 g/dL 3.5-5.0 ALKALINE PHOSPHATASE 84 U/L 40-150 AST 20 U/L 5-34 ALT 16 U/L BILIRUBIN, TOTAL 1.0 mg/dL 0.2-1.2 Nov 17, 2023 10:[address] [facility] BASIC METABOLIC PANEL (non-fasting) Specimen Type: SERUM No comment entered. Ordering Provider: LIUDMILA GARDINER Report Released Date/Time: Nov 05, 2023 11:16 AM Reporting Lab: [facility] [address] [address] Performing Lab: [facility] [address] [address] UREA NITROGEN 15 mg/dL 7-25 GLUCOSE 88 mg/dL 65-100 SODIUM 139 mmol/L 135-145 POTASSIUM 3.8 mmol/L 3.5-5.0 CHLORIDE 105 mmol/L 100-110 CO2 27 meq/L 20-30 CREATININE, Serum 0.90 mg/dL 0.50-1.40 eGFR(CKD-EPI 2020) >90 mL/min >60 Nov 17, 2023 10:10 AM [facility] CBC AND DIFF (AUTO) Specimen Type: BLOOD No comment entered. Ordering Provider: LIUDMILA GARDINER Report Released Date/Time: Nov 05, 2023 11:16 AM Reporting Lab: [facility] [address] [address] Performing Lab: [facility] [address] [address] WBC 4.36 10*3/uL L 4.50-11.00 RBC 3.96 [...] 10*3/uL 0.00-0.00 Nov 04, 2023 02:41 PM [facility] PSA Specimen Type: SERUM No comment entered. Ordering Provider: LESVIA GABRIEL Report Released Date/Time: October 30, 2023 08:06 AM Reporting Lab: [address] [address] Performing Lab: [address] [address] PSA 3.58 ng/mL 0.00-4.00 Nov 04, 2023 02:41 PM [facility] BASIC METABOLIC PANEL (non-fasting) Specimen Type: SERUM No comment entered. Ordering Provider: LESVIA GABRIEL Report Released Date/Time: October 30, 2023 08:06 AM Reporting Lab: [address] [address] Performing Lab: [address] [address] UREA NITROGEN 17 mg/dL 7-25 GLUCOSE 113 mg/dL H 65-100 SODIUM 138 mmol/L 135-145 POTASSIUM 3.5 mmol/L 3.5-5.0 CHLORIDE 104 mmol/L 100-110 CO2 26 meq/L 20-30 CREATININE, Serum 0.91 mg/dL 0.50-1.40 eGFR(CKD-EPI 2020) 89 mL/min >60 Nov 04, 2023 02:40 PM [facility] MEASLES (IgM) Ab (Rubeola) Specimen Type: [...] analytical performance characteristics have been determined by [employer]. It has not been cleared or approved by the U.S. Food and Drug Administration. This assay has been validated pursuant to the CLIA regulations and is used for clinical purposes. For additional information, please refer to http://education .[employer]/faq/PGO009 (This link is being provided for informational/ educational purposes only.) Test Performed by [facility] [place], [employer] [facility], [address] [place] [address] Vernon Carrillo M.D., Ph.D., Director of Laboratories , CLIA [id number] TEST PERFORMED AT: , Ordering Provider: LESVIA GABRIEL Report Released Date/Time: Nov 04, 2023 01:54 PM Reporting Lab: [facility] [address] [address] Performing Lab: [facility] [address] [address] MEASLES (IgM) Ab (Rubeola) <1:20 {titer} Nov 04, 2023 02:40 PM [facility] HEPATITIS B SURFACE ANTIBODY (HBsAb)-WH Specimen Type : SERUM No comment entered. Ordering Provider: LESVIA GABRIEL Report Released Date/Time: Nov 04, 2023 01:54 PM Reporting Lab: [facility] [address] [address] Performing Lab: [address] [address] HBsAb Non Reactive Non Reactive Nov 04, 2023 02:40 PM [facility] LIVER FUNCTION Specimen Type: SERUM No comment entered. Ordering Provider: LESVIA GABRIEL Report Released Date/Time: Nov 04, 2023 01:54 PM Reporting Lab: [address] [address] Performing Lab: [address] [address] PROTEIN,TOTAL 6.1 g/dL 6.0-8.3 ALBUMIN 3.9 g/dL 3.5-5.0 ALKALINE PHOSPHATASE 92 U/L 40-150 AST 18 U/L 5-34 ALT 14 U/L BILIRUBIN, TOTAL 0.8 mg/dL 0.2-1.2 Nov 04, 2023 02:40 PM [facility] CBC Specimen Type: BLOOD No comment entered. Ordering Provider: LESVIA GABRIEL Report Released Date/Time: Nov 04, 2023 01:54 PM Reporting Lab: [address] [address] Performing Lab: [address] [address] WBC 4.87 10*3/uL 4.50-11.00 RBC 4.07 10*6/uL L 4.23-5.66 HGB 13.2 g/dL 12.8-17 HCT 38.3 L 39.2-50.4 MCV 94.1 fL 82-99 MCHC 34.5 g/dL 30.8-35.1 PLT 130 10*3/uL L 140-360 RDW-CV 13.1 12.0-16.0 MCH 32.4 pg 26.2-32.6 Immunizations: All administered on the encounter date This section contains immunizations associated to the Encounter. Immunization Series Date Issued Reaction Comments HEP A-HEP B 1 Nov 07, 2023 TDAP Nov 07, 2023 Social History: Smoking Status (Most current) and Tobacco Use (All prior to encounter date) This section includes the most current, and the historical, smoking and tobacco- related health factors from the [place] facility where the Encounter took place. Current Smoking Status This section includes the most current smoking, or tobacco-related health factor, from the [place] facility where the Encounter took place. Date/Time Current Smoking Status Comment Ely holder May 08, 2023 01:30 PM VA-TOBACCO NEVER USED [place] [facility] [place] [facility] Tobacco Use History This section includes a history of the smoking, or tobacco-related health factors, that were collected on or before the date of the Encounter. The data comes from the [place] facility where the Encounter took place. Date/Time Smoking Status/Tobacco Use Comment F acility Mar 19, 2022 01:30 PM VA-TOBACCO NEVER USED [facility] [place] [facility] Mar 20, 2021 02:00 PM VA-TOBACCO FORMER USER [facility] [place] [facility] Mar 20, 2021 02:00 PM VA-TOBACCO QUIT 15 YRS OR MORE [facility] [place] [facility] Mar 20, 2020 02:00 PM VA-TOBACCO FORMER USER [facility] [place] [facility] Mar 20, 2020 02:00 PM VA-TOBACCO QUIT 15 YRS OR MORE [facility] [place] [facility] Mar 02, 2018 01:59 PM VA-TOBACCO FORMER USER [facility] [place] [facility] Mar 02, 2018 01:59 PM VA-TOBACCO QUIT 15 YRS OR MORE [facility] [place] [facility] Mar 02, 2018 01:23 PM VA-TOBACCO FORMER USER [facility] [place] [facility] Mar 02, 2018 01:23 PM VA-TOBACCO QUIT 15 YRS OR MORE [facility] [place] [facility] September 30, 2016 09:39 AM LIFETIME NON-TOBACCO USER [place] [facility] [place] [facility] October 12, 2015 01:46 PM LIFETIME NON-TOBACCO USER [place] [facility] [place] [facility] Radiology Reports: +/- 30 days of the [...] the Encounter. The data comes from all [place] treatment facilities. Date/Time Radiology Report Provider Source Nov 04, 2023 12:21 PM ULTRASOUND ABDOMEN LIMITED: CHRISTEL HSINE [id number] -[id number] M Exm Date: NOV 04, 2023@12:21 Req Phys: WALLY MIGUEL Pat Loc: CWM/NO/PACT 1 (Req'g Loc) Img Loc: ULTRASOUND Service: [facility] , (Case [id number] COMPLETE) ULTRASOUND ABDOMEN LIMITED (US Detailed) CPT:08407 Reason for Study: hx of liver cysts and hemagioma for survillence Clinical History: Report Status: Verified Date Reported: NOV 04, 2023 Date Verified: NOV 04, 2023 Project Finance Analyst E-Sig:/ES/TAMICA YOUNG JR Report: Study: Abdomen ultrasound. [...] Primary Interpreting Staff: TAMICA YOUNG JR, Radiologist (Project Finance Analyst) /TAMICA OSMAN JR [facility] Encounter Notes: All associated encounter notes This section contains the clinical notes associated to the Encounter. Date/Time Encounter Note(s) Provider Source Nov 12, 2023 10:07 AM ADDENDUM: LOCAL TITLE: Addendum STANDARD TITLE: ADDENDUM DATE OF NOTE: NOV 12, 2023@10:07:23 ENTRY DATE: NOV 12, 2023@10:07:23 AUTHOR: LESVIA GABRIEL COSIGNER: URGENCY: STATUS: COMPLETED recent labs show NOT immune to Hep B or measles. please give MMR and Hep B series. still pending Hep A immunity result /dominick/ LESVIA GABRIEL D.O. PHYSICIAN Signed: 11/12/2023 10:08 Receipt Acknowledged By: 11/13/2023 07:54 /es/ EARNESTINE DESOUZA REGISTERED NURSE --- Original Document --- 11/07/23 PRIMARY CARE NURSE NOTE: F: Immunization Reviewed information about immunizations. Measel antibody test still pending. Hepatitis B Serology/Immunization: Combination Hepatitis A / Hepatitis B vaccine Administered: HEP A-HEP B Date Administered: Nov 07, 2023 11:00 Series: Series 1 [employer] Sales: [employer] Lot: [id number] Exp Date: May 31, 2025 ND: [id number] Admin Route/Site: INTRAMUSCULAR/LEFT DELTOID Dosage: 1mL Vaccine Information Statement(s): HEPATITIS B VACCINE VIS October 11, 2022 ([place]) Order By: Policy Administered By: Earnestine Desouza Vaccine Information Sheet (VIS) was given to the patient/caregiver, education regarding adverse reactions was discussed, as well as barriers to learning, if any, were acknowledged. Td / Tdap Immunization: Administered: TDAP Date Administered: Nov 07, 2023 11:00 Mortgage Protection Sales: [employer] Lot: [id number] Exp Date: October 02, 2025 NDC: [id number] Admin Route/Site: INTRAMUSCULAR/RIGHT DELTOID Dosage: 0.5mL Vaccine Information Statement(s): TDAP (TETANUS, DIPHTHERIA, PERTUSSIS) VACCINE VIS Jan 05, 2021 ([place]) Order By: Policy Administered By: Earnestine Desouza Vaccine Information Sheet (VIS) was given to the patient/caregiver, education regarding adverse reactions was discussed, as well as barriers to learning, if any, were acknowledged. Provided information about immunization. Mcgee will call next week about labs and plan follow up Rn misbaht. /dominick/ EARNESTINE DESOUZA REGISTERED NURSE Signed: 11/07/2023 11:29 LESVIA GABRIEL [facility] [place] [facility] Nov 07, 2023 11:00 AM NURSING NOTE: LOCAL TITLE: PRIMARY CARE NURSE NOTE STANDARD TITLE: NURSING NOTE DATE OF NOTE: NOV 07, 2023@11:00 ENTRY DATE: NOV 07, 2023@11:21 AUTHOR: EARNESTINE DESOUZA EXP COSIGNER: URGENCY: STATUS: COMPLETED PRIMARY CARE NURSE NOTE Has ADDENDA F: Immunization Reviewed information about immunizations. Measel antibody test still pending. Hepatitis B Serology/Immunization: Combination Hepatitis A / Hepatitis B vaccine Administered: HEP A-HEP B Date Administered: Nov 07, 2023 11:00 Series: Series 1 Mortgage Protection Sales: [employer] Lot: [id number] Exp Date: May 31, 2025 NDC: [id number] Admin Route/Site: INTRAMUSCULAR/LEFT DELTOID Dosage: 1mL Vaccine Information Statement(s): HEPATITIS B VACCINE VIS October 11, 2022 ([place]) Order By: Policy Administered By: Earnestine Desouza Vaccine Information Sheet (VIS) was given to the patient/caregiver, education regarding adverse reactions was discussed, as well as barriers to learning, if any, were acknowledged. Td / Tdap Immunization: Administered: TDAP Date Administered: Nov 07, 2023 11:00 Mortgage Protection Sales: [employer] Lot: [id number] Exp Date: October 02, 2025 NDC: [id number] Admin Route/Site: INTRAMUSCULAR/RIGHT DELTOID Dosage: 0.5mL Vaccine Information Statement(s): TDAP (TETANUS, DIPHTHERIA, PERTUSSIS) VACCINE VIS Jan 05, 2021 ([place]) Order By: Policy Administered By: Earnestine Desouza Vaccine Information Sheet (VIS) was given to the patient/caregiver, education regarding adverse reactions was discussed, as well as barriers to learning, if any, were acknowledged. Provided information about immunization. Mcgee will call next week about labs and plan follow up Rn misbaht. /dominick/ EARNESTINE DESOUZA REGISTERED NURSE Signed: 11/07/2023 11:29 11/12/2023 ADDENDUM STATUS: COMPLETED recent labs show NOT immune to Hep B or measles. please give MMR and Hep B series. still pending Hep A immunity result /dominick/ LESVIA GABRIEL D.O. PHYSICIAN Signed: 11/12/2023 10:08 Receipt Acknowledged By: * AWAITING SIGNATURE * EARNESTINE DESOUZA MELISSA H [facility]
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
--- OUTSIDE RECORDS SUMMARY | 2024-07-08 08:37 | XMS_ITS | Continuity of Care Document ---
Author Name [facility] Organization [facility] Care Team Providers Care Extractor Filler Name Role Phone [facility] Unavailable Unavailable Problems Combined list of problems from Department of Defense and Veterans Affairs facilities. It does not include entries that were removed or entered in error. Problem Status Onset Date Problem Type Date of Resolution Comments Source Left Inguinal Hernia Inactive 06/02/19 06 Condition 07/15/2016 Dec 28, 2009 Entered By: JOSE GELLER Comment: Extremely Large Left Inguinal Hernia: 10 in X 14 in DiameterMay 2011 Entered By: JOSE GELLER Comment: 11-23-10: Left Hernia RepairMay 2011 Entered By: JOSE GELLER Comment: : Distended Bladder: PVR: 900 ccMay 2011 Entered By: JOSE GELLER Comment: Left Hydrocele [facility] Infectious Mononucleosis Inactive 06/02/18 80 Condition 07/15/2016 [facility] Atonic bladder Active Condition [facility] Atrial fibrillation Active Condition [facility] Benign prostatic hyperplasia (SNOMED CT [id number]) Active Condition May 13, 2013 Entered By: NIKKI TORRES Comment: urinary retention 12.2.13@ urology [facility] HX-ISCHEM HEART DIS Active Condition Dec 28, 2009 Entered By: JOSE GELLER Comment: CAD [facility] Hearing loss Active Condition [facility] Hemangioma of liver Active Condition May 29, 2014 Entered By: SHEEBA MIGUEL Comment: on mri in mar 2014 at [facility] 2023 Entered By: LESVIA GABRIEL Comment: order CT-Liver protocol in a year 12/2024 to f/u hemangioma and cysts- no need to see liver clinic [facility] History of repair of mitral valve Active Condition [facility] [place] [facility] 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, 2012 Entered By: PADMAJA RAYO Comment: surgery 2011 [facility] Incisional hernia Active Condition [facility] [place] [facility] 1965: Dislocated Rt 5th Digit Inactive Condition 07/15/2016 [facility] Carotid artery doppler normal Inactive Condition 07/15/2016 October 27, 2013 Entered By: CARMEN PAIGE Comment: 09/13 no significant stenosis [facility] Computed Tomography Result Abnormal Inactive Condition 07/15/2016 October 27, 2013 Entered By: CARMEN PAIGE Comment: 08/13 [employer] no PE,slight prominence L atrium-echoMa y 2013 Entered By: CARMEN PAIGE Comment: recommended,L adrenal mass unable to characterize, R hepaMay 2013 Entered By: CARMEN PAIGE Comment: tic lobe large septated hyqs-jie-hrih rosetta,L posterior chestMay 2013 Entered By: CARMEN PAIGE Comment: wall lipoma. full report scanned into [facility] Echocardiogram abnormal Inactive Condition 07/15/2016 October 27, 2013 Entered By: CARMEN PAIGE Comment: 09/13 known mitral valve prolapse [facility] Helicobacter Pylori [H. Pylori] Infection in conditions classified elsewhere and Inactive Condition 07/15/2016 [facility] History of repair of musculotendinous cuff of shoulder Inactive Condition 07/15/2016 [facility] [place] [facility] L/T (CURRENT) USE - ANTICOAG Inactive Condition 07/15/2016 [facility] Lactose Intolerance Inactive Condition 07/15/2016 [facility] Mitral Valve Prolapse Inactive Condition 07/15/2016 Feb 09, 2010 Entered By: JOSE GELLER Comment: pansystolic murmur heard loudest @ PMIApr 2010 Entered By: JOSE GELLER Comment: myxomatous post leaflet MV: Severe MR [facility] Other dyspnea and respiratory abnormality (ICD-9-CM 786.09) Inactive Condition 07/15/2016 [facility] [place] Other Malaise and Fatigue Inactive Condition 07/15/2016 [facility] Palpitations (ICD-9-CM 785.1) Inactive Condition 07/15/2016 [facility] ELR[facility] PCP[facility] Inactive Condition 06/16/2012 [facility] Primary or Secondary Tonsillectomy (Age 12 and over) Inactive Condition 07/15/2016 [facility] Right Inguinal Hernia Inactive Condition 07/15/2016 Dec 25, 2011 Entered By: JOSE GELLER Comment: Urology: Desiree VIERA: [phone] [facility] Diagnosis: ICD-10-CM I48.91 Unspecified atrial fibrillation Active Diagnosis [facility] Diagnosis: ICD-10-CM H25.813 Combined forms of age-related cataract, bilateral Active Diagnosis [facility] Diagnosis: ICD-10-CM R94.5 Abnormal results of liver function studies Active Diagnosis [facility] Diagnosis: ICD-10-CM Z23 Encounter for immunization Active Diagnosis [facility] Diagnosis: ICD-10-CM D13.4 Benign neoplasm of liver Active Diagnosis [facility] Diagnosis: ICD-10-CM R93.2 Abnormal findings on dx imaging of liver and biliary tract Active Diagnosis [facility] Diagnosis: ICD-10-CM Z46.0 Encounter for fit/adjst of spectacles and contact lenses Active Diagnosis [facility] Diagnosis: ICD-10-CM H40.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, low risk, bilateral Active Diagnosis [facility] Diagnosis: ICD-10-CM N31.9 Neuromuscular dysfunction of bladder, unspecified Active Diagnosis [facility] Diagnosis: ICD-10-CM Z04.9 Encounter for examination and observation for unsp reason Active Diagnosis [facility] Diagnosis: ICD-10-CM H90.3 Sensorineural hearing loss, bilateral Active Diagnosis [facility] Medications Combined list of outpatient medications from Department of Defense and Veterans Affairs facilities.Medications provided include 1) outpatient medications from the last 15 months, and 2) patient-reported medications. Medication Details Route Status Patient Instructions Prescription Expires Prescription Number Last Dispense Date Ordering Provider Order Date Order Qty Source ATOVAQUONE 250MG/PROGU RACHEL HCL 100MG TAB TAKE 1 TABLET BY MOUTH ONCE DAILY START 2 DAYS PRIOR TO TRAVEL AND CONTINUE FOR 1 WEEK AFTER RETURN ORAL 12/09/2023 [id number] [facility] [place] 2023 35 [facility] METOPROLOL TARTRATE 25MG TAB TAKE ONE TABLET BY MOUTH ONCE DAILY NEEDED TO PREVENT ANGINAL CHEST PAIN ORAL ACTIVE 11/04/2024 [id number] MELISSACOLO,T VERNON 2023 50 [facility] METOPROLOL TARTRATE 25MG TAB TAKE ONE TABLET BY MOUTH TWICE DAILY FOR PREVENTI ON OF AFIB FOR BLOOD PRESSURE /HEART ORAL 06/07/2023 [id number] KIRA MIGUEL AMMED JAWED 2022 30 [facility] SULFAMETHOX AZOLE 800MG/TRIME THOPRIM 160MG TAB TAKE 1 TABLET BY MOUTH TWICE DAILY ONLY TAKE IF YOU DEVELOP UTI THIS MEDICATI ON WILL LOWER PROTECTI ON FROM TYPHOID VACCINE IF TAKEN WITHIN 3 DAYS (BEFORE OR AFTER) TYPHOID VACCINE COURSE ORAL 12/04/2023 [id number] [facility],T VERNON 2023 14 [facility] TYPHOID VACCINE LIVE CAP TAKE 1 CAPSULE BY MOUTH EVERY OTHER DAY TAKE 1 HOUR BEFORE A MEAL WITH COLD OR LUKE WARM WATER; INJESTIO N OF ALL 4 DOSES SHOULD BE COMPLETE D AT LEAST ONE WEEK PRIOR TO EXPOSURE ORAL 12/04/2023 [id number] [facility],Marty VERNON 2023 4 [facility] Allergies, Adverse Reactions, Alerts Combined list of allergies from Department of Defense and Veterans Affairs facilities. It does not include entries that were removed or entered in error. Substance Category Reaction Severity Reaction type Status Date Reported Comments Source CIPROFLOXACI N Propensity to adverse reactions to drug (finding) Airway constrictio n active 0 [facility] Immunizations Combined list of available immunizations from the Department of Defense and Veterans Affairs facilities. Immunization Series Date Given Administered By Site Reaction Lot Number CVX Code Drug Pipe Stem Aligner Status Comments Source HEP A-HEP B 3 2024 TETE PERAZA RIGHT DELTO ID [id number] 104 complet ed [facility] HEP A-HEP B 2 2023 EDUARDO ESPINOZA E RIGHT DELTO ID [id number] 104 complet ed [facility] HEP A-HEP B 1 2023 CARIKATEI SSA H LEFT DELTO ID [id number] 104 complet ed [facility] TDAP 2023 CARICHUNG SSA H RIGHT DELTO ID [id number] 115 complet ed [facility] ZOSTER RECOMBINANT 2 2022 NNAMDI CRUZ LEFT DELTO ID [id number] 187 complet ed [facility] ZOSTER RECOMBINANT 1 2022 ELY DAMICO RIGHT DELTO ID [id number] 187 complet ed [facility] COVID-19 (MODERNA), MRNA, LNP-S, PF, 100 MCG/0.5 ML DOSE 2 2020 207 complet ed MOD; [id number]; 1 [facility] COVID-19 (MODERNA), MRNA, LNP-S, PF, 100 MCG/0.5 ML DOSE 1 2020 207 complet ed MOD; [id number]; 1 [facility] INFLUENZA, INJECTABLE, QUADRIVALENT, PRESERVATIVE FREE 2018 150 complet ed Site: Left Deltoid [facility] PNEUMOCOCCAL POLYSACCHARID E [id number] 2017 33 complet ed [facility] FLU,3 YRS (HISTORICAL) 2016 88 complet ed Site: Left Deltoid [facility] PNEUMOCOCCAL CONJUGATE PCV 13 2015 133 complet ed [facility] DTAP, UNSPECIFIED FORMULATION 2012 107 complet ed [place] PNEUMOCOCCAL, UNSPECIFIED FORMULATION 2012 109 complet ed [place] ZOSTER LIVE 2012 121 complet [facility] [place] Results Combined list of recent chemistry, hematology and other laboratory results from Department of Defense and Veterans Affairs, ranging from 15 months to all on record, depending upon the facility. Order Name Results Value Reference Range Date Interpretation Specimen Comments Source URINALYS IS CLEAN CATCH COLOR OF URINE Colorles s 06/24 Specimen Type: URINE Comment: If Glucose = >500 and Ketones are positive, please alert the Physician. Ordering Provider: GISELLE GABRIEL Report Released Date/Time: Jun 24, 2024 03:43 PM Reporting Lab: [facility] [place] [facility] [address] [facility] [address] Performing Lab: [facility] [place] [facility] [address] [facility] [address] [facility] [place] [facility] URINALYS IS CLEAN CATCH APPEARANCE OF URINE Clear 06/24 Specimen Type: URINE Comment: If Glucose = >500 and Ketones are positive, please alert the Physician. Ordering Provider: GISELLE GABRIEL Report Released Date/Time: Jun 24, 2024 03:43 PM Reporting Lab: [facility] [place] [facility] [address] [facility] [address] Performing Lab: [facility] [place] [place] [facility] [address] [facility] [address] [facility] [facility] URINALYS IS CLEAN CATCH GLUCOSE [MASS/VOLU ME] IN URINE Normalmg /dL 06/24 Specimen Type: URINE Comment: If Glucose = >500 and Ketones are positive, please alert the Physician. Ordering Provider: GISELLE GABRIEL Report Released Date/Time: Jun 24, 2024 03:43 PM Reporting Lab: [facility] [facility] [address] [facility] [address] Performing Lab: [facility] [place] [facility] [address] [facility] [address] [facility] [place] [facility] URINALYS IS CLEAN CATCH KETONES [MASS/VOLU ME] IN URINE BY TEST STRIP NEGATIVE mg/dL 06/24 Specimen Type: URINE Comment: If Glucose = >500 and Ketones are positive, please alert the Physician. Ordering Provider: GISELLE GABRIEL Report Released Date/Time: Jun 24, 2024 03:43 PM Reporting Lab: [facility] [place] [facility] [address] [facility] [address] Performing Lab: [facility] [place] [facility] [address] [facility] [address] [facility] [facility] URINALYS IS CLEAN CATCH ERYTHROCYT ES [PRESENCE] IN URINE SEDIMENT BY LIGHT MICROSCOPY NEGATIVE mg/dL 06/24 Specimen Type: URINE Comment: If Glucose = >500 and Ketones are positive, please alert the Physician. Ordering Provider: GISELLE GABRIEL Report Released Date/Time: Jun 24, 2024 03:43 PM Reporting Lab: [facility] [place] [facility] [address] [facility] [address] Performing Lab: [facility] [place] [facility] [address] [facility] [address] [facility] [place] [facility] URINALYS IS CLEAN CATCH PROTEIN [MASS/VOLU ME] IN URINE BY TEST STRIP NEGATIVE mg/dL 06/24 Specimen Type: URINE Comment: If Glucose = >500 and Ketones are positive, please alert the Physician. Ordering Provider: GISELLE GABRIEL Report Released Date/Time: Jun 24, 2024 03:43 PM Reporting Lab: [facility] [place] [facility] [address] [facility] [address] Performing Lab: [facility] [place] [facility] [address] [facility] [address] [facility] [place] [facility] URINALYS IS CLEAN CATCH NITRITE [PRESENCE] IN URINE NEGATIVE mg/dL 06/24 Specimen Type: URINE Comment: If Glucose = >500 and Ketones are positive, please alert the Physician. Ordering Provider: GISELLE GABRIEL Report Released Date/Time: Jun 24, 2024 03:43 PM Reporting Lab: [facility] [place] [facility] [address] [facility] [address] Performing Lab: [facility] [place] [facility] [address] [facility] [address] [facility] URINALYS IS CLEAN CATCH BILIRUBIN. TOTAL [PRESENCE] IN URINE NEGATIVE mg/dL 06/24 Specimen Type: URINE Comment: If Glucose = >500 and Ketones are positive, please alert the Physician. Ordering Provider: GISELLE GABRIEL Report Released Date/Time: Jun 24, 2024 03:43 PM Reporting Lab: [facility] [address] Performing Lab: [facility] [address] [facility] [address] [facility] URINALYS IS CLEAN CATCH SPECIFIC GRAVITY OF URINE BY REFRACTOME TRY 1.006 1.016 - 1.022 06/24 L Specimen Type: URINE Comment: If Glucose = >500 and Ketones are positive, please alert the Physician. Ordering Provider: GISELLE GABRIEL Report Released Date/Time: Jun 24, 2024 03:43 PM Reporting Lab: [facility]SE[address] [address] Performing Lab: [address] [address] [facility] URINALYS IS CLEAN CATCH PH OF URINE BY TEST STRIP 7.0 5.0 - 9.0 06/24 Specimen Type: URINE Comment: If Glucose = >500 and Ketones are positive, please alert the Physician. Ordering Provider: GISELLE GABRIEL Report Released Date/Time: Jun 24, 2024 03:43 PM Reporting Lab: [facility] [address] Performing Lab: [facility] [address] [facility] URINALYS IS CLEAN CATCH UROBILINOG EN [MASS/VOLU ME] IN URINE BY TEST STRIP Normalmg /dL <2.0 - 2.0 06/24 Specimen Type: URINE Comment: If Glucose = >500 and Ketones are positive, please alert the Physician. Ordering Provider: GISELLE GABRIEL Report Released Date/Time: Jun 24, 2024 03:43 PM Reporting Lab: [facility] [address] [address] Performing Lab: [facility] [address] [address] [facility] [place] [facility] URINALYS IS CLEAN CATCH LEUKOCYTE ESTERASE [PRESENCE] IN URINE BY TEST STRIP NEGATIVE 06/24 Specimen Type: URINE Comment: If Glucose = >500 and Ketones are positive, please alert the Physician. Ordering Provider: GISELLE GABRIEL Report Released Date/Time: Jun 24, 2024 03:43 PM Reporting Lab: [facility] [address] [address] Performing Lab: [facility] [address] [facility] PSA PROSTATE SPECIFIC AG [MASS/VOLU ME] IN SERUM OR PLASMA 4.72 ng/mL 0.00 - 4.00 06/24 H Specimen Type: SERUM No comment entered. Ordering Provider: GISELLE GABRIEL Report Released Date/Time: Jun 24, 2024 07:53 AM Reporting Lab: [facility] [place] [address] [address] Performing Lab: [facility] [address] [facility] TRN [facility] BASIC METABOLI C PANEL (non-fas ting) UREA NITROGEN [MASS/VOLU ME] IN SERUM OR PLASMA 14 mg/dL 7 - 25 06/24 Specimen Type: SERUM No comment entered. Ordering Provider: GISELLE GABRIEL Report Released Date/Time: Jun 24, 2024 07:47 AM Reporting Lab: [facility] [place] [address] [address] Performing Lab: [facility] [address] [address] [facility] BASIC METABOLI C PANEL (non-fas ting) GLUCOSE [MASS/VOLU ME] IN SERUM OR PLASMA 82 mg/dL 65 - 100 06/24 Specimen Type: SERUM No comment entered. Ordering Provider: GISELLE GABRIEL Report Released Date/Time: Jun 24, 2024 07:47 AM Reporting Lab: [address] [address] Performing Lab: [address] [address] [facility] BASIC METABOLI C PANEL (non-fas ting) SODIUM [MOLES/VOL UME] IN SERUM OR PLASMA 140 mmol/L 135 - 145 06/24 Specimen Type: SERUM No comment entered. Ordering Provider: GISELLE GABRIEL Report Released Date/Time: Jun 24, 2024 07:47 AM Reporting Lab: [address] [address] Performing Lab: [address] [address] [facility] BASIC METABOLI C PANEL (non-fas ting) POTASSIUM [MOLES/VOL UME] IN SERUM OR PLASMA 3.5 mmol/L 3.5 - 5.0 06/24 Specimen Type: SERUM No comment entered. Ordering Provider: GISELLE GABRIEL Report Released Date/Time: Jun 24, 2024 07:47 AM Reporting Lab: [address] [address] Performing Lab: [address] [address] [facility] BASIC METABOLI C PANEL (non-fas ting) CHLORIDE [MOLES/VOL UME] IN SERUM OR PLASMA 103 mmol/L 100 - 110 06/24 Specimen Type: SERUM No comment entered. Ordering Provider: GISELLE GABRIEL Report Released Date/Time: Jun 24, 2024 07:47 AM Reporting Lab: [address] [address] Performing Lab: [facility] TRN [facility] [address] [facility] BASIC METABOLI C PANEL (non-fas ting) CARBON DIOXIDE, TOTAL [MOLES/VOL UME] IN SERUM OR PLASMA 28 meq/L 20 - 30 06/24 Specimen Type: SERUM No comment entered. Ordering Provider: GISELLE GABRIEL Report Released Date/Time: Jun 24, 2024 07:47 AM Reporting Lab: [facility] TRN [facility] [address] Performing Lab: [facility] NORTHN [address] [address] [facility] BASIC METABOLI C PANEL (non-fas ting) CREATININE [MASS/VOLU ME] IN SERUM OR PLASMA 0.81 mg/dL 0.50 - 1.40 06/24 Specimen Type: SERUM No comment entered. Ordering Provider: GISELLE GABRIEL Report Released Date/Time: Jun 24, 2024 07:47 AM Reporting Lab: [facility]N [address] [address] Performing Lab: [facility]N [address] [address] [facility] BASIC METABOLI C PANEL (non-fas ting) GLOMERULAR FILTRATION RATE/1.73 SQ M.PREDICTE D [VOLUME RATE/AREA] IN SERUM, PLASMA OR BLOOD BY CREATININE -BASED FORMULA (CKD-EPI 2020) >90mL/mi n 60 06/24 Specimen Type: SERUM No comment entered. Ordering Provider: GISELLE GABRIEL Report Released Date/Time: Jun 24, 2024 07:47 AM Reporting Lab: [facility]N [address] [address] Performing Lab: [facility] [address] [address] [facility] LIVER FUNCTION PROTEIN [MASS/VOLU ME] IN SERUM OR PLASMA 7.2 g/dL 6.0 - 8.3 06/24 Specimen Type: SERUM No comment entered. Ordering Provider: GISELLE GABRIEL Report Released Date/Time: Jun 24, 2024 07:47 AM Reporting Lab: [facility] [place] [facility] [address] [facility] [address] Performing Lab: [facility] [place] [facility] [address] [facility] [address] [facility] [place] [facility] LIVER FUNCTION ALBUMIN [MASS/VOLU ME] IN SERUM OR PLASMA 4.2 g/dL 3.5 - 5.0 06/24 Specimen Type: SERUM No comment entered. Ordering Provider: GISELLE GABRIEL Report Released Date/Time: Jun 24, 2024 07:47 AM Reporting Lab: [facility] [place] [facility] [address] [facility] [address] Performing Lab: [facility] [place] [address] [address] [facility] [place] [facility] LIVER FUNCTION ALKALINE PHOSPHATAS E [ENZYMATIC ACTIVITY/V OLUME] IN SERUM OR PLASMA 87 U/L 40 - 150 06/24 Specimen Type: SERUM No comment entered. Ordering Provider: GISELLE GABRIEL Report Released Date/Time: Jun 24, 2024 07:47 AM Reporting Lab: [facility] [place] [address] [address] Performing Lab: [facility] [place] [facility] [address] [facility] [address] [facility] [place] [facility] LIVER FUNCTION ASPARTATE AMINOTRANS FERASE [ENZYMATIC ACTIVITY/V OLUME] IN SERUM OR PLASMA 22 U/L 5 - 34 06/24 Specimen Type: SERUM No comment entered. Ordering Provider: GISELLE GABRIEL Report Released Date/Time: Jun 24, 2024 07:47 AM Reporting Lab: [facility] [place] [facility] [address] [facility] [address] Performing Lab: [facility] [place] [address] [address] [facility] [place] [facility] LIVER FUNCTION ALANINE AMINOTRANS FERASE [ENZYMATIC ACTIVITY/V OLUME] IN SERUM OR PLASMA 19 U/L 06/24 Specimen Type: SERUM No comment entered. Ordering Provider: GISELLE GABRIEL Report Released Date/Time: Jun 24, 2024 07:47 AM Reporting Lab: [facility] [place] [address] [address] Performing Lab: [facility] [address] [address] [facility] TRN [facility] LIVER FUNCTION BILIRUBIN. TOTAL [MASS/VOLU ME] IN SERUM OR PLASMA 1.0 mg/dL 0.2 - 1.2 06/24 Specimen Type: SERUM No comment entered. Ordering Provider: GISELLE GABRIEL Report Released Date/Time: Jun 24, 2024 07:47 AM Reporting Lab: [facility] [address] [address] Performing Lab: [facility] TRN [facility] [address] [facility] CBC LEUKOCYTES [#/VOLUME] IN BLOOD BY AUTOMATED COUNT 4.39 10*3/uL 4.50 - 11.00 06/24 L Specimen Type: BLOOD No comment entered. Ordering Provider: GISELLE GABRIEL Report Released Date/Time: Jun 24, 2024 07:47 AM Reporting Lab: [facility] [facility] [address] Performing Lab: [facility] [address] [address] [facility] CBC ERYTHROCYT ES [#/VOLUME] IN BLOOD BY AUTOMATED COUNT 4.32 10*6/uL 4.23 - 5.66 06/24 Specimen Type: BLOOD No comment entered. Ordering Provider: GISELLE GABRIEL Report Released Date/Time: Jun 24, 2024 07:47 AM Reporting Lab: [facility] [address] Performing Lab: [facility] [place] [facility] [address] [facility] [address] [facility] CBC HEMOGLOBIN [MASS/VOLU ME] IN BLOOD 14.0 g/dL 12.8 - 17 06/24 Specimen Type: BLOOD No comment entered. Ordering Provider: GISELLE GABRIEL Report Released Date/Time: Jun 24, 2024 07:47 AM Reporting Lab: [facility] [place] [facility] [address] [facility] [address] Performing Lab: [facility] [place] [facility] [address] [facility] [address] [facility] [place] [facility] CBC HEMATOCRIT [VOLUME FRACTION] OF BLOOD BY AUTOMATED COUNT 41.6 39.2 - 50.4 06/24 Specimen Type: BLOOD No comment entered. Ordering Provider: GISELLE GABRIEL Report Released Date/Time: Jun 24, 2024 07:47 AM Reporting Lab: [facility] [place] [facility] [address] [facility] [address] Performing Lab: [facility] [place] [facility] [address] [facility] [address] [facility] [place] [facility] CBC MCV [ENTITIC VOLUME] BY AUTOMATED COUNT 96.3 fL 82 - 99 06/24 Specimen Type: BLOOD No comment entered. Ordering Provider: GISELLE GABRIEL Report Released Date/Time: Jun 24, 2024 07:47 AM Reporting Lab: [facility] [place] [facility] [address] [facility] [address] Performing Lab: [facility] [place] [facility] [address] [facility] [address] [facility] [place] [facility] CBC MCHC [MASS/VOLU ME] BY AUTOMATED COUNT 33.7 g/dL 30.8 - 35.1 06/24 Specimen Type: BLOOD No comment entered. Ordering Provider: GISELLE GABRIEL Report Released Date/Time: Jun 24, 2024 07:47 AM Reporting Lab: [facility] [place] [facility] [address] [facility] [address] Performing Lab: [facility] [place] [facility] [address] [facility] [address] [facility] [place] [facility] CBC PLATELETS [#/VOLUME] IN BLOOD BY AUTOMATED COUNT 155 10*3/uL 140 - 360 06/24 Specimen Type: BLOOD No comment entered. Ordering Provider: GISELLE GABRIEL Report Released Date/Time: Jun 24, 2024 07:47 AM Reporting Lab: [facility] [facility] [address] [facility] [address] Performing Lab: [facility] [place] [facility] [address] [facility] [address] [facility] [place] [facility] CBC ERYTHROCYT E DISTRIBUTI ON WIDTH [RATIO] BY AUTOMATED COUNT 13.0 12.0 - 16.0 06/24 Specimen Type: BLOOD No comment entered. Ordering Provider: GISELLE GABRIEL Report Released Date/Time: Jun 24, 2024 07:47 AM Reporting Lab: [facility] [facility] [address] [facility] [address] Performing Lab: [facility] [address] [address] [facility] [place] [facility] CBC MCH [ENTITIC MASS] BY AUTOMATED COUNT 32.4 pg 26.2 - 32.6 06/24 Specimen Type: BLOOD No comment entered. Ordering Provider: GISELLE GABRIEL Report Released Date/Time: Jun 24, 2024 07:47 AM Reporting Lab: [facility] [facility] [address] [facility] [address] Performing Lab: [facility] [address] [address] [facility] [place] [facility] OCCULT BLOOD FIT X1 SCREEN(I N-HOUSE) HEMOGLOBIN .GASTROINT ESTINAL.LO WER [PRESENCE] IN STOOL BY IMMUNOASSA Y Negative 11/21 Specimen Type: FECES No comment entered. Ordering Provider: GISELLE GABRIEL Report Released Date/Time: Nov 04, 2023 01:32 PM Reporting Lab: [facility] [place] [address] [address] Performing Lab: [facility] [place] [facility] [address] [facility] [address] [facility] [place] [facility] PT & INR (PROTIME ) INR IN PLATELET POOR PLASMA BY COAGULATIO N ASSAY 1.1 11/16 Specimen Type: PLASMA No comment entered. Ordering Provider: GILDARDO GARDINER Report Released Date/Time: Nov 05, 2023 11:16 AM Reporting Lab: [facility] [place] [facility] [address] [facility] [address] Performing Lab: [facility] [facility] [address] [facility] [address] [facility] [place] [facility] PT & INR (PROTIME ) PROTHROMBI N TIME (PT) 12.9 s 10.0 - 13.1 11/16 Specimen Type: PLASMA No comment entered. Ordering Provider: GILDARDO GARDINER Report Released Date/Time: Nov 05, 2023 11:16 AM Reporting Lab: [facility] [place] [facility] [address] [facility] [address] Performing Lab: [facility] [address] [facility] [address] [facility] TRN [facility]SUSE [facility] CERULOPL ASMIN CERULOPLAS MIN [MASS/VOLU ME] IN SERUM OR PLASMA 24 mg/dL 20 - 60 11/16 Specimen Type: SERUM No comment entered. Ordering Provider: GILDARDO GARDINER Report Released Date/Time: Nov 05, 2023 11:16 AM Reporting Lab: [facility] [facility] [address] [facility] [address] Performing Lab: [facility] [place] [facility] [address] [facility] [address] [facility] [place] HEPATITI S B SURFACE ANTIGEN (HBsAg)- WH HEPATITIS B VIRUS SURFACE AG [PRESENCE] IN SERUM OR PLASMA BY IMMUNOASSA Y Non Reactive 11/16 Specimen Type: SERUM Comment: A Reactive result ( Positive prior to 10/14/13) is diagnostic of acute or chronic hepatitis B infection. The presence of Hepatitis B surface antigen is frequently associated with infectivity . Ordering Provider: GILDARDO GARDINER Report Released Date/Time: Nov 05, 2023 11:16 AM Reporting Lab: [facility] [place] [facility] [address] [facility] [address] Performing Lab: [facility] [place] [facility] [address] [facility] [address] [facility] [place] [facility] Vital Signs Combined list of inpatient and outpatient Vital Signs from Department of Defense and Veterans Affairs, ranging from 12 months to all on record, depending upon the facility. Vital Sign Value Date Comments Source SYSTOLIC BLOOD PRESSURE 146 06/24/19 25 15:16:19 [facility] [place] [facility] DIASTOLIC BLOOD PRESSURE 79 025 15:16:19 [facility] [place] PULSE OXIMETRY 99 06/24/2024 15:16:19 [facility] [place] WEIGHT 150 06/24/2024 15:16:19 [facility] [place] BMI 21 kg/m2 06/24/2024 15:16:19 [facility] PAIN 1 06/24/2024 15:16:19 [facility] [place] TEMPERATURE 97.9 06/24/2024 15:16:19 [facility] [place] PULSE 66 06/24/2024 15:16:19 [facility] RESPIRATION 16 06/24/2024 15:16:19 [facility] [place] SYSTOLIC BLOOD PRESSURE 149 01/27/20 24 11:24:54 [facility] [place] [facility] DIASTOLIC BLOOD PRESSURE 77 024 11:24:54 [facility] [place] [facility] PULSE OXIMETRY 100 01/27/2024 11:24:54 [facility] TEMPERATURE 97.4 01/27/2024 11:24:54 [facility] [place] PULSE 63 01/27/2024 11:24:54 [facility] [place] RESPIRATION 20 01/27/2024 11:24:54 [facility] [place] [facility] SYSTOLIC BLOOD PRESSURE 145 01/13/20 13:50:51 [facility] [place] DIASTOLIC BLOOD PRESSURE 76 024 13:50:51 [facility] [place] [facility] PULSE OXIMETRY 99 01/13/2024 13:50:51 [facility] WEIGHT 142.2 01/13/2024 13:50:51 [facility] [place] BMI 20 kg/m2 01/13/2024 13:50:51 [facility] [place] PAIN 0 01/13/2024 13:50:51 [facility] [place] TEMPERATURE 97.9 01/13/2024 13:50:51 [facility] [place] PULSE 63 01/13/2024 13:50:51 [facility] [place] RESPIRATION 16 01/13/2024 13:50:51 [facility] [place] [facility] SYSTOLIC BLOOD PRESSURE 130 11/04/19 13:26:05 [facility] [place] [facility] DIASTOLIC BLOOD PRESSURE 78 024 13:26:05 [facility] [place] PULSE OXIMETRY 96 11/04/2023 13:26:05 [facility] WEIGHT 144 11/04/2023 13:26:05 [facility] [place] BMI 20 kg/m2 11/04/2023 13:26:05 [facility] PAIN 2 11/04/2023 13:26:05 [facility] [place] TEMPERATURE 98.4 11/04/2023 13:26:05 [facility] [place] PULSE 70 11/04/2023 13:26:05 [facility] RESPIRATION 16 11/04/2023 13:26:05 [facility] [place] SYSTOLIC BLOOD PRESSURE 136 08/07/19 24 13:08:23 [facility] [place] DIASTOLIC BLOOD PRESSURE 76 024 13:08:23 [facility] [place] PULSE OXIMETRY 100 08/07/2023 13:08:23 [facility] WEIGHT 148 08/07/2023 13:08:23 [facility] [place] BMI 21 kg/m2 08/07/2023 13:08:23 [facility] [place] TEMPERATURE 96.9 08/07/2023 13:08:23 [facility] [place] PULSE 71 08/07/2023 13[facility]08:23 [facility] [place] RESPIRATION 18 08/07/2023 13:08:23 [facility] [place] [facility] Encounters Combined list of: 1) Encounters from Department of Veterans Affairs facilities going backup to the last 18 months, not all VA inpatient encounters are included; 2) Encounters from the Department of Defense facilities going backup to 280 months. Location Location Details Encounter Type Encounter Number Reason For Visit Attending Provider ADM Date DC Date Status Disposition Source [facility] [id number] 01/10 [facility] En[facility] [id number] 01/14 [facility] [place] ADMIN [id number] Diagnos is: ICD-10- CM Z23 Encount er for immuniz ation George CRUZ 01/23 [facility] En[facility] [id number] 02/12 [facility] [id number] 02/15 [facility] En[facility] [id number] 02/18 [facility] En[facility] [id number] 02/18 [facility] Encounter [id number] 02/26 [facility] En[facility] [id number] 03/27 [facility] En[facility] [id number] 04/23 [facility] Encounter [id number] 04/29 [facility] OFFICE O/P EST MOD 30-39 MIN [id number] Diagnos is: ICD-10- CM H90.3 Sensori neural hearing loss, bilater al DARON MIGUEL MMED JAWED 05/08 [facility] OFF/OP EST MAY X REQ PHY/QHP [id number] Diagnos is: ICD-10- CM Z04.9 Encount er for examina tion and observa tion for unsp reason Marlen ALCALA 08/06 [facility] OFF[facility] O/P EST MOD 30 MIN [id number] Diagnos is: ICD-10- CM 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 , unspeci AMANDA Neely 08/06 [facility] COMPRE OPH EXAM EST PT 1/ [id number] Diagnos is: ICD-10- CM H40.013 Open angle with borderl ine finding s, low risk, bilater al MARIBELL LANDRY 08/31 [facility] FIT SPECTACLES BIFOCAL [id number] Diagnos is: ICD-10- CM Z46.0 Encount er for fit/adj st of spectac les and contact lenses MARIBELL LANDRY 09/02 [facility] En[facility] [id number] 09/28 [facility] Encounter [id number] 09/29 [facility] Encounter [id number] 10/06 [facility] Encounter [id number] 10/21 [facility] Encounter [id number] 10/27 [facility]counter [id number] 10/27 [facility] [place] [facility] [place] Outpatient Encounter [id number] 10/28 [facility] [place] [place] [facility] [place] [facility] Outpatient [facility]counter [id number] 11/03 [facility] [place] [place] [facility] [place] [facility] OFFICE O/P EST HI 40 MIN [id number] Diagnos is: ICD-10- CM I48.91 Unspeci fied atrial fibrill ation HARVEY,TI NA 11/03 [facility] [place] [place] [facility] Outpatient Encounter [id number] Diagnos is: ICD-10- CM R93.2 Abnorma l finding s on dx imaging of liver and biliary tract HUSAM RAE 11/04 [place] [facility] Outpatient Encounter [id number] 11/04 [facility] [place] [facility] RPR&REFITG SPECT XCP APHAKIA [id number] Diagnos is: ICD-10- CM Z46.0 Encount er for fit/adj st of spectac les and contact lenses Chante ESPINOZA 11/06 [facility] [place] OFF/OP EST MAY X REQ PHY/QHP [id number] Diagnos is: ICD-10- CM Z23 Encount er for immuniz atmax Marlen ALCALA H 11/06 [facility] [place] [facility] RPR&REFITG SPECT XCP APHAKIA [id number] Diagnos is: ICD-10- CM Z46.0 Encount er for fit/adj st of spectac les and contact lenses ALEXIS,Chante THOMAS Rivers 11/16 [facility] [place] [place] [facility] Outpatient Encounter [id number] 11/16 [facility] [place] [place] [facility] OFFICE O/P NEW MOD 45 MIN [id number] Diagnos is: ICD-10- CM R93.2 Abnorma l finding s on dx imaging of liver and biliary tract HUSAM RAE MARTINEZ 01/12 [facility] FEE [id number] Diagnos is: ICD-10- CM 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 HUSAM RAE MARTINEZ 01/12 [facility] [place] [place] [facility] Outpatient [facility]counter [id number] 01/26 [facility] [place] [facility] [place] [id number] Diagnos is: ICD-10- CM 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 MAKI LONG 01/26 [facility] [place] [facility] OFF/OP EST MAY X REQ PHY/QHP [id number] Diagnos is: ICD-10- CM Z23 Encount er for immuniz ation Lima ESPINOZA 01/26 [facility] [place] [place] [facility] OFFICE O/P NEW LOW 30 MIN [id number] Diagnos is: ICD-10- CM R94.5 Abnorma l results of liver functio n studies HUSAM RAE MARTINEZ 01/29 [place] [facility] Outpatient Encounter [id number] HUSAM RAE 01/29 [place] [place] Outpatient Encounter [id number] 1.03/19 [facility] Outpatient [facility]counter [id number] 1[facility]03/19 [facility] [place] 1/ [id number] Diagnos is: ICD-10- CM 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 AN DREW E 04/28 [facility] [place] [place] [facility] [place] Outpatient [facility]counter [id number] 06/15 [facility] [place] [facility] [place] Outpatient [facility]counter [id number] 06/22 [facility] [place] [place] [facility] [place] OFFICE O/P EST MOD 30 MIN [id number] Diagnos is: ICD-10- CM I48.91 Unspeci fied atrial fibrill ation FURCOLO,TI NA 06/24 [facility] [place] [place] [facility] Social History Combined list of available smoking, tobacco, and other social history from Department of Defense and Veterans Affairs facilities. Social History Type Response Date Comment [facility] e Tobacco smoking status MNIS VA-TOBACCO NEVER USED CIGARETTES 06/24/2024 [facility] [place] [facility] History of tobacco use VA-TOBACCO NEVER USED OTHER TYPE 06/24/2024 [facility] History of tobacco use VA-TOBACCO NEVER USED 05/08/2023 [facility] History of tobacco use VA-TOBACCO NEVER USED 03[facility]19/2022 [facility] [place] [facility] History of tobacco use MT-TOBACCO FORMER USER 03/20/2021 [facility] [place] [facility] History of tobacco use MT-TOBACCO QUIT 15 YRS OR MORE 03/20/2020 [facility] [place] [facility] [place] History of tobacco use MT-TOBACCO QUIT 15 YRS OR MORE 03/02/2018 [facility] [place] [facility] [place] History of tobacco use MT-TOBACCO FORMER USER 03/02/2018 [facility] [place] [facility] [place] History of tobacco use LIFETIME NON-TOBACCO USER 09/30/2016 [facility] [place] [facility] [place] History of tobacco use LIFETIME NON-TOBACCO USER 10/12/2015 [facility] [place] [facility] [place] History of tobacco use QUIT TOBACCO USE > 7 YEARS AGO 12/28/2009 [facility] Plan of Care List of future care activities from [facility] facilities. Additional future care activities may be listed in the Assessment and Plan section. Date/Time Care Activity Care Activity Detail Facili ty 10/28/2024 [facility] [place] [facility] [place]
--- OUTSIDE RECORDS SUMMARY | 2024-07-08 08:37 | XMS_ITS ---
Author Name [facility] [place] [facility] [place] [facility] [place] [facility] [place] Address [address] [place] [address] Care Team Providers Care Supervisor Partial Denture Department Name Role Phone LESVIA DELEON Primary Care Provider Unavailabl e Insurance Providers: [...] RANDY MEDEX CHOIC E Dec 31, 2016 [id number] FÁTIMA,OPAL Y PATIENT [place] SUPPLE[place] RANDY MEDEX CHOIC E Dec 31, 2016 [id number] [phone] FÁTIMA,GAR [place] RANDY MEDEX CHOIC E Dec 31, 2016 [id number] [phone] FÁTIMA,GAR Y PATIENT [place] SUPPLEMEN RANDY MEDEX CHOIC E MONTH LY Dec 31, 2016 [id number] STORM,GAR Y PATIENT MEDICAID MEDICAID [facility] STAND [place] Jun 02, 2013 MEDICAI D [id number] STORM,GAR Y PATIENT MEDICARE (WNR) MEDICARE (M) PART B Dec 01, 2015 PART B [id number] [phone] STORM,GAR Y PATIENT MEDICARE (WNR) MEDICARE (M) PART A Dec 01, 2015 PART A [id number] [phone] STORM,GAR Y PATIENT MEDICARE (WNR) MEDICARE (M) PART B Dec 01, 2015 PART B [id number] STORM,GAR Y PATIENT MEDICARE (WNR) MEDICARE () PART A Dec 01, 2015 PART A [id number] [phone] STORM,GAR Y PATIENT MEDICARE (WNR) MEDICARE (M) PART B Dec 01, 2015 PART B [id number] [phone] STORM,GAR Y PATIENT MEDICARE (WNR) MEDICARE () PART A Dec 01, 2015 PART A [id number] [phone] STORM,GAR Y PATIENT MEDICARE (WNR) MEDICARE (M) PART B Dec 01, 2015 PART B [id number] STORM,GAR Y PATIENT MEDICARE (WNR) MEDICARE () PART A Dec 01, 2015 PART A [id number] [id number] [phone] STORM,GAR Y PATIENT MEDICARE (WNR) MEDICARE (M) PART B Dec 01, 2015 PART B [id number] STORM,GAR Y PATIENT MEDICARE (WNR) MEDICARE () PART A Dec 01, 2015 PART A [id number] STORM,GAR Y PATIENT Selected Encounter This section includes the information on record at [place] for the Encounter. 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 Date/Time Primary/Secondary Diagnosis Diagnosis Name Provider Source Feb 13, 2024 02:16 PM PRIMARY Benign neoplasm of liver [facility]EN[facility] LONG [facility] Plan of Treatment: Future Appointments (+ 6 months) and Future Tests (+/- 45 days) The Plan of Treatment section includes future care activities for the patient from all [place] [facility] This section includes future appointments and future orders which are active, pending or scheduled. Future Appointments This section includes appointments that were scheduled to occur 6 months from the date of the Encounter, up to a maximum of 20 appointments. The data comes from all [place] treatment facilities. Appointment Date/Time Appointment Type Appointme nt Facility Name Apr 28, 2024 02:00 PM AMBULATORY - MEDICINE [facility] Jun 24, 2024 03:00 PM [facility] Vital Signs: All taken on the encounter date This section contains inpatient and outpatient Vital Signs collected on the date of the Encounter. Date/Time Temperature Pulse Blood Pressure Respiratory Rate SP02 Pain Height Weight Body Mass Index Source Jan 27, 2024 11:24 AM 97.4 63 149/77 20 100 [facility] Social History: Smoking Status (Most current) and [...] 08, 2023 01:30 PM VA-TOBACCO NEVER USED [facility] Tobacco Use History This section includes a history of the smoking, or tobacco-related health factors, that were collected on or before the date of the Encounter. The data comes from the [place] facility where the Encounter took place. Date/Time Smoking Status/Tobacco Use Comment F acility Mar 19, 2022 01:30 PM VA-TOBACCO NEVER USED [place] [facility] [place] [facility] Mar 20, 2021 02:00 PM VA-TOBACCO FORMER USER [place] [facility] [place] [facility] Mar 20, 2021 02:00 PM VA-TOBACCO QUIT 15 YRS OR MORE [place] [facility] Mar 20, 2020 02:00 PM VA-TOBACCO FORMER USER [facility] [place] [facility] Mar 20, 2020 02:00 PM VA-TOBACCO QUIT 15 YRS OR MORE [facility] [place] [facility] Mar 02, 2018 01:59 PM VA-TOBACCO FORMER USER [facility] [place] [facility] Mar 02, 2018 01:59 PM VA-TOBACCO QUIT 15 YRS OR MORE [facility] [place] [facility] Mar 02, 2018 01:23 PM VA-TOBACCO FORMER USER [facility] [place] [facility] Mar 02, 2018 01:23 PM VA-TOBACCO QUIT 15 YRS OR MORE [facility] [place] [facility] September 30, 2016 09:39 AM LIFETIME NON-TOBACCO USER [facility] [place] [facility] October 12, 2015 01:46 PM LIFETIME NON-TOBACCO USER [facility] [place] [facility] Encounter Notes: All associated encounter notes This section contains the clinical notes associated to the Encounter. Date/Time Encounter Note(s) Provider Source Feb 03, 2024 04:23 PM ADDENDUM: LOCAL TITLE: Addendum STANDARD TITLE: ADDENDUM DATE OF NOTE: FEB 03, 2024@16:23:08 ENTRY DATE: FEB 03, 2024@16:23:09 AUTHOR: LESVIA DELEON EXP COSIGNER: URGENCY: STATUS: COMPLETED i can continue to monitor /dominick/ LESVIA DELEON D.O. 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 does not drink If within one month,how many drinks on that day? 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 Patient was briefly assessed, identifying the terminus of the xyphoid process, and locating an ideal transient elastography testing site, mid-line and lateral to this point. Patient was allowed to rest for approximately 5 minutes prior to beginning the test. Patient was instructed to breathe normally and remain stationary during the test process. Pre-measurement data confirmed the transient elastography probe was centered over the liver parenchyma. A series of ten 50Hz mechanical pulses were applied with controlled application pressure to induce mechanical shear wave in the liver tissue. For each measurement, the shear wave propagation speed was detected, displayed, and converted to its equivalent liver stiffness value in kilopascals. Skin to liver capsule distance and shear wave characteristics were monitored during the entire exam to assure data quality. Median liver stiffness measurement and interquartile range were calculated and displayed in real time. Acquired measurement data was submitted to the provider/physician for review and interpretation. Patient tolerated the procedure well and was discharged without incident. Results: Number of Valid Measurements: 10 Liver Stiffness: FibroScan Value (median, kPa): 7.7 FibroScan IQR/Median %: 6% Liver Steatosis: Controlled Attenuation Parameter CAP Score: 227 CAP Level %: SD 16 Reference Range FibroScan Reference Range F0-F1 (kPa) F2 (kPa) F3 (kPa) F4 (kPa) <8.0 8.0-10.9 11.0-14.9 >15.0 FibroScan study requires interpretation by an experienced provider in conjunction with other pertinent data (e.g., physical examination, lab results, imaging, alcohol use etc.) to assess the likelihood of advanced hepatic fibrosis. FibroScan is best used to rule out advanced fibrosis. While kPa <8 indicates a low likelihood of advanced fibrosis, a higher kPa is less predictive of a specific fibrosis stage (i.e., F2 vs. F3 vs. F4). /es/ BRENNON LONG LPN LICENSED PRACTICAL NURSE Signed: 01/27/2024 11:14 01/29/2024 ADDENDUM STATUS: COMPLETED This liver stiffness measurement rules out cACLD (compensated advanced chronic liver disease, the noninvasive term for advanced liver fibrosis/cirrhosis). Shear wave images are optimal and variability is low, making this a reliable masurement. CAP value indicates the presence of minimal liver steatosis. Clinically, the aminotrasnferes are wnl, though AST > ALT. Liver synthetic function is normal (Albumin 4.0, INR 1.0; No liver nodularity or splenomegaly on Abdominal US noted, platelet count is chronically low (< 150) since 2010. I do not think this patient has advanced liver fibrosis/cirrhosis but he is at some risk of developing advanced fibrosis/cirrhosis in the future. recommend repeating a fibroscan in 4-5 years Above interpretation to be finalized by Dr Lopes. /dominick/ Thee Campbell Nurse Practitioner, Hepatology/GI Signed: 01/29/2024 13:44 Receipt Acknowledged By: 02/03/2024 12:26 /dominick/ HEVER LOPES MD ATTENDING 02/03/2024 ADDENDUM STATUS: COMPLETED The patient is known to have multiple hepatic cysts and hepatic hemangiomas at least since 2013. He was referred for Fibroscan because of an abnormal liver ultrasound in 11/2023 that actually showed no interval change in cysts/hemangiomas. The presence of liver hemangiomas and cysts will confound liver stiffness measurements and deem the measurement uninterpretable. Fibroscan is therefore not recommended in these patients. The patient seems to have no parenchymal liver disease as liver enzymes and liver function have always been normal. /dominick/ HEVER LOPES MD ATTENDING Signed: 02/03/2024 12:47 Receipt Acknowledged By: 02/03/2024 14:04 /dominick/ Thee Campbell Nurse Practitioner, Hepatology/GI 02/03/2024 ADDENDUM STATUS: COMPLETED Called , unable to reach, Detailed HIPAA complaint VM placed with call back number if any further questions. [phone] He can continue following with PCP and does not need further follow up with Liver at this time. He will benefit from getting a CT-Liver protocol in a year to f/u on the benign hepatic cysts and hemangiomas. Please let me know if I should order them or you are able to Dr. Deleon Thank chanda /silas Campbell Nurse Practitioner, Hepatology/GI Signed: 02/03/2024 14:04 Receipt Acknowledged By: 02/03/2024 16:22 /silas DELEON D.O. PHYSICIAN LESVIA DELEON [facility] [place] [facility] Feb 03, 2024 02:01 PM ADDENDUM: LOCAL TITLE: Addendum STANDARD TITLE: ADDENDUM DATE OF NOTE: FEB 03, 2024@14:01:35 ENTRY DATE: FEB 03, 2024@14:01:35 AUTHOR: THEE CAMPBELL EXP COSIGNER: URGENCY: STATUS: COMPLETED Called , unable to reach, Detailed HIPAA complaint VM placed with call back number if any further questions. [phone] He can continue following with PCP and does not need further follow up with Liver at this time. He will benefit from getting a CT-Liver protocol in a year to f/u on the benign hepatic cysts and hemangiomas. Please let me know if I should order them or you are able to Dr. Deleon Thank you /silas Campbell Nurse Practitioner, Hepatology/GI Signed: 02/03/2024 14:04 Receipt Acknowledged By: 02/03/2024 16:22 /silas DELEON D.O. 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 does not drink If within one month,how many drinks on that day? 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 Patient was briefly assessed, identifying the terminus of the xyphoid process, and locating an ideal transient elastography testing site, mid-line and lateral to this point. Patient was allowed to rest for approximately 5 minutes prior to beginning the test. Patient was instructed to breathe normally and remain stationary during the test process. Pre-measurement data confirmed the transient elastography probe was centered over the liver parenchyma. A series of ten 50Hz mechanical pulses were applied with controlled application pressure to induce mechanical shear wave in the liver tissue. For each measurement, the shear wave propagation speed was detected, displayed, and converted to its equivalent liver stiffness value in kilopascals. Skin to liver capsule distance and shear wave characteristics were monitored during the entire exam to assure data quality. Median liver stiffness measurement and interquartile range were calculated and displayed in real time. Acquired measurement data was submitted to the provider/physician for review and interpretation. Patient tolerated the procedure well and was discharged without incident. Results: Number of Valid Measurements: 10 Liver Stiffness: FibroScan Value (median, kPa): 7.7 FibroScan IQR/Median %: 6% Liver Steatosis: Controlled Attenuation Parameter CAP Score: 227 CAP Level %: SD 16 Reference Range FibroScan Reference Range F0-F1 (kPa) F2 (kPa) F3 (kPa) F4 (kPa) <8.0 8.0-10.9 11.0-14.9 >15.0 FibroScan study requires interpretation by an experienced provider in conjunction with other pertinent data (e.g., physical examination, lab results, imaging, alcohol use etc.) to assess the likelihood of advanced hepatic fibrosis. FibroScan is best used to rule out advanced fibrosis. While kPa <8 indicates a low likelihood of advanced fibrosis, a higher kPa is less predictive of a specific fibrosis stage (i.e., F2 vs. F3 vs. F4). /dominick/ BRENNON LONG LPN LICENSED PRACTICAL NURSE Signed: 01/27/2024 11:14 01/29/2024 ADDENDUM STATUS: COMPLETED This liver stiffness measurement rules out cACLD (compensated advanced chronic liver disease, the noninvasive term for advanced liver fibrosis/cirrhosis). Shear wave images are optimal and variability is low, making this a reliable masurement. CAP value indicates the presence of minimal liver steatosis. Clinically, the aminotrasnferes are wnl, though AST > ALT. Liver synthetic function is normal (Albumin 4.0, INR 1.0; No liver nodularity or splenomegaly on Abdominal US noted, platelet count is chronically low (< 150) since 2010. I do not think this patient has advanced liver fibrosis/cirrhosis but he is at some risk of developing advanced fibrosis/cirrhosis in the future. recommend repeating a fibroscan in 4-5 years Above interpretation to be finalized by Dr Lopes. /silas Campbell Nurse Practitioner, Hepatology/GI Signed: 01/29/2024 13:44 Receipt Acknowledged By: 02/03/2024 12:26 /silas LOPES MD ATTENDING 02/03/2024 ADDENDUM STATUS: COMPLETED The patient is known to have multiple hepatic cysts and hepatic hemangiomas at least since 2013. He was referred for Fibroscan because of an abnormal liver ultrasound in 11/2023 that actually showed no interval change in cysts/hemangiomas. The presence of liver hemangiomas and cysts will confound liver stiffness measurements and deem the measurement uninterpretable. Fibroscan is therefore not recommended in these patients. The patient seems to have no parenchymal liver disease as liver enzymes and liver function have always been normal. /silas LOPES MD ATTENDING Signed: 02/03/2024 12:47 Receipt Acknowledged By: 02/03/2024 14:04 /silas Campbell Nurse Practitioner, Hepatology/GI 02/03/2024 ADDENDUM STATUS: UNSIGNED You may not VIEW this UNSIGNED Addendum. THEE CAMPBELL [facility] [place] [facility] Feb 03, 2024 12:26 PM ADDENDUM: LOCAL TITLE: Addendum STANDARD TITLE: ADDENDUM DATE OF NOTE: FEB 03, 2024@12:26:45 ENTRY DATE: FEB 03, 2024@12:26:46 AUTHOR: SHAYY LOPES EXP COSIGNER: URGENCY: STATUS: COMPLETED The patient is known to have multiple hepatic cysts and hepatic hemangiomas at least since 2013. He was referred for Fibroscan because of an abnormal liver ultrasound in 11/2023 that actually showed no interval change in cysts/hemangiomas. The presence of liver hemangiomas and cysts will confound liver stiffness measurements and deem the measurement uninterpretable. Fibroscan is therefore not recommended in these patients. The patient seems to have no parenchymal liver disease as liver enzymes and liver function have always been normal. 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 does not drink If within one month,how many drinks on that day? 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 Patient was briefly assessed, identifying the terminus of the xyphoid process, and locating an ideal transient elastography testing site, mid-line and lateral to this point. Patient was allowed to rest for approximately 5 minutes prior to beginning the test. Patient was instructed to breathe normally and remain stationary during the test process. Pre-measurement data confirmed the transient elastography probe was centered over the liver parenchyma. A series of ten 50Hz mechanical pulses were applied with controlled application pressure to induce mechanical shear wave in the liver tissue. For each measurement, the shear wave propagation speed was detected, displayed, and converted to its equivalent liver stiffness value in kilopascals. Skin to liver capsule distance and shear wave characteristics were monitored during the entire exam to assure data quality. Median liver stiffness measurement and interquartile range were calculated and displayed in real time. Acquired measurement data was submitted to the provider/physician for review and interpretation. Patient tolerated the procedure well and was discharged without incident. Results: Number of Valid Measurements: 10 Liver Stiffness: FibroScan Value (median, kPa): 7.7 FibroScan IQR/Median %: 6% Liver Steatosis: Controlled Attenuation Parameter CAP Score: 227 CAP Level %: SD 16 Reference Range FibroScan Reference Range F0-F1 (kPa) F2 (kPa) F3 (kPa) F4 (kPa) <8.0 8.0-10.9 11.0-14.9 >15.0 FibroScan study requires interpretation by an experienced provider in conjunction with other pertinent data (e.g., physical examination, lab results, imaging, alcohol use etc.) to assess the likelihood of advanced hepatic fibrosis. FibroScan is best used to rule out advanced fibrosis. While kPa <8 indicates a low likelihood of advanced fibrosis, a higher kPa is less predictive of a specific fibrosis stage (i.e., F2 vs. F3 vs. F4). /dominick/ BRENNON LONG LPN LICENSED PRACTICAL NURSE Signed: 01/27/2024 11:14 01/29/2024 ADDENDUM STATUS: COMPLETED This liver stiffness measurement rules out cACLD (compensated advanced chronic liver disease, the noninvasive term for advanced liver fibrosis/cirrhosis). Shear wave images are optimal and variability is low, making this a reliable masurement. CAP value indicates the presence of minimal liver steatosis. Clinically, the aminotrasnferes are wnl, though AST > ALT. Liver synthetic function is normal (Albumin 4.0, INR 1.0; No liver nodularity or splenomegaly on Abdominal US noted, platelet count is chronically low (< 150) since 2010. I do not think this patient has advanced liver fibrosis/cirrhosis but he is at some risk of developing advanced fibrosis/cirrhosis in the future. recommend repeating a fibroscan in 4-5 years Above interpretation to be finalized by Dr Lopes. /dominick/ Thee Campbell Nurse Practitioner, Hepatology/GI Signed: 01/29/2024 13:44 Receipt Acknowledged By: 02/03/2024 12:26 /silas LOPES MD ATTENDING 02/03/2024 ADDENDUM STATUS: COMPLETED Called , unable to reach, Detailed HIPAA complaint VM placed with call back number if any further questions. [phone] He can continue following with PCP and does not need further follow up with Liver at this time. He will benefit from getting a CT-Liver protocol in a year to f/u on the benign hepatic cysts and hemangiomas. Please let me know if I should order them or you are able to Dr. Deleon Thank you /silas Campbell Nurse Practitioner, Hepatology/GI Signed: 02/03/2024 14:04 Receipt Acknowledged By: * AWAITING SIGNATURE * LESVIA DELEON [facility] [place] [facility] Jan 29, 2024 12:43 PM ADDENDUM: LOCAL TITLE: Addendum STANDARD TITLE: ADDENDUM DATE OF NOTE: JAN 29, 2024@12:43:49 ENTRY DATE: JAN 29, 2024@12:43:50 AUTHOR: THEE CAMPBELL EXP COSIGNER: URGENCY: STATUS: COMPLETED This liver stiffness measurement rules out cACLD (compensated advanced chronic liver disease, the noninvasive term for advanced liver fibrosis/cirrhosis). Shear wave images are optimal and variability is low, making this a reliable masurement. CAP value indicates the presence of minimal liver steatosis. Clinically, the aminotrasnferes are wnl, though AST > ALT. Liver synthetic function is normal (Albumin 4.0, INR 1.0; No liver nodularity or splenomegaly on Abdominal US noted, platelet count is chronically low (< 150) since 2010. I do not think this patient has advanced liver fibrosis/cirrhosis but he is at some risk of developing advanced fibrosis/cirrhosis in the future. recommend repeating a fibroscan in 4-5 years Above interpretation to be finalized by Dr Lopes. 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 does not drink If within one month,how many drinks on that day? 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 Patient was briefly assessed, identifying the terminus of the xyphoid process, and locating an ideal transient elastography testing site, mid-line and lateral to this point. Patient was allowed to rest for approximately 5 minutes prior to beginning the test. Patient was instructed to breathe normally and remain stationary during the test process. Pre-measurement data confirmed the transient elastography probe was centered over the liver parenchyma. A series of ten 50Hz mechanical pulses were applied with controlled application pressure to induce mechanical shear wave in the liver tissue. For each measurement, the shear wave propagation speed was detected, displayed, and converted to its equivalent liver stiffness value in kilopascals. Skin to liver capsule distance and shear wave characteristics were monitored during the entire exam to assure data quality. Median liver stiffness measurement and interquartile range were calculated and displayed in real time. Acquired measurement data was submitted to the provider/physician for review and interpretation. Patient tolerated the procedure well and was discharged without incident. Results: Number of Valid Measurements: 10 Liver Stiffness: FibroScan Value (median, kPa): 7.7 FibroScan IQR/Median %: 6% Liver Steatosis: Controlled Attenuation Parameter CAP Score: 227 CAP Level %: SD 16 Reference Range FibroScan Reference Range F0-F1 (kPa) F2 (kPa) F3 (kPa) F4 (kPa) <8.0 8.0-10.9 11.0-14.9 >15.0 FibroScan study requires interpretation by an experienced provider in conjunction with other pertinent data (e.g., physical examination, lab results, imaging, alcohol use etc.) to assess the likelihood of advanced hepatic fibrosis. FibroScan is best used to rule out advanced fibrosis. While kPa <8 indicates a low likelihood of advanced fibrosis, a higher kPa is less predictive of a specific fibrosis stage (i.e., F2 vs. F3 vs. F4). /dominick/ BRENNON LONG LPN LICENSED PRACTICAL NURSE Signed: 01/27/2024 11:14 02/03/2024 ADDENDUM STATUS: UNSIGNED You may not VIEW this UNSIGNED Addendum. 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 does not drink If within one month,how many drinks on that day? 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 Patient was briefly assessed, identifying the terminus of the xyphoid process, and locating an ideal transient elastography testing site, mid-line and lateral to this point. Patient was allowed to rest for approximately 5 minutes prior to beginning the test. Patient was instructed to breathe normally and remain stationary during the test process. Pre-measurement data confirmed the transient elastography probe was centered over the liver parenchyma. A series of ten 50Hz mechanical pulses were applied with controlled application pressure to induce mechanical shear wave in the liver tissue. For each measurement, the shear wave propagation speed was detected, displayed, and converted to its equivalent liver stiffness value in kilopascals. Skin to liver capsule distance and shear wave characteristics were monitored during the entire exam to assure data quality. Median liver stiffness measurement and interquartile range were calculated and displayed in real time. Acquired measurement data was submitted to the provider/physician for review and interpretation. Patient tolerated the procedure well and was discharged without incident. Results: Number of Valid Measurements: 10 Liver Stiffness: FibroScan Value (median, kPa): 7.7 FibroScan IQR/Median %: 6% Liver Steatosis: Controlled Attenuation Parameter CAP Score: 227 CAP Level %: SD 16 Reference Range FibroScan Reference Range F0-F1 (kPa) F2 (kPa) F3 (kPa) F4 (kPa) <8.0 8.0-10.9 11.0-14.9 >15.0 FibroScan study requires interpretation by an experienced provider in conjunction with other pertinent data (e.g., physical examination, lab results, imaging, alcohol use etc.) to assess the likelihood of advanced hepatic fibrosis. FibroScan is best used to rule out advanced fibrosis. While kPa <8 indicates a low likelihood of advanced fibrosis, a higher kPa is less predictive of a specific fibrosis stage (i.e., F2 vs. F3 vs. F4). /dominick/ BRENNON LONG LPN LICENSED PRACTICAL NURSE Signed: 01/27/2024 11:14 01/29/2024 ADDENDUM STATUS: COMPLETED This liver stiffness measurement rules out cACLD (compensated advanced chronic liver disease, the noninvasive term for advanced liver fibrosis/cirrhosis). Shear wave images are optimal and variability is low, making this a reliable masurement. CAP value indicates the presence of minimal liver steatosis. Clinically, the aminotrasnferes are wnl, though AST > ALT. Liver synthetic function is normal (Albumin 4.0, INR 1.0; No liver nodularity or splenomegaly on Abdominal US noted, platelet count is chronically low (< 150) since 2010. I do not think this patient has advanced liver fibrosis/cirrhosis but he is at some risk of developing advanced fibrosis/cirrhosis in the future. recommend repeating a fibroscan in 4-5 years Above interpretation to be finalized by Dr Lopes. /silas Campbell Nurse Practitioner, Hepatology/GI Signed: 01/29/2024 13:44 Receipt Acknowledged By: 02/03/2024 12:26 /silas LOPES MD ATTENDING 02/03/2024 ADDENDUM STATUS: COMPLETED The patient is known to have multiple hepatic cysts and hepatic hemangiomas at least since 2013. He was referred for Fibroscan because of an abnormal liver ultrasound in 11/2023 that actually showed no interval change in cysts/hemangiomas. The presence of liver hemangiomas and cysts will confound liver stiffness measurements and deem the measurement uninterpretable. Fibroscan is therefore not recommended in these patients. The patient seems to have no parenchymal liver disease as liver enzymes and liver function have always been normal. /dominick/ HEVER LOPES MD ATTENDING Signed: 02/03/2024 12:47 Receipt Acknowledged By: 02/03/2024 14:04 /dominick/ Thee Campbell Nurse Practitioner, Hepatology/GI 02/03/2024 ADDENDUM STATUS: COMPLETED Called , unable to reach, Detailed HIPAA complaint VM placed with call back number if any further questions. [phone] He can continue following with PCP and does not need further follow up with Liver at this time. He will benefit from getting a CT-Liver protocol in a year to f/u on the benign hepatic cysts and hemangiomas. Please let me know if I should order them or you are able to Dr. Deleon Thank you /silas Campbell Nurse Practitioner, Hepatology/GI Signed: 02/03/2024 14:04 Receipt Acknowledged By: 02/03/2024 16:22 /dominick/ LESVIA DELEON D.O. PHYSICIAN 02/03/2024 ADDENDUM STATUS: COMPLETED i can continue to monitor /silas DELEON D.O. PHYSICIAN Signed: 02/03/2024 16:23 Receipt Acknowledged By: * AWAITING SIGNATURE * THEE CAMPBELL [facility] [place] [facility] Jan 27, 2024 11:00 AM HEPATOLOGY PROCEDURE NOTE: LOCAL TITLE: CP FIBROSCAN STANDARD TITLE: HEPATOLOGY PROCEDURE NOTE DATE OF NOTE: JAN 27, 2024@11:00 ENTRY DATE: JAN 27, 2024@11:00 AUTHOR: CLINICAL,DEVICE PRO EXP COSIGNER: URGENCY: STATUS: COMPLETED PROCEDURE SUMMARY CODE: Machine Resulted DATE/TIME PERFORMED: JAN 27, 2024@11:04:0 DOCUMENT IN VISTA IMAGING SEE FULL REPORT IN VISTA IMAGING SIGNATURE NOT REQUIRED SEE SIGNATURE IN VISTA IMAGING (FIBROSCAN ECHOSENS (Bi-Dir)) AUTO-INSTRUMENT DIAGNOSIS Procedure: FIBRO fibro Release Status: Released Off-Line Verified Date Verified: Jan 27, 2024@11:04:06 CAP: 227 dB/m kPa: 7.7 kPa IQR/MED: 6% Administrative Closure: 01/27/2024 by: Clinical,Device Proxy Service CLINICAL,DEVICE PROXY SERVICE [facility]
[2024-07-08 09:02] LABS: Influenza A PCR NEGATIVE (Negative); Influenza B PCR NEGATIVE (Negative); Resp Syncy Virus RNA Qual PCR NEGATIVE (Negative); SARS COV2 PCR INHOUSE NEGATIVE (Negative)
[2024-07-08 09:52] VITALS: BP 150/68; PULSE 58; RESP 16; TEMP 36.1; O2SAT 98
== END 2024-07-08 09:53 | disposition home or self-care (01) ==
PROVIDERS: Emergency Provider Emergency Medicine
DX: B34.9 Viral infection, unspecified (principal); R50.9 Fever, unspecified; R00.1 Bradycardia, unspecified; Z03.818 Encounter for observation for suspected exposure to other biological agents ruled out; Z79.899 Other long term (current) drug therapy
CPT/HCPCS: 0241U; 87651; 93005; 99282; 99283